=== PATIENT | female | born 1945 | race Caucasian/White ===

== ENCOUNTER 2020-09-19 07:58 | Outpatient (REF) | payer MEDICARE, SELFPAY | END 2020-09-19 07:59 | disposition home or self-care (01) | LOC: HO.MDS 07:58 | PROVIDERS: PCP Internal Medicine; Visit Provider Hospitalist | DX: D80.1 Nonfamilial hypogammaglobulinemia (principal) | CPT/HCPCS: 96372; J1572; J2920; J2930; Q0163 ==

== ENCOUNTER → 2020-09-25 15:18 | Outpatient (BNVA) | payer MEDICARE, SELFPAY | PROVIDERS: Visit Provider Hospitalist | DX: M30.1 Polyarteritis with lung involvement [Churg-Strauss] (principal); D72.18 Eosinophilia in diseases classified elsewhere; D80.1 Nonfamilial hypogammaglobulinemia; R21 Rash and other nonspecific skin eruption; J47.9 Bronchiectasis, uncomplicated; J44.9 Chronic obstructive pulmonary disease, unspecified | CPT/HCPCS: 99205; 99212 ==

== ENCOUNTER → 2020-10-31 10:52 | Outpatient (BNVA) | payer MEDICARE, SELFPAY | PROVIDERS: PCP Internal Medicine; Referring Provider Internal Medicine; Visit Provider Hospitalist | DX: J47.9 Bronchiectasis, uncomplicated (principal); R21 Rash and other nonspecific skin eruption; D80.1 Nonfamilial hypogammaglobulinemia; M30.1 Polyarteritis with lung involvement [Churg-Strauss] | CPT/HCPCS: 99212 ==

== ENCOUNTER → 2020-11-27 10:06 | Outpatient (BNVA) | payer MEDICARE, SELFPAY | PROVIDERS: PCP Internal Medicine; Visit Provider Hospitalist | DX: Z76.89 Persons encountering health services in other specified circumstances (principal) | CPT/HCPCS: Q3014 ==

== ENCOUNTER 2020-11-30 08:49 | Outpatient (REF) | payer MEDICARE, SELFPAY | END 2020-11-30 08:50 | disposition home or self-care (01) | LOC: HO.MDS 08:49 | PROVIDERS: Visit Provider Hospitalist | DX: D80.1 Nonfamilial hypogammaglobulinemia (principal) | CPT/HCPCS: 96365; 96366; 96375; J1569; J2930; Q0163 ==

== ENCOUNTER → 2020-12-19 14:36 | Outpatient (BNVA) | payer MEDICARE, SELFPAY | PROVIDERS: PCP Internal Medicine; Visit Provider Hospitalist | DX: D80.1 Nonfamilial hypogammaglobulinemia (principal); D72.18 Eosinophilia in diseases classified elsewhere; M30.1 Polyarteritis with lung involvement [Churg-Strauss] | CPT/HCPCS: 99212 ==

== ENCOUNTER 2020-12-28 08:46 | Outpatient (REF) | payer MEDICARE, SELFPAY | END 2020-12-28 08:47 | disposition home or self-care (01) | LOC: HO.MDS 08:46 | PROVIDERS: PCP Internal Medicine; Visit Provider Hospitalist | DX: D80.1 Nonfamilial hypogammaglobulinemia (principal) | CPT/HCPCS: 96360; 96365; 96366; 96375; J1569; J2920; Q0163 ==

== ENCOUNTER 2021-01-26 08:53 | Outpatient (REF) | payer MEDICARE, SELFPAY | END 2021-01-26 08:54 | disposition home or self-care (01) | LOC: HO.MDS 08:53 | PROVIDERS: PCP Internal Medicine; Visit Provider Hospitalist | DX: D80.1 Nonfamilial hypogammaglobulinemia (principal) | CPT/HCPCS: 96365; 96366; 96375; 96413; 96415; J1569; J2930; Q0163 ==

== ENCOUNTER 2021-02-01 14:05 | Outpatient (REF) | payer MEDICARE, SELFPAY | END 2021-02-01 14:06 | disposition home or self-care (01) | LOC: HO.LNP 14:05 | PROVIDERS: PCP Internal Medicine; Visit Provider Hospitalist | DX: J44.9 Chronic obstructive pulmonary disease, unspecified (principal); J47.0 Bronchiectasis with acute lower respiratory infection; M30.1 Polyarteritis with lung involvement [Churg-Strauss]; D72.18 Eosinophilia in diseases classified elsewhere; D80.1 Nonfamilial hypogammaglobulinemia; Z79.52 Long term (current) use of systemic steroids | CPT/HCPCS: 87070; 87205; 99212 ==

== ENCOUNTER 2021-02-28 10:19 | Day surgery (SDC) | payer MEDICARE, SELFPAY ==
--- NOTE | 2021-02-27 10:21 | P.CONAN_ITS ---
Documented by User: Melisa Kaylah 02/27/21 10:26 HPI - Anesthesia Eval Consult details Narrative: 75yo F for Bronchoscopy Fiberoptic Prednisone daily PMFSH Active Problems Active Problems: All Active Problems (Updated 02/01/21 @ 22:38 by Marquis Morel MD) COPD (chronic obstructive pulmonary disease) (Acute) Bronchiectasis (Acute) Rash (Acute) Hypogammaglobulinemia (Acute) CSS (Churg-James syndrome) (Acute) Past Medical History Medical History (Updated 02/28/21 @ 12:21 by Julisa Guerra) Bronchiectasis COPD (chronic obstructive pulmonary disease) CSS (Churg-James syndrome) Hypogammaglobulinemia Rash Status post administration of all doses of COVID-19 vaccine series Social History Social History (Updated 09/25/20 @ 15:29 by Samreen Walton MA) Smoking Status: Never smoker Use of substances other than those prescribed or required for medical reasons: No Have you been hit, kicked, punched, or otherwise hurt by someone within the past year? If so, by whom?: No Advance Directives: No Advance Directives Information Provided: Yes Advance Directives Date on File: 09/19/20 Meds Allergies Allergy/AdvReac Type Severity Reaction Status Date / Time Benzodiazepines Allergy Intermediate ANXIETY Verified 02/28/21 10:26 [BENZODIAZEPINES] levofloxacin [From LEVAQUIN] Allergy Intermediate PAIN IN Verified 02/28/21 10: 26 LEGS AND JOINTS clonazepam Allergy Mild Hallucinati Verified 02/28/21 10:26 ons lorazepam Allergy Mild Hallucinati Verified 02/28/21 10:26 ons olanzapine [Zyprexa] Allergy Mild Cough Verified 02/28/21 10:26 Penicillins [PENICILLINS] Allergy Mild Hives Verified 02/28/21 10:26 Sulfa (Sulfonamide Allergy Mild Sensivity Verified 02/28/21 10:26 Antibiotics) [SULFA (SULFONAMIDE ANTIBIOTICS)] MSG Allergy Mild Upset Uncoded 02/28/21 10:26 stomach Home Medications Medication Instructions Recorded Confirmed Last Taken Type albuterol sulfate mg INHALATION Q6H PRN 09/25/20 02/01/21 Unknown History allopurinol 100 mg tablet mg PO 09/25/20 02/01/21 Unknown History amlodipine 5 mg tablet 7.5 mg PO DAILY 09/25/20 02/01/21 Unknown History carvedilol 12.5 mg tablet 6.25 mg PO BID 09/25/20 02/01/21 Unknown History pantoprazole 40 mg tablet,delayed 40 mg PO DAILY 09/25/20 02/01/21 Unknown History release prednisone 5 mg tablet 15 mg PO DAILY 09/25/20 02/01/21 Unknown History nystatin 100,000 unit/mL oral 5 ml PO QID 02/01/21 02/01/21 Unknown History suspension Exam Exam Date and Time: February 27, 2021 1021 Pertinent Lab Results Pertinent Lab Results: Laboratory Tests 06/03/20 06/03/20 16:20 16:20 WBC 7.8 Hgb 9.2 L Hct 28.8 L Plt Count 166 D Sodium 136 Potassium 3.6 D Chloride 104 BUN 28 H Creatinine 1.37 Narrative Narrative: EKG 05/2020 NSR @ 63 Assessment and Plan Assessment Anesthesia Assessment: Chart Reviewed Documented by User: Julisa Guerra 02/28/21 12:22 [facility] Past Medical History Medical History (Updated 02/28/21 @ 12:21 by Julisa Guerra) Bronchiectasis COPD (chronic obstructive pulmonary disease) CSS (Churg-James syndrome) Hypogammaglobulinemia Rash Status post administration of all doses of COVID-19 vaccine series Family History Family history of problems with anesthesia: No Surgical History History of Problems with Anesthesia: No Social History Social History (Updated 09/25/20 @ 15:29 by Samreen Walton MA) Smoking Status: Never smoker Use of substances other than those prescribed or required for medical reasons: No Have you been hit, kicked, punched, or otherwise hurt by someone within the past year? If so, by whom?: No Advance Directives: No Advance Directives Information Provided: Yes Advance Directives Date on File: 09/19/20 Meds Allergies Allergy/AdvReac Type Severity Reaction Status Date / Time Benzodiazepines Allergy Intermediate ANXIETY Verified 02/28/21 10:26 [BENZODIAZEPINES] levofloxacin [From LEVAQUIN] Allergy Intermediate PAIN IN Verified 02/28/21 10:26 LEGS AND JOINTS clonazepam Allergy Mild Hallucinati Verified 02/28/21 10:26 ons lorazepam Allergy Mild Hallucinati Verified 02/28/21 10:26 ons olanzapine [Zyprexa] Allergy Mild Cough Verified 02/28/21 10:26 Penicillins [PENICILLINS] Allergy Mild Hives Verified 02/28/21 10:26 Sulfa (Sulfonamide Allergy Mild Sensivity Verified 02/28/21 10:26 Antibiotics) [SULFA (SULFONAMIDE ANTIBIOTICS)] MSG Allergy Mild Upset Uncoded 02/28/21 10:26 stomach Home Medications Medication Instructions Recorded Confirmed Last Taken Type albuterol sulfate mg INHALATION Q6H PRN 09/25/20 02/01/21 Unknown History allopurinol 100 mg tablet mg PO 09/25/20 02/01/21 Unknown History amlodipine 5 mg tablet 7.5 mg PO DAILY 09/25/20 02/01/21 Unknown History carvedilol 12.5 mg tablet 6.25 mg PO BID 09/25/20 02/01/21 Unknown History pantoprazole 40 mg tablet,delayed 40 mg PO DAILY 09/25/20 02/01/21 Unknown History release prednisone 5 mg tablet 15 mg PO DAILY 09/25/20 02/01/21 Unknown History nystatin 100,000 unit/mL oral 5 ml PO QID 02/01/21 02/01/21 Unknown History suspension Exam Height,Weight and Vital Signs: Vital Signs Temp Pulse Resp BP Pulse Ox 02/28/21 10:59 96.9 F 91 20 136/74 97 Airway Mallampati Class: II TM Dist: >3cm Neck ROM: Full Heart: RRR Lungs: Clear ? diminished left Assessment and Plan Assessment Anesthesia Assessment: Anesthesia Plan Discussed and Chart Reviewed Final Anesthetic Review NPO: Yes ASA Class: III Final Preanesthetic Review: No Changes in Pt Med Stat, Meds/Allgs Chart Reviewed, Consent Obtained/Reviewed and Anes Risks/Benef Reviewed Patient Risk: Intermediate Procedure Risk: Low Assessment/Block/Sedation in SS: Assess/Block/Sedation-SS Anesthetic Plan Anesthetic Plan: GA Disposition: Standard PACU
[2021-02-27 11:55] VITALS: BMI 32.7
[2021-02-28] VITALS (8 sets, daily range): BP systolic 89–136; BP diastolic 41–74; PULSE 69–91; RESP 12–20; TEMP 36.1–36.5; O2SAT 96–100
[2021-02-28] MEDS: Lactated Ringers 1,000 ML 100 ML IVCONT (11:00)
--- NOTE | 2021-02-28 11:46 | MHC.SHP ---
Pre-Procedural Eval Section B Chief Complaint: Bronchiectasis Allergies: Allergies Allergy/AdvReac Type Severity Reaction Status Date / Time Benzodiazepines Allergy Intermediate ANXIETY Verified 02/28/21 10:26 [BENZODIAZEPINES] levofloxacin [From LEVAQUIN] Allergy Intermediate PAIN IN Verified 02/28/21 10:26 LEGS AND JOINTS clonazepam Allergy Mild Hallucinati Verified 02/28/21 10:26 ons lorazepam Allergy Mild Hallucinati Verified 02/28/21 10:26 ons olanzapine [Zyprexa] Allergy Mild Cough Verified 02/28/21 10:26 Penicillins [PENICILLINS] Allergy Mild Hives Verified 02/28/21 10:26 Sulfa (Sulfonamide Allergy Mild Sensivity Verified 02/28/21 10:26 Antibiotics) [SULFA (SULFONAMIDE ANTIBIOTICS)] MSG Allergy Mild Upset Uncoded 02/28/21 10:26 stomach Plan I have reviewed the history and physical and performed a pertinent physical examination on my patient. No changes have occurred unless specified.
--- NOTE | 2021-02-28 12:31 | PM.OP ---
Brief Operative Note Date of Service: 02/28/21 Pre-op diagnosis: bronchiectasis Post-op diagnosis: other (pneumonia, TBM) Procedure: Bronchoscopy with washings and brushings Surgeon: Marquis Morel MD Anesthesia: GLMA Estimated blood loss (mL): 0 Pathology: none sent Condition: stable Disposition: same day
--- NOTE | 2021-03-01 00:05 | OP_ITS ---
SURGEON: Marquis Morel MD PREOPERATIVE DIAGNOSIS: Bronchiectasis. POSTOPERATIVE DIAGNOSIS: PROCEDURE PERFORMED: Bronchoscopy with brushings and washings. ESTIMATED BLOOD LOSS: COMPLICATIONS: ANESTHESIA: The patient had LMA. ASSISTANTS: SPECIMENS: POSTOPERATIVE DIAGNOSES: Right upper lobe pneumonia and severe tracheobronchomalacia bronchiectasis. DESCRIPTION OF PROCEDURE: After the patient was adequately sedated the flexible digital bronchoscope was inserted via the LMA to the level of the vocal cords. The vocal cords did move symmetrically to the midline without any lesions or masses. After instilling additional lidocaine, the bronchoscope was then passed through vocal cords to the level of the trachea. Tracheal mucosa demonstrated some erythema. Also, had moderate amount of purulent secretions and it was also pretty around mid to distal part of the trachea, there was significant that could not be appreciated the first time because she was intubated. After instilling additional lidocaine, the bronchoscope was then navigated to the entire tracheobronchial tree. The patient did not have any endobronchial lesions or masses. She did have friable mucosa and had severe amount of purulent secretions from the right upper lobe and some less amount of purulent secretions throughout the airways. The bronchoscope again navigated to the right upper lobe, where a microscopic brush was introduced for microbiology specimens. Then, using saline, therapeutic suctioning was provided throughout the airways, especially in the right upper lobe. The washings were collected primarily from the right side to sent it to microbiology. There was a successful therapeutic cleaning of airways. No evidence of any bleeding or any aspiration, foreign bodies or endobronchial lesions. The bronchoscope was then removed. The total endoscopic time approximately 10 minutes. The patient tolerated the procedure well. Vital signs were stable throughout the procedure. The patient will go to the PACU to recover. INTERPRETATION: 1. Successful therapeutic cleaning of the airways. 2. Microscopic brush to the right upper lobe. 3. Bronchial washings from the right lung. MD CATHY Mary/DENIS / [id number]
== END 2021-02-28 14:15 | disposition home or self-care (01) ==
PROVIDERS: PCP Internal Medicine; Visit Provider Hospitalist
PROC: 0BJ08ZZ Inspection of Tracheobronchial Tree, Via Natural or Artificial Opening Endoscopic (ICD-10-PCS; CPT 31622; principal; 2021-02-28 12:00)
DX: J47.0 Bronchiectasis with acute lower respiratory infection (principal); M30.1 Polyarteritis with lung involvement [Churg-Strauss]; J41.1 Mucopurulent chronic bronchitis; J45.909 Unspecified asthma, uncomplicated; D72.18 Eosinophilia in diseases classified elsewhere; R21 Rash and other nonspecific skin eruption; Z79.52 Long term (current) use of systemic steroids; Z79.899 Other long term (current) drug therapy; Z88.0 Allergy status to penicillin; Z88.2 Allergy status to sulfonamides; Z88.8 Allergy status to other drugs, medicaments and biological substances; J18.9 Pneumonia, unspecified organism
CPT/HCPCS: 31623; 87071; 87102; 87106; 87116; 87205; J0171; J1100; J2250; J3010

== ENCOUNTER 2021-03-08 08:52 | Outpatient (REF) | payer MEDICARE, SELFPAY | END 2021-03-08 08:53 | disposition home or self-care (01) | LOC: HO.MDS 08:52 | PROVIDERS: PCP Internal Medicine; Visit Provider Hospitalist | DX: D80.1 Nonfamilial hypogammaglobulinemia (principal) | CPT/HCPCS: 96360; 96365; 96366; 96375; J1569; J2930; Q0163 ==

== ENCOUNTER → 2021-03-12 13:05 | Outpatient (BNVA) | payer MEDICARE, SELFPAY | PROVIDERS: PCP Internal Medicine; Visit Provider Hospitalist | DX: J41.1 Mucopurulent chronic bronchitis (principal); J47.0 Bronchiectasis with acute lower respiratory infection; R21 Rash and other nonspecific skin eruption; D80.1 Nonfamilial hypogammaglobulinemia; M30.1 Polyarteritis with lung involvement [Churg-Strauss]; D72.18 Eosinophilia in diseases classified elsewhere; K11.20 Sialoadenitis, unspecified | CPT/HCPCS: 99212 ==

== ENCOUNTER 2021-04-10 08:49 | Outpatient (REF) | payer MEDICARE, SELFPAY | END 2021-04-10 08:50 | disposition home or self-care (01) | LOC: HO.MDS 08:49 | PROVIDERS: PCP Internal Medicine; Visit Provider Hospitalist | DX: D80.1 Nonfamilial hypogammaglobulinemia (principal) | CPT/HCPCS: 96365; 96366; 96375; J1569; J2930; Q0163 ==

== ENCOUNTER → 2021-04-13 13:08 | Outpatient (BNVA) | payer MEDICARE, SELFPAY | PROVIDERS: PCP Internal Medicine; Visit Provider Hospitalist | DX: M30.1 Polyarteritis with lung involvement [Churg-Strauss] (principal); D72.18 Eosinophilia in diseases classified elsewhere; D80.1 Nonfamilial hypogammaglobulinemia; J47.0 Bronchiectasis with acute lower respiratory infection; J41.1 Mucopurulent chronic bronchitis | CPT/HCPCS: 99212 ==

== ENCOUNTER 2021-06-08 08:57 | Outpatient (REF) | payer MEDICARE, SELFPAY | END 2021-06-08 08:58 | disposition home or self-care (01) | LOC: HO.MDS 08:57 | PROVIDERS: PCP Internal Medicine; Visit Provider Hospitalist | DX: D80.1 Nonfamilial hypogammaglobulinemia (principal) | CPT/HCPCS: 96360; 96365; 96366; 96374; 96375; J1569; J2930; Q0163 ==

== ENCOUNTER → 2021-06-15 13:27 | Outpatient (BNVA) | payer MEDICARE, SELFPAY | PROVIDERS: PCP Internal Medicine; Visit Provider Hospitalist | DX: J44.1 Chronic obstructive pulmonary disease with (acute) exacerbation (principal); J47.0 Bronchiectasis with acute lower respiratory infection; R21 Rash and other nonspecific skin eruption; D80.1 Nonfamilial hypogammaglobulinemia; M30.1 Polyarteritis with lung involvement [Churg-Strauss]; D72.18 Eosinophilia in diseases classified elsewhere | CPT/HCPCS: 99212 ==

== ENCOUNTER 2021-07-25 14:22 | Outpatient (REF) | payer MEDICARE, SELFPAY ==
[2021-07-27 14:07] LABS: Immunoglobulin G Subclass 1 365 mg/dL (382-929); Immunoglobulin G Subclass 2 182 mg/dL (241-700); Immunoglobulin G Subclass 3 25 mg/dL (22-178); Immunoglobulin G Subclass 4 9.3 mg/dL (4-86); Immunoglobulin G Total 612 mg/dL (600-1540)
== END 2021-07-25 14:23 | disposition home or self-care (01) ==
LOC: HO.LAB 14:22
PROVIDERS: PCP Internal Medicine; Visit Provider Hospitalist
DX: D80.1 Nonfamilial hypogammaglobulinemia (principal)
CPT/HCPCS: 36415; 82784

== ENCOUNTER → 2021-08-14 15:22 | Outpatient (BNVA) | payer MEDICARE, SELFPAY | PROVIDERS: PCP Internal Medicine; Visit Provider Hospitalist | DX: J41.1 Mucopurulent chronic bronchitis (principal); J47.0 Bronchiectasis with acute lower respiratory infection; D80.1 Nonfamilial hypogammaglobulinemia; D72.18 Eosinophilia in diseases classified elsewhere; M30.1 Polyarteritis with lung involvement [Churg-Strauss] | CPT/HCPCS: 99212 ==

== ENCOUNTER 2021-09-04 08:58 | Outpatient (REF) | payer MEDICARE, SELFPAY | END 2021-09-04 08:59 | disposition home or self-care (01) | LOC: HO.MDS 08:58 | PROVIDERS: PCP Internal Medicine; Visit Provider Hospitalist | DX: D80.1 Nonfamilial hypogammaglobulinemia (principal) | CPT/HCPCS: 96360; 96365; 96366; 96375; J1569; J2930; Q0163 ==

== ENCOUNTER → 2021-09-14 14:09 | Outpatient (BNVA) | payer MEDICARE, SELFPAY | PROVIDERS: PCP Internal Medicine; Visit Provider Hospitalist | DX: J41.1 Mucopurulent chronic bronchitis (principal); J47.0 Bronchiectasis with acute lower respiratory infection; D80.1 Nonfamilial hypogammaglobulinemia; M30.1 Polyarteritis with lung involvement [Churg-Strauss]; D72.18 Eosinophilia in diseases classified elsewhere | CPT/HCPCS: 99202 ==

== ENCOUNTER 2021-10-11 09:09 | Outpatient (REF) | payer MEDICARE, SELFPAY | END 2021-10-11 09:10 | disposition home or self-care (01) | LOC: HO.MDS 09:09 | PROVIDERS: PCP Internal Medicine; Visit Provider Hospitalist | DX: D80.1 Nonfamilial hypogammaglobulinemia (principal) | CPT/HCPCS: 96365; 96366; J1569; Q0163 ==

== ENCOUNTER → 2021-11-09 13:52 | Outpatient (BNVA) | payer MEDICARE, SELFPAY | PROVIDERS: PCP Internal Medicine; Visit Provider Hospitalist | DX: J41.1 Mucopurulent chronic bronchitis (principal); M30.1 Polyarteritis with lung involvement [Churg-Strauss]; J47.0 Bronchiectasis with acute lower respiratory infection; D80.1 Nonfamilial hypogammaglobulinemia; D72.18 Eosinophilia in diseases classified elsewhere | CPT/HCPCS: 99212 ==

== ENCOUNTER 2021-11-16 08:59 | Outpatient (REF) | payer MEDICARE, SELFPAY | END 2021-11-16 09:00 | disposition home or self-care (01) | LOC: HO.MDS 08:59 | PROVIDERS: PCP Internal Medicine; Visit Provider Hospitalist | DX: D80.1 Nonfamilial hypogammaglobulinemia (principal) | CPT/HCPCS: 96360; 96365; 96366; 96375; J1569; J2930; Q0163 ==

== ENCOUNTER 2021-12-19 09:27 | Outpatient (REF) | payer MEDICARE, SELFPAY | END 2021-12-19 09:28 | disposition home or self-care (01) | LOC: HO.MDS 09:27 | PROVIDERS: PCP Internal Medicine; Visit Provider Hospitalist | DX: D80.1 Nonfamilial hypogammaglobulinemia (principal) | CPT/HCPCS: 96365; 96366; J1569; J2930; Q0163 ==

== ENCOUNTER 2022-01-25 08:58 | Outpatient (REF) | payer MEDICARE, SELFPAY | END 2022-01-25 08:59 | disposition home or self-care (01) | LOC: HO.MDS 08:58 | PROVIDERS: PCP Internal Medicine; Visit Provider Hospitalist | DX: D80.1 Nonfamilial hypogammaglobulinemia (principal) | CPT/HCPCS: 96361; 96365; 96366; 96375; J1569; J2930; Q0163 ==

== ENCOUNTER → 2022-02-08 14:21 | Outpatient (BNVA) | payer MEDICARE, SELFPAY | PROVIDERS: PCP Internal Medicine; Visit Provider Hospitalist | DX: J41.1 Mucopurulent chronic bronchitis (principal); J47.0 Bronchiectasis with acute lower respiratory infection; D80.1 Nonfamilial hypogammaglobulinemia; D72.18 Eosinophilia in diseases classified elsewhere; M30.1 Polyarteritis with lung involvement [Churg-Strauss] | CPT/HCPCS: 99212 ==

== ENCOUNTER 2022-02-27 09:00 | Outpatient (REF) | payer MEDICARE, SELFPAY | END 2022-02-27 09:01 | disposition home or self-care (01) | LOC: HO.MDS 09:00 | PROVIDERS: PCP Internal Medicine; Visit Provider Hospitalist | DX: D80.1 Nonfamilial hypogammaglobulinemia (principal) | CPT/HCPCS: 96360; 96365; 96366; 96375; J1569; J2930; Q0163 ==

== ENCOUNTER 2022-03-22 14:18 | Outpatient (REF) | payer MEDICARE, SELFPAY | END 2022-03-22 14:19 | disposition home or self-care (01) | LOC: HO.LNP 14:18 | PROVIDERS: Visit Provider Internal Medicine Pulmonary Disease | DX: J47.0 Bronchiectasis with acute lower respiratory infection (principal) | CPT/HCPCS: 87070; 87205 ==

== ENCOUNTER → 2022-03-28 14:17 | Outpatient (BNVA) | payer MEDICARE, SELFPAY | PROVIDERS: PCP Internal Medicine; Visit Provider Hospitalist | DX: J41.1 Mucopurulent chronic bronchitis (principal); J47.0 Bronchiectasis with acute lower respiratory infection; D80.1 Nonfamilial hypogammaglobulinemia; M30.1 Polyarteritis with lung involvement [Churg-Strauss]; D72.18 Eosinophilia in diseases classified elsewhere | CPT/HCPCS: 99212 ==

== ENCOUNTER 2022-04-03 09:07 | Outpatient (REF) | payer MEDICARE, SELFPAY | END 2022-04-03 09:08 | disposition home or self-care (01) | LOC: HO.MDS 09:07 | PROVIDERS: PCP Internal Medicine; Visit Provider Hospitalist | DX: D80.1 Nonfamilial hypogammaglobulinemia (principal) | CPT/HCPCS: 96360; 96365; 96366; 96375; J1569; J2930; Q0163 ==

== ENCOUNTER 2022-04-10 12:01 | Outpatient (REF) | payer MEDICARE, SELFPAY | END 2022-04-10 12:02 | disposition home or self-care (01) | LOC: HO.LNP 12:01 | PROVIDERS: Visit Provider Hospitalist | DX: J47.0 Bronchiectasis with acute lower respiratory infection (principal) | CPT/HCPCS: 87070; 87205 ==

== ENCOUNTER 2022-04-12 15:14 | Outpatient (REF) | payer MEDICARE, SELFPAY | END 2022-04-12 15:15 | disposition home or self-care (01) | LOC: HO.LNP 15:14 | PROVIDERS: Visit Provider Hospitalist | DX: J41.1 Mucopurulent chronic bronchitis (principal) | CPT/HCPCS: 87070; 87077; 87185; 87205 ==

== ENCOUNTER 2022-05-08 08:59 | Outpatient (REF) | payer MEDICARE, SELFPAY | END 2022-05-08 09:00 | disposition home or self-care (01) | LOC: HO.MDS 08:59 | PROVIDERS: PCP Internal Medicine; Visit Provider Hospitalist | DX: D80.1 Nonfamilial hypogammaglobulinemia (principal) | CPT/HCPCS: 96365; 96366; 96375; J1569; J2930; Q0163 ==

== ENCOUNTER 2022-05-16 15:18 | Outpatient (REF) | payer MEDICARE, SELFPAY ==
[2022-05-18 04:47] LABS: Lyme Abs Screen <0.90 index
[2022-05-19 11:26] LABS: Antibody to SS-A Antigen <1.0 NEG AI (<1.0 NEG); Antibody to SS-B Antigen <1.0 NEG AI (<1.0 NEG)
[2022-05-20 15:06] LABS: Immunoglobulin G Subclass 1 714 mg/dL (382-929); Immunoglobulin G Subclass 2 448 mg/dL (241-700); Immunoglobulin G Subclass 3 52 mg/dL (22-178); Immunoglobulin G Total 1275 mg/dL (600-1540)
== END 2022-05-16 15:19 | disposition home or self-care (01) ==
LOC: HO.LAB 15:18
PROVIDERS: PCP Internal Medicine; Visit Provider Hospitalist
DX: D80.1 Nonfamilial hypogammaglobulinemia (principal); K11.20 Sialoadenitis, unspecified; M30.1 Polyarteritis with lung involvement [Churg-Strauss]; T14.8XXA Other injury of unspecified body region, initial encounter; J82.83 Eosinophilic asthma; J41.1 Mucopurulent chronic bronchitis; J47.0 Bronchiectasis with acute lower respiratory infection; J02.9 Acute pharyngitis, unspecified
CPT/HCPCS: 36415; 82784; 86235; 86617; 86618; 99212

== ENCOUNTER → 2022-06-17 14:53 | Outpatient (BNVA) | payer MEDICARE, SELFPAY | PROVIDERS: PCP Internal Medicine; Visit Provider Hospitalist | DX: J41.1 Mucopurulent chronic bronchitis (principal); J47.0 Bronchiectasis with acute lower respiratory infection; D80.1 Nonfamilial hypogammaglobulinemia; D72.18 Eosinophilia in diseases classified elsewhere; M30.1 Polyarteritis with lung involvement [Churg-Strauss] | CPT/HCPCS: 99212 ==

== ENCOUNTER 2022-07-16 12:42 | Outpatient (REF) | payer MEDICARE, SELFPAY ==
[2022-07-18 14:36] LABS: Immunoglobulin G Subclass 1 324 mg/dL (382-929); Immunoglobulin G Subclass 2 171 mg/dL (241-700); Immunoglobulin G Subclass 3 25 mg/dL (22-178); Immunoglobulin G Subclass 4 7.9 mg/dL (4-86); Immunoglobulin G Total 563 mg/dL (600-1540)
== END 2022-07-16 12:43 | disposition home or self-care (01) ==
LOC: HO.LAB 12:42
PROVIDERS: PCP Internal Medicine; Visit Provider Hospitalist
DX: D80.1 Nonfamilial hypogammaglobulinemia (principal)
CPT/HCPCS: 36415; 82784

== ENCOUNTER 2022-07-24 10:30 | Outpatient (REF) | payer MEDICARE, SELFPAY | END 2022-07-24 10:31 | disposition home or self-care (01) | LOC: HO.MDS 10:30 | PROVIDERS: Visit Provider Hospitalist | DX: D80.1 Nonfamilial hypogammaglobulinemia (principal) | CPT/HCPCS: 96365; 96366; 96375; J1569; J2930; Q0163 ==

== ENCOUNTER → 2022-08-01 10:24 | Outpatient (BNVA) | payer MEDICARE, SELFPAY | PROVIDERS: PCP Internal Medicine; Visit Provider Hospitalist | DX: J47.0 Bronchiectasis with acute lower respiratory infection (principal); D80.1 Nonfamilial hypogammaglobulinemia; M30.1 Polyarteritis with lung involvement [Churg-Strauss]; D72.18 Eosinophilia in diseases classified elsewhere | CPT/HCPCS: 99212 ==

== ENCOUNTER → 2022-08-23 10:55 | Outpatient (BNVA) | payer MEDICARE, SELFPAY | PROVIDERS: PCP Internal Medicine; Visit Provider Hospitalist | DX: J47.0 Bronchiectasis with acute lower respiratory infection (principal); D80.1 Nonfamilial hypogammaglobulinemia; M30.1 Polyarteritis with lung involvement [Churg-Strauss]; D72.18 Eosinophilia in diseases classified elsewhere | CPT/HCPCS: 99212 ==

== ENCOUNTER → 2022-08-26 14:49 | Outpatient (BNVA) | payer MEDICARE, SELFPAY | PROVIDERS: PCP Internal Medicine; Visit Provider Internal Medicine | DX: J32.9 Chronic sinusitis, unspecified (principal); J02.9 Acute pharyngitis, unspecified; J47.0 Bronchiectasis with acute lower respiratory infection; D80.1 Nonfamilial hypogammaglobulinemia; M30.1 Polyarteritis with lung involvement [Churg-Strauss]; D72.18 Eosinophilia in diseases classified elsewhere | CPT/HCPCS: 99202 ==

== ENCOUNTER 2022-09-10 10:23 | Outpatient (REF) | payer MEDICARE, SELFPAY | END 2022-09-10 10:24 | disposition home or self-care (01) | LOC: HO.MDS 10:23 | PROVIDERS: Visit Provider Hospitalist | DX: D80.1 Nonfamilial hypogammaglobulinemia (principal) | CPT/HCPCS: 96365; 96366; 96375; J1569; J2930; Q0163 ==

== ENCOUNTER → 2022-09-12 14:33 | Outpatient (BNVA) | payer MEDICARE, SELFPAY | PROVIDERS: PCP Internal Medicine; Visit Provider Hospitalist | DX: K11.20 Sialoadenitis, unspecified (principal); M30.1 Polyarteritis with lung involvement [Churg-Strauss]; W57.XXXA Bitten or stung by nonvenomous insect and other nonvenomous arthropods, initial encounter; J44.0 Chronic obstructive pulmonary disease with (acute) lower respiratory infection; D80.1 Nonfamilial hypogammaglobulinemia | CPT/HCPCS: 99202; 99212 ==

== ENCOUNTER 2022-10-21 09:54 | Outpatient (REF) | payer MEDICARE, SELFPAY | END 2022-10-21 09:55 | disposition home or self-care (01) | LOC: HO.MDS 09:54 | PROVIDERS: Visit Provider Hospitalist | DX: D80.1 Nonfamilial hypogammaglobulinemia (principal) | CPT/HCPCS: 96365; 96366; 96375; J1569; J2920 ==

== ENCOUNTER → 2022-10-23 10:22 | Outpatient (BNVA) | payer MEDICARE, SELFPAY | PROVIDERS: PCP Internal Medicine; Visit Provider Hospitalist | DX: J44.0 Chronic obstructive pulmonary disease with (acute) lower respiratory infection (principal); J47.0 Bronchiectasis with acute lower respiratory infection; M30.1 Polyarteritis with lung involvement [Churg-Strauss]; D72.18 Eosinophilia in diseases classified elsewhere; D80.1 Nonfamilial hypogammaglobulinemia; Z79.52 Long term (current) use of systemic steroids; Z79.899 Other long term (current) drug therapy | CPT/HCPCS: 99212 ==

== ENCOUNTER 2023-02-07 09:57 | Outpatient (REF) | payer MEDICARE, SELFPAY | END 2023-02-07 09:58 | disposition home or self-care (01) | LOC: HO.MDS 09:57 | PROVIDERS: Visit Provider Hospitalist | DX: D80.1 Nonfamilial hypogammaglobulinemia (principal) | CPT/HCPCS: 96365; 96366; 96375; J1569; J2930 ==

== ENCOUNTER → 2023-02-11 10:39 | Outpatient (BNVA) | payer MEDICARE, SELFPAY | PROVIDERS: PCP Internal Medicine; Visit Provider Hospitalist | DX: J47.0 Bronchiectasis with acute lower respiratory infection (principal); D80.1 Nonfamilial hypogammaglobulinemia; M30.1 Polyarteritis with lung involvement [Churg-Strauss]; D72.18 Eosinophilia in diseases classified elsewhere; J32.9 Chronic sinusitis, unspecified; Z79.52 Long term (current) use of systemic steroids | CPT/HCPCS: 99212 ==

== ENCOUNTER 2023-03-21 10:00 | Outpatient (REF) | payer MEDICARE, SELFPAY | END 2023-03-21 10:01 | disposition home or self-care (01) | LOC: HO.MDS 10:00 | PROVIDERS: Visit Provider Hospitalist | DX: D80.1 Nonfamilial hypogammaglobulinemia (principal) | CPT/HCPCS: 96361; 96365; 96366; 96375; J1569; J2930 ==

== ENCOUNTER 2023-05-02 09:30 | Outpatient (REF) | payer MEDICARE, SELFPAY | END 2023-05-02 09:31 | disposition home or self-care (01) | LOC: HO.MDS 09:30 | PROVIDERS: Visit Provider Hospitalist | DX: D80.1 Nonfamilial hypogammaglobulinemia (principal) | CPT/HCPCS: 96365; 96366; 96375; J1569; J2930 ==

== ENCOUNTER → 2023-05-14 11:09 | Outpatient (BNVA) | payer MEDICARE, SELFPAY | PROVIDERS: PCP Internal Medicine; Visit Provider Hospitalist | DX: J44.0 Chronic obstructive pulmonary disease with (acute) lower respiratory infection (principal); J47.0 Bronchiectasis with acute lower respiratory infection; J32.9 Chronic sinusitis, unspecified; D80.1 Nonfamilial hypogammaglobulinemia; M30.1 Polyarteritis with lung involvement [Churg-Strauss]; D72.18 Eosinophilia in diseases classified elsewhere | CPT/HCPCS: 99212 ==

== ENCOUNTER 2023-06-13 09:27 | Outpatient (REF) | payer MEDICARE, SELFPAY | END 2023-06-13 09:28 | disposition home or self-care (01) | LOC: HO.MDS 09:27 | PROVIDERS: Visit Provider Hospitalist | DX: D80.1 Nonfamilial hypogammaglobulinemia (principal) | CPT/HCPCS: 96365; 96366; 96375; J1569; J2930 ==

== ENCOUNTER 2023-07-04 11:01 | Outpatient (REF) | payer MEDICARE, SELFPAY ==
--- NOTE | ~2023-07-04 | XR_ITS ---
EXAMINATION: XR LUMBOSACRAL SPINE WITH OBLIQUES CLINICAL INFORMATION: Pain COMPARISON: None available. TECHNIQUE: AP, both oblique, and lateral views of the lumbar spine. Lateral view of the lumbosacral junction. FINDINGS: Minor scoliosis convex left. Clips within the upper pelvis noted consistent with previous surgery. Probable tiny stones overlying the left renal silhouette versus vascular calcifications. No spondylolysis or subluxation. Marked narrowing of the disc spaces most notable at L5-S1. Generalized endplate spurring. Atherosclerotic calcifications of the abdominal aorta without focal dilatation. XR/XR lumbar spine 4V min IMPRESSION: No acute findings. Degenerative disc disease most pronounced at L5-S1 as above.
== END 2023-07-04 11:02 | disposition home or self-care (01) ==
LOC: HO.XRAY 11:01
PROVIDERS: PCP Internal Medicine; Visit Provider Nurse Practitioner Family
DX: M47.26 Other spondylosis with radiculopathy, lumbar region (principal); M51.36 Other intervertebral disc degeneration, lumbar region; G62.9 Polyneuropathy, unspecified
CPT/HCPCS: 72110; 99202

== ENCOUNTER 2023-07-04 11:01 | Outpatient (AMB) | payer MEDICARE, SELFPAY ==
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
[2023-07-04 11:10] VITALS: BP 146/75; PULSE 91; O2SAT 95; BMI 32.0
== END 2023-07-04 11:42 | disposition home or self-care (01) ==
PROVIDERS: PCP Internal Medicine; Visit Provider Nurse Practitioner Family
DX: M47.816 Spondylosis without myelopathy or radiculopathy, lumbar region (principal); M54.16 Radiculopathy, lumbar region; M51.36 Other intervertebral disc degeneration, lumbar region
CPT/HCPCS: 99204

== ENCOUNTER 2023-07-23 09:31 | Outpatient (REF) | payer MEDICARE, SELFPAY ==
--- NOTE | ~2023-07-23 | MR_ITS ---
EXAMINATION: MR LUMBAR SPINE WITHOUT CONTRAST CLINICAL INFORMATION: Lumbar radiculopathy. Back pain. COMPARISON: X-ray lumbar spine dated 07/04/2023. TECHNIQUE: Multiplanar, multisequence imaging was obtained. FINDINGS: VERTEBRAL BODIES AND PARASPINAL STRUCTURES: The marrow signal is homogeneous. There is moderate disc space narrowing at the L1-L2 and L5-S1 levels. Significant right lateralized disc space narrowing evident with a mild retrosubluxation at the L3-L4 level. Bulky anterior endplate spurring is visible from the L3 through the L5 levels. There is a leftward curvature of the lumbar spine. No compression fractures are seen. Right-sided renal cysts partially visualized, for which no further imaging followup is indicated. The paraspinal soft tissues are normal. The imaged bony pelvis is unremarkable. CONUS MEDULLARIS AND CAUDA EQUINE: The distal cord, conus tip, and cauda equina nerve roots are normal. SPINAL LEVELS: L1-L2: Moderate loss of disc height with endplate spurring. Mild disc bulge and facet arthropathy without central canal stenosis or foraminal narrowing. L2-L3: Vktw-nl-lnjdtklg hypertrophic facet arthropathy and very mild disc bulge minimally encroaching upon the central canal. No focal disc protrusion or foraminal narrowing. L3-L4: Moderate loss of disc height with a diffuse disc bulge lateralized more so to the right side. Bulky endplate spurring also present, more so on the right side. Moderate hypertrophic facet degeneration. Dorsal epidural fat prominence distorts the posterior aspect of the thecal sac. Findings result in moderate central canal stenosis. Tzrsfykl-el-erhopr right foraminal narrowing due to facet spurring and bulging disc impressing upon the exiting right L3 nerve root. Mild left foraminal narrowing. L4-L5: Diffuse disc bulge and bulky endplate spurring anteriorly with moderate facet arthropathy and thickening of the ligamentum flavum. Ypnd-jw-azuvbfxl central canal stenosis and asymmetric narrowing of the left subarticular zone. Bulging disc and facet spurring result in mild right foraminal encroachment. Upacazlj-zo-tvemwu left foraminal narrowing. L5-S1: Significant loss of disc height lateralized more so to the left side with a broad-based disc bulge and endplate osteophyte formation. Mknvseqb-ip-rcakif facet arthropathy on the left side. No central canal stenosis. Severe left foraminal narrowing and compression of the exiting left L5 nerve root due to osseous spurring and bulging disc. Moderate right foraminal narrowing with bulging disc and endplate spurring contacting the exiting right L5 nerve root. MR/MR lumbar spine wo con IMPRESSION: 1. Leftward degenerative curvature of the lumbar spine with moderate multilevel lumbar spondylosis. Moderate central canal stenosis at the L3-L4 level with fbaduzxa-dy-uttseg right foraminal narrowing. Lateralized bulging disc results in mass effect upon the right L3 nerve root. 2. Wpci-pn-uynfxyyj central canal stenosis at the L4-L5 level with ugvhizii-zn-wpkckm left foraminal narrowing. 3. Severe left foraminal narrowing and compression of the left L5 nerve root due to hypertrophic bony changes and bulging disc at the L5-S1 level. Moderate right foraminal narrowing with bulging disc and endplate spurring contacting the right L5 nerve root.
== END 2023-07-23 09:32 | disposition home or self-care (01) ==
LOC: HO.MRI 09:31
PROVIDERS: PCP Internal Medicine; Visit Provider Nurse Practitioner Family
DX: M47.816 Spondylosis without myelopathy or radiculopathy, lumbar region (principal); M51.36 Other intervertebral disc degeneration, lumbar region; M54.16 Radiculopathy, lumbar region
CPT/HCPCS: 72148

== ENCOUNTER 2023-07-25 08:58 | Outpatient (REF) | payer MEDICARE, SELFPAY | END 2023-07-25 08:59 | disposition home or self-care (01) | LOC: HO.MDS 08:58 | PROVIDERS: Visit Provider Hospitalist | DX: D80.1 Nonfamilial hypogammaglobulinemia (principal) | CPT/HCPCS: 96365; 96366; 96375; J1569; J2930 ==

== ENCOUNTER 2023-08-14 13:19 | Outpatient (AMB) | payer MEDICARE, SELFPAY ==
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
[2023-08-14 13:26] VITALS: BP 141/72; PULSE 94; O2SAT 97; BMI 32.1
== END 2023-08-14 13:56 | disposition home or self-care (01) ==
PROVIDERS: PCP Internal Medicine; Visit Provider Nurse Practitioner Family
DX: M47.816 Spondylosis without myelopathy or radiculopathy, lumbar region (principal); M54.16 Radiculopathy, lumbar region; M51.36 Other intervertebral disc degeneration, lumbar region
CPT/HCPCS: 99214

== ENCOUNTER → 2023-08-14 13:19 | Outpatient (BNVA) | payer MEDICARE, SELFPAY | PROVIDERS: PCP Internal Medicine; Visit Provider Nurse Practitioner Family | DX: M47.26 Other spondylosis with radiculopathy, lumbar region (principal); M51.36 Other intervertebral disc degeneration, lumbar region | CPT/HCPCS: 99212 ==

== ENCOUNTER 2023-09-05 09:39 | Outpatient (REF) | payer MEDICARE, SELFPAY | END 2023-09-05 09:40 | disposition home or self-care (01) | LOC: HO.MDS 09:39 | PROVIDERS: Visit Provider Hospitalist | DX: D80.1 Nonfamilial hypogammaglobulinemia (principal) | CPT/HCPCS: 96365; 96366; 96368; 96375; J1569; J2930 ==

== ENCOUNTER 2023-09-09 11:11 | Outpatient (AMB) | payer MEDICARE, SELFPAY ==
[2023-09-09 11:17] VITALS: PULSE 89; O2SAT 95; BMI 31.6
--- NOTE | 2023-09-09 11:17 | MHC.OFFVIS ---
Intake Vital Signs 09/09/23 11:17 Height 5 ft 2 in Weight 173 lb BMI 31.6 Pulse 89 Pulse Source Pulse Oximeter Pulse Oximetry (%) 95 Oxygen Delivery Method Room Air Intake Visit Reasons: Cough Follow Up Cna Per Diem Required: No Allergies Benzodiazepines [BENZODIAZEPINES] Allergy (Intermediate, Verified 09/09/23 11:18) ANXIETY levofloxacin [From LEVAQUIN] Allergy (Intermediate, Verified 09/09/23 11:18) PAIN IN LEGS AND JOINTS clonazepam Allergy (Mild, Verified 09/09/23 11:18) Hallucinations lorazepam Allergy (Mild, Verified 09/09/23 11:18) Hallucinations olanzapine [Zyprexa] Allergy (Mild, Verified 09/09/23 11:18) Cough Penicillins [PENICILLINS] Allergy (Mild, Verified 09/09/23 11:18) Hives Sulfa (Sulfonamide Antibiotics) [SULFA (SULFONAMIDE ANTIBIOTICS)] Allergy (Mild, Verified 09/09/23 11:18) Sensivity MSG Allergy (Mild, Uncoded 09/09/23 11:18) Upset stomach HPI HPI Comments History of Present Illness Details The patient is a 78-year-old woman with a 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 The patient also has significant asthma with eosinophilia was treated with Nucala. She responded to the therapy for some time with good results but then stop responding. 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 She received 2 doses. The 1st dose she ended up with pneumonia and up in the hospital and then she received a 2nd dose she has not felt well. She complains of worsening shortness of breath and cough with mucus production. She has a hard time expectorating. She has been on prednisone. She had a sputum culture was positive for Pseudomonas. She was placed on a nebulized amikacin but then had a reaction which has a stop it. She was then admitted to the hospital for IV antibiotics. She was discharged from the hospital she still have feels a lot of shortness of breath. Still on a small dose of prednisone. Last night her cough and shortness of breath was significantly worsen and she thought she would have to go back to the hospital. This morning she feels a little better. She still has a hard time expectorating. Sounds like she has a croupy barky cough. Suggesting the possibility of tracheomalacia. The patient does not use CPAP. She does have daytime drowsiness and does have issues with headaches in the morning. She on needs to have a sleep study. As far CPT she uses a flutter valve. She will have a CT scan of the chest that I personally reviewed demonstrating significant bronchiectasis primarily at the bases with mucus plugging. She has failed flutter valve and also has had resistant organisms therefore will try to get her a percussion vest as soon as possible to improve her chest PT. She did have a CT scan of the chest consistent with sinusitis. Her x-ray did demonstrated haziness in the right base suggesting airspace disease. She was given a dose of aztreonam. Infectious Disease was consulted and did not feel strongly about admitting her to the hospital or starting aztreonam. I did call microbiology in order to aztreonam to her Pseudomonas sensitivity panel. Will monitor closely her symptoms. At this point will start her on azithromycin for the bronchiectasis. She was also on Bactrim however she had a bump on her creatinine from 1.5-1.8. Therefore I will hold off on the Bactrim and see how she does in the azithromycin for now. 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 In the meantime her IgG levels were significantly low. She has severe infections in the upper or lower respiratory tract and does require to start IgG therapies as well as possible. The patient is sedimentation rate still elevated at on her recent blood work of 75 she has ongoing symptoms bringing up the question if her vasculitis still active. She is going to be following up with [place] soon regarding additional rituximab or additional therapies for the ongoing vasculitis. The the bronchoscopy demonstrated significant purulent Secretions and significant tracheobronchomalacia. Her Pseudomonas is extremely resistant. She started azithromycin Friday and Friday and she also started her percussion vest for her bronchiectasis with good effect. Overall she is feeling better. She also has immunodeficiency syndrome and will start IgG infusions tomorrow. 03/12/2021 the patient is here for pulmonary follow-up visit. Patient is status post bronchoscopy remove a significant amount of secretions from her lungs. Microbiology was all negative except for Lourdes albicans which is unlikely to be a pathogen. She had been on antibiotics prior to the bronchoscopy and likely it did treat her underlying lower respiratory infection. She has been responding well to the CPT with hypertonic saline along with the flutter valve. She did receive her IVIG recently done developing what appears to be swelling of her salivary glands. The patient has been massaging and they do feel little bit better. Recently she did see her painting manager locally who increased her prednisone to 2.5 mg daily with a very slow taper. Soon she will follow up in [place] for her next rituximab infusion. 08/23/2022 the patient is here for a sick visit. She has not felt good. She is still has had issues with sinus congestion in addition to worsening cough. She did follow-up with ENT and had a repeat culture of the sinuses which were no growth today. This was the final result. Previous to that she did have resistant organisms. I have reassured her that she does need any antibiotics. Addition talking she is scheduled to see back she disease to further assess her ongoing symptoms. She is complaining of worsening cough. She has been using her nebulizer and has been adherent to her therapy. She continues on prednisone 12 mg daily. Prior to that she was on a burst of steroids. Now, will trying to minimize any additional prednisone if possible. Patient may indeed have worsening allergic symptoms. We did talk about increasing her antihistamines. in addition to that the patient has been on Xopenex. But, does not seem to be responding well to that as she did to the DuoNeb. Therefore will switch over to DuoNeb instead as long as the heart rate is under control. I did speak to 1 of her doctors in [place]. The goal is for her to continue her IVIG every 6 weeks and to make sure that she gets vaccinated for COVID-19 now that her B-cell population is coming back very slowly. Depending on how her B-cells continue to populate they will consider providing her with another dose of rituximab. 09/12/2022 the patient is here for pulmonary follow-up visit. From a respiratory status the patient is doing a lot better. She is using her nebulized therapy. Although, she is busy doing all the therapies it appears to be effective in improving her respiratory capacity. Unfortunately there has worsening sinus discomfort. She has a lot of sinus pressure that is moderate to severe. She is not getting relieved. She start using the nasal rinsing with budesonide and also had been taking the additional Zyrtec. Unfortunately she can no longer take more aspirin and she cannot tolerate Sudafed. She did receive her IVIG. Today she has significant will. Secretions both in the posterior pharynx draining from the sinuses in addition to her nasal passages right more than that. he has a lot of antibiotic sensitivities. She does tolerate Augmentin. Explained to the patient that unfortunately the organisms that grew the last positive sinus culture was resistant to penicillin. That she can start with the Augmentin for now but if she is no better she may need to try clindamycin. She did receive her IVIG infusion with the referring with during that time she did receive a premedication with Solu-Medrol. She continues on her baseline prednisone dose as per her specialist in [place]. 10/23/2022 the patient is here for a pulmonary follow-up visit. Since we last spoke she did get her IVIG. The rate was increased and she did start getting symptomatic with some epigastric and chest discomfort. Once the rate was then decrease her symptoms subsided. She denies any further chest pains or shortness of breath. Her cough is significantly better at this time along with wheezing. She was able to cut down the prednisone a little bit and she is following the recommendation from her specialists from [place]. She also was evaluated by ENT in [place] and she did culture positive resistant organisms. She will be started on antibiotics expansion to be use with her Neti bottle. She will start that once available. This is reassuring and I know that she will feel better when she starts this therapy. She also will get her flu shot and also her COVID vaccination. She has yet to start the rituximab. Most likely this is something that be consider for early next year. In the meantime she is doing well from a respiratory status at this time. 05/14/2023 the patient is here for a pulmonary follow-up visit. She is doing well from a respiratory status. No significant chest congestion. She continues on her chest PT using her nebulized therapy hypertonic saline a percussion vest. She is having issues with her sinuses. Having sinus pressure and also some bulging of the eyes. The patient did have an ENT evaluation and did have cultures which were positive. I do not have the results. She was referred back to [facility] in [place] for further care. She may need to go back on topical antibiotics. the patient did have blood work which I reviewed. It appears that her ANCA is negative still which is reassuring. She has not had to receive any additional Rituxan which is also reassuring. She continues on 11 mg of prednisone. The patient continues on the IVIG every 6 weeks. Her IgG levels are low normal so therefore she should continue with the every 6 weeks at this time. She is wondering about using the mask. I did encourage her to continue using the mask due to her immunodeficiency. 09/09/2023 the patient is here for a follow-up visit. Overall the patient continues to have some dyspnea on exertion. [id number] severity. Her sinuses start still an issue. She did go to ENT in [place] recently and she was again prescribed a compound BEULAH/ budesonide suspension that she does use twice a day. She will continue that for another 12 weeks and then they will follow-up with her. The patient has not had to start Rituxan just yet. She is actually weaning down the prednisone some. She is concerned that her kidney function got worse. 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 If her symptoms worsen she can always have more blood work done. I did put the blood work in the system. She continues on the IVIG therapy every 6 weeks which she is tolerating fairly well without any significant adverse effects. She also continues with respiratory therapy. No significant chest congestion at this time. [facility] Medical History Status post administration of all doses of COVID-19 vaccine series COPD (chronic obstructive pulmonary disease) Bronchiectasis Rash Hypogammaglobulinemia CSS (Churg-James syndrome) Surgical History History of appendectomy History of ileostomy History of cholecystectomy History of hysterectomy History of colectomy History of bronchoscopy (~2019) Social History Patient Tobacco Use Status: Never used Tobacco Advance Directives Date on File: 09/19/20 Review of Systems Const Reports fatigue and Denies night sweats Eyes Reports blurry vision, Reports change in vision and Reports irritation ENT Denies change in voice, Reports dry mouth, Denies lip swelling, Denies mouth pain, Reports nasal congestion, Reports nasal discharge, Reports nasal obstruction, Reports post nasal drip, Reports sinus pain, Reports sinus pressure and Denies tongue swelling Card Denies chest pain and Reports dyspnea on exertion Resp Denies chest congestion, Reports cough, Denies hemoptysis, Denies excessive phlegm production, Reports dyspnea on exertion and Denies wheezing GI Denies abdominal pain Musc Denies no additional complaints, Reports deformity (right forearm pain and swelling), Reports arthralgias and Reports limited range of motion Skin/Breast Reports rash Neuro Denies Neuro-related abnormal movements Psych Denies no additional complaints Endo Reports fatigue Paul/Lymph Denies easy bleeding and Denies lymphadenopathy Aller/Immun Denies lip swelling, Denies tongue swelling and Denies wheezing Physical Exam Vital Signs: Last Vital Signs Pulse 89 09/09/23 11:17 Pulse Ox 95 09/09/23 11:17 Oxygen Delivery Method Room Air 09/09/23 11:17 BMI result Body Mass Index 31.6 Const General: comfortable and alert HEENT Throat: Yes postnasal drainage (thick yellow mucus noted) Eyes Conjunctivae: conjunctival abnormal Neck Neck: Yes normal visual inspection, Yes full ROM and Yes no lymphadenopathy Chest Chest palpation & inspection: normal inspection of the chest Resp Auscultation: no rales, no rhonchi, no wheezes and diminished lung sounds Cardio Rate: regular rate Rhythm: regular rhythm Heart sounds: S1 normal heart sound present and S2 normal heart sound present GI Palpation (GI): Soft to palpation and nontender Auscultation: normal bowel sounds Skin General skin exam: rashes and/or lesions noted Extrem General: Yes no clubbing, cyanosis or edema Assessment & Plan Assessment & Plan (1) COPD (chronic obstructive pulmonary disease): Code(s): J44.9 - Chronic obstructive pulmonary disease, unspecified Qualifiers: COPD type: COPD with acute lower respiratory infection Qualified Code(s): J44.0 - Chronic obstructive pulmonary disease with (acute) lower respiratory infection (2) Bronchiectasis: Code(s): J47.9 - Bronchiectasis, uncomplicated Qualifiers: Bronchiectasis type: with acute lower respiratory infection Qualified Code(s): J47.0 - Bronchiectasis with acute lower respiratory infection (3) Hypogammaglobulinemia: Code(s): D80.1 - Nonfamilial hypogammaglobulinemia (4) CSS (Churg-James syndrome): Comment: Failed Nucala. 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 [Churg-James]; D72.18 - Eosinophilia in diseases classified elsewhere (5) Sinusitis: Code(s): J32.9 - Chronic sinusitis, unspecified Qualifiers: Chronicity: chronic Sinusitis location: unspecified location Qualified Code(s): J32.9 - Chronic sinusitis, unspecified Plan continue Prednisone 11 mg with slow taper Continue budesonide benzonate for dry cough Duoneb Azithromycin MWF continue CPT with hypertonic saline 3% and percussion vest continue IVIG infusions [id number] ENT compound Beulah/Budesonide BID x 12 weeks Zyrtec daily Follow-up in 4-6 months Orders: Orders Erythrocyte Sedimentation Rate Today D72.18 - Eosinophilia in diseases classified elsewhere, 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 [Churg-James] Complete Blood Count Auto Diff Today D72.18 - Eosinophilia in diseases classified elsewhere, 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 [Churg-James] Basic Metabolic Panel Today D72.18 - Eosinophilia in diseases classified elsewhere, 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 [Churg-James] Venous Blood Gas Today D72.18 - Eosinophilia in diseases classified elsewhere, 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 [Churg-James] Medications: New sodium chloride 3% 4 mL inhalation BID 30 days 240 mL 11RF Coding Level of Care Code Est Pt Level 4 (63203) Diagnoses Chronic obstructive pulmonary disease with acute lower respiratory infection J44.0 COPD type: COPD with acute lower respiratory infection Bronchiectasis with acute lower respiratory infection J47.0 Bronchiectasis type: with acute lower respiratory infection Hypogammaglobulinemia D80.1 CSS (Churg-James syndrome) M30.1; D72.18 Chronic sinusitis, unspecified location J32.9 Chronicity: chronic Sinusitis location: unspecified location Time Spent (min) 17
== END 2023-09-09 11:39 | disposition home or self-care (01) ==
PROVIDERS: PCP Internal Medicine; Visit Provider Hospitalist
DX: J44.0 Chronic obstructive pulmonary disease with (acute) lower respiratory infection (principal); D80.1 Nonfamilial hypogammaglobulinemia; M30.1 Polyarteritis with lung involvement [Churg-Strauss]; D72.18 Eosinophilia in diseases classified elsewhere; J32.9 Chronic sinusitis, unspecified
CPT/HCPCS: 99214

== ENCOUNTER → 2023-09-09 11:11 | Outpatient (BNVA) | payer MEDICARE, SELFPAY | PROVIDERS: PCP Internal Medicine; Visit Provider Hospitalist | DX: J47.0 Bronchiectasis with acute lower respiratory infection (principal); D80.1 Nonfamilial hypogammaglobulinemia; M30.1 Polyarteritis with lung involvement [Churg-Strauss]; D72.18 Eosinophilia in diseases classified elsewhere; J32.9 Chronic sinusitis, unspecified; Z79.52 Long term (current) use of systemic steroids; Z79.899 Other long term (current) drug therapy | CPT/HCPCS: 99212 ==

== ENCOUNTER 2023-10-07 12:54 | Outpatient (AMB) | payer MEDICARE, SELFPAY ==
--- NOTE | 2023-10-07 13:21 | HO.SPINEOV ---
Intake Intake Visit Reasons: Low back pain Intake Note: Ms. Welsh is here today c/o low back pain. MRI done @ [facility] [place] 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: No Allergies Benzodiazepines [BENZODIAZEPINES] Allergy (Intermediate, Verified 09/09/23 11:18) ANXIETY levofloxacin [From LEVAQUIN] Allergy (Intermediate, Verified 09/09/23 11:18) PAIN IN LEGS AND JOINTS clonazepam Allergy (Mild, Verified 09/09/23 11:18) Hallucinations lorazepam Allergy (Mild, Verified 09/09/23 11:18) Hallucinations olanzapine [Zyprexa] Allergy (Mild, Verified 09/09/23 11:18) Cough Penicillins [PENICILLINS] Allergy (Mild, Verified 09/09/23 11:18) Hives Sulfa (Sulfonamide Antibiotics) [SULFA (SULFONAMIDE ANTIBIOTICS)] Allergy (Mild, Verified 09/09/23 11:18) Sensivity MSG Allergy (Mild, Uncoded 09/09/23 11:18) Upset stomach Assessment & Plan Assessment & Plan (1) Spinal stenosis of lumbar region: Code(s): M48.061 - Spinal stenosis, lumbar region without neurogenic claudication Plan Dear Yahaira, Thank you for referring Mrs Welsh to our office today. She is a 78-year-old female with sure stress syndrome, severe asthma and COPD who presents to the office today for evaluation of tingling in her legs that has been present now for many years. She does not report any specific back pain other than mild discomfort and does not have any radicular pain going down her legs. Her symptoms can be present basically all throughout the day and are not necessarily positional or associated with activity. At nighttime she describes them as a burning pain in her legs, can be on the left side more than the right. Her toes will burn quite a bit. She has been diagnosed with peripheral neuropathy in the past. Her legs can he feel heavy at times as well. She had an MRI showing some degenerative disc disease and foraminal stenosis and was sent today for evaluation. She was being considered for an injection but because of osteoporosis and prednisone use as well as her lungs it was decided that maybe this was not the best course of things. PMH: She has a complicated medical history, she has severe asthma and has been on prednisone for many years, she has osteoporosis, she has Churg-James syndrome and was on chemotherapy for many years to treat that. History of sinusitis, pharyngitis, hypogammaglobulinemia, hypertension, chronic kidney disease, appendectomy, ileostomy, hysterectomy, carpal tunnel Social hx: She does not smoke Medications: Amlodipine, carvedilol, prednisone, azithromycin, budesonide nasal rinse, level be utero all, budesonide nebulizer, vitamin supplements Allergies: Please see the list Physical exam: Awake alert oriented no acute distress, she is comfortable standing out of a chair, motor examination is normal with absent reflexes in bilateral lower extremities, no Rg sign in the upper extremities Imaging review: Lumbar MRI shows some age-appropriate degenerative disc disease with some mild foraminal stenosis on the right at L3, and moderate to severe left foraminal stenosis at L5. There is no significant central canal stenosis. Impression: 78-year-old female history of severe asthma, chronic kidney disease, shook straw syndrome, peripheral neuropathy presents for evaluation of what she describes as tingling in her legs with burning in her toes which is worse at night. She does not report any specific postural back pain or shooting leg pain. I think she is probably dealing with a side effect of the chemotherapy or the Churg James giving her peripheral neuropathy more than this is coming from the foraminal stenosis. Typically foraminal stenosis would give her more classic symptoms like severe shooting pain down the legs. She does not report significant amount of back pain either. I do not know if there is any role for injections given the diagnosis. She it might be better for to follow-up with a neurologist. She was on Lamictal a few years ago. She was taken off that for reasons of not quite clear about. The findings on her MRI are relatively normal for a person of her age. If she began to develop some kind of radiculopathy like she has had in the past which has been treated with injections, I told to come back and we can have a discussion, but that would have to proceed with caution given all for medical issues. Thank you for allowing us to care for your patient. The total time spent with this visit with this patient was 45 minutes reviewing history, physical exam, lumbar imaging review, and implementation of treatment plan or further diagnostic testing Jose Cedeño MD,PhD [facility] Coding Level of Care Code New Pt Level 4 (30049) Diagnoses Spinal stenosis of lumbar region M48.061
== END 2023-10-07 13:48 | disposition home or self-care (01) ==
PROVIDERS: PCP Internal Medicine; Referring Provider Nurse Practitioner Family; Visit Provider Physician Assistant
DX: M48.061 Spinal stenosis, lumbar region without neurogenic claudication (principal)
CPT/HCPCS: 99204

== ENCOUNTER → 2023-10-07 12:54 | Outpatient (BNVA) | payer MEDICARE, SELFPAY | PROVIDERS: PCP Internal Medicine; Referring Provider Nurse Practitioner Family; Visit Provider Physician Assistant | DX: M48.061 Spinal stenosis, lumbar region without neurogenic claudication (principal) | CPT/HCPCS: 99202 ==

== ENCOUNTER 2023-10-17 09:32 | Outpatient (REF) | payer MEDICARE, SELFPAY | END 2023-10-17 09:33 | disposition home or self-care (01) | LOC: HO.MDS 09:32 | PROVIDERS: Visit Provider Hospitalist | DX: D80.1 Nonfamilial hypogammaglobulinemia (principal) | CPT/HCPCS: 96365; 96366; 96375; J1569; J2930 ==

== ENCOUNTER 2023-11-20 08:02 | Outpatient (RCR) | payer MEDICARE, SELFPAY | END 2023-11-20 17:00 | disposition home or self-care (01) | LOC: HO.WCC 08:02 | PROVIDERS: PCP Internal Medicine; Visit Provider Surgery | DX: Z09 Encounter for follow-up examination after completed treatment for conditions other than malignant neoplasm (principal); L98.0 Pyogenic granuloma; I10 Essential (primary) hypertension; I25.2 Old myocardial infarction; E11.40 Type 2 diabetes mellitus with diabetic neuropathy, unspecified; Z87.2 Personal history of diseases of the skin and subcutaneous tissue | CPT/HCPCS: 99213 ==

== ENCOUNTER 2023-11-28 09:35 | Outpatient (REF) | payer MEDICARE, SELFPAY | END 2023-11-28 09:36 | disposition home or self-care (01) | LOC: HO.MDS 09:35 | PROVIDERS: Visit Provider Hospitalist | DX: D80.1 Nonfamilial hypogammaglobulinemia (principal) | CPT/HCPCS: 96365; 96366; 96375; J1569; J2930 ==

== ENCOUNTER 2023-12-17 11:18 | Outpatient (AMB) | payer MEDICARE, SELFPAY ==
[2023-12-17 11:22] VITALS: BP 122/66; PULSE 87; O2SAT 100; BMI 29.6
--- NOTE | 2023-12-17 11:22 | A.OFFVIS_ITS ---
Intake Vital Signs 12/17/23 11:22 Height 5 ft 2 in Weight 162 lb BMI 29.6 BP 122/66 Blood Pressure Location Lt brachial Position Sitting Pulse 87 Pulse Source Pulse Oximeter Pulse Oximetry (%) 100 Oxygen Delivery Method Room Air Intake Visit Reasons: Cough Follow Up Allergies Benzodiazepines [BENZODIAZEPINES] Allergy (Intermediate, Verified 12/17/23 11:25) ANXIETY levofloxacin [From LEVAQUIN] Allergy (Intermediate, Verified 12/17/23 11:25) PAIN IN LEGS AND JOINTS clonazepam Allergy (Mild, Verified 12/17/23 11:25) Hallucinations lorazepam Allergy (Mild, Verified 12/17/23 11:25) Hallucinations olanzapine [Zyprexa] Allergy (Mild, Verified 12/17/23 11:25) Cough Penicillins [PENICILLINS] Allergy (Mild, Verified 12/17/23 11:25) Hives Sulfa (Sulfonamide Antibiotics) [SULFA (SULFONAMIDE ANTIBIOTICS)] Allergy (Mild, Verified 12/17/23 11:25) Sensivity MSG Allergy (Mild, Uncoded 12/17/23 11:25) Upset stomach HPI HPI Comments History of Present Illness Details The patient is a 78-year-old woman with a 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 The patient also has significant asthma with eosinophilia was treated with Nucala. She responded to the therapy for some time with good results but then stop responding. She did follow up in [place] with her interim controller and at that point the decision was to start her on rituximab. She received 2 doses. The 1st dose she ended up with pneumonia and up in the hospital and then she received a 2nd dose she has not felt well. She complains of worsening shortness of breath and cough with mucus production. She has a hard time expectorating. She has been on prednisone. She had a sputum culture was positive for Pseudomonas. She was placed on a nebulized amikacin but then had a reaction which has a stop it. She was then admitted to the hospital for IV antibiotics. She was discharged from the hospital she still have feels a lot of shortness of breath. Still on a small dose of prednisone. Last night her cough and shortness of breath was significantly worsen and she thought she would have to go back to the hospital. This morning she feels a little better. She still has a hard time expectorating. Sounds like she has a croupy barky cough. Suggesting the possibility of tracheomalacia. The patient does not use CPAP. She does have daytime drowsiness and does have issues with headaches in the morning. She on needs to have a sleep study. As far CPT she uses a flutter valve. She will have a CT scan of the chest that I personally reviewed demonstrating significant bronchiectasis primarily at the bases with mucus plugging. She has failed flutter valve and also has had resistant organisms therefore will try to get her a percussion vest as soon as possible to improve her chest PT. She did have a CT scan of the chest consistent with sinusitis. Her x-ray did demonstrated haziness in the right base suggesting airspace disease. She was given a dose of aztreonam. Infectious Disease was consulted and did not feel strongly about admitting her to the hospital or starting aztreonam. I did call microbiology in order to aztreonam to her Pseudomonas sensitivity panel. Will monitor closely her symptoms. At this point will start her on azithromycin for the bronchiectasis. She was also on Bactrim however she had a bump on her creatinine from 1.5-1.8. Therefore I will hold off on the Bactrim and see how she does in the azithromycin for now. She does follow up with her interim controller in [place] and further discuss this. In the meantime her IgG levels were significantly low. She has severe infections in the upper or lower respiratory tract and does require to start IgG therapies as well as possible. The patient is sedimentation rate still elevated at on her recent blood work of 75 she has ongoing symptoms bringing up the question if her vasculitis still active. She is going to be following up with [place] soon regarding additional rituximab or additional therapies for the ongoing vasculitis. The the bronchoscopy demonstrated significant purulent Secretions and significant tracheobronchomalacia. Her Pseudomonas is extremely resistant. She started azithromycin Friday and Friday and she also started her percussion vest for her bronchiectasis with good effect. Overall she is feeling better. She also has immunodeficiency syndrome and will start IgG infusions tomorrow. 03/12/2021 the patient is here for pulmonary follow-up visit. Patient is status post bronchoscopy remove a significant amount of secretions from her lungs. Microbiology was all negative except for Lourdes albicans which is unlikely to be a pathogen. She had been on antibiotics prior to the bronchoscopy and likely it did treat her underlying lower respiratory infection. She has been responding well to the CPT with hypertonic saline along with the flutter valve. She did receive her IVIG recently done developing what appears to be swelling of her salivary glands. The patient has been massaging and they do feel little bit better. Recently she did see her applications intern locally who increased her prednisone to 2.5 mg daily with a very slow taper. Soon she will follow up in [place] for her next rituximab infusion. 08/23/2022 the patient is here for a sick visit. She has not felt good. She is still has had issues with sinus congestion in addition to worsening cough. She did follow-up with ENT and had a repeat culture of the sinuses which were no growth today. This was the final result. Previous to that she did have resistant organisms. I have reassured her that she does need any antibiotics. Addition talking she is scheduled to see back she disease to further assess her ongoing symptoms. She is complaining of worsening cough. She has been using her nebulizer and has been adherent to her therapy. She continues on prednisone 12 mg daily. Prior to that she was on a burst of steroids. Now, will trying to minimize any additional prednisone if possible. Patient may indeed have worsening allergic symptoms. We did talk about increasing her antihistamines. in addition to that the patient has been on Xopenex. But, does not seem to be responding well to that as she did to the DuoNeb. Therefore will switch over to DuoNeb instead as long as the heart rate is under control. I did speak to 1 of her doctors in [place]. The goal is for her to continue her IVIG every 6 weeks and to make sure that she gets vaccinated for COVID-19 now that her B-cell population is coming back very slowly. Depending on how her B-cells continue to populate they will consider providing her with another dose of rituximab. 09/12/2022 the patient is here for pulmonary follow-up visit. From a respiratory status the patient is doing a lot better. She is using her nebulized therapy. Although, she is busy doing all the therapies it appears to be effective in improving her respiratory capacity. Unfortunately there has worsening sinus discomfort. She has a lot of sinus pressure that is moderate to severe. She is not getting relieved. She start using the nasal rinsing with budesonide and also had been taking the additional Zyrtec. Unfortunately she can no longer take more aspirin and she cannot tolerate Sudafed. She did receive her IVIG. Today she has significant will. Secretions both in the posterior pharynx draining from the sinuses in addition to her nasal passages right more than that. he has a lot of antibiotic sensitivities. She does tolerate Augmentin. Explained to the patient that unfortunately the organisms that grew the last positive sinus culture was resistant to penicillin. That she can start with the Augmentin for now but if she is no better she may need to try clindamycin. She did receive her IVIG infusion with the referring with during that time she did receive a premedication with Solu-Medrol. She continues on her baseline prednisone dose as per her specialist in [place]. 10/23/2022 the patient is here for a pulmonary follow-up visit. Since we last spoke she did get her IVIG. The rate was increased and she did start getting symptomatic with some epigastric and chest discomfort. Once the rate was then decrease her symptoms subsided. She denies any further chest pains or shortness of breath. Her cough is significantly better at this time along with wheezing. She was able to cut down the prednisone a little bit and she is following the recommendation from her specialists from [place]. She also was evaluated by ENT in [place] and she did culture positive resistant organisms. She will be started on antibiotics expansion to be use with her Neti bottle. She will start that once available. This is reassuring and I know that she will feel better when she starts this therapy. She also will get her flu shot and also her COVID vaccination. She has yet to start the rituximab. Most likely this is something that be consider for early next year. In the meantime she is doing well from a respiratory status at this time. 05/14/2023 the patient is here for a pulm onary follow-up visit. She is doing well from a respiratory status. No significant chest congestion. She continues on her chest PT using her nebulized therapy hypertonic saline a percussion vest. She is having issues with her sinuses. Having sinus pressure and also some bulging of the eyes. The patient did have an ENT evaluation and did have cultures which were positive. I do not have the results. She was referred back to [facility] in [place] for further care. She may need to go back on topical antibiotics. the patient did have blood work which I reviewed. It appears that her ANCA is negative still which is reassuring. She has not had to receive any additional Rituxan which is also reassuring. She continues on 11 mg of prednisone. The patient continues on the IVIG every 6 weeks. Her IgG levels are low normal so therefore she should continue with the every 6 weeks at this time. She is wondering about using the mask. I did encourage her to continue using the mask due to her immunodeficiency. 09/09/2023 the patient is here for a fol low-up visit. Overall the patient continues to have some dyspnea on exertion. Sedy-my-oummtmsh severity. Her sinuses start still an issue. She did go to ENT in [place] recently and she was again prescribed a compound BEULAH/ budesonide suspension that she does use twice a day. She will continue that for another 12 weeks and then they will follow-up with her. The patient has not had to start Rituxan just yet. She is actually weaning down the prednisone some. She is concerned that her kidney function got worse. She is going to follow up with her interim controller soon. If her symptoms worsen she can always have more blood work done. I did put the blood work in the system. She continues on the IVIG therapy every 6 weeks which she is tolerating fairly well without any significant adverse effects. She also continues with respiratory therapy. No significant chest congestion at this time. 12/17/2023 the patient is here for pulmon digna follow-up visit. From a respiratory status she is actually doing very well. Her congested subsided significantly. She also has improvement of her sinuses after the be BEULAH budesonide suspension. She also was able to stop that. Although she had worsening inflammatory changes and when she went to [place] her prednisone was increased from 11 mg to 15 mg. Subsequently after that during Thanksgiving dinner the patient developed severe hypoglycemia requiring a hospital visit. The patient was placed on medications although she was symptomatic with dizziness and falls and ultimately was taken off 1 medication and then placed on a different medication and had problems again. Therefore she has been off all medications. 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 She is able to decrease prednisone down to 13 mg but she is going to go slowly undergo be monitoring closely in [place]. The patient is continued to get her IVIG infusions as prescribed with good effect. She also continues to use her CPT also with good effect as her congestion is significantly improved. [facility] Medical History (Updated 12/17/23 @ 22:49 by Marquis Morel MD) Diabetes mellitus Status post administration of all doses of COVID-19 vaccine series COPD (chronic obstructive pulmonary disease) Bronchiectasis Rash Hypogammaglobulinemia CSS (Churg-James syndrome) Surgical History History of appendectomy History of ileostomy History of cholecystectomy History of hysterectomy History of colectomy History of bronchoscopy (~2019) Social History Patient Tobacco Use Status: Never used Tobacco Advance Directives Date on File: 09/19/20 Review of Systems Const Reports fatigue, Reports frequent falls and Denies night sweats Eyes Reports change in vision ENT Denies change in voice, Reports dizziness, Reports dry mouth, Denies lip swelling, Denies mouth pain, Reports nasal congestion, Reports nasal discharge, Reports post nasal drip, Denies sinus pain, Denies sinus pressure and Denies tongue swelling Card Denies chest pain and Reports dyspnea on exertion Resp Denies chest congestion, Reports cough, Denies hemoptysis, Denies excessive ph legm production, Reports dyspnea on exertion and Denies wheezing GI Denies abdominal pain Musc Denies no additional complaints, Reports deformity (right forearm pain and swelling), Reports arthralgias and Reports limited range of motion Skin/Breast Reports rash Neuro Denies Neuro-related abnormal movements, Reports dizziness and Reports frequent falls Psych Denies no additional complaints Endo Reports fatigue Paul/Lymph Denies easy bleeding and Denies lymphadenopathy Aller/Immun Denies lip swelling, Denies tongue swelling and Denies wheezing Physical Exam Vital Signs: Last Vital Signs Pulse 87 12/17/23 11:22 BP 122/66 12/17/23 11:22 Pulse Ox 100 12/17/23 11:22 Oxygen Delivery Method Room Air 12/17/23 11:22 BMI result Body Mass Index 29.6 Const General: comfortable and alert HEENT Throat: Yes postnasal drainage (thick yellow mucus noted) Eyes Conjunctivae: conjunctival abnormal Neck Neck: Yes normal visual inspection, Yes full ROM and Yes no lymphadenopathy Chest Chest palpation & inspection: normal inspection of the chest Resp Effort & Inspection: normal respiratory effort Auscultation: no rales, no rhonchi, no wheezes and diminished lung sounds Cardio Rate: regular rate Rhythm: regular rhythm Heart sounds: S1 normal heart sound present and S2 normal heart sound present GI Palpation (GI): Soft to palpation and nontender Auscultation: normal bowel sounds Skin General skin exam: rashes and/or lesions noted Extrem General: Yes no clubbing, cyanosis or edema Assessment & Plan Assessment & Plan (1) COPD (chronic obstructive pulmonary disease): Code(s): J44.9 - Chronic obstructive pulmonary disease, unspecified Qualifiers: COPD type: COPD with acute lower respiratory infection Qualified Code(s): J44.0 - Chronic obstructive pulmonary disease with (acute) lower respiratory infection (2) Bronchiectasis: Code(s): J47.9 - Bronchiectasis, uncomplicated Qualifiers: Bronchiectasis type: with acute lower respiratory infection Qualified Code(s): J47.0 - Bronchiectasis with acute lower respiratory infection (3) Hypogammaglobulinemia: Code(s): D80.1 - Nonfamilial hypogammaglobulinemia (4) CSS (Churg-James syndrome): Comment: Failed Nucala. 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 [Churg-James]; D72.18 - Eosinophilia in diseases classified elsewhere (5) Sinusitis: Code(s): J32.9 - Chronic sinusitis, unspecified Qualifiers: Chronicity: chronic Sinusitis location: unspecified location Qualified Code(s): J32.9 - Chronic sinusitis, unspecified (6) Diabetes mellitus: Code(s): E11.9 - Type 2 diabetes mellitus without complications Qualifiers: Diabetes mellitus type: type 2 Diabetes mellitus continuous churn buttermaker insulin use: without fci use Diabetes mellitus complication status: with hyperglycemia Qualified Code(s): E11.65 - Type 2 diabetes mellitus with hyperglycemia Plan continue Prednisone 13 mg with slow taper, now with DM Dials Supervisor referral Continue budesonide benzonate for dry cough Duoneb Azithromycin MWF continue CPT with hypertonic saline 3% and percussion vest continue IVIG infusions [id number] ENT compound Beulah/Budesonide BID x 12 weeks Zyrtec daily Follow-up in 4 months Orders: Referrals Dials Supervisor Nutrition Referral E11.9 - Type 2 diabetes mellitus without complications Coding Level of Care Code Est Pt Level 4 (90995) Diagnoses Chronic obstructive pulmonary disease with acute lower respiratory infection J44.0 COPD type: COPD with acute lower respiratory infection Bronchiectasis with acute lower respiratory infection J47.0 Bronchiectasis type: with acute lower respiratory infection Hypogammaglobulinemia D80.1 CSS (Churg-James syndrome) M30.1; D72.18 Chronic sinusitis, unspecified location J32.9 Chronicity: chronic Sinusitis location: unspecified location Type 2 diabetes mellitus with hyperglycemia, without long-term current use of insulin E11.65 Diabetes mellitus type: type 2 Diabetes mellitus continuous churn buttermaker insulin use: without fci use Diabetes mellitus complication status: with hyperglycemia Time Spent (min) 18
== END 2023-12-17 11:48 | disposition home or self-care (01) ==
PROVIDERS: PCP Internal Medicine; Visit Provider Hospitalist
DX: J44.0 Chronic obstructive pulmonary disease with (acute) lower respiratory infection (principal); J47.0 Bronchiectasis with acute lower respiratory infection; D80.1 Nonfamilial hypogammaglobulinemia; M30.1 Polyarteritis with lung involvement [Churg-Strauss]; D72.18 Eosinophilia in diseases classified elsewhere; J32.9 Chronic sinusitis, unspecified; E11.65 Type 2 diabetes mellitus with hyperglycemia
CPT/HCPCS: 99214

== ENCOUNTER → 2023-12-17 11:18 | Outpatient (BNVA) | payer MEDICARE, SELFPAY | PROVIDERS: PCP Internal Medicine; Visit Provider Hospitalist | DX: J44.0 Chronic obstructive pulmonary disease with (acute) lower respiratory infection (principal); J47.0 Bronchiectasis with acute lower respiratory infection; M30.1 Polyarteritis with lung involvement [Churg-Strauss]; D72.18 Eosinophilia in diseases classified elsewhere; J32.9 Chronic sinusitis, unspecified; E11.65 Type 2 diabetes mellitus with hyperglycemia; Z79.52 Long term (current) use of systemic steroids | CPT/HCPCS: 99212 ==

== ENCOUNTER 2023-12-22 13:13 | Outpatient (AMB) | payer MEDICARE, SELFPAY ==
--- NOTE | 2023-12-22 13:34 | MHC.AMNUTRGE ---
Intake VS Expanded 12/22/23 13:35 Height 5 ft 2 in Weight 162 lb BMI 29.6 Intake Visit Reasons: T2DM Allergies Benzodiazepines [BENZODIAZEPINES] Allergy (Intermediate, Verified 12/17/23 11:25) ANXIETY levofloxacin [From LEVAQUIN] Allergy (Intermediate, Verified 12/17/23 11:25) PAIN IN LEGS AND JOINTS clonazepam Allergy (Mild, Verified 12/17/23 11:25) Hallucinations lorazepam Allergy (Mild, Verified 12/17/23 11:25) Hallucinations olanzapine [Zyprexa] Allergy (Mild, Verified 12/17/23 11:25) Cough Penicillins [PENICILLINS] Allergy (Mild, Verified 12/17/23 11:25) Hives Sulfa (Sulfonamide Antibiotics) [SULFA (SULFONAMIDE ANTIBIOTICS)] Allergy (Mild, Verified 12/17/23 11:25) Sensivity MSG Allergy (Mild, Uncoded 12/17/23 11:25) Upset stomach HPI Nutrition Presentation Details Pt presents for T2DM, diagnosed in Aug 2023. The Pt was referred by Dr. 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 Schofield Pt reports having 3 meals per day , makes own meals Meals consist of starches/prot/veg, reports making home made soups with non starchy vegetables Most Recent Diabetes Results: No Data to Display [facility] Medical History (Updated 12/17/23 @ 22:49 by Marquis Morel MD) Diabetes mellitus Status post administration of all doses of COVID-19 vaccine series COPD (chronic obstructive pulmonary disease) Bronchiectasis Rash Hypogammaglobulinemia CSS (Churg-James syndrome) Surgical History History of appendectomy History of ileostomy History of cholecystectomy History of hysterectomy History of colectomy History of bronchoscopy (~2019) Social History Patient Tobacco Use Status: Never used Tobacco Advance Directives Date on File: 09/19/20 Assessment & Plan Assessment & Plan (1) Diabetes mellitus: Code(s): E11.9 - Type 2 diabetes mellitus without complications Qualifiers: Diabetes mellitus type: type 2 Diabetes mellitus termite treater helper insulin use: without termite treater helper use Diabetes mellitus complication status: with hyperglycemia Qualified Code(s): E11.65 - Type 2 diabetes mellitus with hyperglycemia Plan: Wt: 74Kg ( 12/22/23 ) Est kcal needs as per 25 kcal/kg bw: 1850 (40% carb, 30% protein/fat) Est fluid needs as per 25 ml/d: 1850 Est prot per day as per 1 g/kg bw: 74 Recommend fiber intake : 8-10 g per day and gradually increase to 25-28 g per day for women and 35-38 g for men or as tolerated Recommend sodium intake per day : less than 2000 mg Educated patient on: ( R = reviewed V = verbalizes understanding N/R = needs review N/A = not applicable Food sources of carbohydrate, adequate serving sizes and its role in various health conditions: R V Differences between complex carbohydrates a simple carbohydrates, role of fiber in diet: R V Lean protein sources of foods: R V Differences between types of fats and role in diet (mono on saturated fat fatty acids, saturated fatty acids, trans fats): N/R Food sources of sodium in salt and healthy modifications for heart health in kidney health: R Vitamins and minerals: R Healthy plate method concept: R V Physical activity: Benefits a precaution: N/R Hypoglycemia protocol (rule of 15): N/R Dietary prevention of Hyperglycemia: R Patient Instructions: Work on following healthy plate method Keep hydrated by having water, soups, low sugar flavored water Reduce on sugars from pastries and similar foods Coding Level of Care Code Nutr Indiv Intake (98649) Diagnoses Type 2 diabetes mellitus with hyperglycemia, without long-term current use of insulin E11.65 Diabetes mellitus type: type 2 Diabetes mellitus termite treater helper insulin use: without termite treater helper use Diabetes mellitus complication status: with hyperglycemia Time Spent (min) 30
[2023-12-22 13:35] VITALS: BMI 29.6
== END 2023-12-22 14:08 | disposition home or self-care (01) ==
PROVIDERS: PCP Internal Medicine; Visit Provider Dietitian, Registered
DX: E11.65 Type 2 diabetes mellitus with hyperglycemia (principal)

== ENCOUNTER → 2023-12-22 13:13 | Outpatient (BNVA) | payer MEDICARE, SELFPAY | PROVIDERS: PCP Internal Medicine; Visit Provider Dietitian, Registered | DX: E11.65 Type 2 diabetes mellitus with hyperglycemia (principal) | CPT/HCPCS: 97802 ==

== ENCOUNTER 2024-01-16 09:07 | Outpatient (REF) | payer MEDICARE, SELFPAY | END 2024-01-16 09:08 | disposition home or self-care (01) | LOC: HO.MDS 09:07 | PROVIDERS: Visit Provider Hospitalist | DX: D80.1 Nonfamilial hypogammaglobulinemia (principal) | CPT/HCPCS: 96365; 96366; 96375; J1569; J2930 ==

== ENCOUNTER 2024-02-03 13:17 | Outpatient (AMB) | payer MEDICARE, SELFPAY ==
[2024-02-03 13:31] VITALS: BMI 27.2
--- NOTE | 2024-02-03 13:31 | A.OFFVIS_ITS ---
Intake VS Expanded 02/03/24 13:31 Height 5 ft 2 in Weight 148 lb 12.992 oz BMI 27.2 Intake Visit Reasons: T2DM/CONFIRMED Allergies Benzodiazepines [BENZODIAZEPINES] Allergy (Intermediate, Verified 12/17/23 11:25) ANXIETY levofloxacin [From LEVAQUIN] Allergy (Intermediate, Verified 12/17/23 11:25) PAIN IN LEGS AND JOINTS clonazepam Allergy (Mild, Verified 12/17/23 11:25) Hallucinations lorazepam Allergy (Mild, Verified 12/17/23 11:25) Hallucinations olanzapine [Zyprexa] Allergy (Mild, Verified 12/17/23 11:25) Cough Penicillins [PENICILLINS] Allergy (Mild, Verified 12/17/23 11:25) Hives Sulfa (Sulfonamide Antibiotics) [SULFA (SULFONAMIDE ANTIBIOTICS)] Allergy (Mild, Verified 12/17/23 11:25) Sensivity MSG Allergy (Mild, Uncoded 12/17/23 11:25) Upset stomach HPI Nutrition Presentation Details Pt presents for MNT f/u for T2DM DM diagnosed in Aug 2023. Pt reports following up with Dr. Schofield, sewage plant attendant at [facility] [place]. 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 Pt reports she was hospitalized in Jan 05-2023 due to GI side effects/dehydration/ckd She reports doing better and gradually regaining lost weight. Pt reports she reached 140 lbs in January. Pt brought bg record typed up in a chart and her fasting blood sugars range from 77-101, pre lunch bg range from 177-250 and 97-104 mg/dl. Pt reports having 3 meals per day , makes own meals for the most part, eats out 3-4 times a week for dinner and reports working on following healthy plate method , pt reports choosing water with meals, seltzer water, may add lemon or tea for additional flavor Pt reports keeping sedentary after her breakfast the majority of the time. , Most Recent Diabetes Results: No Data to Display [facility] Medical History (Updated 12/17/23 @ 22:49 by Marquis Morel MD) Diabetes mellitus Status post administration of all doses of COVID-19 vaccine series COPD (chronic obstructive pulmonary disease) Bronchiectasis Rash Hypogammaglobulinemia CSS (Churg-James syndrome) Surgical History History of appendectomy History of ileostomy History of cholecystectomy History of hysterectomy History of colectomy History of bronchoscopy (~2019) Social History Patient Tobacco Use Status: Never used Tobacco Advance Directives Date on File: 09/19/20 Assessment & Plan Assessment & Plan (1) Diabetes mellitus: Code(s): E11.9 - Type 2 diabetes mellitus without complications Qualifiers: Diabetes mellitus type: type 2 Diabetes mellitus nursing home insulin use: without nursing home use Diabetes mellitus complication status: with hyperglycemia Qualified Code(s): E11.65 - Type 2 diabetes mellitus with hyperglycemia Plan: Wt: 74Kg ( 12/22/23 ), 68 kg (01/2024) 13 lbs weight loss in 5 weeks (combination of recent visit at the hospital per Pt due to GI side effects, dehydration, ckd, changes in prednisone dosages and pt also reducing on sugar intake). MAY RECOMMEND : prescribing nutritional supplement: GLUCERNA Hunger SMART/CARB steady which provides 250 calories, 23 g of protein , 21 g carbs, 7 g fiber) to have once a day in between meal Est kcal needs as per 25 kcal/kg bw: 1850 (40% carb, 30% protein/fat) Est fluid needs as per 25 ml/d: 1850 Est prot per day as per 1 g/kg bw: 74 Recommend fiber intake : 8-10 g per day and gradually increase to 25-28 g per day for women and 35-38 g for men or as tolerated Recommend sodium intake per day : less than 2000 mg Educated patient on: ( R = reviewed V = verbalizes understanding N/R = needs review N/A = not applicable * Food sources of carbohydrate, adequate serving sizes and its role in various health conditions: R V * Differences between complex carbohydrates a simple carbohydrates, role of fiber in diet: R V * Lean protein sources of foods: R V * Differences between types of fats and role in diet (mono on saturated fat fatty acids, saturated fatty acids, trans fats): N/R * Food sources of sodium in salt and healthy modifications for heart health in kidney health: R * Vitamins and minerals: R * Healthy plate method concept: R V * Physical activity: Benefits a precaution: N/R * Hypoglycemia protocol (rule of 15): N/R * Dietary prevention of Hyperglycemia: R Patient Instructions: HAve a variety of foods at breakfast , balancing with protein choose 30-45 g of carbs and about 20-30g of protein example 1/2 Tongan muffin, 1 small fruit, 1 cup of milk and 2 -3 eggs keep physically active as able Contact your sewage plant attendant if blood sugar continue elevated for further assessment Coding Level of Care Code Nutr Indiv Subseq ([id number]) Diagnoses Type 2 diabetes mellitus with hyperglycemia, without long-term current use of insulin E11.65 Diabetes mellitus type: type 2 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
== END 2024-02-03 14:25 | disposition home or self-care (01) ==
PROVIDERS: PCP Internal Medicine; Visit Provider Dietitian, Registered
DX: E11.65 Type 2 diabetes mellitus with hyperglycemia (principal)

== ENCOUNTER → 2024-02-03 13:17 | Outpatient (BNVA) | payer MEDICARE, SELFPAY | PROVIDERS: PCP Internal Medicine; Visit Provider Dietitian, Registered | DX: E11.65 Type 2 diabetes mellitus with hyperglycemia (principal) | CPT/HCPCS: 97803 ==

== ENCOUNTER 2024-02-26 09:30 | Outpatient (REF) | payer MEDICARE, SELFPAY ==
[2024-02-26] VITALS (8 sets, daily range): BP systolic 107–127; BP diastolic 64–68; PULSE 61–76; RESP 18; TEMP 36.5
[2024-02-26] MEDS: diphenhydrAMINE HCL 25 MG CAPSULE PO (09:54)
[2024-02-26] MEDS: Acetaminophen 325 MG TABLET 975 MG PO (09:54)
[2024-02-26] MEDS: methylPREDNISolone Sod Succ 125 MG/2 ML VIAL 60 MG IVPUSH (09:58)
[2024-02-26] MEDS: Immun Glob G(IgG)/Gly/IGA Ov50 200 ML IV ×2 (10:04→12:12)
== END 2024-02-26 09:31 | disposition home or self-care (01) ==
LOC: HO.MDS 09:30
PROVIDERS: Visit Provider Hospitalist
DX: D80.1 Nonfamilial hypogammaglobulinemia (principal)
CPT/HCPCS: 96365; 96366; 96375; J1569; J2920; J2930

== ENCOUNTER 2024-03-24 12:41 | Outpatient (AMB) | payer MEDICARE, SELFPAY ==
--- NOTE | 2024-03-24 13:02 | A.OFFVIS_ITS ---
Intake VS Expanded 03/24/24 13:03 Height 5 ft 2 in Weight 140 lb 3.424 oz BMI 25.6 Intake Visit Reasons: T2DM\CONFIRMED Allergies Benzodiazepines [BENZODIAZEPINES] Allergy (Intermediate, Verified 12/17/23 11:25) ANXIETY levofloxacin [From LEVAQUIN] Allergy (Intermediate, Verified 12/17/23 11:25) PAIN IN LEGS AND JOINTS clonazepam Allergy (Mild, Verified 12/17/23 11:25) Hallucinations lorazepam Allergy (Mild, Verified 12/17/23 11:25) Hallucinations olanzapine [Zyprexa] Allergy (Mild, Verified 12/17/23 11:25) Cough Penicillins [PENICILLINS] Allergy (Mild, Verified 12/17/23 11:25) Hives Sulfa (Sulfonamide Antibiotics) [SULFA (SULFONAMIDE ANTIBIOTICS)] Allergy (Mild, Verified 12/17/23 11:25) Sensivity MSG Allergy (Mild, Uncoded 12/17/23 11:25) Upset stomach HPI Nutrition Presentation Details Pt presents for MNT for T2DM Pt has anemia and CKD, ileostomy for over 50 years Pt reports working closely with corporate events director, Dr. Schofield and started on Humalog , takes 3-4 units before 2 pm meal Per sensor download BG are 60% within target, 38% > 180 mg/dl, 7% very high 14 d bg average at 170 gluc variable at 24.4% Pt reports working on balancing meals with protein and vegetables, however reducing on carbs to 30 g at meals and choosing low fat foods Today will discuss adding mufa /pufa to the meals and increasing carb to 30- 45 g , working on balancing, not restricting . continue following with corporate events director Pt reports having B: 1/2 Lithuanian muffin with cheese or peanut butter 2 oz nuts, 1 egg and 1 fruit , water Lunch: soup with vegetables and chicken and 1 cup of salad with cheese or a fruit (reports not adding starches to soup and omitting starches at lunch and dinner dinner: salad with chicken and fruit Pt reports not drinking milk , does try to include cheese, yogurt did not try nutritional supplements, concerned about sugar substitutes due to allergies from sugar substitutes Most Recent Diabetes Results: No Data to Display [facility] Medical History (Updated 12/17/23 @ 22:49 by Marquis Morel MD) Diabetes mellitus Status post administration of all doses of COVID-19 vaccine series COPD (chronic obstructive pulmonary disease) Bronchiectasis Rash Hypogammaglobulinemia CSS (Churg-James syndrome) Surgical History History of appendectomy History of ileostomy History of cholecystectomy History of hysterectomy History of colectomy History of bronchoscopy (~2019) Social History Patient Tobacco Use Status: Never used Tobacco Advance Directives Date on File: 09/19/20 Assessment & Plan Assessment & Plan (1) Diabetes mellitus: Code(s): E11.9 - Type 2 diabetes mellitus without complications Qualifiers: Diabetes mellitus type: type 2 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: without group home use Diabetes mellitus complication status: with hyperglycemia Qualified Code(s): E11.65 - Type 2 diabetes mellitus with hyperglycemia Plan: Wt: 74Kg ( 12/22/23 ), 68 kg (01/2024) , 64 kg (03/2024) - not on nutritional supplement due to concerns regarding adverse reaction to sugar substitute - other nutritional supplement options discussed such as [email or web address] - add MUFA/PUFA to your meals 1-2 servings/d - Add a serving of carb to at least one of your meals (aim at 45 g of carbs at meal, following healthy plate method) Est kcal needs as per 25 kcal/kg bw: 1850 (40% carb, 30% protein/fat) Est fluid needs as per 25 ml/d: 1850 Est prot per day as per 1 g/kg bw: 74 g/d Recommend fiber intake : 8-10 g per day and gradually increase to 25-28 g per day for women and 35-38 g for men or as tolerated Recommend sodium intake per day : less than 2000 mg Educated patient on: ( R = reviewed V = verbalizes understanding N/R = needs review N/A = not applicable * Food sources of carbohydrate, adequate serving sizes and its role in various health conditions: R V * Differences between complex carbohydrates a simple carbohydrates, role of fiber in diet: R V * Lean protein sources of foods: R V * Differences between types of fats and role in diet (mono on saturated fat fatty acids, saturated fatty acids, trans fats): R * Food sources of sodium in salt and healthy modifications for heart health in kidney health: R * Vitamins and minerals: R * Healthy plate method concept: R V * Physical activity: Benefits a precaution: N/R * Hypoglycemia protocol (rule of 15): N/R * Dietary prevention of Hyperglycemia: R Patient Instructions: Include 1-2 serving of fat in your diet at lunch/dinner ( 1-2 tsp of olive oil, 1-2 tbsp peanut butter, olives) Add 15 g of carb at meal (1/2 Eng muffin, 1/2 cup of pasta/rice/potatoes/cereal / 1/2 c of fruit keep following up with your corporate events director call for questions Coding Level of Care Code Nutr Indiv Subseq ([id number]) Diagnoses Type 2 diabetes mellitus with hyperglycemia, without long-term current use of insulin E11.65 Diabetes mellitus type: type 2 Diabetes mellitus group home insulin use: without roasterman use Diabetes mellitus complication status: with hyperglycemia Time Spent (min) 30
[2024-03-24 13:03] VITALS: BMI 25.6
== END 2024-03-24 13:47 | disposition home or self-care (01) ==
PROVIDERS: PCP Internal Medicine; Visit Provider Dietitian, Registered
DX: E11.65 Type 2 diabetes mellitus with hyperglycemia (principal)

== ENCOUNTER → 2024-03-24 12:41 | Outpatient (BNVA) | payer MEDICARE, SELFPAY | PROVIDERS: PCP Internal Medicine; Visit Provider Dietitian, Registered | DX: E11.65 Type 2 diabetes mellitus with hyperglycemia (principal) | CPT/HCPCS: 97803 ==

== ENCOUNTER 2024-05-12 13:50 | Outpatient (AMB) | payer MEDICARE, SELFPAY ==
[2024-05-12 13:56] VITALS: BMI 25.9
--- NOTE | 2024-05-12 13:56 | A.OFFVIS_ITS ---
VS Expanded 05/12/24 13:56 Height 5 ft 2 in Weight 141 lb 12.116 oz BMI 25.9 Intake Visit Reasons: T2DM Allergies Benzodiazepines [BENZODIAZEPINES] Allergy (Intermediate, Verified 05/13/24 10:48) ANXIETY levofloxacin [From LEVAQUIN] Allergy (Intermediate, Verified 05/13/24 10:48) PAIN IN LEGS AND JOINTS clonazepam Allergy (Mild, Verified 05/13/24 10:48) Hallucinations lorazepam Allergy (Mild, Verified 05/13/24 10:48) Hallucinations olanzapine [Zyprexa] Allergy (Mild, Verified 05/13/24 10:48) Cough Penicillins [PENICILLINS] Allergy (Mild, Verified 05/13/24 10:48) Hives Sulfa (Sulfonamide Antibiotics) [SULFA (SULFONAMIDE ANTIBIOTICS)] Allergy (Mild, Verified 05/13/24 10:48) Sensivity MSG Allergy (Mild, Uncoded 05/13/24 10:48) Upset stomach Nutrition Presentation Details: Pt presents for MNT for T2DM. Pt reports feeling too full and sometimes bloated. Reviewed meal choices, it appears Pt is choosing high fiber foods , selecting low carb/high fiber foods Beeakfst: humalog 5 units with bg less than 200 or 6 units if bg > 200 lunch 7 units humalog if BG less than 200 and 8 if > 200 dinner , 3 units if bg less than 200 and 4 units if >200 Pt c/o bloating , feelig too full and - Pt is choosing high fiber low carbs breads BS Monitoring Most Recent Diabetes Results: No Data to Display [facility] Medical History (Updated 12/17/23 @ 22:49 by Marquis Morel MD) Diabetes mellitus Status post administration of all doses of COVID-19 vaccine series COPD (chronic obstructive pulmonary disease) Bronchiectasis Rash Hypogammaglobulinemia CSS (Churg-James syndrome) Surgical History History of appendectomy History of ileostomy History of cholecystectomy History of hysterectomy History of colectomy History of bronchoscopy (~2019) Social History Patient Tobacco Use Status: Never used Tobacco Advance Directives Date on File: 09/19/20 Assessment & Plan Assessment & Plan (1) Diabetes mellitus: Code(s): E11.9 - Type 2 diabetes mellitus without complications Category: Medical Qualifiers: Diabetes mellitus type: type 2 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: without custodial use Diabetes mellitus complication status: with hyperglycemia Qualified Code(s): E11.65 - Type 2 diabetes mellitus with hyperglycemia Plan: Wt: 74Kg ( 12/22/23 ), 68 kg (01/2024) , 64 kg (03/2024), 64 kg (05/2024) Pt c/o bloating and feeling too full Est kcal needs as per 25 kcal/kg bw: 1850 (40% carb, 30% protein/fat) Est fluid needs as per 25 ml/d: 1850 Est prot per day as per 1 g/kg bw: 74 g/d Recommend fiber intake : 8-10 g per day and gradually increase to 25-28 g per day for women and 35-38 g for men or as tolerated Recommend sodium intake per day : less than 2000 mg Educated patient on: ( R = reviewed V = verbalizes understanding N/R = needs review N/A = not applicable * Food sources of carbohydrate, adequate serving sizes and its role in various health conditions: R V * Differences between complex carbohydrates a simple carbohydrates, role of fiber in diet: R V * Lean protein sources of foods: R V * Differences between types of fats and role in diet (mono on saturated fat fatty acids, saturated fatty acids, trans fats): R * Food sources of sodium in salt and healthy modifications for heart health in kidney health: R * Vitamins and minerals: R * Healthy plate method concept: R V * Physical activity: Benefits a precaution: N/R * Hypoglycemia protocol (rule of 15): N/R * Dietary prevention of Hyperglycemia: R Patient Instructions: Choose lower fiber breads /wraps, ok with 4 g of fiber vs 12 g fiber Coding Level of Care Code Nutr Indiv Subseq ([id number]) Diagnoses Type 2 diabetes mellitus with hyperglycemia, without long-term current use of insulin E11.65 Diabetes mellitus type: type 2 Diabetes mellitus custodial insulin use: without intermodal 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
== END 2024-05-12 14:29 | disposition home or self-care (01) ==
PROVIDERS: PCP Internal Medicine; Visit Provider Dietitian, Registered
DX: E11.65 Type 2 diabetes mellitus with hyperglycemia (principal)

== ENCOUNTER → 2024-05-12 13:50 | Outpatient (BNVA) | payer MEDICARE, SELFPAY | PROVIDERS: PCP Internal Medicine; Visit Provider Dietitian, Registered | DX: E11.65 Type 2 diabetes mellitus with hyperglycemia (principal); R14.0 Abdominal distension (gaseous); Z68.25 Body mass index [BMI] 25.0-25.9, adult; Z79.4 Long term (current) use of insulin; Z71.3 Dietary counseling and surveillance | CPT/HCPCS: 97803 ==

== ENCOUNTER 2024-05-13 10:41 | Outpatient (AMB) | payer MEDICARE, SELFPAY ==
[2024-05-13 10:46] VITALS: PULSE 86; O2SAT 98; BMI 25.6
--- NOTE | 2024-05-13 10:46 | MHC.OFFVIS ---
Vital Signs 05/13/24 10:46 Height 5 ft 2 in Weight 140 lb BMI 25.6 Pulse 86 Pulse Source Pulse Oximeter Pulse Oximetry (%) 98 Oxygen Delivery Method Room Air Intake Visit Reasons: hospital follow up Travel Rn Required: No Allergies Benzodiazepines [BENZODIAZEPINES] Allergy (Intermediate, Verified 05/13/24 10:48) ANXIETY levofloxacin [From LEVAQUIN] Allergy (Intermediate, Verified 05/13/24 10:48) PAIN IN LEGS AND JOINTS clonazepam Allergy (Mild, Verified 05/13/24 10:48) Hallucinations lorazepam Allergy (Mild, Verified 05/13/24 10:48) Hallucinations olanzapine [Zyprexa] Allergy (Mild, Verified 05/13/24 10:48) Cough Penicillins [PENICILLINS] Allergy (Mild, Verified 05/13/24 10:48) Hives Sulfa (Sulfonamide Antibiotics) [SULFA (SULFONAMIDE ANTIBIOTICS)] Allergy (Mild, Verified 05/13/24 10:48) Sensivity MSG Allergy (Mild, Uncoded 05/13/24 10:48) Upset stomach HPI Comments Details: The patient is a 79-year-old woman with a 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 The patient also has significant asthma with eosinophilia was treated with Nucala. She responded to the therapy for some time with good results but then stop responding. She did follow up in [place] with her medical health researcher and at that point the decision was to start her on rituximab. She received 2 doses. The 1st dose she ended up with pneumonia and up in the hospital and then she received a 2nd dose she has not felt well. She complains of worsening shortness of breath and cough with mucus production. She has a hard time expectorating. She has been on prednisone. She had a sputum culture was positive for Pseudomonas. She was placed on a nebulized amikacin but then had a reaction which has a stop it. She was then admitted to the hospital for IV antibiotics. She was discharged from the hospital she still have feels a lot of shortness of breath. Still on a small dose of prednisone. Last night her cough and shortness of breath was significantly worsen and she thought she would have to go back to the hospital. This morning she feels a little better. She still has a hard time expectorating. Sounds like she has a croupy barky cough. Suggesting the possibility of tracheomalacia. The patient does not use CPAP. She does have daytime drowsiness and does have issues with headaches in the morning. She on needs to have a sleep study. As far CPT she uses a flutter valve. She will have a CT scan of the chest that I personally reviewed demonstrating significant bronchiectasis primarily at the bases with mucus plugging. She has failed flutter valve and also has had resistant organisms therefore will try to get her a percussion vest as soon as possible to improve her chest PT. She did have a CT scan of the chest consistent with sinusitis. Her x-ray did demonstrated haziness in the right base suggesting airspace disease. She was given a dose of aztreonam. Infectious Disease was consulted and did not feel strongly about admitting her to the hospital or starting aztreonam. I did call microbiology in order to aztreonam to her Pseudomonas sensitivity panel. Will monitor closely her symptoms. At this point will start her on azithromycin for the bronchiectasis. She was also on Bactrim however she had a bump on her creatinine from 1.5-1.8. Therefore I will hold off on the Bactrim and see how she does in the azithromycin for now. She does follow up with her medical health researcher in [place] and further discuss this. In the meantime her IgG levels were significantly low. She has severe infections in the upper or lower respiratory tract and does require to start IgG therapies as well as possible. The patient is sedimentation rate still elevated at on her recent blood work of 75 she has ongoing symptoms bringing up the question if her vasculitis still active. She is going to be following up with [place] soon regarding additional rituximab or additional therapies for the ongoing vasculitis. The the bronchoscopy demonstrated significant purulent Secretions and significant tracheobronchomalacia. Her Pseudomonas is extremely resistant. She started azithromycin Friday and Friday and she also started her percussion vest for her bronchiectasis with good effect. Overall she is feeling better. She also has immunodeficiency syndrome and will start IgG infusions tomorrow. 05/14/2023 the patient is here for a pulmonary follow-up visit. She is doing well from a respiratory status. No significant chest congestion. She continues on her chest PT using her nebulized therapy hypertonic saline a percussion vest. She is having issues with her sinuses. Having sinus pressure and also some bulging of the eyes. The patient did have an ENT evaluation and did have cultures which were positive. I do not have the results. She was referred back to [facility] in [place] for further care. She may need to go back on topical antibiotics. the patient did have blood work which I reviewed. It appears that her ANCA is negative still which is reassuring. She has not had to receive any additional Rituxan which is also reassuring. She continues on 11 mg of prednisone. The patient continues on the IVIG every 6 weeks. Her IgG levels are low normal so therefore she should continue with the every 6 weeks at this time. She is wondering about using the mask. I did encourage her to continue using the mask due to her immunodeficiency. 09/09/2023 the patient is here for a follow-up visit. Overall the patient continues to have some dyspnea on exertion. [id number] severity. Her sinuses start still an issue. She did go to ENT in [place] recently and she was again prescribed a compound BEULAH/ budesonide suspension that she does use twice a day. She will continue that for another 12 weeks and then they will follow-up with her. The patient has not had to start Rituxan just yet. She is actually weaning down the prednisone some. She is concerned that her kidney function got worse. She is going to follow up with her medical health researcher soon. If her symptoms worsen she can always have more blood work done. I did put the blood work in the system. She continues on the IVIG therapy every 6 weeks which she is tolerating fairly well without any significant adverse effects. She also continues with respiratory therapy. No significant chest congestion at this time. 12/17/2023 the patient is here for pulmonary follow-up visit. From a respiratory status she is actually doing very well. Her congested subsided significantly. She also has improvement of her sinuses after the be BEULAH budesonide suspension. She also was able to stop that. Although she had worsening inflammatory changes and when she went to [place] her prednisone was increased from 11 mg to 15 mg. Subsequently after that during Thanksgiving dinner the patient developed severe hypoglycemia requiring a hospital visit. The patient was placed on medications although she was symptomatic with dizziness and falls and ultimately was taken off 1 medication and then placed on a different medication and had problems again. Therefore she has been off all medications. 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 She is able to decrease prednisone down to 13 mg but she is going to go slowly undergo be monitoring closely in [place]. The patient is continued to get her IVIG infusions as prescribed with good effect. She also continues to use her CPT also with good effect as her congestion is significantly improved. 05/13/2024 the patient is here for a pulmonary follow-up visit. Overall she has doing a little better. She was hospitalized was given high-dose steroids and she had significant hyperglycemia. He has been very difficult to control her sugars. She is on insulin. The patient has been doing well from a respiratory status. She is down to prednisone 13 mg. She is slowly decreasing. I wonder she is going to need a steroid sparing agent to minimize steroid use. May be a good candidate for mycophenolate. In the meantime she is getting her IVIG. Will go and check her trough levels before the next dose. She continues her respiratory therapy. Does not have any significant chest congestion. Will try to wean her off the azithromycin macrolide suppression therapy that she uses for bronchiectasis. Will try to wean her off completely to make sure we can simplify her medication regimen. [facility] Medical History (Updated 12/17/23 @ 22:49 by Marquis Morel MD) Diabetes mellitus Status post administration of all doses of COVID-19 vaccine series COPD (chronic obstructive pulmonary disease) Bronchiectasis Rash Hypogammaglobulinemia CSS (Churg-James syndrome) Surgical History History of appendectomy History of ileostomy History of cholecystectomy History of hysterectomy History of colectomy History of bronchoscopy (~2019) Social History Patient Tobacco Use Status: Never used Tobacco Advance Directives Date on File: 09/19/20 Review of Systems Const Reports fatigue, Reports frequent falls and Denies night sweats Eyes Reports change in vision ENT Reports dizziness, Denies lip swelling, Denies mouth pain, Reports nasal congestion, Reports nasal discharge, Reports post nasal drip, Denies sinus pain, Denies sinus pressure and Denies tongue swelling Card Denies chest pain and Reports dyspnea on exertion Resp Denies chest congestion, Reports cough, Denies hemoptysis, Denies excessive phlegm production, Reports dyspnea on exertion and Denies wheezing GI Denies abdominal pain Musc Denies no additional complaints, Reports deformity (right forearm pain and swelling), Reports arthralgias and Reports limited range of motion Skin/Breast Reports rash Neuro Denies Neuro-related abnormal movements, Reports dizziness and Reports frequent falls Psych Denies no additional complaints Endo Reports fatigue Paul/Lymph Denies easy bleeding and Denies lymphadenopathy Aller/Immun Denies lip swelling, Denies tongue swelling and Denies wheezing Physical Exam Vital Signs: Last Vital Signs Pulse 86 05/13/24 10:46 Pulse Ox 98 05/13/24 10:46 Oxygen Delivery Method Room Air 05/13/24 10:46 BMI result Body Mass Index 25.6 Const General: comfortable and alert HEENT Throat: Yes postnasal drainage (thick yellow mucus noted) Eyes Conjunctivae: conjunctival abnormal Neck Neck: Yes normal visual inspection, Yes full ROM and Yes no lymphadenopathy Chest Chest palpation & inspection: normal inspection of the chest Resp Effort & Inspection: normal respiratory effort Auscultation: no rales, no rhonchi, no wheezes and diminished lung sounds Cardio Rate: regular rate Rhythm: regular rhythm Heart sounds: S1 normal heart sound present and S2 normal heart sound present GI Palpation (GI): Soft to palpation and nontender Auscultation: normal bowel sounds Skin General skin exam: rashes and/or lesions noted Extrem General: Yes no clubbing, cyanosis or edema Assessment & Plan Assessment & Plan (1) COPD (chronic obstructive pulmonary disease): Code(s): J44.9 - Chronic obstructive pulmonary disease, unspecified Category: Medical Qualifiers: COPD type: COPD with acute lower respiratory infection Qualified Code(s): J44.0 - Chronic obstructive pulmonary disease with (acute) lower respiratory infection (2) Bronchiectasis: Code(s): J47.9 - Bronchiectasis, uncomplicated Category: Medical Qualifiers: Bronchiectasis type: with acute lower respiratory infection Qualified Code(s): J47.0 - Bronchiectasis with acute lower respiratory infection (3) Hypogammaglobulinemia: Code(s): D80.1 - Nonfamilial hypogammaglobulinemia Category: Medical (4) CSS (Churg-James syndrome): Comment: Failed Nucala. 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 [Churg-James]; D72.18 - Eosinophilia in diseases classified elsewhere Category: Medical (5) Diabetes mellitus: Code(s): E11.9 - Type 2 diabetes mellitus without complications Category: Medical Qualifiers: Diabetes mellitus complication status: with hyperglycemia Diabetes mellitus truck terminal manager insulin use: without senior living use Diabetes mellitus type: type 2 Qualified Code(s): E11.65 - Type 2 diabetes mellitus with hyperglycemia Plan continue Prednisone 13 mg with slow taper, ?steroid sparing agent ie mycophenalate Continue budesonide benzonate for dry cough Duoneb Azithromycin MWF wean off continue CPT with hypertonic saline 3% and percussion vest continue IVIG infusions h4forsd, check through level Zyrtec daily Follow-up in 4 months Orders: Orders Immunoglobulin G Subclasses Today D72.18 - Eosinophilia in diseases classified elsewhere, D80.1 - Nonfamilial hypogammaglobulinemia, 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 [Churg-James] Complete Blood Count Auto Diff Today D72.18 - Eosinophilia in diseases classified elsewhere, D80.1 - Nonfamilial hypogammaglobulinemia, 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 [Churg-James] Basic Metabolic Panel Today D72.18 - Eosinophilia in diseases classified elsewhere, D80.1 - Nonfamilial hypogammaglobulinemia, 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 [Churg-James] Immunoglobulins,IgG IgA IgM Today D72.18 - Eosinophilia in diseases classified elsewhere, D80.1 - Nonfamilial hypogammaglobulinemia, 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 [Churg-James] Coding Level of Care Code Est Pt Level 4 (89038) Diagnoses Chronic obstructive pulmonary disease with acute lower respiratory infection J44.0 COPD type: COPD with acute lower respiratory infection Bronchiectasis with acute lower respiratory infection J47.0 Bronchiectasis type: with acute lower respiratory infection Hypogammaglobulinemia D80.1 CSS (Churg-James syndrome) M30.1; D72.18 Type 2 diabetes mellitus with hyperglycemia, without long-term current use of insulin E11.65 Diabetes mellitus complication status: with hyperglycemia Diabetes mellitus truck terminal manager insulin use: without truck terminal manager use Diabetes mellitus type: type 2 Time Spent (min) 17
== END 2024-05-13 11:20 | disposition home or self-care (01) ==
PROVIDERS: PCP Internal Medicine; Visit Provider Hospitalist
DX: J44.0 Chronic obstructive pulmonary disease with (acute) lower respiratory infection (principal); J47.0 Bronchiectasis with acute lower respiratory infection; D80.1 Nonfamilial hypogammaglobulinemia; M30.1 Polyarteritis with lung involvement [Churg-Strauss]; D72.18 Eosinophilia in diseases classified elsewhere; E11.65 Type 2 diabetes mellitus with hyperglycemia
CPT/HCPCS: 99214

== ENCOUNTER → 2024-05-13 10:41 | Outpatient (BNVA) | payer MEDICARE, SELFPAY | PROVIDERS: PCP Internal Medicine; Visit Provider Hospitalist | DX: J44.0 Chronic obstructive pulmonary disease with (acute) lower respiratory infection (principal); J47.0 Bronchiectasis with acute lower respiratory infection; D80.1 Nonfamilial hypogammaglobulinemia; M31.0 Hypersensitivity angiitis; M30.1 Polyarteritis with lung involvement [Churg-Strauss]; E11.65 Type 2 diabetes mellitus with hyperglycemia | CPT/HCPCS: 99212 ==

== ENCOUNTER 2024-08-11 12:54 | Outpatient (AMB) | payer MEDICARE, SELFPAY ==
--- NOTE | 2024-08-11 12:58 | A.OFFVIS_ITS ---
VS Expanded 08/11/24 12:59 Height 5 ft 2 in Weight 147 lb 14.883 oz BMI 27.1 Intake Visit Reasons: T2DM/LVM Allergies Benzodiazepines [BENZODIAZEPINES] Allergy (Intermediate, Verified 05/13/24 10:48) ANXIETY levofloxacin [From LEVAQUIN] Allergy (Intermediate, Verified 05/13/24 10:48) PAIN IN LEGS AND JOINTS clonazepam Allergy (Mild, Verified 05/13/24 10:48) Hallucinations lorazepam Allergy (Mild, Verified 05/13/24 10:48) Hallucinations olanzapine [Zyprexa] Allergy (Mild, Verified 05/13/24 10:48) Cough Penicillins [PENICILLINS] Allergy (Mild, Verified 05/13/24 10:48) Hives Sulfa (Sulfonamide Antibiotics) [SULFA (SULFONAMIDE ANTIBIOTICS)] Allergy (Mild, Verified 05/13/24 10:48) Sensivity MSG Allergy (Mild, Uncoded 05/13/24 10:48) Upset stomach Nutrition Presentation Details: Pt presents for MNt f/u for T2DM Pt reports understanding relationship of bg to foods, reports working on reducing portions sizes as she was feeling too full. She reports feeling more comfortable in terms of diet modifications with T2DM. Pt is managing insulin therapy with hand spring repairer. Reports blood sugar are better control with less hypoglycemia , having 0-1 hypoglycemic episode per week Treats hypoglycemia with juice, always carries glucose tablets Pt has glucose sensor and for the past week 83 % with bg level within target, 14 % above 180 and 3 % above 250. pt has no low blood glucose in the past week. BS Monitoring Most Recent Diabetes Results: Creatinine 1.67 mg/dL (0.5-1.4) H 05/20/24 Blood Urea Nitrogen 62 mg/dL (9-16) H 05/20/24 Sodium 140 mmol/L (135-145) 05/20/24 Potassium 3.7 mmol/L (3.3-5.1) 05/20/24 Chloride 109 mmol/L (96-108) H 05/20/24 Carbon Dioxide 21 mmol/L (22-29) L 05/20/24 Calcium 9.1 mg/dL (8.4-10.2) 05/20/24 [facility] Medical History (Updated 12/17/23 @ 22:49 by Marquis Morel MD) Diabetes mellitus Status post administration of all doses of COVID-19 vaccine series COPD (chronic obstructive pulmonary disease) Bronchiectasis Rash Hypogammaglobulinemia CSS (Churg-James syndrome) Surgical History History of appendectomy History of ileostomy History of cholecystectomy History of hysterectomy History of colectomy History of bronchoscopy (~2019) Social History Patient Tobacco Use Status: Never used Tobacco Advance Directives Date on File: 09/19/20 Assessment & Plan Assessment & Plan (1) Diabetes mellitus: Code(s): E11.9 - Type 2 diabetes mellitus without complications Category: Medical Qualifiers: Diabetes mellitus complication status: with hyperglycemia Diabetes mellitus terminal make up operator insulin use: without correction use Diabetes mellitus type: type 2 Qualified Code(s): E11.65 - Type 2 diabetes mellitus with hyperglycemia Plan: Wt: 74Kg ( 12/22/23 ), 68 kg (01/2024) , 64 kg (03/2024), 64 kg (05/2024), 66kg (08/24) Pt today reports feeling better, more comfortable with managing diet for gluc c ontrol by reducing fiber and portion of total carbs Est kcal needs as per 25 kcal/kg bw: 1850 (40% carb, 30% protein/fat) Est fluid needs as per 25 ml/d: 1700 Est prot per day as per 1 g/kg bw: 66 g/d Recommend fiber intake : 8-10 g per day and gradually increase to 25-28 g per day for women and 35-38 g for men or as tolerated Recommend sodium intake per day : less than 2000 mg Educated patient on: ( R = reviewed V = verbalizes understanding N/R = needs review N/A = not applicable * Food sources of carbohydrate, adequate serving sizes and its role in various health conditions: R V * Differences between complex carbohydrates a simple carbohydrates, role of fiber in diet: R V * Lean protein sources of foods: R V * Differences between types of fats and role in diet (mono on saturated fat f atty acids, saturated fatty acids, trans fats): R, V * Food sources of sodium in salt and healthy modifications for heart health in kidney health: R , V * Vitamins and minerals: R , V * Healthy plate method concept: R V * Physical activity: Benefits a precaution: R * Hypoglycemia protocol (rule of 15): R, V * Dietary prevention of Hyperglycemia: R , V Patient Instructions: Continue as established working on having 30-45 g of carb per meal, choosing foods with its natural fiber vs foods with additional fiber in them Keep hydrated by having water with meals and choosing a variety of foods. Coding Level of Care Code Nutr Indiv Subseq (12276) Diagnoses Type 2 diabetes mellitus with hyperglycemia, without long-term current use of insulin E11.65 Diabetes mellitus complication status: with hyperglycemia Diabetes mellitus terminal make up operator insulin use: without correction use Diabetes mellitus type: type 2 Time Spent (min) 30
[2024-08-11 12:59] VITALS: BMI 27.1
== END 2024-08-11 13:27 | disposition home or self-care (01) ==
PROVIDERS: PCP Internal Medicine; Visit Provider Dietitian, Registered
DX: E11.65 Type 2 diabetes mellitus with hyperglycemia (principal)

== ENCOUNTER → 2024-08-11 12:54 | Outpatient (BNVA) | payer MEDICARE, SELFPAY | PROVIDERS: PCP Internal Medicine; Visit Provider Dietitian, Registered | DX: E11.65 Type 2 diabetes mellitus with hyperglycemia (principal) | CPT/HCPCS: 97803 ==

== ENCOUNTER 2024-08-27 13:56 | Outpatient (AMB) | payer MEDICARE, SELFPAY ==
[2024-08-27 14:00] VITALS: BP 122/70; PULSE 82; O2SAT 98; BMI 25.6
--- NOTE | 2024-08-27 14:00 | MHC.OFFVIS ---
Vital Signs 08/27/24 14:00 Height 5 ft 2 in Weight 139 lb 15.896 oz BMI 25.6 BP 122/70 Blood Pressure Location Lt brachial Position Sitting Pulse 82 Pulse Source Pulse Oximeter Pulse Oximetry (%) 98 Oxygen Delivery Method Room Air Intake Visit Reasons: Bronchiectasis Senior Nuclear Medicine Technologist Required: No Allergies Benzodiazepines [BENZODIAZEPINES] Allergy (Intermediate, Verified 08/27/24 14:03) ANXIETY levofloxacin [From LEVAQUIN] Allergy (Intermediate, Verified 08/27/24 14:03) PAIN IN LEGS AND JOINTS clonazepam Allergy (Mild, Verified 08/27/24 14:03) Hallucinations lorazepam Allergy (Mild, Verified 08/27/24 14:03) Hallucinations olanzapine [Zyprexa] Allergy (Mild, Verified 08/27/24 14:03) Cough Penicillins [PENICILLINS] Allergy (Mild, Verified 08/27/24 14:03) Hives Sulfa (Sulfonamide Antibiotics) [SULFA (SULFONAMIDE ANTIBIOTICS)] Allergy (Mild, Verified 08/27/24 14:03) Sensivity MSG Allergy (Mild, Uncoded 08/27/24 14:03) Upset stomach HPI Comments Details: The patient is a 79-year-old woman with a 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 The patient also has significant asthma with eosinophilia was treated with Nucala. She responded to the therapy for some time with good results but then stop responding. She did follow up in [place] with her registered nurse supervisor and at that point the decision was to start her on rituximab. She received 2 doses. The 1st dose she ended up with pneumonia and up in the hospital and then she received a 2nd dose she has not felt well. She complains of worsening shortness of breath and cough with mucus production. She has a hard time expectorating. She has been on prednisone. She had a sputum culture was positive for Pseudomonas. She was placed on a nebulized amikacin but then had a reaction which has a stop it. She was then admitted to the hospital for IV antibiotics. She was discharged from the hospital she still have feels a lot of shortness of breath. Still on a small dose of prednisone. Last night her cough and shortness of breath was significantly worsen and she thought she would have to go back to the hospital. This morning she feels a little better. She still has a hard time expectorating. Sounds like she has a croupy barky cough. Suggesting the possibility of tracheomalacia. The patient does not use CPAP. She does have daytime drowsiness and does have issues with headaches in the morning. She on needs to have a sleep study. As far CPT she uses a flutter valve. She will have a CT scan of the chest that I personally reviewed demonstrating significant bronchiectasis primarily at the bases with mucus plugging. She has failed flutter valve and also has had resistant organisms therefore will try to get her a percussion vest as soon as possible to improve her chest PT. She did have a CT scan of the chest consistent with sinusitis. Her x-ray did demonstrated haziness in the right base suggesting airspace disease. She was given a dose of aztreonam. Infectious Disease was consulted and did not feel strongly about admitting her to the hospital or starting aztreonam. I did call microbiology in order to aztreonam to her Pseudomonas sensitivity panel. Will monitor closely her symptoms. At this point will start her on azithromycin for the bronchiectasis. She was also on Bactrim however she had a bump on her creatinine from 1.5-1.8. Therefore I will hold off on the Bactrim and see how she does in the azithromycin for now. She does follow up with her registered nurse supervisor in [place] and further discuss this. In the meantime her IgG levels were significantly low. She has severe infections in the upper or lower respiratory tract and does require to start IgG therapies as well as possible. The patient is sedimentation rate still elevated at on her recent blood work of 75 she has ongoing symptoms bringing up the question if her vasculitis still active. She is going to be following up with [place] soon regarding additional rituximab or additional therapies for the ongoing vasculitis. The the bronchoscopy demonstrated significant purulent Secretions and significant tracheobronchomalacia. Her Pseudomonas is extremely resistant. She started azithromycin Friday and Friday and she also started her percussion vest for her bronchiectasis with good effect. Overall she is feeling better. She also has immunodeficiency syndrome and will start IgG infusions tomorrow. 05/14/2023 the patient is here for a pulmonary follow-up visit. She is doing well from a respiratory status. No significant chest congestion. She continues on her chest PT using her nebulized therapy hypertonic saline a percussion vest. She is having issues with her sinuses. Having sinus pressure and also some bulging of the eyes. The patient did have an ENT evaluation and did have cultures which were positive. I do not have the results. She was referred back to [facility] in [place] for further care. She may need to go back on topical antibiotics. the patient did have blood work which I reviewed. It appears that her ANCA is negative still which is reassuring. She has not had to receive any additional Rituxan which is also reassuring. She continues on 11 mg of prednisone. The patient continues on the IVIG every 6 weeks. Her IgG levels are low normal so therefore she should continue with the every 6 weeks at this time. She is wondering about using the mask. I did encourage her to continue using the mask due to her immunodeficiency. 09/09/2023 the patient is here for a follow-up visit. Overall the patient continues to have some dyspnea on exertion. [id number] severity. Her sinuses start still an issue. She did go to ENT in [place] recently and she was again prescribed a compound BEULAH/ budesonide suspension that she does use twice a day. She will continue that for another 12 weeks and then they will follow-up with her. The patient has not had to start Rituxan just yet. She is actually weaning down the prednisone some. She is concerned that her kidney function got worse. She is going to follow up with her registered nurse supervisor soon. If her symptoms worsen she can always have more blood work done. I did put the blood work in the system. She continues on the IVIG therapy every 6 weeks which she is tolerating fairly well without any significant adverse effects. She also continues with respiratory therapy. No significant chest congestion at this time. 12/17/2023 the patient is here for pulmonary follow-up visit. From a respiratory status she is actually doing very well. Her congested subsided significantly. She also has improvement of her sinuses after the be BEULAH budesonide suspension. She also was able to stop that. Although she had worsening inflammatory changes and when she went to [place] her prednisone was increased from 11 mg to 15 mg. Subsequently after that during Thanksgiving dinner the patient developed severe hypoglycemia requiring a hospital visit. The patient was placed on medications although she was symptomatic with dizziness and falls and ultimately was taken off 1 medication and then placed on a different medication and had problems again. Therefore she has been off all medications. 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 She is able to decrease prednisone down to 13 mg but she is going to go slowly undergo be monitoring closely in [place]. The patient is continued to get her IVIG infusions as prescribed with good effect. She also continues to use her CPT also with good effect as her congestion is significantly improved. 05/13/2024 the patient is here for a pulmonary follow-up visit. Overall she has doing a little better. She was hospitalized was given high-dose steroids and she had significant hyperglycemia. He has been very difficult to control her sugars. She is on insulin. The patient has been doing well from a respiratory status. She is down to prednisone 13 mg. She is slowly decreasing. I wonder she is going to need a steroid sparing agent to minimize steroid use. May be a good candidate for mycophenolate. In the meantime she is getting her IVIG. Will go and check her trough levels before the next dose. She continues her respiratory therapy. Does not have any significant chest congestion. Will try to wean her off the azithromycin macrolide suppression therapy that she uses for bronchiectasis. Will try to wean her off completely to make sure we can simplify her medication regimen. 08/27/2024 the patient is here for a pulmonary follow-up visit. She has had worsening cough chest congestion and wheezing. Moderate severity. Is going to going on for the last 3-5 days. She continues on 13 mg of prednisone. She has not been able to cut down further. She is having moderate degree of chest congestion. We tried . Sputum sample in the office but we were not able to do so. Therefore will go ahead and start her on Augmentin since this is 1 of the antibiotics she can not tolerate. And will also try to get a sputum culture whenever possible. We can also consider additional imaging studies and also consider bronchoscopy if the patient is not able to clear this. She is also having significant wheezing on examination. Although does have issues with hyperglycemia and diabetes so therefore hold off on increasing the prednisone at this time. She continues to receive her IVIG. She also has been taking the azithromycin 3 times a week. She did try to cut down but she could not do so because of her worsening congestion. [facility] Medical History (Updated 12/17/23 @ 22:49 by Marquis Morel MD) Diabetes mellitus Status post administration of all doses of COVID-19 vaccine series COPD (chronic obstructive pulmonary disease) Bronchiectasis Rash Hypogammaglobulinemia CSS (Churg-James syndrome) Surgical History History of appendectomy History of ileostomy History of cholecystectomy History of hysterectomy History of colectomy History of bronchoscopy (~2019) Social History Patient Tobacco Use Status: Never used Tobacco Advance Directives Date on File: 09/19/20 Review of Systems Const Reports fatigue, Reports frequent falls and Denies night sweats Eyes Reports change in vision ENT Reports dizziness, Denies lip swelling, Denies mouth pain, Reports nasal congestion, Reports nasal discharge, Reports post nasal drip, Denies sinus pain, Denies sinus pressure and Denies tongue swelling Card Denies chest pain and Reports dyspnea on exertion Resp Reports change in phlegm color, Reports chest congestion, Reports cough, Denies hemoptysis, Denies excessive phlegm production, Reports dyspnea on exertion and Reports wheezing GI Denies abdominal pain Musc Denies no additional complaints, Reports deformity (right forearm pain and swelling), Reports arthralgias and Reports limited range of motion Skin/Breast Reports rash Neuro Denies Neuro-related abnormal movements, Reports dizziness and Reports frequent falls Psych Denies no additional complaints Endo Reports fatigue Paul/Lymph Denies easy bleeding and Denies lymphadenopathy Aller/Immun Denies lip swelling, Denies tongue swelling and Reports wheezing Physical Exam Vital Signs: Last Vital Signs Pulse 82 08/27/24 14:00 BP 122/70 08/27/24 14:00 Pulse Ox 98 08/27/24 14:00 Oxygen Delivery Method Room Air 08/27/24 14:00 BMI result Body Mass Index 25.6 Const General: comfortable and alert HEENT Throat: Yes postnasal drainage (thick yellow mucus noted) Eyes Conjunctivae: conjunctival abnormal Neck Neck: Yes normal visual inspection, Yes full ROM and Yes no lymphadenopathy Chest Chest palpation & inspection: normal inspection of the chest Resp Effort & Inspection: normal respiratory effort and prolonged expiratory phase Auscultation: no rales, rhonchi, wheezes and diminished lung sounds Cardio Rate: regular rate Rhythm: regular rhythm Heart sounds: S1 normal heart sound present and S2 normal heart sound present GI Palpation (GI): Soft to palpation and nontender Auscultation: normal bowel sounds Skin General skin exam: rashes and/or lesions noted Extrem General: Yes no clubbing, cyanosis or edema Assessment & Plan Assessment & Plan (1) COPD (chronic obstructive pulmonary disease): Code(s): J44.9 - Chronic obstructive pulmonary disease, unspecified Category: Medical Qualifiers: COPD type: COPD with acute lower respiratory infection Qualified Code(s): J44.0 - Chronic obstructive pulmonary disease with (acute) lower respiratory infection (2) Bronchiectasis: Code(s): J47.9 - Bronchiectasis, uncomplicated Category: Medical Qualifiers: Bronchiectasis type: with acute lower respiratory infection Qualified Code(s): J47.0 - Bronchiectasis with acute lower respiratory infection (3) Hypogammaglobulinemia: Code(s): D80.1 - Nonfamilial hypogammaglobulinemia Category: Medical (4) CSS (Churg-James syndrome): Comment: Failed Nucala. 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 [Churg-James]; D72.18 - Eosinophilia in diseases classified elsewhere Category: Medical (5) Diabetes mellitus: Code(s): E11.9 - Type 2 diabetes mellitus without complications Category: Medical Qualifiers: Diabetes mellitus complication status: with hyperglycemia Diabetes mellitus penitentiary insulin use: without termite exterminator helper use Diabetes mellitus type: type 2 Qualified Code(s): E11.65 - Type 2 diabetes mellitus with hyperglycemia Plan start Augmentin sputum cx continue Prednisone 13 mg with slow taper, may need a higher dose Continue budesonide benzonate for dry cough Duoneb hold Azithromycin MWF continue CPT with hypertonic saline 3% and percussion vest continue IVIG infusions [id number], check through level Zyrtec daily Follow-up in 2-3 months Orders: Orders Sputum Cult + Gram stain 08/27/24 J47.0 - Bronchiectasis with acute lower respiratory infection Medications: New amoxicillin-pot clavulanate 500-125 mg (Augmentin) 1 tab PO Q12H 28 tabs 0RF 14 days Coding Level of Care Code Est Pt Level 4 (71542) Complex EM visit Add On G2211 Diagnoses Chronic obstructive pulmonary disease with acute lower respiratory infection J44.0 COPD type: COPD with acute lower respiratory infection Bronchiectasis with acute lower respiratory infection J47.0 Bronchiectasis type: with acute lower respiratory infection Hypogammaglobulinemia D80.1 CSS (Churg-James syndrome) M30.1; D72.18 Type 2 diabetes mellitus with hyperglycemia, without long-term current use of insulin E11.65 Diabetes mellitus complication status: with hyperglycemia Diabetes mellitus penitentiary insulin use: without penitentiary use Diabetes mellitus type: type 2 Time Spent (min) 20
== END 2024-08-27 14:23 | disposition home or self-care (01) ==
PROVIDERS: PCP Internal Medicine; Visit Provider Hospitalist
DX: J44.0 Chronic obstructive pulmonary disease with (acute) lower respiratory infection (principal); D80.1 Nonfamilial hypogammaglobulinemia; M30.1 Polyarteritis with lung involvement [Churg-Strauss]; E11.65 Type 2 diabetes mellitus with hyperglycemia
CPT/HCPCS: 99214; G2211

== ENCOUNTER → 2024-08-27 13:56 | Outpatient (BNVA) | payer MEDICARE, SELFPAY | PROVIDERS: PCP Internal Medicine; Visit Provider Hospitalist | DX: J44.0 Chronic obstructive pulmonary disease with (acute) lower respiratory infection (principal); J47.0 Bronchiectasis with acute lower respiratory infection; E11.65 Type 2 diabetes mellitus with hyperglycemia; M30.1 Polyarteritis with lung involvement [Churg-Strauss]; D72.18 Eosinophilia in diseases classified elsewhere; D80.1 Nonfamilial hypogammaglobulinemia | CPT/HCPCS: 99212 ==

== ENCOUNTER 2024-09-10 12:00 | Outpatient (REF) | payer MEDICARE, SELFPAY ==
--- NOTE | ~2024-09-10 | XR_ITS ---
EXAMINATION: XR CHEST 2 VIEWS CLINICAL INFORMATION: J47.0 - Bronchiectasis with acute lower respiratory infection COMPARISON: Prior study 2019 TECHNIQUE: XR CHEST 2 VIEWS, 2 Views Lungs and Archana: Hyperinflated lung sacculation of the hemidiaphragms suggesting air trapping disease. Redemonstration of a faint density projecting over the right upper lobe superimposed on the right posterior fifth rib concerning for possible lung nodule versus bony. Pleura: Normal. Costophrenic angles are sharp. No pneumothorax. Heart: The heart is normal in size. Mediastinum: The mediastinum is within normal limits.. Bones: Skeletal structures included are normal for patient's age. XR/XR chest 2V IMPRESSION: * Redemonstration of a faint density projecting over the right upper lobe concerning for possible lung nodule versus bony. This is a high-risk patient with recommend correlation with follow-up chest CT, if not performed follow-up chest x-ray with deep inspiration expiration and both shallow obliques are recommended. * Hyperinflated lungs suggesting air trapping disease. * No radiographic evidence of acute infiltrates or failure. Electronically signed by: Jesus Rivera MD 09/10/2024 04:26 PM EDT
== END 2024-09-10 12:01 | disposition home or self-care (01) ==
LOC: HO.XRAY 12:00
PROVIDERS: PCP Internal Medicine; Visit Provider Hospitalist
DX: J47.0 Bronchiectasis with acute lower respiratory infection (principal)
CPT/HCPCS: 71046

== ENCOUNTER 2025-04-07 15:14 | Outpatient (AMB) | payer MEDICARE, SELFPAY ==
[2025-04-07 15:22] VITALS: BP 146/76; PULSE 100; O2SAT 96
--- NOTE | 2025-04-07 15:22 | A.OFFVIS_ITS ---
Vital Signs 04/07/25 15:22 Height 5 ft 2 in BMI Reason not done Patient refused/unable BP 146/76 H Blood Pressure Location Lt brachial Position Sitting Pulse 100 Pulse Source Pulse Oximeter Pulse Oximetry (%) 96 Oxygen Delivery Method Room Air Intake Visit Reasons: COPD,IVIG Allergies Benzodiazepines [BENZODIAZEPINES] Allergy (Intermediate, Verified 04/07/25 15:25) ANXIETY levofloxacin [From LEVAQUIN] Allergy (Intermediate, Verified 04/07/25 15:25) PAIN IN LEGS AND JOINTS clonazepam Allergy (Mild, Verified 04/07/25 15:25) Hallucinations lorazepam Allergy (Mild, Verified 04/07/25 15:25) Hallucinations olanzapine [Zyprexa] Allergy (Mild, Verified 04/07/25 15:25) Cough Penicillins [PENICILLINS] Allergy (Mild, Verified 04/07/25 15:25) Hives Sulfa (Sulfonamide Antibiotics) [SULFA (SULFONAMIDE ANTIBIOTICS)] Allergy (Mild, Verified 04/07/25 15:25) Sensivity MSG Allergy (Mild, Uncoded 08/27/24 14:03) Upset stomach HPI Comments Details: The patient is a 79-year-old woman with a 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 The patient also has significant asthma with eosinophilia was treated with Nucala. She responded to the therapy for some time with good results but then stop responding. She did follow up in [place] with her aeronautical engineering technologist and at that point the decision was to start her on rituximab. She received 2 doses. The 1st dose she ended up with pneumonia and up in the hospital and then she received a 2nd dose she has not felt well. She complains of worsening shortness of breath and cough with mucus production. She has a hard time expectorating. She has been on prednisone. She had a sputum culture was positive for Pseudomonas. She was placed on a nebulized amikacin but then had a reaction which has a stop it. She was then admitted to the hospital for IV antibiotics. She was discharged from the hospital she still have feels a lot of shortness of breath. Still on a small dose of prednisone. Last night her cough and shortness of breath was significantly worsen and she thought she would have to go back to the hospital. This morning she feels a little better. She still has a hard time expectorating. Sounds like she has a croupy barky cough. Suggesting the possibility of tracheomalacia. The patient does not use CPAP. She does have daytime drowsiness and does have issues with headaches in the morning. She on needs to have a sleep study. As far CPT she uses a flutter valve. She will have a CT scan of the chest that I personally reviewed demonstrating significant bronchiectasis primarily at the bases with mucus plugging. She has failed flutter valve and also has had resistant organisms therefore will try to get her a percussion vest as soon as possible to improve her chest PT. She did have a CT scan of the chest consistent with sinusitis. Her x-ray did demonstrated haziness in the right base suggesting airspace disease. She was given a dose of aztreonam. Infectious Disease was consulted and did not feel strongly about admitting her to the hospital or starting aztreonam. I did call microbiology in order to aztreonam to her Pseudomonas sensitivity panel. Will monitor closely her symptoms. At this point will start her on azithromycin for the bronchiectasis. She was also on Bactrim however she had a bump on her creatinine from 1.5-1.8. Therefore I will hold off on the Bactrim and see how she does in the azithromycin for now. She does follow up with her aeronautical engineering technologist in [place] and further discuss this. In the meantime her IgG levels were significantly low. She has severe infections in the upper or lower respiratory tract and does require to start IgG therapies as well as possible. The patient is sedimentation rate still elevated at on her recent blood work of 75 she has ongoing symptoms bringing up the question if her vasculitis still active. She is going to be following up with [place] soon regarding additional rituximab or additional therapies for the ongoing vasculitis. The the bronchoscopy demonstrated significant purulent Secretions and significant tracheobronchomalacia. Her Pseudomonas is extremely resistant. She started azithromycin Friday and Friday and she also started her percussion vest for her bronchiectasis with good effect. Overall she is feeling better. She also has immunodeficiency syndrome and will start IgG infusions tomorrow. 05/14/2023 the patient is here for a pulmonary follow-up visit. She is doing well from a respiratory status. No significant chest congestion. She continues on her chest PT using her nebulized therapy hypertonic saline a percussion vest. She is having issues with her sinuses. Having sinus pressure and also some bulging of the eyes. The patient did have an ENT evaluation and did have cultures which were positive. I do not have the results. She was referred back to [facility] in [place] for further care. She may need to go back on topical antibiotics. the patient did have blood work which I reviewed. It appears that her ANCA is negative still which is reassuring. She has not had to receive any additional Rituxan which is also reassuring. She continues on 11 mg of prednisone. The patient continues on the IVIG every 6 weeks. Her IgG levels are low normal so therefore she should continue with the every 6 weeks at this time. She is wondering about using the mask. I did encourage her to continue using the mask due to her immunodeficiency. 09/09/2023 the patient is here for a follow-up visit. Overall the patient continues to have some dyspnea on exertion. [id number] severity. Her sinuses start still an issue. She did go to ENT in [place] recently and she was again prescribed a compound BEULAH/ budesonide suspension that she does use twice a day. She will continue that for another 12 weeks and then they will follow-up with her. The patient has not had to start Rituxan just yet. She is actually weaning down the prednisone some. She is concerned that her kidney function got worse. She is going to follow up with her aeronautical engineering technologist soon. If her symptoms worsen she can always have more blood work done. I did put the blood work in the system. She continues on the IVIG therapy every 6 weeks which she is tolerating fairly well without any significant adverse effects. She also continues with respiratory therapy. No significant chest congestion at this time. 12/17/2023 the patient is here for pulmonary follow-up visit. From a respiratory status she is actually doing very well. Her congested subsided significantly. She also has improvement of her sinuses after the be BEULAH budesonide suspension. She also was able to stop that. Although she had worsening inflammatory changes and when she went to [place] her prednisone was increased from 11 mg to 15 mg. Subsequently after that during Thanksgiving dinner the patient developed severe hypoglycemia requiring a hospital visit. The patient was placed on medications although she was symptomatic with dizziness and falls and ultimately was taken off 1 medication and then placed on a different medication and had problems again. Therefore she has been off all medications. 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 She is able to decrease prednisone down to 13 mg but she is going to go slowly undergo be monitoring closely in [place]. The patient is continued to get her IVIG infusions as prescribed with good effect. She also continues to use her CPT also with good effect as her congestion is significantly improved. 05/13/2024 the patient is here for a pulmonary follow-up visit. Overall she has doing a little better. She was hospitalized was given high-dose steroids and she had significant hyperglycemia. He has been very difficult to control her sugars. She is on insulin. The patient has been doing well from a respiratory status. She is down to prednisone 13 mg. She is slowly decreasing. I wonder she is going to need a steroid sparing agent to minimize steroid use. May be a good candidate for mycophenolate. In the meantime she is getting her IVIG. Will go and check her trough levels before the next dose. She continues her respiratory therapy. Does not have any significant chest congestion. Will try to wean her off the azithromycin macrolide suppression therapy that she uses for bronchiectasis. Will try to wean her off completely to make sure we can simplify her medication regimen. 08/27/2024 the patient is here for a pulmonary follow-up visit. She has had worsening cough chest congestion and wheezing. Moderate severity. Is going to going on for the last 3-5 days. She continues on 13 mg of prednisone. She has not been able to cut down further. She is having moderate degree of chest congestion. We tried . Sputum sample in the office but we were not able to do so. Therefore will go ahead and start her on Augmentin since this is 1 of the antibiotics she can not tolerate. And will also try to get a sputum culture whenever possible. We can also consider additional imaging studies and also c onsider bronchoscopy if the patient is not able to clear this. She is also having significant wheezing on examination. Although does have issues with hyperglycemia and diabetes so therefore hold off on increasing the prednisone at this time. She continues to receive her IVIG. She also has been taking the azithromycin 3 times a week. She did try to cut down but she could not do so because of her worsening congestion. 04/07/2025 the patient is here for pulmonary follow-up visit. The patient has been very sick now for many months. The chronic prednisone has affected her significantly. He has had severe back pain due to significant disease that is consider nonoperable causing to have chronic pain issues. She was placed on strong opiates to try to control the pain. Unfortunately to the prednisone has caused her to have elevated blood sugars and now dealing with diabetes. In addition to that her underlying respiratory disease and vasculitis. She has not been able to get down on to lower than 20 mg of prednisone. She did follow-up in [place] all this very difficult for her to travel to [place] now because of her chronic pain issues very debilitating. Therefore, will go ahead and start a small dose of mycophenolate and start decreasing her prednisone down by 1 mg every 2 weeks and will follow-up in 6 weeks to see if we can get at least get her down to 17 mg. And at that point will go ahead and request additional blood work. The patient had been on IVIG therapy for her immunodeficiency. But because she has been so chronically ill and going from the hospital to the rehab she has missed several dosages. Therefore will go ahead and request additional blood work to see where her IgG levels are and then restart her on IVIG therapy. Her respiratory exam is reassuring. Will have her undergo blood work today and hopefully start IVIG soon. [facility] Medical History (Updated 04/07/25 @ 23:24 by Marquis Morel MD) Diabetes mellitus Status post administration of all doses of COVID-19 vaccine series COPD (chronic obstructive pulmonary disease) Bronchiectasis Rash Hypogammaglobulinemia CSS (Churg-James syndrome) Surgical History History of appendectomy History of ileostomy History of cholecystectomy History of hysterectomy History of colectomy History of bronchoscopy (~2019) Social History Patient Tobacco Use Status: Never used Tobacco Advance Directives Date on File: 09/19/20 Review of Systems Const Reports body aches, Denies chills, Reports difficulty sleeping, Reports fatigue and Denies fever(s) Eyes Reports change in vision ENT Reports dizziness, Denies lip swelling, Reports neck pain and Denies tongue swelling Card Denies chest pain, Denies leg edema, Denies lightheadedness, Denies palpitati ons, Denies dyspnea on exertion, Denies orthopnea and Denies other Resp Reports cough, Denies dyspnea on exertion and Denies wheezing GI Denies hematochezia and Denies change in stool character Musc Reports abnormal gait, Reports back pain, Reports arthralgias, Reports muscle weakness, Reports neck pain, Denies numbness, Reports radiating pain into limb and Reports tingling Skin/Breast Reports rash Neuro Reports abnormal gait, Reports dizziness, Denies numbness and Reports tingling Psych Denies no additional complaints Endo Reports fatigue and Denies palpitations Paul/Lymph Denies easy bleeding and Denies lymphadenopathy Aller/Immun Denies lip swelling, Denies tongue swelling and Denies wheezing Physical Exam Vital Signs: Last Vital Signs Pulse 100 04/07/25 15:22 BP 146/76 H 04/07/25 15:22 Pulse Ox 96 04/07/25 15:22 Oxygen Delivery Method Room Air 04/07/25 15:22 Const General: comfortable and alert HEENT Throat: Yes postnasal drainage (thick yellow mucus noted) Eyes Conjunctivae: conjunctival abnormal Neck Neck: Yes normal visual inspection, Yes full ROM and Yes no lymphadenopathy Chest Chest palpation & inspection: normal inspection of the chest Resp Effort & Inspection: normal respiratory effort Auscultation: no rales, no rhonchi, no wheezes and diminished lung sounds Cardio Rate: regular rate Rhythm: regular rhythm Heart sounds: S1 normal heart sound present and S2 normal heart sound present GI Palpation (GI): Soft to palpation and nontender Auscultation: normal bowel sounds Skin General skin exam: rashes and/or lesions noted Extrem General: Yes no clubbing, cyanosis or edema Results Reviewed Results Reviewed: personally reviewed CXT 03/2025 from [facility] with atelectasis Assessment & Plan Assessment & Plan (1) Bronchiectasis: Code(s): J47.9 - Bronchiectasis, uncomplicated Category: Medical Qualifiers: Bronchiectasis type: with acute lower respiratory infection Qualified Code(s): J47.0 - Bronchiectasis with acute lower respiratory infection (2) COPD (chronic obstructive pulmonary disease): Code(s): J44.9 - Chronic obstructive pulmonary disease, unspecified Category: Medical Qualifiers: COPD type: COPD with acute lower respiratory infection Qualified Code(s): J44.0 - Chronic obstructive pulmonary disease with (acute) lower respiratory infection (3) Hypogammaglobulinemia: Code(s): D80.1 - Nonfamilial hypogammaglobulinemia Category: Medical (4) CSS (Churg-James syndrome): Comment: Failed Nucala. 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 [Churg-James]; D72.18 - Eosinophilia in diseases classified elsewhere Category: Medical (5) Diabetes mellitus: Code(s): E11.9 - Type 2 diabetes mellitus without complications Category: Medical Qualifiers: Diabetes mellitus type: type 2 Diabetes mellitus fountain vending mechanic insulin use: without custodial use Diabetes mellitus complication status: with hyperglycemia Qualified Code(s): E11.65 - Type 2 diabetes mellitus with hyperglycemia (6) Spinal stenosis of lumbar region: Code(s): M48.061 - Spinal stenosis, lumbar region without neurogenic claudication Category: Medical Qualifiers: Neurogenic claudication status: unspecified Qualified Code(s): M48.061 - Spinal stenosis, lumbar region without neurogenic claudication (7) Low back pain: Code(s): M54.50 - Low back pain, unspecified Category: Medical Qualifiers: Chronicity: chronic Back pain laterality: unspecified Sciatica presence: with sciatica Plan Decrease Prednisone 20mg->19mg then decrease by 1mg every 2 weeks, till 17mg daily start steoid sparring agent Continue budesonide benzonate for dry cough Duoneb continue CPT with hypertonic saline 3% and percussion vest continue IVIG infusions [id number], check through level Zyrtec daily bloodwork will trial tincture CBD w/o THC pain management, unfurtunately Follow-up in 2-3 months Orders: Orders Complete Blood Count Auto Diff Today J47.0 - Bronchiectasis with acute lower respiratory infection Immunoglobulin E Today J47.0 - Bronchiectasis with acute lower respiratory infection Immunoglobulins,IgG IgA IgM Today J47.0 - Bronchiectasis with acute lower respiratory infection Basic Metabolic Panel Today J47.0 - Bronchiectasis with acute lower respiratory infection Liver Panel Today J47.0 - Bronchiectasis with acute lower respiratory infection Venous Blood Gas Today J47.0 - Bronchiectasis with acute lower respiratory infection Medications: New mycophenolate mofetil 500 mg PO BID 60 tabs 5RF 30 days prednisone 4 mg (4 x 1 mg) PO DAILY 120 tabs 3RF 30 days prednisone 15 mg (3 x 5 mg) PO DAILY 90 tabs 3RF 30 days Coding Level of Care Code Est Pt Level 5 (02150) Complex EM visit Add On G2211 Diagnoses Bronchiectasis with acute lower respiratory infection J47.0 Bronchiectasis type: with acute lower respiratory infection Chronic obstructive pulmonary disease with acute lower respiratory infection J44.0 COPD type: COPD with acute lower respiratory infection Hypogammaglobulinemia D80.1 CSS (Churg-James syndrome) M30.1; D72.18 Type 2 diabetes mellitus with hyperglycemia, without long-term current use of insulin E11.65 Diabetes mellitus type: type 2 Diabetes mellitus custodial insulin use: without fountain vending mechanic use Diabetes mellitus complication status: with hyperglycemia Spinal stenosis of lumbar region, unspecified whether neurogenic claudication present M48.061 Neurogenic claudication status: unspecified Low back pain M54.50 Chronicity: chronic Back pain laterality: unspecified Sciatica presence: with sciatica Time Spent (min) 60
--- OUTSIDE RECORDS SUMMARY | 2025-04-07 15:45 | XMS_ITS | Encounter Summary ---
Author Organization [facility] Address [address] [place] [address] Phone Care Team Providers Care Photographic Aide Name Role Phone Eduardo Albert MD Primary Care Provider [phone] Marquis Morel MD Unavailable Kilo Diaz MD Primary Care Provider + Kilo Diaz MD Unavailable [phone] Eduardo Albert MD Primary Care Provider [phone] Encounter Details Date Type Department Care Team (Late st Contact Info) Description 03/10/2018 Procedure [facility] - CT, Main [address] [address] Social History Tobacco Use Types Packs/Day Years Used Date Smoking Tobacco: Former Smokeless Tobacco: Never Sex and Gender Information Value Date Recorded Sex Assigned at Not on file Gender Identity Not on file Sexual Orientation Not on file documented as of this encounter Plan of Treatment Upcoming Encounters Date Type Department Care Team (Latest Contact Info) Description 07/18/2025 9:00 AM EDT Telemedicine - audio only [facility] [address] [place] [id number] Jone Nobles MD [address] [place] [phone] 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 10/08/2022 10/15/2023 1:21 AM EST documented as of this encounter Care Teams Photographic Aide Relationship Specialty Start Date End Date Eduardo Albert MD [address] [address] PCP - General Internal Medicine 01/03/17 01/22/23 Kilo Diaz MD [address] [place] [id number] PCP - General Nephrology 01/23/23 04/16/23 Eduardo Albert MD [address] [address] PCP - General Internal Medicine 04/17/23 Marquis Morel MD [address] [place] [id number] Young Adult Librarian Pulmonary Disease 08/16/21 Kilo Diaz MD [address] [place] [id number] Nephrology 01/23/23 documented as of this encounter Additional Source Comments The information contained in this document represents components of the legal health record. It is not the complete legal health record.[facility]
--- OUTSIDE RECORDS SUMMARY | 2025-04-07 15:45 | XMS_ITS | Patient Health Record ---
Author Organization [facility] Address [address] [place] [address] Care Team Providers Care Tier Over Name Role Phone Eduardo Albert MD Primary Care Provider Unavailscott e Ronnie, Sherry Unavailable [phone] Allergies Allergen (clinical drug ingredient) Drug/Non Drug Allergy documented on EMR Reaction Allergy Type Onset Date Status ibuprofen Advil Unknown Drug Allergy Active aspirin Aspirin Unknown Drug Allergy Active sulfamethoxazole / trimethoprim Bactrim sick stomach Drug Allergy Active ciprofloxacin Cipro sick stomach Drug Allergy Active Keflex sick stomach Drug Allergy Acti ve Penicillin rash Drug Allergy Active Results Component Value Reference Range Notes HEMOGLOBIN A1C (GLYCOHEMOGLO BIN) Reviewed date:05/25/2024 02:39:51 PM Interpretation: Performing Lab: Notes/Report: HEMOGLOBIN A1C (HH) 6.5 Reason For Referral No Information Medications Medication SIG (Take, Route, Fr equency, Duration) Notes Start Date End Date Status Budesonide Active Sodium Chloride Acti ve Carvedilol 6.25 MG 1 tablet with food O rally Twice a day Active amLODIPine Besylate Active Allopurinol 200 MG 1 tablet Orally Once a day Active Prednisone Active HumaLOG KwikPen Acti ve Probiotic Active Azithromycin Active Jardiance Not-Taking Magnesium Active Vitamin B12 Active Levalbuterol HCl Act doc Immunizations Vaccine Route Administration Date Status Comme nts Influenza Unknown 09/11/2023 Administered Social History Tobacco Use: Social History Observation Description Date Details (start date - stop date) Former Smoker NA - NA Tobacco Use/Smoking Question Answer Notes Are you a: former smoker Additional Findings: Tobacco Non-User Current no n-smoker Alcohol Screen Question Answer Notes Did you have a drink containing alcohol in the p ast year? No Points 0 Interpretation Negative Tobacco use other than smoking: Question Answer Notes Are you an other tobacco user? No Problems Problem Type SNOMED Code ICD Code Onset Dates Problem Status W/U Status Risk Notes Problem Type 2 diabetes mellitus with diabetic polyneuropathy (E11.42) Active confirmed Problem 692878584 Hammer toe of right foot (M20.41) Active confirmed Problem 414248928 Hammer toe of left foot (M20.42) Active confirmed Problem Neuropathy (328576750) Neuropathy (G62.9) Active confirmed Problem Ulcer of toe of right foot (disorder) (231496971216 ) Skin ulcer of toe of right foot, limited to breakdown of skin (L97.511) Active confirmed Problem Ulcer of toe of left foot (disorder) (073149926169 ) Skin ulcer of toe of left foot, limited to breakdown of skin (L97.521) Active confirmed Response to treatment - Improvement Vital Signs Height 5 ft 2 in in 08/31/2024 Weight 140 lbs 08/31/2024 BMI 25.6 kg/m2 08/31/2024 Procedures Procedure Date Ordered Date Performed Result Body Sit e 18442-VVIWZSC NAIL, 6 OR MORE 05/25/2024 N/A 42517-Wtydlabj Plate 05/25/2024 N/A 74171-UCLZ SKIN LESIONS, 2 TO 4 05/25/2024 N/A 75389- Debride <25 sq cm 06/15/2024 N/A 21792-XVCE SKIN LESIONS, 2 TO 4 08/31/2024 N/A 21860-CKFUYPA NAIL, 6 OR MORE 08/31/2024 N/A Encounters Encounter Location Date Provider Diagnosis [address] [address] 05/25/2024 Sherry Black Type 2 diabetes mellitus with diabetic polyneuropathy E11.42 ; Neuritis M79.2 ; Tinea unguium B35.1 ; Neuropathy G62.9 ; Left foot pain M79.672 and Ingrown nail L60.[address] [address] 06/15/2024 Sherry Black Skin ulcer of toe of left foot, limited to breakdown of skin L97.521 [facility] [address] 08/31/2024 Sherry Trujillo Type 2 diabetes mellitus with diabetic polyneuropathy E11.42 and Tinea unguium B35.1 [facility] [address] [place] [address] 12/02/2024 Sherry Trujillo [address] [address] 01/18/2025 [facility] [address] 03/23/2025 Sherry Trujillo Assessments Encounter Date Diagnosis (ICD Code) Assessment Notes Treatment Notes Treatment Clinical Notes Section Notes 05/25/2024 Type 2 diabetes mellitus with diabetic polyneuropathy (ICD-10 - E11.42) 05/25/2024 Neuritis (ICD-10 - M79.2) 06/15/2024 Skin ulcer of toe of left foot, limited to breakdown of skin (ICD-10 - L97.521) Response to treatment - Improvement Patient Educated with: WOUND CARE INSTRUCTIONS. pdf (WOUND CARE INSTRUCTIONS. pdf) 08/31/2024 Type 2 diabetes mellitus with diabetic polyneuropathy (ICD-10 - E11.42) 05/25/2024 Tinea unguium (ICD-10 - B35.1) 08/31/2024 Tinea unguium (ICD-10 - B35.1) 05/25/2024 Neuropathy (ICD-10 - G62.9) 05/25/2024 Left foot pain (ICD-10 - M79.672) 05/25/2024 Ingrown nail (ICD-10 - L60.0) 06/15/2024 Other Plan Of Treatment Pending Test Test Name Order Date 05716-LJCXBQP NAIL, 6 OR MORE 02/13/2024 24047-QFBDHXH NAIL, 6 OR MORE 05/25/2024 39634-DNKOAIL NAIL, 6 OR MORE 08/31/2024 43277-Cizwwhet Plate 05/25/2024 53678- Debride <25 sq cm 06/15/2024 68384-WUXR SKIN LESIONS, 2 TO 4 08/31/20 24 90966-SBTR SKIN LESIONS, 2 TO 4 05/25/20 82549-FOTC SKIN LESIONS, 2 TO 4 02/13/20 L3512-OVXLUBJV DYSTROPHIC NAILS ANY # Insurance Providers Payer Name Payer Address Payer Phone Subscriber Number Group Number Insured Name Patient Relationship to Insured Coverage Start Date Coverage End Date Medicare National [employer] S[employer] [address] [place] [address] [id number] Griselda Daniels i Self - patient is the insured [employer] [address] [place] [address] [id number] Griselda Daniels i Self - patient is the insured Medical (General) History Medical History History ICD Code Anemia asthma Back,Hip,and Knee pain Diabetic High blood pressure Kidney disease Lung disease Numbness Osteoporosis Reflux ( GERD) sinusitis Warts Measles Mumps Chicken pox Transfusions Surgical History Surgery Date(Month/Year) ileostomy 1971 Gall bladder removal 1967 carpal tunnel surgery hysterectomy 1988 sinus surgery 2012 Hospitalization History Reason Date(Month/Year) Wing observation potassium 05/2024 Wing- dehydration 01/2024
--- OUTSIDE RECORDS SUMMARY | 2025-04-07 15:45 | XMS_ITS | Encounter Summary ---
Author Organization [employer] [facility] Address [address] [place] [address] Care Team Providers Care Position Classification Specialist Name Role Phone Daisy Lee MD Primary Care Provider Encounter Details Date Type Department Care Team (Late st Contact Info) Description 11/26/2024 Lab Requisition [facility] Main Lab [address] [facility] [place] [address] Daisy Lee MD [address] [place] [address] Encounter for other general examination Social History Tobacco Use Types Packs/Day Years Used Date Smoking Tobacco: Never Assessed Comments Unknown Sex and Gender Information Value Date Recorded Sex Assigned at Not on file Legal Sex Female 5:12 AM EST Gender Identity Not on file Sexual Orientation Not on file documented as of this encounter Plan of Treatment Not on file documented as of this encounter Procedures Procedure Name Priority Date/Time Associated Diagnosis Comments MANUAL DIFFERENTIAL - SYSMEX WAM Routine 11/26/2024 7:25 AM EST Encounter for other general examination CBC WITH AUTO DIFFERENTIAL Routine 11/26/2024 7:25 AM EST Encounter for other general examination CBC AND DIFFERENTIAL Routine 11/26/2024 7:25 AM EST Encounter for other general examination MAGNESIUM Routine 11/26/2024 7:25 AM EST Encounter for other general examination COMPREHENSIVE METABOLIC PANEL Routine 11/26/2024 7:25 AM EST Encounter for other general examination documented in this encounter Results * (ABNORMAL) Manual differential (11/26/2024 7:25 AM EST) Neutrophils % 77.0 % LAB HEMETOLOGY METHOD 11/26/2024 10:52 AM [facility] Bands % 1.0 % LAB HEMETOLOGY METHOD 11/26/2024 10:52 AM [facility] Lymphocytes % 12.0 % LAB HEMETOLOGY METHOD 11/26/2024 10:52 AM [facility] Monocytes % 5.0 % LAB HEMETOLOGY METHOD 11/26/2024 10:52 AM [facility] Eosinophils % 1.0 % LAB HEMETOLOGY METHOD 11/26/2024 10:52 AM [facility] Basophils % 0.0 % LAB HEMETOLOGY METHOD 11/26/2024 10:52 AM [facility] Metamyelocytes % 1.0(H) % LAB HEMETOLOGY METHOD 11/26/2024 10:52 AM [facility] Myelocytes % 3.0(H) % LAB HEMETOLOGY METHOD 11/26/2024 10:52 AM [facility] Neutrophils Absolute Manual 6.39 1.50 - 7.00 K/mcL LAB HEMETOLOGY METHOD 11/26/2024 10:52 AM [facility] Bands Absolute Manual 0.08(H) 0.00 - 0.00 K/mcL LAB HEMETOLOGY METHOD 11/26/2024 10:52 AM [facility] Lymphocytes Absolute 1.00 1.00 - 5.00 K/mcL LAB HEMETOLOGY METHOD 11/26/2024 10:52 AM [facility] Monocytes Absolute Manual 0.42 0.20 - 1.00 K/mcL LAB HEMETOLOGY METHOD 11/26/2024 10:52 AM [facility] Eosinophils Absolute Manual 0.08 0.00 - 0.50 K/mcL LAB HEMETOLOGY METHOD 11/26/2024 10:52 AM EST [facility] Basophils Absolute Manual 0.00 0.00 - 0.20 K/[facility] LAB HEMETOLOGY METHOD 11/26/2024 10:52 AM EST [facility] Metamyelocytes Absolute Manual 0.08(H) 0.00 - 0.00 K/mcL LAB HEMETOLOGY METHOD 11/26/2024 10:52 AM EST [facility] Myelocytes Absolute Manual 0.25(H) 0.00 - 0.00 K/[facility] LAB HEMETOLOGY METHOD 11/26/2024 10:52 AM [facility] Rbc Morphology Present( A) Consistent with indices, Normal for [place] LAB HEMETOLOGY METHOD 11/26/2024 10:52 AM [facility] Comment:RBC: Morphology agre es with CBC Platelet Morphology - WAM See Note(A) Normal LAB HEMETOLOGY METHOD 11/26/2024 10:52 AM [facility] Comment:PLT: Normal Tear Drop Cells Present 5 - 10%(A) (none) LAB HEMETOLOGY METHOD 11/26/2024 10:52 AM [facility] Blood Venous blood specimen / Unknown Venipuncture / Unknown 11/26/2024 7:25 AM EST 11/26/2024 9:22 AM EST us Daisy Lee MD LAB BLOOD ORDERABLES Final Resu lt [facility] [address] [place] [address], * (ABNORMAL) CBC auto differential (11/26/2024 7:25 AM EST) WBC 8.3 4.8 - 10.8 K/mcL LAB HEMETOLOGY METHOD 11/26/2024 10:52 AM [facility] RBC 3.40(L) 3.80 - 4.80 M/mcL LAB HEMETOLOGY METHOD 11/26/2024 10:52 AM [facility] Hemoglobin 9.6(L) 11.5 - 16.0 g/dL LAB HEMETOLOGY METHOD 11/26/2024 10:52 AM [facility] Hematocrit 30.3(L) 35.0 - 47.0 % LAB HEMETOLOGY METHOD 11/26/2024 10:52 AM [facility] MCV 89.1 79.0 - 98.0 FL LAB HEMETOLOGY METHOD 11/26/2024 10:52 AM [facility] MCH 28.2 27.0 - 32.0 pcg LAB HEMETOLOGY METHOD 11/26/2024 10:52 AM [facility] MCHC 31.7(L) 32.0 - 37.0 g/dL LAB HEMETOLOGY METHOD 11/26/2024 10:52 AM [facility] RDW 16.3(H) 11.0 - 15.0 % LAB HEMETOLOGY METHOD 11/26/2024 10:52 AM [facility] Platelets 184 130 - 400 K/mcL LAB HEMETOLOGY METHOD 11/26/2024 10:52 AM [facility] MPV 10.5 7.0 - 11.0 FL LAB HEMETOLOGY METHOD 11/26/2024 10:52 AM [facility] NRBC 0.0 <1.0 % LAB HEMETOLOGY METHOD 11/26/2024 10:52 AM [facility] NRBC Absolute 0.00 <0.10 K/mcL LAB HEMETOLOGY METHOD 11/26/2024 10:52 AM [facility] Blood Venous blood specimen / Unknown Venipuncture / Unknown 11/26/2024 7:25 AM EST 11/26/2024 9:22 AM EST us Daisy Lee MD LAB BLOOD ORDERABLES Final Resu lt Performing Organization Address [facility]/ZIP Co de Phone Number [facility] [address] [place] [address], * Magnesium (11/26/2024 7:25 AM EST) Magnesium 2.0 1.9 - 2.6 mg/dL LAB CHEMISTRY METHOD 11/26/2024 10:24 AM EST [facility] Blood Venous blood specimen / Unknown Venipuncture / Unknown 11/26/2024 7:25 AM EST 11/26/2024 9:22 AM EST Daisy Lee MD LAB BLOOD ORDERABLES Final Resu lt Performing Organization Address [facility]/ZIP Co de Phone Number [facility] [address] [place] [address], * (ABNORMAL) Comprehensive metabolic panel (11/26/2024 7:25 AM EST) Pathologist [facility] Sodium 136 133 - 145 mmol/L LAB CHEMISTRY METHOD 11/26/2024 10:34 AM [facility] Potassium 4.1 3.5 - 5.5 mmol/L LAB CHEMISTRY METHOD 11/26/2024 10:34 AM [facility] Chloride 108 96 - 110 mmol/L LAB CHEMISTRY METHOD 11/26/2024 10:34 AM [facility] CO2 16(L) 21 - 32 mmol/L LAB CHEMISTRY METHOD 11/26/2024 10:34 AM [facility] Anion Gap 12(H) 3 - 11 LAB CHEMISTRY METHOD 11/26/2024 10:34 AM [facility] Glucose 113(H) 70 - 100 mg/dL LAB CHEMISTRY METHOD 11/26/2024 10:34 AM [facility] BUN 63(H) 5 - 25 mg/dL LAB CHEMISTRY METHOD 11/26/2024 10:34 AM [facility] Creatinine 1.75(H) 0.50 - 1.10 mg/dL LAB CHEMISTRY METHOD 11/26/2024 10:34 AM [facility] eGFR 30(L) >=60 mL/min/1. 73m2 LAB CHEMISTRY METHOD 11/26/2024 10:34 AM [facility] Comment:Calculation based on the??Chronic Kidney Disease Epidemiology Collaboration (CKD-EPI) equation refit??without adjustment for race. BUN/Creatinine Ratio 36.0 LAB CHEMISTRY METHOD 11/26/2024 10:34 AM [facility] Calcium 9.1 8.5 - 10.5 mg/dL LAB CHEMISTRY METHOD 11/26/2024 10:34 AM [facility] AST (SGOT) 27 10 - 42 unit/L LAB CHEMISTRY METHOD 11/26/2024 10:34 AM [facility] ALT (SGPT) 47 10 - 60 unit/L LAB CHEMISTRY METHOD 11/26/2024 10:34 AM [facility] Alkaline Phosphatase 127(H) 42 - 121 unit/L LAB CHEMISTRY METHOD 11/26/2024 10:34 AM [facility] Total Protein 6.1 6.0 - 8.0 g/dL LAB CHEMISTRY METHOD 11/26/2024 10:34 AM [facility] Albumin 3.1(L) 3.2 - 5.0 g/dL LAB CHEMISTRY METHOD 11/26/2024 10:34 AM [facility] Total Bilirubin 0.4 0.0 - 1.4 mg/dL LAB CHEMISTRY METHOD 11/26/2024 10:34 AM [facility] Blood Venous blood specimen / Unknown Venipuncture / Unknown 11/26/2024 7:25 AM EST 11/26/2024 9:22 AM EST us Daisy Lee MD LAB BLOOD ORDERABLES Final Resu lt [facility] [address] [place] [address], documented in this encounter Visit Diagnoses Diagnosis Encounter for other general examination documented in this encounter Care Teams Position Classification Specialist Relationship Specialty Start Date End Date Daisy Lee MD [address] [place] [address] PCP - General Hospitalist Medicine 03/18/25 documented as of this encounter
--- OUTSIDE RECORDS SUMMARY | 2025-04-07 15:45 | XMS_ITS ---
Author Organization [facility] Address [address] [place] [address] Care Team Providers Care Applications Chemist Name Role Phone Eduardo Albert MD Primary Care Provider Sherry Kelly [phone] Encounters Encounter Location Date Provider Diagnosis [address] [address] 01/19/2025 Sherry Trujillo Plan Of Treatment No Information Progress Notes * Griselda CARRASCO WDOB:[birth year] (79 yo F)Acc No.[id number]:01/19/2025 Progress Note Patient:?Griselda CARRASCO Provider:?Sherry Trujillo DPM :1945???Age:79 Y???Sex:Female D ate:01/19/2025 Address:[address] [place], [place] [id number] Pcp:Eduardo Albert MD Subjective: * Chief Complaints: * ??? * Medical History:? Objective: * Vitals:? Assessment: Plan: * Treatment: * Images: * The named appointment provid er may or may not be the originator of this progress note, and it is not deemed complete until electronically signed by the appointment provider. Sign off status: Pending * Provider:?Sherry Trujillo DPM Date:?2024 Generated for Reina borrero/Paul/eTransmitting on:?04/07/2025 03:45 PM EDT
--- OUTSIDE RECORDS SUMMARY | 2025-04-07 15:45 | XMS_ITS ---
Author Organization [facility] Address [address] [place] [address] Care Team Providers Care Patient Appointment Coordinator Name Role Phone Eduardo Albert MD Primary Care Provider Sherry Kelly [phone] Encounters Encounter Location Date Provider Diagnosis [address] [address] 04/06/2025 Sherry Trujillo Plan Of Treatment No Information Progress Notes * Griselda CARRASCO WDOB:[birth year] (79 yo F)Acc No.[id number]:04/06/2025 Progress Note Patient:?Griselda CARRASCO Provider:?Sherry Trujillo DPM :1945???Age:79 Y???Sex:Female D ate:04/06/2025 Address:[address] [place], [place] [address] Pcp:Eduardo Albert MD Subjective: * Chief Complaints: [...]
--- OUTSIDE RECORDS SUMMARY | 2025-04-07 15:45 | XMS_ITS ---
Author Organization [facility] Address [address] [place] [address] Care Team Providers Care Head Loader Name Role Phone Eduardo Albert MD Primary Care Provider Unavailscott e Black, Sherry Unavailable [phone] REASON FOR VISIT CX 04/06/25 Encounters Encounter Location Date Provider Diagnosis [address] [address] 03/23/2025 Sherrydixon Trujillo Plan Of Treatment No Information Progress Notes * Griselda WELSH WDOB:[birth year] (79 yo F)Acc No.[id number]:03/23/2025 Patient:?Griselda WELSH :1945???Age:79 Y???Sex:Female Address:[address] [place] [address] * true * Date:? Generated for Printi ng/Fapacog/eTransmitting on:?04/07/2025 03:44 PM EDT
--- OUTSIDE RECORDS SUMMARY | 2025-04-07 15:45 | XMS_ITS | Continuity of Care Document ---
Author Organization [facility] [address] [place] [address] Phone [phone] Care Team Providers Care Winder Tender Name Role Phone Eduardo Albert M.D. Care Team Information Wind Energy Engineer [phone] Problems Active Problems Provider Date Vitamin B12 deficiency (non anaemic) DONELL Lainez Onset: 11/14/2023 Asthma DONELL Smith Onset: 2022 Gastroesophageal reflux disease DONELL Smith Onset: 11/14/2023 Gout DONELL Smith Onset: 2022 Essential hypertension DONELL Smith Onset: 11/14/2023 Major depressive disorder DONELL Smith Ons et: 11/14/2023 Eosinophilic granulomatosis with polyangiitis Galilea Montiel M.D. Onset: 11/10/2024 Chronic kidney disease stage 3B Galilea Brown M.D. 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 Onset: 11/10/2024 Ulcerative colitis Galilea Montiel M.D. Onset: 11/10/2024 Social History Type Date Description Comments Sex Unknown Lives With Spouse Work Status Retired ETOH Use Never used alcohol Tobacco Use Start: Unknown End: Unknown Patient is a former smoker as teenager for only 6 months Allergies and adverse reactions Active Allergies Criticality Reaction Severity Comments Date Bactrim Unable to assess criticality 11/14/2023 Cipro Unable to assess criticality 11/14/2023 Doxycycline Unable to assess criticality 11/14/2023 Levaquin Unable to assess criticality 11/14/2023 Medications Active Medications SIG Qnty Indications Ordering Provider Date Novolog Egqssvl371Kahs/ML Solution Pen-Inject inject 2 to 6 units three times daily pre meals 45ml E10.9 Galilea Montiel M.D. 01/06/2025 Z79.4 Freestyle Pollo 3 Plus/Sesor/Glucose Monitoring SystemMisc one sensor to skin every 14 days dx: e11.9 9units Galilea Montiel M.D. 08/26/2024 Freestyle Pollo 3/Sensor/Glucose Monitoring Xixzra8Hwdqxd Misc One To Skin Every Fourteen Days DX:E10.65 6units E10.Schuyler Montiel M.D. 03/26/2024 Freestyle Pollo 3/[place]/Glucose Monitoring Trighn2Snifge Device use with sensors to check blood sugar dx:e10.65 1units Galilea Montiel M.D. 03/26/2024 BD Pen Needle/Deanne 2ND Gen/32G X 4mm32G X 4 mm Misc 1 pen needle to insulin pen 3 times a day dx:e11.9 300units E11Poonam Montiel M.D. 02/18/2024 Calcium 500/Vitamin D500-3.125mg-mcg Tablets 1 by mouth twice a day Unknown Vitamin Y789yrn (1000 Ut) Capsules 1 by mouth every day Unknown Vitamin N103225htb Tablets ER 1 by mouth every day Unknown Magnesium Hnsib007kc Tablets take 1 tablets by mouth 2 times a day Unknown Mnqmpkmmci80fk Tablets 2 tabs qd Unknown Amlodipine Phkbjedt36th Tablets 1 by mouth every day Unknown Accu-Chek Softclix LancetsMisc Please Check Your Blood Sugar 3 Times Daily Unknown Sodium Chloride3% Nebulizer Inhale 4 ML Inhaled 2 Times A Day For 30 Days Marquis Morel Jbuwexeekuv999be Tablets Take 1 Tablet By Mouth Twice A Day Jimi Elaine, Qokbgrhfbc90.5mg Tablets Take 1/2 Tablet By Mouth Twice A Day With Meals Unknown Budesonide0.5mg/2ML Suspension 0.5 MG (2 ML) Inhaled 2 Times A Day Marquis Morel Accu-Chek GuideStrips Use To Check Sugars 1-2 Times Per Day DX:E11.9 Daniel Dodge NP Accu-Chek Guide MeW/Device Kit Use To Check Blood Sugars 1-2 Times A Day DX: E11.9 Daniel Dodge NP Albuterol Sulfate QKE404(90Base) mcg/Act Aerosol Inhale 2 Puffs Every 6 Hours as Needed For Shortness Or Breath Or Wheezing For 3 Marquis Morel Pantoprazole Dycawz39je Tablets DR Take 1 Tablet By Mouth Twice A Day Unknown Aazirxoplnlz999ck Tablets Take 1 Tablet (250 MG) By Mouth 3 Times A Week Marquis Morel Potassium Citrate GM60Dvf (1080 mg) Tablets ER Take 1 Tablet (10 Meq Total) By Mouth Daily With Breakfast. Unknown Vital Signs Date Vital Result Comment 07/28/2024 2:22pm BP Systolic 120 mmHg BP Diastolic 72 mmHg Heart Rate 94 /min Height 140 inches 11'8 Weight 145.38 lb BMI (Body Mass Index) 5.2 kg/m2 Results Test Acquired Date Facility Test Result H/L Range N ote Glucose Fingerstick 07/28/2024 Inhouse Glucose Fingerstick 120 Hemoglobin A1c 07/28/2024 Inhouse Hemoglobin A1c 6.7% Glucose Fingerstick 05/06/2024 Inhouse Glucose Fingerstick 158 Glucose Fingerstick 03/31/2024 Inhouse Glucose Fingerstick 175 Hemoglobin A1c 03/31/2024 Inhouse Hemoglobin A1c 7.2% Glucose Fingerstick 02/18/2024 Inhouse Glucose Fingerstick 195 Glucose Fingerstick 01/20/2024 Inhouse Glucose Fingerstick 197 Glucose 12/18/2023 [facility] Glucose 120 mg/dL High (70-99) Glucose 12/18/2023 [facility] Glucose 116 mg/dL High (70-99) Glucose 12/18/2023 [facility] Glucose 102 mg/dL High (70-99) Glucose Fingerstick 12/15/2023 Inhouse Glucose Fingerstick 135 Glucose Fingerstick 11/14/2023 Inhouse Glucose Fingerstick 146 Procedures Date Code Description Status 07/28/2024 42184 Glucose Monitoring Interpeta tion And Report Completed 05/06/2024 26894 Glucose Monitoring Interpeta tion And Report Completed 03/31/2024 64555 Glucose Monitoring Interpeta tion And Report Completed 02/18/2024 49995 Glucose Monitoring Interpeta tion And Report Completed 02/11/2024 54437 Glucose Monitori ng From Interstital Tissue Fluid Minimum 72 Hours Completed 11/14/2023 02387 Glucose Monitori ng From Interstital Tissue Fluid Minimum 72 Hours Completed Medical Devices Description No Information Available Encounters Type Date Location Provider Dx Diagnosis Office Visit 11/10/2024 1:15p Main Office Galilea Montiel M.D. 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 11/10/2024 Z79.4 exterminator (current) use of i nsulin Galilea Montiel M.D. 11/10/2024 Z79.52 exterminator (curre nt) use of systemic steroids Galilea Montiel M.D. 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 11/10/2024 N18.32 Chronic kidney disease, stag e 3b Galilea Montiel M.D. 11/10/2024 M80.08xS Age-related oste oporosis with current pathological fracture, vertebra(e), sequela Galilea Montiel M.D. Plan of Treatment No Information Available Functional Status Description No Information Available Mental Status Description No Information Available Referrals Description No Information Available
--- OUTSIDE RECORDS SUMMARY | 2025-04-07 15:45 | XMS_ITS | Clinical Summary ---
Author Organization [address] [facility] Address [address] [place] [address] Phone Care Team Providers Care Route Service Representative Name Role Phone Daisy Lee MD Primary Care Provider [phone] Encounters Date Type Department Care Team Description 03/22/2025 Lab Requisition [facility] Lab [address] [place] [address] Daisy Lee MD Encounter for other general examination 03/18/2025 Lab Requisition [facility] Lab [address] [place] [address] Daisy Lee MD Encounter for other general examination from Last 3 Months Social History Tobacco Use Types Packs/Day Years Used Date Smoking Tobacco: Never Assessed Comments Unknown Sex and Gender Information Value Date Recorded Sex Assigned at Not on file Legal Sex Female 5:12 AM EST Gender Identity Not on file Sexual Orientation Not on file Plan of Treatment Health Maintenance Due Date Last Done Comments COVID-19 Vaccine (#1) 1952 DTaP,Tdap,and Td Vaccines (1 - Tdap) 1966 Pneumococcal Vaccine: 50+ Years (1 of 2 - PCV) 1966 Zoster Vaccines (1 of 2) 1997 RSV Immunization Adult Patients (1 - 1-dose 75+ series) 2022 Depression Screening 11/27/2024 Falls Risk Assessment 11/27/2024 Hepatitis C Screening 11/27/2024 Medicare Annual Wellness Visit 11/27/2024 Osteoporosis Screening (Bone Density Screening) 11/27/2024 Social Influencers of Health Screening 11/27/2024 Influenza Vaccine (Season Ended) 2025 09/03/2017, 10/10/2015 Hypertension/CHF/CAD Annual BMP Blood Test 03/22/2026 03/22/2025, 03/18/2025, 12/06/2024, Additional history exists Cholesterol Screening (Lipid Panel) 04/17/2028 04/17/2023 HIB Vaccines Aged Out No longer eligi ble based on patient's age to complete this topic HPV Vaccines Aged Out No longer eligi ble based on patient's age to complete this topic Hepatitis A Vaccines Aged Out No long er eligible based on patient's age to complete this topic Hepatitis B Vaccines Aged Out No long er eligible based on patient's age to complete this topic IPV Vaccines Aged Out No longer eligi ble based on patient's age to complete this topic MMR Vaccines Aged Out No longer eligi ble based on patient's age to complete this topic Meningococcal ACWY Vaccine Aged Out N o longer eligible based on patient's age to complete this topic Meningococcal B Vaccine Aged Out No l onger eligible based on patient's age to complete this topic RSV Immunization Patients Under 20 months Aged Out No longer eligible based on patient's age to complete this topic Varicella Vaccines Aged Out No longer eligible based on patient's age to complete this topic Procedures Procedure Name Priority Date/Time Associated Diagnosis Comments MANUAL DIFFERENTIAL - SYSMEX WAM Routine 03/22/2025 5:49 AM EDT Encounter for other general examination CBC WITH AUTO DIFFERENTIAL Routine 03/22/2025 5:49 AM EDT Encounter for other general examination MAGNESIUM Routine 03/22/2025 5:49 AM EDT Encounter for other general examination CBC AND DIFFERENTIAL Routine 03/22/2025 5:49 AM EDT Encounter for other general examination COMPREHENSIVE METABOLIC PANEL Routine 03/22/2025 5:49 AM EDT Encounter for other general examination MANUAL DIFFERENTIAL - SYSMEX WAM Routine 03/18/2025 5:19 AM EDT Encounter for other general examination CBC WITH AUTO DIFFERENTIAL Routine 03/18/2025 5:19 AM EDT Encounter for other general examination MAGNESIUM Routine 03/18/2025 5:19 AM EDT Encounter for other general examination CBC AND DIFFERENTIAL Routine 03/18/2025 5:19 AM EDT Encounter for other general examination COMPREHENSIVE METABOLIC PANEL Routine 03/18/2025 5:19 AM EDT Encounter for other general examination from Last 3 Months Results * (ABNORMAL) Manual differential (03/22/2025 5:49 AM EDT) Only the most recent of2 resultswithin the time period is included. Neutrophils % 79.0 % LAB HEMETOLOGY METHOD 03/22/2025 11:19 AM [facility] Lymphocytes % 7.0 % LAB HEMETOLOGY METHOD 03/22/2025 11:19 AM [facility] Monocytes % 10.0 % LAB HEMETOLOGY METHOD 03/22/2025 11:19 AM [facility] Eosinophils % 0.0 % LAB HEMETOLOGY METHOD 03/22/2025 11:19 AM [facility] Basophils % 1.0 % LAB HEMETOLOGY METHOD 03/22/2025 11:19 AM [facility] Metamyelocytes % 1.0(H) % LAB HEMETOLOGY METHOD 03/22/2025 11:19 AM [facility] Myelocytes % 3.0(H) % LAB HEMETOLOGY METHOD 03/22/2025 11:19 AM [facility] Neutrophils Absolute Manual 6.08 1.50 - 7.00 K/mcL LAB HEMETOLOGY METHOD 03/22/2025 11:19 AM [facility] Lymphocytes Absolute 0.54(L) 1.00 - 5.00 K/mcL LAB HEMETOLOGY METHOD 03/22/2025 11:19 AM [facility] Monocytes Absolute Manual 0.77 0.20 - 1.00 K/mcL LAB HEMETOLOGY METHOD 03/22/2025 11:19 AM EDT [facility] Eosinophils Absolute Manual 0.00 0.00 - 0.50 K/mcL LAB HEMETOLOGY METHOD 03/22/2025 11:19 AM EDT [facility] Basophils Absolute Manual 0.08 0.00 - 0.20 K/mcL LAB HEMETOLOGY METHOD 03/22/2025 11:19 AM EDT [facility] Metamyelocytes Absolute Manual 0.08(H) 0.00 - 0.00 K/[facility] LAB HEMETOLOGY METHOD 03/22/2025 11:19 AM EDT [facility] Myelocytes Absolute Manual 0.23(H) 0.00 - 0.00 K/[facility] LAB HEMETOLOGY METHOD 03/22/2025 11:19 AM EDT [facility] Rbc Morphology Present( A) Consistent with indices, Normal for [facility] LAB HEMETOLOGY METHOD 03/22/2025 11:19 AM EDT [facility] Platelet Morphology - WAM See Note(A) Normal LAB HEMETOLOGY METHOD 03/22/2025 11:19 AM EDT [facility] Comment:PLT: Normal Tear Drop Cells Present 5 - 10%(A) (none) LAB HEMETOLOGY METHOD 03/22/2025 11:19 AM EDT [facility] Blood Venous blood specimen / Unknown Venipuncture / Unknown 03/22/2025 5:49 AM EDT 03/22/2025 9:35 AM EDT us Daisy Lee MD LAB BLOOD ORDERABLES Final Resu lt [facility]) [facility] [address] [place] [address], * (ABNORMAL) CBC auto differential (03/22/2025 5:49 AM EDT) Only the most recent of2 resultswithin the time period is included. [facility] WBC 7.7 4.8 - 10.8 K/mcL LAB HEMETOLOGY METHOD 03/22/2025 11:19 AM [facility] RBC 3.30(L) 3.80 - 4.80 M/mcL LAB HEMETOLOGY METHOD 03/22/2025 11:19 AM [facility] Hemoglobin 10.0(L) 11.5 - 16.0 g/dL LAB HEMETOLOGY METHOD 03/22/2025 11:19 AM [facility] Hematocrit 30.6(L) 35.0 - 47.0 % LAB HEMETOLOGY METHOD 03/22/2025 11:19 AM [facility] MCV 93.3 79.0 - 98.0 FL LAB HEMETOLOGY METHOD 03/22/2025 11:19 AM [facility] MCH 30.5 27.0 - 32.0 pcg LAB HEMETOLOGY METHOD 03/22/2025 11:19 AM [facility] MCHC 32.7 32.0 - 37.0 g/dL LAB HEMETOLOGY METHOD 03/22/2025 11:19 AM [facility] RDW 14.7 11.0 - 15.0 % LAB HEMETOLOGY METHOD 03/22/2025 11:19 AM [facility] Platelets 191 130 - 400 K/mcL LAB HEMETOLOGY METHOD 03/22/2025 11:19 AM [facility] MPV 10.9 7.0 - 11.0 FL LAB HEMETOLOGY METHOD 03/22/2025 11:19 AM [facility] NRBC 0.0 <1.0 % LAB HEMETOLOGY METHOD 03/22/2025 11:19 AM [facility] NRBC Absolute 0.00 <0.10 K/mcL LAB HEMETOLOGY METHOD 03/22/2025 11:19 AM EDT [facility] Blood Venous blood specimen / Unknown Venipuncture / Unknown 03/22/2025 5:49 AM EDT 03/22/2025 9:35 AM EDT us Daisy Lee MD LAB BLOOD ORDERABLES Final Resu lt Performing Organization Address City/[facility]/ZIP Co de Phone Number [facility] [address] [place] [address], [place] [phone] * Magnesium (03/22/2025 5:49 AM EDT) Only the most recent of2 resultswithin the time period is included. Magnesium 1.9 1.9 - 2.6 mg/dL LAB CHEMISTRY METHOD 03/22/2025 11:26 AM EDT [facility] Blood Venous blood specimen / Unknown Venipuncture / Unknown 03/22/2025 5:49 AM EDT 03/22/2025 9:35 AM EDT us Daisy Lee MD LAB BLOOD ORDERABLES Final Resu lt Performing Organization Address [facility] de Phone Number [facility] [address] [place] [address], [place] [phone] * (ABNORMAL) Comprehensive metabolic panel (03/22/2025 5:49 AM EDT) Only the most recent of2 resultswithin the time period is included. Sodium 136 133 - 145 mmol/L LAB CHEMISTRY METHOD 03/22/2025 11:26 AM EDT [facility] Potassium 3.4(L) 3.5 - 5.5 mmol/L LAB CHEMISTRY METHOD 03/22/2025 11:26 AM EDT [facility] Chloride 103 96 - 110 mmol/L LAB CHEMISTRY METHOD 03/22/2025 11:26 AM EDT [facility] CO2 21 21 - 32 mmol/L LAB CHEMISTRY METHOD 03/22/2025 11:26 AM [facility] Anion Gap 12(H) 3 - 11 LAB CHEMISTRY METHOD 03/22/2025 11:26 AM [facility] Glucose 176(H) 70 - 100 mg/dL LAB CHEMISTRY METHOD 03/22/2025 11:26 AM [facility] BUN 48(H) 5 - 25 mg/dL LAB CHEMISTRY METHOD 03/22/2025 11:26 AM [facility] Creatinine 1.58(H) 0.50 - 1.10 mg/dL LAB CHEMISTRY METHOD 03/22/2025 11:26 AM [facility] eGFR 34(L) >=60 mL/min/1. 73m2 LAB CHEMISTRY METHOD 03/22/2025 11:26 AM [facility] Comment:Calculation based on the??Chronic Kidney Disease Epidemiology Collaboration (CKD-EPI) equation refit??without adjustment for race. BUN/Creatinine Ratio 30.4 LAB CHEMISTRY METHOD 03/22/2025 11:26 AM [facility] Calcium 9.1 8.5 - 10.5 mg/dL LAB CHEMISTRY METHOD 03/22/2025 11:26 AM [facility] AST (SGOT) 12 10 - 42 unit/L LAB CHEMISTRY METHOD 03/22/2025 11:26 AM [facility] ALT (SGPT) 29 10 - 60 unit/L LAB CHEMISTRY METHOD 03/22/2025 11:26 AM [facility] Alkaline Phosphatase 121 42 - 121 unit/L LAB CHEMISTRY METHOD 03/22/2025 11:26 AM [facility] Total Protein 6.0 6.0 - 8.0 g/dL LAB CHEMISTRY METHOD 03/22/2025 11:26 AM [facility] Albumin 3.2 3.2 - 5.0 g/dL LAB CHEMISTRY METHOD 03/22/2025 11:26 AM EDT [facility] Total Bilirubin 0.3 0.0 - 1.4 mg/dL LAB CHEMISTRY METHOD 03/22/2025 11:26 AM EDT [facility] Blood Venous blood specimen / Unknown Venipuncture / Unknown 03/22/2025 5:49 AM EDT 03/22/2025 9:35 AM EDT Daisy Lee MD LAB BLOOD ORDERABLES Final Resu lt [facility] ([facility]) [facility] [address] [place] [address], from Last 3 Months Insurance MEDICARE Care Teams Route Service Representative Relationship Specialty Start Date End Date Daisy Lee MD [address] [place] [id number] PCP - General Hospitalist Medicine 03/18/25
--- OUTSIDE RECORDS SUMMARY | 2025-04-07 15:45 | XMS_ITS | Encounter Summary ---
Author Organization [facility] Address [address] [place] [address] Care Team Providers Care Admissions Gate Attendant Name Role Phone Daisy Lee MD Primary Care Provider Encounter Details Date Type Department Care Team (Late st Contact Info) Description 11/27/2024 Lab Requisition [facility] [address] [place] [address] Daisy Lee MD [address] [place] [phone] Encounter for other general examination Social History [...] Procedure Name Priority Date/Time Associated Diagnosis Comments COMPREHENSIVE METABOLIC PANEL Routine 11/27/2024 7:52 AM EST Encounter for other general examination documented in this encounter Results * (ABNORMAL) Comprehensive metabolic panel (11/27/2024 7:52 AM EST) Sodium 134 133 - 145 mmol/L LAB CHEMISTRY METHOD 11/27/2024 11:21 AM EST [facility] Potassium 4.2 3.5 - 5.5 mmol/L LAB CHEMISTRY METHOD 11/27/2024 11:21 AM EST [facility] Comment:Hemolysis present Chloride 108 96 - 110 mmol/L LAB CHEMISTRY METHOD 11/27/2024 11:21 AM EST [facility] CO2 17(L) 21 - 32 mmol/L LAB CHEMISTRY METHOD 11/27/2024 11:21 AM [facility] Anion Gap 9 3 - 11 LAB CHEMISTRY METHOD 11/27/2024 11:21 AM [facility] Glucose 128(H) 70 - 100 mg/dL LAB CHEMISTRY METHOD 11/27/2024 11:21 AM [facility] BUN 62(H) 5 - 25 mg/dL LAB CHEMISTRY METHOD 11/27/2024 11:21 AM [facility] Creatinine 1.73(H) 0.50 - 1.10 mg/dL LAB CHEMISTRY METHOD 11/27/2024 11:21 AM [facility] eGFR 30(L) >=60 mL/min/1. 73m2 LAB CHEMISTRY METHOD 11/27/2024 11:21 AM [facility] Comment:Calculation based on the??Chronic Kidney Disease Epidemiology Collaboration (CKD-EPI) equation refit??without adjustment for race. BUN/Creatinine Ratio 35.8 LAB CHEMISTRY METHOD 11/27/2024 11:21 AM [facility] Calcium 9.5 8.5 - 10.5 mg/dL LAB CHEMISTRY METHOD 11/27/2024 11:21 AM [facility] AST (SGOT) 27 10 - 42 unit/L LAB CHEMISTRY METHOD 11/27/2024 11:21 AM [facility] Comment:Hemolysis present ALT (SGPT) 46 10 - 60 unit/L LAB CHEMISTRY METHOD 11/27/2024 11:21 AM [facility] Alkaline Phosphatase 143(H) 42 - 121 unit/L LAB CHEMISTRY METHOD 11/27/2024 11:21 AM [facility] Total Protein 6.5 6.0 - 8.0 g/dL LAB CHEMISTRY METHOD 11/27/2024 11:21 AM [facility] Albumin 3.3 3.2 - 5.0 g/dL LAB CHEMISTRY METHOD 11/27/2024 11:21 AM [facility] Total Bilirubin 0.3 0.0 - 1.4 mg/dL LAB CHEMISTRY METHOD 11/27/2024 11:21 AM EST [facility] Blood Venous blood specimen / Unknown Venipuncture / Unknown 11/27/2024 7:52 AM EST 11/27/2024 9:36 AM EST us Daisy Lee MD LAB BLOOD ORDERABLES Final Resu lt [facility] [address] [place] [address], documented in this encounter Visit Diagnoses Diagnosis Encounter for other general examination documented in this encounter Care Teams Admissions Gate Attendant Relationship Specialty Start Date End Date Daisy Lee MD [address] [place] [phone] PCP - General Hospitalist Medicine 03/18/25 documented as of this encounter
--- OUTSIDE RECORDS SUMMARY | 2025-04-07 15:45 | XMS_ITS | Encounter Summary ---
Author Organization [facility] Address [address] [place] [address] Phone Care Team Providers Care Car Attendant Name Role Phone Marquis Morel MD Unavailable Kilo Diaz MD Unavailable [phone] Eduardo Albert MD Primary Care Provider [phone] Reason for Referral * Consultation (Routine) - Closed Specialty Diagnoses / Procedures Referred By Jyoti bynum Referred To Contact Allergy and Immunology Earnest Anand MD, MS [address] [place] [address] Email: [email or web address] [place] [address] Referral ID Status Reason Start Date Expiration Date Visits Re quested Visits Authorized [id number] Closed 09/11/2023 09/11/2024 1 1 Encounter Details Date Type Department Care Team ([facility] st Contact Info) Description 09/11/[address] [facility] Referral Management [address] [place], [place] [id number] Sonido Parra MD [address] [place] [address] [email or web address] Social History Tobacco Use Types Packs/Day Years [...] with a working camera? Not on file Sex and Gender Information Value Date Recorded Sex Assigned at Not on file Gender Identity Not on file Sexual Orientation Not on file documented as of this encounter Plan of Treatment Upcoming Encounters Date Type Department Care Team (Latest Contact Info) Description 07/18/2025 9:00 AM EDT Telemedicine - audio only [facility] [address] [place] [id number] Jone Nobles MD [address] [place] [phone] [email or web address] 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 10/08/2022 10/15/2023 1:21 AM EST documented as of this encounter Care Teams Car Attendant Relationship Specialty Start Date End Date Eduardo Albert MD [address] [place] [phone] PCP - General Internal Medicine 04/17/23 Marquis Morel MD [address] [place] [phone] Animal Services Officer Pulmonary Disease 08/16/21 Kilo Diaz MD [address] [place] [address] [email or web address] Nephrology 01/23/23 documented as of this encounter Additional Source Comments The information contained in this document represents components of the legal health record. It is not the complete legal health record.[facility]
--- OUTSIDE RECORDS SUMMARY | 2025-04-07 15:46 | XMS_ITS | Encounter Summary ---
Author Organization [facility], Address [address] [place] [address] Phone Care Team Providers Care Refuse Collector Name Role Phone Eduardo Albert MD Primary Care Provider [phone] Encounter Details Date Type Department Care Team (Late st Contact Info) Description 02/10/2024 Documentation Only [facility], [address] [place] [phone] [place], [place] [address] [place] [address] Social History Tobacco Use Types Packs/Day Years Used Date Smoking Tobacco: Former Alcohol Use Standard Drinks/Week Comments No 0 (1 standard drink = 0.6 oz pur e alcohol) Comments Unknown Sex and Gender Information Value Date Recorded Sex Assigned at Not on file Legal Sex Female 4:32 PM EST Gender Identity Not on file Sexual Orientation Not on file documented as of this encounter Plan of Treatment Not on file documented as of this encounter Visit Diagnoses Not on filedocumented in this encounter Care Teams Refuse Collector Relationship Specialty Start Date End Date Eduardo Albert MD [facility] [address] [place] [address] [address] [place] [address] PCP - General 10/05/19 documented as of this encounter
--- OUTSIDE RECORDS SUMMARY | 2025-04-07 15:46 | XMS_ITS | Encounter Summary ---
Author Organization [facility] Address [address] [place] [address] Care Team Providers Care Continuous Improvement Coach Name Role Phone Daisy Lee MD Primary Care Provider Encounter Details Date Type Department Care Team (Late st Contact Info) Description 12/06/2024 Lab Requisition [facility] - Main Lab [address] [facility] [place] [address] Daisy Lee MD [address] [place] [phone] Encounter for other general examination Social History [...] Comments MANUAL DIFFERENTIAL - SYSMEX WAM Routine 12/06/2024 5:34 AM EST Encounter for other general examination CBC WITH AUTO DIFFERENTIAL Routine 12/06/2024 5:34 AM EST Encounter for other general examination CBC AND DIFFERENTIAL Routine 12/06/2024 5:34 AM EST Encounter for other general examination MAGNESIUM Routine 12/06/2024 5:34 AM EST Encounter for other general examination HEMOGLOBIN A1C Routine 12/06/2024 5:34 AM EST Encounter for other general examination COMPREHENSIVE METABOLIC PANEL Routine 12/06/2024 5:34 AM EST Encounter for other general examination documented in this encounter Results * (ABNORMAL) Manual differential (12/06/2024 5:34 AM EST) Neutrophils % 82.0 % LAB HEMETOLOGY METHOD 12/06/2024 2:24 PM [facility] Bands % 2.0 % LAB HEMETOLOGY METHOD 12/06/2024 2:24 PM [facility] Lymphocytes % 8.0 % LAB HEMETOLOGY METHOD 12/06/2024 2:24 PM [facility] Monocytes % 4.0 % LAB HEMETOLOGY METHOD 12/06/2024 2:24 PM [facility] Eosinophils % 4.0 % LAB HEMETOLOGY METHOD 12/06/2024 2:24 PM [facility] Basophils % 0.0 % LAB HEMETOLOGY METHOD 12/06/2024 2:24 PM [facility] Myelocytes % 1.0(H) % LAB HEMETOLOGY METHOD 12/06/2024 2:24 PM [facility] Neutrophils Absolute Manual 6.72 1.50 - 7.00 K/mcL LAB HEMETOLOGY METHOD 12/06/2024 2:24 PM [facility] Bands Absolute Manual 0.16(H) 0.00 - 0.00 K/mcL LAB HEMETOLOGY METHOD 12/06/2024 2:24 PM [facility] Lymphocytes Absolute 0.66(L) 1.00 - 5.00 K/mcL LAB HEMETOLOGY METHOD 12/06/2024 2:24 PM [facility] Monocytes Absolute Manual 0.33 0.20 - 1.00 K/mcL LAB HEMETOLOGY METHOD 12/06/2024 2:24 PM [facility] Eosinophils Absolute Manual 0.33 0.00 - 0.50 K/mcL LAB HEMETOLOGY METHOD 12/06/2024 2:24 PM [facility] Basophils Absolute Manual 0.00 0.00 - 0.20 K/mcL LAB HEMETOLOGY METHOD 12/06/2024 2:24 PM EST [facility] Myelocytes Absolute Manual 0.08(H) 0.00 - 0.00 K/mcL LAB HEMETOLOGY METHOD 12/06/2024 2:24 PM EST [facility] Rbc Morphology Present( A) Consistent with indices, Normal for [place] LAB HEMETOLOGY METHOD 12/06/2024 2:24 PM EST [facility] Platelet Morphology - WAM See Note(A) Normal LAB HEMETOLOGY METHOD 12/06/2024 2:24 PM EST [facility] Comment:PLT: Normal Tear Drop Cells Present 11 - 15%(A) (none) LAB HEMETOLOGY METHOD 12/06/2024 2:24 PM [facility] Blood Venous blood specimen / Unknown Venipuncture / Unknown 12/06/2024 5:34 AM EST 12/06/2024 12:02 PM EST us Daisy Lee MD LAB BLOOD ORDERABLES Final Resu lt [facility] [address] [place] [address], * (ABNORMAL) CBC auto differential (12/06/2024 5:34 AM EST) WBC 8.2 4.8 - 10.8 K/mcL LAB HEMETOLOGY METHOD 12/06/2024 2:24 PM [facility] RBC 3.30(L) 3.80 - 4.80 M/mcL LAB HEMETOLOGY METHOD 12/06/2024 2:24 PM [facility] Hemoglobin 9.4(L) 11.5 - 16.0 g/dL LAB HEMETOLOGY METHOD 12/06/2024 2:24 PM [facility] Hematocrit 30.0(L) 35.0 - 47.0 % LAB HEMETOLOGY METHOD 12/06/2024 2:24 PM EST [facility] MCV 92.0 79.0 - 98.0 FL LAB HEMETOLOGY METHOD 12/06/2024 2:24 PM [facility] MCH 28.8 27.0 - 32.0 pcg LAB HEMETOLOGY METHOD 12/06/2024 2:24 PM [facility] MCHC 31.3(L) 32.0 - 37.0 g/dL LAB HEMETOLOGY METHOD 12/06/2024 2:24 PM [facility] RDW 16.8(H) 11.0 - 15.0 % LAB HEMETOLOGY METHOD 12/06/2024 2:24 PM [facility] Platelets 169 130 - 400 K/mcL LAB HEMETOLOGY METHOD 12/06/2024 2:24 PM EST [facility] MPV 10.4 7.0 - 11.0 FL LAB HEMETOLOGY METHOD 12/06/2024 2:24 PM EST [facility] NRBC 0.0 <1.0 % LAB HEMETOLOGY METHOD 12/06/2024 2:24 PM [facility] NRBC Absolute 0.00 <0.10 K/mcL LAB HEMETOLOGY METHOD 12/06/2024 2:24 PM [facility] Blood Venous blood specimen / Unknown Venipuncture / Unknown 12/06/2024 5:34 AM EST 12/06/2024 12:02 PM EST us Daisy Lee MD LAB BLOOD ORDERABLES Final Resu lt [facility] [address] [place] [address], * Magnesium (12/06/2024 5:34 AM EST) Magnesium 2.0 1.9 - 2.6 mg/dL LAB CHEMISTRY METHOD 12/06/2024 1:23 PM EST [facility] Blood Venous blood specimen / Unknown Venipuncture / Unknown 12/06/2024 5:34 AM EST 12/06/2024 12:02 PM EST us Daisy Lee MD LAB BLOOD ORDERABLES Final Resu lt Performing Organization Address [facility]/ZIP Co de Phone Number [facility] [address] [place] [address], [place] [phone] * (ABNORMAL) Hemoglobin A1c (12/06/2024 5:34 AM EST) [facility] Hemoglobin A1C 6.6(H) <6.5 % LAB CHEMISTRY METHOD 12/06/2024 8:50 PM EST [facility] Mean Bld Glu Estim. 143 mg/dL LAB CHEMISTRY METHOD 12/06/2024 8:50 PM EST [facility] Blood Venous blood specimen / Unknown Venipuncture / Unknown 12/06/2024 5:34 AM EST 12/06/2024 12:02 PM EST us Daisy Lee MD LAB BLOOD ORDERABLES Final Resu lt Performing Organization Address [facility]/ZIP Co de Phone Number [facility] [address] [place] [address], [place] [phone] * (ABNORMAL) Comprehensive metabolic panel (12/06/2024 5:34 AM EST) Pathologist [facility] Sodium 130(L) 133 - 145 mmol/L LAB CHEMISTRY METHOD 12/06/2024 1:24 PM EST [facility] Potassium 3.9 3.5 - 5.5 mmol/L LAB CHEMISTRY METHOD 12/06/2024 1:24 PM EST [facility] Chloride 106 96 - 110 mmol/L LAB CHEMISTRY METHOD 12/06/2024 1:24 PM [facility] CO2 18(L) 21 - 32 mmol/L LAB CHEMISTRY METHOD 12/06/2024 1:24 PM [facility] Anion Gap 6 3 - 11 LAB CHEMISTRY METHOD 12/06/2024 1:24 PM [facility] Glucose 149(H) 70 - 100 mg/dL LAB CHEMISTRY METHOD 12/06/2024 1:24 PM [facility] BUN 56(H) 5 - 25 mg/dL LAB CHEMISTRY METHOD 12/06/2024 1:24 PM [facility] Creatinine 1.58(H) 0.50 - 1.10 mg/dL LAB CHEMISTRY METHOD 12/06/2024 1:24 PM [facility] eGFR 34(L) >=60 mL/min/1. 73m2 LAB CHEMISTRY METHOD 12/06/2024 1:24 PM [facility] Comment:Calculation based on the??Chronic Kidney Disease Epidemiology Collaboration (CKD-EPI) equation refit??without adjustment for race. BUN/Creatinine Ratio 35.4 LAB CHEMISTRY METHOD 12/06/2024 1:24 PM [facility] Calcium 8.8 8.5 - 10.5 mg/dL LAB CHEMISTRY METHOD 12/06/2024 1:24 PM [facility] AST (SGOT) 23 10 - 42 unit/L LAB CHEMISTRY METHOD 12/06/2024 1:24 PM [facility] ALT (SGPT) 43 10 - 60 unit/L LAB CHEMISTRY METHOD 12/06/2024 1:24 PM [facility] Alkaline Phosphatase 129(H) 42 - 121 unit/L LAB CHEMISTRY METHOD 12/06/2024 1:24 PM [facility] Total Protein 5.9(L) 6.0 - 8.0 g/dL LAB CHEMISTRY METHOD 12/06/2024 1:24 PM [facility] Albumin 3.2 3.2 - 5.0 g/dL LAB CHEMISTRY METHOD 12/06/2024 1:24 PM EST [facility] Total Bilirubin 0.3 0.0 - 1.4 mg/dL LAB CHEMISTRY METHOD 12/06/2024 1:24 PM EST [facility] Blood Venous blood specimen / Unknown Venipuncture / Unknown 12/06/2024 5:34 AM EST 12/06/2024 12:02 PM EST us Daisy Lee MD LAB BLOOD ORDERABLES Final Resu lt [facility] [address] [place] [address], documented in this encounter Visit Diagnoses Diagnosis Encounter for other general examination documented in this encounter Care Teams Continuous Improvement Coach Relationship Specialty Start Date End Date Daisy Lee MD [address] [place] [address] PCP - General Hospitalist Medicine 03/18/25 documented as of this encounter
--- OUTSIDE RECORDS SUMMARY | 2025-04-07 15:46 | XMS_ITS | Clinical Summary ---
Author Organization [facility], Address [address] [place] [address] [place] [address] Phone Care Team Providers Care Interior Block Wirer Name Role Phone Eduardo Albert MD Primary Care Provider [phone] Allergies Active Allergy Reactions Criticality Noted Date Comments Azithromycin Other (see comments) 12/29/2019 Ciprofloxacin Other (see comments) 12/29/2019 Clonazepam Anxiety,Other (see comments) Low 01/08/2017 Doxycycline Other (see comments) 12/29/2019 Levofloxacin Other (see comments) 12/29/2019 Lorazepam Anxiety,Other (see comments) Low 01/08/2017 Olanzapine Other (see comments) 12/29/2019 Penicillins 01/08/2017 Not amoxacillin Prednisone Other (see comments) 01/08/2017 diabetes Sulfa Antibiotics 06/09/2018 Medications allopurinol (ZYLOPRIM) 100 MG tablet Take 200 mg by mouth 1 (one) time each day Active magnesium oxide 400 (240 Mg) MG tablet Take 400 mg by mouth daily Active albuterol HFA (PROVENTIL HFA;VENTOLIN HFA) 108 (90 Base) MCG/ACT inhaler Inhale 1 puff every 4 (four) hours if needed for wheezing Active Probiotic Product (PROBIOMAX DAILY DF PO) Take by mouth Act doc acetaminophen (TYLENOL) 325 MG tablet Take by mouth every 6 (six) hours if needed for mild pain Active cyanocobalamin (VITAMIN B-12) 1000 MCG tablet Take 1,000 mcg by mouth 1 (one) time each day Active cetirizine (ZyrTEC) 10 MG tablet Take 10 mg by mouth 1 (one) time each day Active budesonide (PULMICORT) 0.5 MG/2ML nebulizer solution INHALE 1 VIAL BY NEBULIZER TWICE A DAY J45.41 0 Active carvedilol (COREG) 12.5 MG tablet Take 6.25 mg by mouth 2 (two) times a day 0 Active amLODIPine (NORVASC) 5 MG tablet Take 1.5 tablets (7.5 mg total) by mouth daily 45 tablet 11 1 Active sodium chloride 0.9 % nebulizer solution 1 Active nystatin (MYCOSTATIN) 753823 UNIT/ML suspension 1 Active neomycin-polymy paco-dexamethame thasone (POLYDEX) 3.5-94580-8.1 ointment 1 Active levalbuterol (XOPENEX) 1.25 MG/3ML nebulizer solution 1 Active clotrimazole (MYCELEX) 10 MG juan 1 Active azithromycin (ZITHROMAX) 250 MG tablet 1 Active nitrofurantoin, macrocrystal-mo nohydrate, (MACROBID) 100 MG capsule 2 Active sulfamethoxazol e-trimethoprim 800-160 MG per tablet 2 Active terconazole (TERAZOL 3) 0.8 % vaginal cream 2 Active amoxicillin-cla vulanate (AUGMENTIN) 500-125 MG per tablet Take 1 tablet by mouth 2 Active Yuvafem 10 MCG tablet INSERT 1 TABLET VAGINALLY TWICE WEEKLY 2 Active hydrOXYzine (VISTARIL) 25 MG capsule TAKE 1 CAPSULE BY MOUTH TWICE A DAY NEEDED FOR ANXIETY 2 Active ketoconazole (NIZORAL) 2 % cream APPLY TO RASH IN SKIN FOLDS TWICE DAILY X 2 WEEKS, REPEAT NEEDED 2 Active Lidocaine HCl (Lidocaine Viscous HCl) 2 % solution 2 Active nystatin (MYCOSTATIN) powder 2 Active predniSONE (DELTASONE) 1 MG tablet Take 3 mg by mouth 1 (one) time each day 2 Active doxycycline (VIBRA-TABS) 100 MG tablet Take 100 mg by mouth 2 Active chlorhexidine (PERIDEX) 0.12 % solution USE 15 ML TO AFFECTED MUCOSAL AREA 2 TIMES A DAY FOR 30 DAYS. 2 Active glipiZIDE (GLUCOTROL XL) 5 MG 24 hr tablet TAKE 1 TABLET BY MOUTH 1 TIME EACH DAY DO NOT CRUSH, CHEW, OR SPLIT. 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 Encounters Date Type Department Care Team Description 01/17/2025 9:00 AM EST Office Visit [facility] [address] [place] [address] Kilo Diaz MD Eosinophilic granulomatosis with polyangiitis (EGPA) ([facility]) (Primary Dx); Stage 3b chronic kidney disease (HCC); Anemia in chronic kidney disease; Hypertensive disorder; Hypogammaglobulinemia (HCC) from Last 3 Months Immunizations Immunization Administration Dates Next Due Influenza Split High Dose Preservative Free IM 1 ,10/10/2015 Social History Tobacco Use Types Packs/Day Years Used Date Smoking Tobacco: Former Tobacco Cessation:Counseling Given: Not Answered Alcohol Use Standard Drinks/Week Comments No 0 (1 standard drink = 0.6 oz pur e alcohol) Comments Unknown Sex and Gender Information Value Date Recorded Sex Assigned at Not on file Legal Sex Female 4:32 PM EST Gender Identity Not on file Sexual Orientation Not on file Last Filed Vital Signs Vital Sign Reading Time Taken Comments Blood Pressure 130/68 10/06/2024 4:02 PM EST Pulse 94 04/07/2024 2:48 PM EDT Temperature - - Respiratory Rate - - Oxygen Saturation - - Inhaled Oxygen Concentration - - Weight 78.7 kg (173 lb 9.6 oz) 08/25/2020 12:00 PM EDT Height 162.6 cm (5' 4 ) 09/20/2019 12:00 PM EDT Body Mass Index 29.8 09/20/2019 12:00 PM EDT Plan of Treatment Health Maintenance Due Date Last Done Comments Pneumococcal Vaccine: 50+ Years (1 of 2 - PCV) 1964 Diabetes: Pedal Pulse Checked 12/03/2023 Diabetes: Sensory Foot Exam 12/03/2023 Diabetes: Visual Foot Exam 12/03/2023 Diabetes: Hemoglobin A1C 03/06/2025 025, 10/03/2024 Influenza Vaccine (Season Ended) 2025 09/03/2017, 10/10/2015 Diabetes: Ophthalmology Exam 08/16/2025 08/16/2024 Hepatitis B Vaccine Aged Out No longe r eligible based on patient's age to complete this topic Procedures Procedure Name Priority Date/Time Associated Diagnosis Comments VITAMIN D 25 HYDROXY Routine 02/08/2025 3:30 PM EDT Eosinophilic granulomatosis with polyangiitis (EGPA) (HCC) Stage 3b chronic kidney disease (HCC) Anemia in chronic kidney disease Hypertensive disorder Hypogammaglobulinemia (HCC) PTH, INTACT Routine 02/08/2025 3:30 PM EDT Eosinophilic granulomatosis with polyangiitis (EGPA) (HCC) Stage 3b chronic kidney disease (HCC) Anemia in chronic kidney disease Hypertensive disorder Hypogammaglobulinemia (HCC) IRON PANEL (FE, TIBC, TSAT) Routine 02/08/2025 3:30 PM EDT Eosinophilic granulomatosis with polyangiitis (EGPA) (HCC) Stage 3b chronic kidney disease (HCC) Anemia in chronic kidney disease Hypertensive disorder Hypogammaglobulinemia (HCC) FERRITIN Routine 02/08/2025 3:30 PM EDT Eosinophilic granulomatosis with polyangiitis (EGPA) (HCC) Stage 3b chronic kidney disease (HCC) Anemia in chronic kidney disease Hypertensive disorder Hypogammaglobulinemia (HCC) CBC Routine 02/08/2025 3:30 PM EDT Eosinophilic granulomatosis with polyangiitis (EGPA) (HCC) Stage 3b chronic kidney disease (HCC) Anemia in chronic kidney disease Hypertensive disorder Hypogammaglobulinemia (HCC) RENAL FUNCTION PANEL Routine 02/08/2025 3:30 PM EDT Eosinophilic granulomatosis with polyangiitis (EGPA) (HCC) Stage 3b chronic kidney disease (HCC) Anemia in chronic kidney disease Hypertensive disorder Hypogammaglobulinemia (HCC) from Last 3 Months Results * (ABNORMAL) Iron Panel (Fe, TIBC, TSAT) (02/08/2025 3:30 PM EDT) Iron 51 27 - 139 ug/dL [facility] TIBC 458(H) 250 - 450 ug/dL [facility] UIBC 407(H) 118 - 369 ug/dL [facility] Iron Saturation (TSat) 11(L) 15 - 55 % [facility] Blood (Blood, Venous) 02/08/2025 3:30 PM EDT 02/08/2025 us Kilo Diaz MD LAB BLOOD ORDERABLES Final Result [facility] [address] [place] [address] * (ABNORMAL) Vitamin D 25 hydroxy (02/08/2025 3:30 PM EDT) Vitamin D, 25-OH, Total 19.4(L) 30.0 - 100.0 ng/mL [facility] Comment: Vitamin D deficiency has been defined by the Nixon of Medicine and an Endocrine Society practice guideline as a level of serum 25-OH vitamin D less than 20 ng/mL (1,2). The Endocrine Society went on to further define vitamin D insufficiency as a level between 21 and 29 ng/mL (2). 1. IOM ([place]ixon of Medicine). 2010. Dietary reference ?? intakes for calcium and D. [place]: The ?? National AcademBinary Thumb Press. 2. Fahad MF, Javad GIORDANO, [place] VIRAMONTES, et al. ?? Evaluation, treatment, and prevention of vitamin D ?? deficiency: an Endocrine Society clinical practice ?? guideline. JCEM. 2010; 96(7):1911-30. Blood (Blood, Venous) 02/08/2025 3:30 PM EDT 02/08/2025 Kilo Diaz MD LAB BLOOD ORDERABLES Final Result [facility] [address] [place] [address] * (ABNORMAL) CBC (02/08/2025 3:30 PM EDT) WBC 8.9 3.4 - 10.8 x10E3/uL [facility] RBC 3.48(L) 3.77 - 5.28 x10E6/uL [facility] Hemoglobin 10.7(L) 11.1 - 15.9 g/dL [facility] Hematocrit 32.5(L) 34.0 - 46.6 % [facility] MCV 93 79 - 97 fL [facility] MCH 30.7 26.6 - 33.0 pg [facility] MCHC 32.9 31.5 - 35.7 g/dL [facility] RDW 16.2(H) 11.7 - 15.4 % [facility] Platelets 212 150 - 450 x10E3/uL [facility] Blood (Blood, Venous) 02/08/2025 3:30 PM EDT 02/08/2025 Kilo Diaz MD LAB BLOOD ORDERABLES Final Result Performing Organization Address City/[facility]/ZIP Co de Phone Number [facility] [address] [place] [address] * PTH, intact (02/08/2025 3:30 PM EDT) PTH 32 15 - 65 pg/mL [facility] Blood (Blood, Venous) 02/08/2025 3:30 PM EDT 02/08/2025 Kilo Diaz MD LAB BLOOD ORDERABLES Final Result Performing Organization Address [facility] de Phone Number [facility] [address] [place] [address] * Ferritin (02/08/2025 3:30 PM EDT) Ferritin 70 15 - 150 ng/mL [facility] Blood (Blood, Venous) 02/08/2025 3:30 PM EDT 02/08/2025 Kilo Diaz MD LAB BLOOD ORDERABLES Final Result Performing Organization Address City/[facility] de Phone Number [facility] [address] [place] [address] * (ABNORMAL) Renal function panel (02/08/2025 3:30 PM EDT) Glucose 224(H) 70 - 99 mg/dL [facility] BUN 46(H) 8 - 27 mg/dL [facility] Creatinine 1.29(H) 0.57 - 1.00 mg/dL [facility] eGFR CKD-EPI CR 2020 43(L) >59 mL/min/1.7 3 [facility] BUN/Creatinine Ratio 36(H) 12 - 28 [facility] Sodium 140 134 - 144 mmol/L [facility] Potassium 4.6 3.5 - 5.2 mmol/L [facility] Chloride 101 96 - 106 mmol/L [facility] Bicarbonate (CO2) 16(L) 20 - 29 mmol/L [facility] Calcium 10.2 8.7 - 10.3 mg/dL [facility] Albumin 4.3 3.8 - 4.8 g/dL [facility] Phosphorus 2.9(L) 3.0 - 4.3 mg/dL [facility] Blood (Blood, Venous) 02/08/2025 3:30 PM EDT 02/08/2025 Narrative [facility] - 02/09/2025 3:05 PM EDT Specimen Comment: A courtesy copy of this report has been sent to [phone], [phone] Specimen Comment: [id number] us Kilo Diaz MD LAB BLOOD ORDERABLES Final Result [facility] [address] [place] [address] from Last 3 Months Insurance Medicare [facility] Care Teams Interior Block Wirer Relationship Specialty Start Date End Date Eduardo Albert MD [address] [place] [address] PCP - General 10/05/19
--- OUTSIDE RECORDS SUMMARY | 2025-04-07 15:46 | XMS_ITS | Encounter Summary ---
Author Organization [facility] [place], Address [address] [address] Phone Care Team Providers Care Speed Belt Sander Tender Name Role Phone Eduardo Albert MD Primary Care Provider [phone] Encounter Details Date Type Department Care Team (Late st Contact Info) Description 01/23/2023 Documentation Only [facility] [place] [facility], [address] [place] [phone] Kilo Diaz MD [address] [place] [address] Social History Tobacco Use Types Packs/Day Years [...] on filedocumented in this encounter Care Teams Speed Belt Sander Tender Relationship Specialty Start Date End Date Eduardo Albert MD [facility] [address] [place] [address] [address] [place] [address] PCP - General 10/05/19 documented as of this encounter
--- OUTSIDE RECORDS SUMMARY | 2025-04-07 15:46 | XMS_ITS | Encounter Summary ---
Author Organization [facility] Address [address] [place] [address] Phone Care Team Providers Care Medical Transcription Name Role Phone Eduardo Albert MD Primary Care Provider [phone] Marquis Morel MD Unavailable Kilo Diaz MD Primary Care Provider + Kilo Diaz MD Unavailable [phone] Eduardo Albert MD Primary Care Provider [phone] Encounter Details Date Type Department Care Team (Late st Contact Info) Description 02/12/2018 Procedure Pass Located Within [facility] [address] [place] [address] Social History Tobacco Use Types Packs/Day Years Used Date Smoking Tobacco: Former Sex and Gender Information Value Date Recorded Sex Assigned at Not on file Gender Identity Not on file Sexual Orientation Not on file documented as of this encounter Plan of Treatment Upcoming Encounters Date Type Department Care Team (Latest Contact Info) Description 07/18/2025 9:00 AM EDT Telemedicine - audio only [facility] [address] [place] [phone] Jone Nobles MD [address] [place] [phone] 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 10/08/2022 10/15/2023 1:21 AM EST documented as of this encounter Care Teams Medical Transcription Relationship Specialty Start Date End Date Eduardo Albert MD [address] [address] PCP - General Internal Medicine 01/03/17 01/22/23 Kilo Diaz MD [address] [place] [address] PCP - General Nephrology 01/23/23 04/16/23 Eduardo Albert MD [address] [address] PCP - General Internal Medicine 04/17/23 Marquis Morel MD [address] [place] [address] Recreational Director Pulmonary Disease 08/16/21 Kilo Diaz MD [address] [place] [address] Nephrology 01/23/23 documented as of this encounter Additional Source Comments The information contained in this document represents components of the legal health record. It is not the complete legal health record.[facility]
--- OUTSIDE RECORDS SUMMARY | 2025-04-07 15:46 | XMS_ITS | Clinical Summary ---
Author Organization [facility] Address [address] [place] [address] Phone Care Team Providers Care Congregational Care Pastor Name Role Phone Marquis Morel MD Unavailable Kilo Diaz MD Unavailable [phone] Eduardo Albert MD Primary Care Provider [phone] Allergies Active Allergy Reactions Criticality Noted Date Comments Clonazepam Anxiety Low 01/08/2017 Lorazepam Anxiety Low 01/08/2017 Penicillins 01/08/2017 Not amoxacillin Pollen Extracts 05/23/2023 Prednisone 01/08/2017 diabetes Sulfa (Sulfonamide Antibiotics) 05/31 Medications Medication Sig Dispensed Refills Start Date End Date Status predniSONE (DELTASONE) 20 MG tabletIndications:v asculitis Take 11 mg by mouth daily. 40 alternating with 30 Indications: inflammation of the blood vessels Active amLODIPine (NORVASC) 2.5 MG tablet Take 2.5 mg by mouth daily. Active budesonide-formoter ol (SYMBICORT) 80-4.5 mcg/actuation inhaler Inhale 2 puffs into the lungs 2 (two) times a day. Active folic acid (FOLVITE) 1 MG tabletIndications:f olate deficiency Take 1 mg by mouth daily. Indications: Folate Deficiency Active raNITIdine (ZANTAC) 150 MG tablet Take 150 mg by mouth 2 (two) times a day. 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 400 tablet 3 11/04/2017 Active Additional Information Patient not taking.Reported on 01/20/2019 fluocinonide (VANOS) 0.1 % Crea Apply topically 2 (two) times a day. 120 g 1 01/13/2018 Active Additional Information Patient not taking.Reported on 10/01/2019 ipratropium-albuter ol (DUONEB) 0.5-2.5 mg/3 mL nebulizer solution as needed. 04/16/2013 Active MEPOLIZUMAB (NUCALA SUBQ) Inject under the skin. Active cetirizine HCl (ZYRTEC ORAL) Take by mouth. Active varicella-zoster gE-AS01B, PF, (SHINGRIX) 50 mcg/0.5 mL IM injectionIndication s:Immunosuppression Inject 0.5 mL into the muscle Every 2 Months, Every 8 Weeks, Every 60 Days. 0.5 mL 1 07/02/2018 Active Additional Information Patient not taking.Reported on 10/01/2019 albuterol (ACCUNEB) 0.63 mg/3 mL nebulizer solution Take 1 ampule by nebulization every 6 (six) hours as needed for wheezing. Active cholecalciferol, vitamin D3, (VITAMIN D3 ORAL) Take by mouth. Act doc cyanocobalamin, vitamin B-12, (VITAMIN B12 ORAL) Take by mouth. Ac tive MAGNESIUM ORAL Take by mouth. Active Lactobacillus acidophilus (PROBIOTIC ORAL) Take by mouth. Acti ve allopurinol (ZYLOPRIM) 100 MG tabletIndications:A cute gout due to renal impairment involving right foot Alternate 50mg with 100mg each day. 90 tablet 3 07/06/2019 Active cyclophosphamide (CYTOXAN) 25 mg Cap Take 2 capsules (50 mg total) by mouth daily. 60 capsule 03/20/2020 Active sodium chloride (PF) Soln 2 mL with amikacin 500 mg/2 mL Soln 500 mgIndications:Bronc hiectasis with acute lower respiratory infection Take 500 mg by nebulization 2 (two) times a day. 20 vial 03/27/2020 Active syringe with needle, safety 3 mL 23 gauge x 1 Syrg 1 each by Miscellaneous route 2 (two) times a day. 20 Syringe 03/27/2020 Active sodium chloride 0.9 % nebulizer solution Take 3 mL by nebulization 2 (two) times a day. Please dispence 30 of the 3 ml vials for nebulizer 90 mL 1 03/27/2020 Active acetylcysteine (MUCOMYST) 200 mg/mL (20 %) nebulizer solutionIndications :Churg-James syndrome with lung involvement,Bronchi ectasis with acute lower respiratory infection,Acute bronchitis due to other specified organisms,Mucopurul ent chronic bronchitis Take 4 mL (800 mg total) by nebulization 3 (three) times a day. 180 mL 3 05/18/2020 Active sulfamethoxazole-tr imethoprim (BACTRIM,SEPTRA) 400-80 mg per tablet Take 1 tablet (80 mg of trimethoprim total) by mouth daily. 90 tablet 3 08/13/2021 Active levoFLOXacin 100 mg compounded for sinus rinse incorporation capsule Add 1 capsule (100 mg total) to 240 mL Neilmed sinus rinse and use nasally 2 (two) times a day as directed for 8 weeks 120 capsule 10/17/2022 Active cefTAZidime-budeson sylvie (600 mg-0.6 mg) compounded for sinus rinse incorporation capsule Add 1 capsule (600 mg -0.6 mg) to 240 mL Neilmed sinus rinse and use nasally 2 (two) times a day as directed. 112 capsule 11/04/2022 Active Medication-Free Text Ceftazidime 125mg capsule for compounded topical nasal rinse. Please add 1 capsule to 8 ounces of nasal sinus rinse and use nasally twice a day for 8 weeks 120 capsule 12/13/2022 Active sodium bicarbonate 650 mg tablet Take 1 tablet (650 mg total) by mouth 4 (four) times a day. 120 tablet 3 07/12/2023 Active azithromycin (ZITHROMAX) 250 MG tablet TAKE 1 TABLET (250 MG) BY MOUTH 3 TIMES A WEEK 07/31/2023 Active levalbuterol (XOPENEX) 1.25 mg/3 mL nebulizer solution 1.25 MG (3 ML) INHALED 3 TIMES A DAY 07/22/2023 Active YUVAFEM [address] 1 tablet vaginally 2 (two) times a week. 07/21/2023 Active nystatin (NYSTOP) powder Apply topically 2 (two) times a day. APPLY TO AFFECTED AREA 06/17/2023 Active loratadine (CLARITIN) 10 mg tablet Take 10 mg by mouth daily. Active Medication-Free Text Topical Tobramycin irrigation capsules 20 mg Add one capsule to 8 ounces neilmed sinuse rinse and use nasally twice a day 60 capsule 2 08/12/2023 Active pantoprazole (PROTONIX) 40 MG tabletIndications:H eartburn Take 1 tablet (40 mg total) by mouth 2 (two) times a day. 56 tablet 1 09/11/2023 Active potassium citrate (UROCIT-K) 10 mEq SR tablet Take 1 tablet (10 mEq total) by mouth daily with breakfast. 60 tablet 2 11/10/2023 Active budesonide 0.6 mg compounded for sinus rinse incorporation capsule Add 1 capsule (0.6 mg total) to 240 mL Neilmed sinus rinse and use nasally twice a day as directed. 180 capsule 2 01/02/2024 Active carvedilol (COREG) 12.5 MG tablet TAKE 1/2 TABLET BY MOUTH TWICE A DAY WITH MEALS 90 tablet 3 05/12/2024 Active MIEBO 100 % Drop INSTILL 1 DROP INTO BOTH EYES 4 TIMES A DAY DIRECTED 07/21/2024 Active ZERVIATE 0.24 % Dpet USE 1 DROP INTO BOTH EYES TWICE A DAY 07/23/2024 Active azelastine (ASTELIN) 137 mcg (0.1 %) nasal spray 2 sprays by Nasal route 2 (two) times a day. 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 S/P colectomy 03/04/2013 Overview (01/21/2015): S/P Colectomy Ulcerative colitis 03/04/2013 Overview (01/21/2015): Ulcerative colitis Uncoded S/P Total abdominal hysterectomy with bilateral salpingo-oophorectomy 03/04/2013 Overview (01/21/2015): S/P Total abdominal hysterectomy with bilateral salpingo-oophorectomy Congestion of nasal sinus 03/04/2013 Overview (01/21/2015): Sinus congestion S/P cholecystectomy 03/04/2013 Overview (01/21/2015): S/P Cholecystectomy Depressive disorder 03/04/2013 Overview (01/21/2015): Depressive disorder Nasal polyp 03/04/2013 Overview (01/21/2015): Nasal polyp Encounters Date Type Department Care Team Description 03/08/2025 11:00 AM EDT Telemedicine - audio only [facility] [address] [address] Jone Nobles MD ANCA-associated vasculitis (Primary Dx); 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 Telephone [facility] [address] [place] [address] Diane Lunsford, ANA 03/01/2025 Telephone [facility] Main [place] [address] [facility] [address], [place] [address] Diane Lunsford, ANA from Last 3 Months Immunizations Name Administration Dates Next Due Influenza High-Dose Trivalent Preservative Free IM 09/03/2017 Family History Medical History Relation Comments Sinusitis Daughter Relation Status Comments Daughter Alive Social History Tobacco Use Types Packs/Day Years Used Date Smoking Tobacco: Former Smokeless Tobacco: Never Tobacco Cessation:Counseling Given: Not Answered Alcohol Use Standard Drinks/Week Comments Not Currently [...] Sign Reading Time Taken Comments Blood Pressure 138/76 04/01/2024 11:00 AM EDT Pulse 80 04/01/2024 11:00 AM EDT Temperature 36.4 ??C (97.6 ??F) 04/01/2024 11:00 AM E DT Respiratory Rate 18 01/12/2020 11:53 AM EST Oxygen Saturation 98% 04/01/2024 11:00 AM EDT Inhaled Oxygen Concentration - - Weight 65.1 kg (143 lb 9.6 oz) 04/01/2024 11:00 AM EDT Height 158.8 cm (5' 2.5 ) 04/01/2024 11:00 AM ED T Body Mass Index 25.85 04/01/2024 11:00 AM EDT Plan of Treatment Upcoming Encounters Date Type Department Care Team (Latest Contact Info) Description 07/18/2025 9:00 AM EDT Telemedicine - audio only [facility] [address] [place] [address] Jone Nobles MD [address] [place] [phone] [email or web address] Health Maintenance Due Date Last Done Comments Adult Td,Tdap Booster 1945 DEPRESSION SCREENING 1959 SMOKING Hx and SMOKELESS TOBACCO SCREENING 1960 PNEUMOCOCCAL VACCINES (50+ years) (1 of 2 - PCV) 1966 COLOGUARD 1992 COLONOSCOPY 1992 COLORECTAL CANCER SCREENING 1992 FIT TEST 1992 FOBT 1992 SIGMOIDOSCOPY 1992 VIRTUAL COLONOSCOPY 1992 OSTEOPOROSIS SCREENING INITIAL (ONE-TIME) 2012 COVID-19 VACCINE ( season) 2024 12/26/2023, 12/04/2022, 10/28/2022, Additional history exists CREATININE LEVEL 04/01/2025 04/01/2024, 10/2023, 07/07/2023, Additional history exists LIPID PANEL 04/17/2028 04/17/2023, 08/01, 03/20/2021, Additional history exists HEPATITIS C SCREENING Completed 01/08/2017, 017 ZOSTER VACCINES Completed 10/25/2018, 07/12/2018 RSV VACCINE Completed 11/12/2023 HEPATITIS A VACCINES Aged Out No long er eligible based on patient's age to complete this topic HIB VACCINES Aged Out No longer eligi ble based on patient's age to complete this topic MENINGOCOCCAL VACCINES (ACWY) Aged Out No longer eligible based on patient's age to complete this topic Medical Devices Not on file Procedures Procedure Name Priority Date/Time Associated Diagnosis Comments COMPREHENSIVE METABOLIC PANEL Routine 04/01/2024 11:57 AM EDT Churg-James syndrome ANCA-associated vasculitis Metabolic acidosis Stage 3b chronic kidney disease LIPID PANEL Routine 04/17/2023 1:20 PM EDT ANCA-associated vasculitis HEPATITIS C ANTIBODY, QUALITATIVE Routine 01/08/2017 3:35 PM EST Churg-James syndrome from Last 3 Months or Most Recently Relevant to Health Maintenance Results * (ABNORMAL) Comprehensive metabolic panel (04/01/2024 11:57 AM EDT) SODIUM 131(L) 135 - 145 mmol/L [facility] POTASSIUM 4.0 3.4 - 5.0 mmol/L [facility] CHLORIDE 100 98 - 108 mmol/L [facility] CO2 14(L) 23 - 32 mmol/L [facility] BUN 66(H) 8 - 25 mg/dL [facility] CREATININE 1.87(H) 0.60 - 1.50 mg/dL [facility] GLUCOSE 209(H) 70 - 110 mg/dL [facility] ALBUMIN 3.9 3.3 - 5.0 g/dL [facility] TOTAL PROTEIN 6.4 6.0 - 8.3 g/dL [facility] CALCIUM 9.4 8.5 - 10.5 mg/dL [facility] ALKALINE PHOSPHATASE 129(H) 30 - 100 U/L [facility] TOTAL BILIRUBIN 0.3 0.0 - 1.0 mg/dL [facility] AST 37(H) 9 - 32 U/L [facility] ALT 48(H) 7 - 33 U/L [facility] GLOBULIN 2.5 1.9 - 4.1 g/dL [facility] EGFR 28(L) >59 mL/min/1. 73m2 [facility] Comment:Estimated glomerular filtration rate calculated using the CKD-EPI refit equation. ANION GAP 17 3 - 17 mmol/L [facility] 04/01/2024 11:5 7 AM EDT 04/01/2024 4:30 PM EDT Jone Nobles MD LAB BLOOD ORDERABLE S Performing Organization Address City/[facility]/ZIP Co de Phone Number [address] [address] * (ABNORMAL) Lipid panel (04/17/2023 1:20 PM EDT) HDL 46 35 - 100 mg/dL [facility] CHOLESTEROL 203(H) <200 mg/dL [facility] TRIGLYCERIDES 499(H) 40 - 150 mg/dL [facility] LDL -- 50 - 129 mg/dL [facility] Comment: Calculated LDL is inaccurate when triglycerides exceed 400 mg/dl. CARDIAC RISK RATIO 4.4 0.0 - 5.0 [facility] NON-HDL CHOLESTEROL 157 mg/dL [facility] Comment:NCEP ATP III guideli david suggest a non-HDL cholesterol goal 30 mg/dl higher than the patient-specific LDL goal. Blood 04/17/2023 1:20 PM EDT 04/17/2023 4:33 PM EDT Soham Light MD LAB BLOOD ORDERABLES [address] [address] * (ABNORMAL) Hepatitis C antibody, qualitative (01/08/2017 3:35 PM EST) HCV ANTIBODY Credit(A) Negative [facility] Comment:SPECIMEN RELOGGED Blood 01/08/2017 3:35 PM EST 01/08/2017 6:16 PM EST Sonido Parra MD LAB BLOOD ORDERABLES [facility] [address] [place] [address] from Last 3 Months or Most Recently Relevant to Health Maintenance Griselda Welsh Personal/Famil y Self 1945 [address] [facility] [place] [place] Griselda Welsh Personal/Famil y Self 1945 [address] [place] [place] Griselda Welsh Personal/Famil y Self 1945 [address] [facility] [facility] Griselda Welsh Personal/Famil y Self 1945 [address] [place] Griselda Welsh Personal/Famil y Self 1945 [address] [facility] [place] Griselda Welsh Personal/Famil y Self 1945 [address] [place] [address] Griselda Welsh Personal/Famil y Self 1945 [address] [place] [address] Griselda Welsh Personal/Famil y Self 1945 [address] [place] [address] Care Teams Congregational Care Pastor Relationship Specialty Start Date End Date Eduardo Albert MD [address] [place] [phone] PCP - General Internal Medicine 04/17/23 Marquis Morel MD [address] [place] [address] [place] [address] Systems Development Manager Pulmonary Disease 08/16/21 Kilo Diaz MD [address] [place] [address] [place] [address] [email or web address] Nephrology 01/23/23 Additional Source Comments The information contained in this document represents components of the legal health record. It is not the complete legal health record.[facility]
--- OUTSIDE RECORDS SUMMARY | 2025-04-07 15:46 | XMS_ITS | Encounter Summary ---
Author Organization [facility] Address [address] [place] [address] Phone Care Team Providers Care Hcc Coders Name Role Phone Eduardo Albert MD Primary Care Provider [phone] Marquis Morel MD Unavailable Encounter Details Date Type Department Care Team (Late st Contact Info) Description 08/28/2022 Hospital Encounter [facility] [address] [place] [address] Earnest Anand MD, MS [address] [place] [address] [email or web address] Social History Tobacco Use Types Packs/Day Years [...] - audio only [facility] [address] [place] [address] Jone Nobles MD [address] [place] [phone] [email or web address] [facility] documented as of this encounter Procedures Procedure Name Priority Date/Time Associated Diagnosis Comments CT FACE OUTSIDE (NO INTERPRETATION) Routine 08/28/2022 12:00 AM EDT documented in this encounter Results * CT Face Outside (No Interpretation) (08/28/2022 12:00 AM EDT) Narrative [facility] INTERFACES - 10/08/2022 5:18 PM EST This study is for PACS storage only and not for interpretation. 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 It is not the complete legal health record.[facility]
--- OUTSIDE RECORDS SUMMARY | 2025-04-07 15:46 | XMS_ITS | Encounter Summary ---
Author Organization [facility] Address [address] [place] [address] Care Team Providers Care Retail Wireless Sales Consultant Name Role Phone Daisy Lee MD Primary Care Provider Encounter Details Date Type Department Care Team (Late st Contact Info) Description 10/03/2024 Lab Requisition [facility] - Main Lab [address] [place] [address] Jonathon Antunez MD [address] [place] [address] Low back pain, unspecified Social History Tobacco Use Types Packs/Day Years [...] Procedure Name Priority Date/Time Associated Diagnosis Comments TRAVEL PHLEBOTOMY FEE Routine 10/03/2024 5:51 AM EST Low back pain, unspecified HEMOGLOBIN A1C Routine 10/03/2024 5:51 AM EST Low back pain, unspecified documented in this encounter Results * Travel phlebotomy fee (10/03/2024 5:51 AM EST) [facility] TRAVEL PHLEBOTOMY FEE Completed 10/03/2024 8:01 AM EST [facility] Blood Venous blood specimen / Unknown 10/03/2024 5:51 AM EST 10/03/2024 7:56 AM EST us Jonathon Antunez MD LAB BLOOD ORDERABLES Final Res ult Performing Organization Address [facility] Co de Phone Number [facility] [address] [place] [address], [place] [phone] * (ABNORMAL) Hemoglobin A1c (10/03/2024 5:51 AM EST) Hemoglobin A1C 6.8(H) <6.5 % LAB CHEMISTRY METHOD 10/03/2024 2:20 PM EST [facility] Mean Bld Glu Estim. 148 mg/dL LAB CHEMISTRY METHOD 10/03/2024 2:20 PM EST [facility] Blood Venous blood specimen / Unknown 10/03/2024 5:51 AM EST 10/03/2024 7:56 AM EST Jonathon Antunez MD LAB BLOOD ORDERABLES Final Res ult Performing Organization Address [facility] Co de Phone Number [facility] [address] [place] [address], [place] [phone] documented in this encounter Visit Diagnoses Diagnosis Low back pain, unspecified documented in this encounter Care Teams Retail Wireless Sales Consultant Relationship Specialty Start Date End Date Daisy Lee MD [address] [place] [address] PCP - General Hospitalist Medicine 03/18/25 documented as of this encounter
--- OUTSIDE RECORDS SUMMARY | 2025-04-07 15:46 | XMS_ITS | Encounter Summary ---
Author Organization [facility] Address [address] [place] [address] Care Team Providers Care Information Technology Assistant Name Role Phone Daisy Lee MD Primary Care Provider [phone] Encounter Details Date Type Department Care Team (Late st Contact Info) Description 11/30/2024 Lab Requisition [facility] - Main Lab [address] [place] [address] Daisy Lee MD [address] [place] [address] Encounter for other general examination Social History [...] Procedure Name Priority Date/Time Associated Diagnosis Comments COMPLETE BLOOD COUNT Routine 11/30/2024 5:06 AM EST Encounter for other general examination BASIC METABOLIC PANEL Routine 11/30/2024 5:06 AM EST Encounter for other general examination documented in this encounter Results * (ABNORMAL) Complete blood count (11/30/2024 5:06 AM EST) WBC 7.7 4.8 - 10.8 [facility] LAB HEMETOLOGY METHOD 11/30/2024 10:31 AM EST [facility] RBC 3.30(L) 3.80 - 4.80 M/[facility] LAB HEMETOLOGY METHOD 11/30/2024 10:31 AM EST [facility] Hemoglobin 9.5(L) 11.5 - 16.0 g/dL LAB HEMETOLOGY METHOD 11/30/2024 10:31 AM [facility] Hematocrit 29.6(L) 35.0 - 47.0 % LAB HEMETOLOGY METHOD 11/30/2024 10:31 AM [facility] MCV 88.6 79.0 - 98.0 FL LAB HEMETOLOGY METHOD 11/30/2024 10:31 AM [facility] MCH 28.4 27.0 - 32.0 pcg LAB HEMETOLOGY METHOD 11/30/2024 10:31 AM [facility] MCHC 32.1 32.0 - 37.0 g/dL LAB HEMETOLOGY METHOD 11/30/2024 10:31 AM [facility] RDW 16.3(H) 11.0 - 15.0 % LAB HEMETOLOGY METHOD 11/30/2024 10:31 AM [facility] Platelets 181 130 - 400 K/mcL LAB HEMETOLOGY METHOD 11/30/2024 10:31 AM [facility] MPV 10.3 7.0 - 11.0 FL LAB HEMETOLOGY METHOD 11/30/2024 10:31 AM [facility] NRBC 0.0 <1.0 % LAB HEMETOLOGY METHOD 11/30/2024 10:31 AM [facility] NRBC Absolute 0.00 <0.10 K/mcL LAB HEMETOLOGY METHOD 11/30/2024 10:31 AM [facility] Blood Venous blood specimen / Unknown Venipuncture / Unknown 11/30/2024 5:06 AM EST 11/30/2024 9:41 AM EST us Daisy Lee MD LAB BLOOD ORDERABLES Final Resu lt [facility] [address] [place] [address], [place] [phone] * (ABNORMAL) Basic metabolic panel (11/30/2024 5:06 AM EST) Sodium 134 133 - 145 mmol/L LAB CHEMISTRY METHOD 11/30/2024 10:54 AM [facility] Potassium 4.0 3.5 - 5.5 mmol/L LAB CHEMISTRY METHOD 11/30/2024 10:54 AM [facility] Chloride 106 96 - 110 mmol/L LAB CHEMISTRY METHOD 11/30/2024 10:54 AM [facility] CO2 19(L) 21 - 32 mmol/L LAB CHEMISTRY METHOD 11/30/2024 10:54 AM [facility] Anion Gap 9 3 - 11 LAB CHEMISTRY METHOD 11/30/2024 10:54 AM [facility] Glucose 133(H) 70 - 100 mg/dL LAB CHEMISTRY METHOD 11/30/2024 10:54 AM [facility] BUN 55(H) 5 - 25 mg/dL LAB CHEMISTRY METHOD 11/30/2024 10:54 AM [facility] Creatinine 1.48(H) 0.50 - 1.10 mg/dL LAB CHEMISTRY METHOD 11/30/2024 10:54 AM [facility] eGFR 36(L) >=60 mL/min/1. 73m2 LAB CHEMISTRY METHOD 11/30/2024 10:54 AM [facility] Comment:Calculation based on the??Chronic Kidney Disease Epidemiology Collaboration (CKD-EPI) equation refit??without adjustment for race. BUN/Creatinine Ratio 37.2 LAB CHEMISTRY METHOD 11/30/2024 10:54 AM [facility] Calcium 8.9 8.5 - 10.5 mg/dL LAB CHEMISTRY METHOD 11/30/2024 10:54 AM [facility] Blood Venous blood specimen / Unknown Venipuncture / Unknown 11/30/2024 5:06 AM EST 11/30/2024 9:41 AM EST us Daisy Lee MD LAB BLOOD ORDERABLES Final [facility]u lt [facility] ([facility] [address] [place] [address], documented in this encounter Visit Diagnoses Diagnosis Encounter for other general examination documented in this encounter Care Teams Information Technology Assistant Relationship Specialty Start Date End Date Daisy Lee MD [address] [place] [phone] PCP - General Hospitalist Medicine 03/18/25 documented as of this encounter
--- OUTSIDE RECORDS SUMMARY | 2025-04-07 15:46 | XMS_ITS | Encounter Summary ---
Author Organization [employer] Address [address] [place] [address] Care Team Providers Care Bung Dropper Name Role Phone Daisy Lee MD Primary Care Provider Encounter Details Date Type Department Care Team (Late st Contact Info) Description 03/18/2025 Lab Requisition [facility] - Main Lab [address] [facility] [place] [address] Daisy Lee MD [address] [place] [address] Encounter for other general examination Social History [...] Comments MANUAL DIFFERENTIAL - SYSMEX WAM Routine 03/18/2025 [...] AM EDT Encounter for other general examination documented in this encounter Results * (ABNORMAL) Manual differential (03/18/2025 5:19 AM EDT) Neutrophils % 81.0 % LAB HEMETOLOGY METHOD 03/18/2025 12:[address] [facility] Lymphocytes % 11.0 % LAB HEMETOLOGY METHOD 03/18/2025 12:[address] [facility] Monocytes % 4.0 % LAB HEMETOLOGY METHOD 03/18/2025 12:[address] [facility] Eosinophils % 1.0 % LAB HEMETOLOGY METHOD 03/18/2025 12:[address] [facility] Basophils % 2.0 % LAB HEMETOLOGY METHOD 03/18/2025 12:[address] [facility] Metamyelocytes % 2.0(H) % LAB HEMETOLOGY METHOD 03/18/2025 12:[address] [facility] Myelocytes % 1.0(H) % LAB HEMETOLOGY METHOD 03/18/2025 12:[address] [facility] Neutrophils Absolute Manual 5.91 1.50 - 7.00 K/mcL LAB HEMETOLOGY METHOD 03/18/2025 12:[address] [facility] Lymphocytes Absolute 0.80(L) 1.00 - 5.00 K/mcL LAB HEMETOLOGY METHOD 03/18/2025 12:[address] [facility] Monocytes Absolute Manual 0.29 0.20 - 1.00 K/mcL LAB HEMETOLOGY METHOD 03/18/2025 12:[address] [facility] Eosinophils Absolute Manual 0.07 0.00 - 0.50 K/mcL LAB HEMETOLOGY METHOD 03/18/2025 12:[address] [facility] Basophils Absolute Manual 0.15 0.00 - 0.20 K/mcL LAB HEMETOLOGY METHOD 03/18/2025 12:[address] [facility] Metamyelocytes Absolute Manual 0.15(H) 0.00 - 0.00 K/mcL LAB HEMETOLOGY METHOD 03/18/2025 12:00 PM EDT [facility] Myelocytes Absolute Manual 0.07(H) 0.00 - 0.00 K/mcL LAB HEMETOLOGY METHOD 03/18/2025 12:00 PM EDT [facility] Rbc Morphology Present( A) Consistent with indices, Normal for LAB HEMETOLOGY METHOD 03/18/2025 12:00 PM EDT [facility] Platelet Morphology - WAM See Note(A) Normal LAB HEMETOLOGY METHOD 03/18/2025 12:00 PM EDT [facility] Comment:PLT: Normal Ovalocytes Present 5 - 10%(A) (none) LAB HEMETOLOGY METHOD 03/18/2025 12:00 PM EDT [facility] Tear Drop Cells Present 5 - 10%(A) (none) LAB HEMETOLOGY METHOD 03/18/2025 12:00 PM EDT [facility] Blood Venous blood specimen / Unknown Venipuncture / Unknown 03/18/2025 5:19 AM EDT 03/18/2025 10:54 AM EDT us Daisy Lee MD LAB BLOOD ORDERABLES Final Resu lt [facility] [address] [place] [address], * (ABNORMAL) CBC auto differential (03/18/2025 5:19 AM EDT) WBC 7.3 4.8 - 10.8 K/mcL LAB HEMETOLOGY METHOD 03/18/2025 12:00 PM EDT [facility] RBC 3.10(L) 3.80 - 4.80 M/mcL LAB HEMETOLOGY METHOD 03/18/2025 12:00 PM EDT [facility] Hemoglobin 9.3(L) 11.5 - 16.0 g/dL LAB HEMETOLOGY METHOD 03/18/2025 12:[address] [facility] Hematocrit 29.0(L) 35.0 - 47.0 % LAB HEMETOLOGY METHOD 03/18/2025 12:[address] [facility] MCV 94.5 79.0 - 98.0 FL LAB HEMETOLOGY METHOD 03/18/2025 12:[address] [facility] MCH 30.3 27.0 - 32.0 pcg LAB HEMETOLOGY METHOD 03/18/2025 12:[address] [facility] MCHC 32.1 32.0 - 37.0 g/dL LAB HEMETOLOGY METHOD 03/18/2025 12:[address] [facility] RDW 14.7 11.0 - 15.0 % LAB HEMETOLOGY METHOD 03/18/2025 12:[address] [facility] Platelets 162 130 - 400 K/mcL LAB HEMETOLOGY METHOD 03/18/2025 12:[address] [facility] MPV 11.3(H) 7.0 - 11.0 FL LAB HEMETOLOGY METHOD 03/18/2025 12:[address] [facility] NRBC 0.3 <1.0 % LAB HEMETOLOGY METHOD 03/18/2025 12:[address] [facility] NRBC Absolute 0.02 <0.10 K/mcL LAB HEMETOLOGY METHOD 03/18/2025 12:[address] [facility] Blood Venous blood specimen / Unknown Venipuncture / Unknown 03/18/2025 5:19 AM EDT 03/18/2025 10:54 AM EDT us Daisy Lee MD LAB BLOOD ORDERABLES Final Resu lt [facility] [address] [place] [address], [place] [phone] * (ABNORMAL) Magnesium (03/18/2025 5:19 AM EDT) Pathologist [facility] Magnesium 1.7(L) 1.9 - 2.6 mg/dL LAB CHEMISTRY METHOD 03/18/2025 1:06 PM EDT [facility] Blood Venous blood specimen / Unknown Venipuncture / Unknown 03/18/2025 5:19 AM EDT 03/18/2025 10:54 AM EDT Daisy Lee MD LAB BLOOD ORDERABLES Final Resu lt Performing Organization Address [facility]/ZIP Co de Phone Number [facility] [address] [place] [address], * (ABNORMAL) Comprehensive metabolic panel (03/18/2025 5:19 AM EDT) [facility] Sodium 137 133 - 145 mmol/L LAB CHEMISTRY METHOD 03/18/2025 1:09 PM T [facility] Potassium 3.7 3.5 - 5.5 mmol/L LAB CHEMISTRY METHOD 03/18/2025 1:[address] [facility] Chloride 104 96 - 110 mmol/L LAB CHEMISTRY METHOD 03/18/2025 1:[address] [facility] CO2 22 21 - 32 mmol/L LAB CHEMISTRY METHOD 03/18/2025 1:[address] [facility] Anion Gap 11 3 - 11 LAB CHEMISTRY METHOD 03/18/2025 1:[address] [facility] Glucose 108(H) 70 - 100 mg/dL LAB CHEMISTRY METHOD 03/18/2025 1:[address] [facility] BUN 36(H) 5 - 25 mg/dL LAB CHEMISTRY METHOD 03/18/2025 1:[address] [facility] Creatinine 1.52(H) 0.50 - 1.10 mg/dL LAB CHEMISTRY METHOD 03/18/2025 1:[address] [facility] eGFR 35(L) >=60 mL/min/1. 73m2 LAB CHEMISTRY METHOD 03/18/2025 1:[address] [facility] Comment:Calculation based on the??Chronic Kidney Disease Epidemiology Collaboration (CKD-EPI) equation refit??without adjustment for race. BUN/Creatinine Ratio 23.7 LAB CHEMISTRY METHOD 03/18/2025 1:[address] [facility] Calcium 8.9 8.5 - 10.5 mg/dL LAB CHEMISTRY METHOD 03/18/2025 1:[address] [facility] AST (SGOT) 13 10 - 42 unit/L LAB CHEMISTRY METHOD 03/18/2025 1:[address] [facility] ALT (SGPT) 29 10 - 60 unit/L LAB CHEMISTRY METHOD 03/18/2025 1:[address] [facility] Alkaline Phosphatase 93 42 - 121 unit/L LAB CHEMISTRY METHOD 03/18/2025 1:[address] [facility] Total Protein 5.4(L) 6.0 - 8.0 g/dL LAB CHEMISTRY METHOD 03/18/2025 1:[address] [facility] Albumin 2.9(L) 3.2 - 5.0 g/dL LAB CHEMISTRY METHOD 03/18/2025 1:[address] [facility] Total Bilirubin 0.4 0.0 - 1.4 mg/dL LAB CHEMISTRY METHOD 03/18/2025 1:[address] [facility] Blood Venous blood specimen / Unknown Venipuncture / Unknown 03/18/2025 5:19 AM EDT 03/18/2025 10:54 AM EDT us Daisy Lee MD LAB BLOOD ORDERABLES Final Resu lt [facility] [address] [place] [address], documented in this encounter Visit Diagnoses Diagnosis Encounter for other general examination documented in this encounter Care Teams Bung Dropper Relationship Specialty Start Date End Date Daisy Lee MD [address] [place] [phone] PCP - General Hospitalist Medicine 03/18/25 documented as of this encounter
--- OUTSIDE RECORDS SUMMARY | 2025-04-07 15:46 | XMS_ITS | Encounter Summary ---
Author Organization [employer] Address [address] [place] [address] Care Team Providers Care Hand Woodworking Sander Name Role Phone Daisy Lee MD Primary Care Provider Encounter Details Date Type Department Care Team (Late st Contact Info) Description 03/22/2025 Lab Requisition [facility] - Main Lab [address] [facility] [place] [address] Daisy Lee MD [address] [place] [address] Encounter for other general examination Social History [...] this encounter Results * (ABNORMAL) Manual differential (03/22/2025 5:49 AM EDT) Neutrophils % 79.0 % LAB HEMETOLOGY METHOD 03/22/2025 11:19 AM [facility] Lymphocytes % 7.0 % LAB HEMETOLOGY METHOD 03/22/2025 11:19 AM [facility] Monocytes % 10.0 % LAB HEMETOLOGY METHOD 03/22/2025 11:19 AM [facility] Eosinophils % 0.0 % LAB HEMETOLOGY METHOD 03/22/2025 11:19 AM [facility] Basophils % 1.0 % LAB HEMETOLOGY METHOD 03/22/2025 11:19 AM [facility] Metamyelocytes % 1.0(H) % LAB HEMETOLOGY METHOD 03/22/2025 11:19 AM [facility] Myelocytes % 3.0(H) % LAB HEMETOLOGY METHOD 03/22/2025 11:19 AM [facility] Neutrophils Absolute Manual 6.08 1.50 - 7.00 K/mcL LAB HEMETOLOGY METHOD 03/22/2025 11:19 AM [facility] Lymphocytes Absolute 0.54(L) 1.00 - 5.00 K/mcL LAB HEMETOLOGY METHOD 03/22/2025 11:19 AM [facility] Monocytes Absolute Manual 0.77 0.20 - 1.00 K/mcL LAB HEMETOLOGY METHOD 03/22/2025 11:19 AM [facility] Eosinophils Absolute Manual 0.00 0.00 - 0.50 K/mcL LAB HEMETOLOGY METHOD 03/22/2025 11:19 AM [facility] Basophils Absolute Manual 0.08 0.00 - 0.20 K/mcL LAB HEMETOLOGY METHOD 03/22/2025 11:19 AM [facility] Metamyelocytes Absolute Manual 0.08(H) 0.00 - 0.00 K/mcL LAB HEMETOLOGY METHOD 03/22/2025 11:19 AM EDT [facility] Myelocytes Absolute Manual 0.23(H) 0.00 - 0.00 K/mcL LAB HEMETOLOGY METHOD 03/22/2025 11:19 AM EDT [facility] Rbc Morphology Present( A) Consistent with indices, Normal for LAB HEMETOLOGY METHOD 03/22/2025 11:19 AM EDT [facility] Platelet Morphology - WAM See Note(A) Normal [facility] 03/22/2025 11:19 AM EDT [facility] Comment:PLT: Normal Tear Drop Cells Present 5 - 10%(A) (none) LAB HEMETOLOGY METHOD 03/22/2025 11:19 AM EDT [facility] Blood Venous blood specimen / Unknown Venipuncture / Unknown 03/22/2025 5:49 AM EDT 03/22/2025 9:35 AM EDT us Daisy Lee MD LAB BLOOD ORDERABLES Final Resu lt [facility] [address] [place] [address], * (ABNORMAL) CBC auto differential (03/22/2025 5:49 AM EDT) WBC 7.7 4.8 - 10.8 K/mcL LAB HEMETOLOGY METHOD 03/22/2025 11:19 AM EDT [facility] RBC 3.30(L) 3.80 - 4.80 M/mcL LAB HEMETOLOGY METHOD 03/22/2025 11:19 AM EDT [facility] Hemoglobin 10.0(L) 11.5 - 16.0 g/dL LAB HEMETOLOGY METHOD 03/22/2025 11:[facility] Hematocrit 30.6(L) 35.0 - 47.0 % LAB HEMETOLOGY METHOD 03/22/2025 11:19 AM [facility] MCV 93.3 79.0 - 98.0 FL LAB HEMETOLOGY METHOD 03/22/2025 11:19 AM [facility] MCH 30.5 27.0 - 32.0 pcg LAB HEMETOLOGY METHOD 03/22/2025 11:19 AM [facility] MCHC 32.7 32.0 - 37.0 g/dL LAB HEMETOLOGY METHOD 03/22/2025 11:19 AM [facility] RDW 14.7 11.0 - 15.0 % LAB HEMETOLOGY METHOD 03/22/2025 11:19 AM [facility] Platelets 191 130 - 400 K/mcL LAB HEMETOLOGY METHOD 03/22/2025 11:19 AM [facility] MPV 10.9 7.0 - 11.0 FL LAB HEMETOLOGY METHOD 03/22/2025 11:19 AM [facility] NRBC 0.0 <1.0 % LAB HEMETOLOGY METHOD 03/22/2025 11:19 AM [facility] NRBC Absolute 0.00 <0.10 K/mcL LAB HEMETOLOGY METHOD 03/22/2025 11:19 AM [facility] Blood Venous blood specimen / Unknown Venipuncture / Unknown 03/22/2025 5:49 AM EDT 03/22/2025 9:35 AM EDT us Daisy Lee MD LAB BLOOD ORDERABLES Final Resu lt [facility] [address] [place] [address], * Magnesium (03/22/2025 5:49 AM EDT) Pathologist [facility] Magnesium 1.9 1.9 - 2.6 mg/dL LAB CHEMISTRY METHOD 03/22/2025 11:26 AM [facility] Blood Venous blood specimen / Unknown Venipuncture / Unknown 03/22/2025 5:49 AM EDT 03/22/2025 9:35 AM EDT Daisy Lee MD LAB BLOOD ORDERABLES Final Resu lt [facility] [address] [place] [address], * (ABNORMAL) Comprehensive metabolic panel (03/22/2025 5:49 AM EDT) [facility] Sodium 136 133 - 145 mmol/L LAB CHEMISTRY METHOD 03/22/2025 11:26 AM [facility] Potassium 3.4(L) 3.5 - 5.5 mmol/L LAB CHEMISTRY METHOD 03/22/2025 11:26 AM [facility] Chloride 103 96 - 110 mmol/L LAB CHEMISTRY METHOD 03/22/2025 11:26 AM [facility] CO2 21 21 - 32 mmol/L LAB CHEMISTRY METHOD 03/22/2025 11:26 AM [facility] Anion Gap 12(H) 3 - 11 LAB CHEMISTRY METHOD 03/22/2025 11:26 AM [facility] Glucose 176(H) 70 - 100 mg/dL LAB CHEMISTRY METHOD 03/22/2025 11:26 AM [facility] BUN 48(H) 5 - 25 mg/dL LAB CHEMISTRY METHOD 03/22/2025 11:26 AM [facility] Creatinine 1.58(H) 0.50 - 1.10 mg/dL LAB CHEMISTRY METHOD 03/22/2025 11:26 AM [facility] eGFR 34(L) >=60 mL/min/1. 73m2 LAB CHEMISTRY METHOD 03/22/2025 11:26 AM [facility] Comment:Calculation based on the??Chronic Kidney Disease Epidemiology Collaboration (CKD-EPI) equation refit??without adjustment for race. BUN/Creatinine Ratio 30.4 LAB CHEMISTRY METHOD 03/22/2025 11:26 AM [facility] Calcium 9.1 8.5 - 10.5 mg/dL LAB CHEMISTRY METHOD 03/22/2025 11:26 AM [facility] AST (SGOT) 12 10 - 42 unit/L LAB CHEMISTRY METHOD 03/22/2025 11:26 AM [facility] ALT (SGPT) 29 10 - 60 unit/L LAB CHEMISTRY METHOD 03/22/2025 11:26 AM [facility] Alkaline Phosphatase 121 42 - 121 unit/L LAB CHEMISTRY METHOD 03/22/2025 11:26 AM [facility] Total Protein 6.0 6.0 - 8.0 g/dL LAB CHEMISTRY METHOD 03/22/2025 11:26 AM [facility] Albumin 3.2 3.2 - 5.0 g/dL LAB CHEMISTRY METHOD 03/22/2025 11:26 AM [facility] Total Bilirubin 0.3 0.0 - 1.4 mg/dL LAB CHEMISTRY METHOD 03/22/2025 11:26 AM [facility] Blood Venous blood specimen / Unknown Venipuncture / Unknown 03/22/2025 5:49 AM EDT 03/22/2025 9:35 AM EDT us Daisy Lee MD LAB BLOOD ORDERABLES Final Resu lt [facility] [address] [place] [address], [place] [phone] documented in this encounter Visit Diagnoses Diagnosis Encounter for other general examination documented in this encounter Care Teams Hand Woodworking Sander Relationship Specialty Start Date End Date Daisy Lee MD [address] [place] [phone] PCP - General Hospitalist Medicine 03/18/25 documented as of this encounter
--- OUTSIDE RECORDS SUMMARY | 2025-04-07 15:46 | XMS_ITS | Encounter Summary ---
Author Organization [facility], Address [address] [place] [address] Phone Care Team Providers Care Submarine Diver Name Role Phone Eduardo Albert MD Primary Care Provider [phone] Encounter Details Date Type Department Care Team (Late st Contact Info) Description 02/23/2024 Documentation Only [facility], [address] [place] [phone] Guillermo [place], [place] [address] [place] [address] Social History Tobacco Use Types [...] on filedocumented in this encounter Care Teams Submarine Diver Relationship Specialty Start Date End Date Eduardo Albert MD [facility] [address] [place] [address] [place] [address] PCP - General 10/05/19 documented as of this encounter
--- OUTSIDE RECORDS SUMMARY | 2025-04-07 15:46 | XMS_ITS | Encounter Summary ---
Author Organization [facility], Address [address] [place] [address] Phone Care Team Providers Care Barrel Cutter Name Role Phone Eduardo Albert MD Primary Care Provider [phone] Encounter Details Date Type Department Care Team (Late st Contact Info) Description 08/09/2024 Documentation Only [facility], [address] [place] [phone] Guillermo [place]reg[place], [place] [address] [place] [address] Social History Tobacco Use Types [...] on filedocumented in this encounter Care Teams Barrel Cutter Relationship Specialty Start Date End Date Eduardo Albert MD [facility] [address] [place] [address] [address] [place] [address] PCP - General 10/05/19 documented as of this encounter
--- OUTSIDE RECORDS SUMMARY | 2025-04-07 15:46 | XMS_ITS | Encounter Summary ---
Author Organization [employer] Address [address] [place] [address] Care Team Providers Care Lawn Mower Sharpener Name Role Phone Daisy eLe MD Primary Care Provider Encounter Details Date Type Department Care Team (Late st Contact Info) Description 10/05/2024 Lab Requisition [facility] - Main Lab [address] [place] [address] Jonathon Antunez MD [address] [place] [phone] Low back pain, unspecified; Weakness Social History Tobacco Use Types Packs/Day Years [...] Associated Diagnosis Comments COMPLETE BLOOD COUNT Routine 10/05/2024 5:42 AM EST Low back pain, unspecified Weakness MAGNESIUM Routine 10/05/2024 5:42 AM EST Low back pain, unspecified Weakness COMPREHENSIVE METABOLIC PANEL Routine 10/05/2024 5:42 AM EST Low back pain, unspecified Weakness documented in this encounter Results * Magnesium (10/05/2024 5:42 AM EST) Magnesium 2.1 1.9 - 2.6 mg/dL LAB CHEMISTRY METHOD 10/05/2024 2:[address] [facility] Blood Venous blood specimen / Unknown Venipuncture / Unknown 10/05/2024 5:42 AM EST 10/05/2024 11:00 AM EST us Jonathon Antunez MD LAB BLOOD ORDERABLES Final Res ult [facility] [address] [place] [address], [place] [phone] * (ABNORMAL) Complete blood count (10/05/2024 5:42 AM EST) Pathologist [facility] WBC 8.0 4.8 - 10.8 K/mcL LAB HEMETOLOGY METHOD 10/05/2024 12:58 PM [facility] RBC 3.30(L) 3.80 - 4.80 M/mcL LAB HEMETOLOGY METHOD 10/05/2024 12:58 PM [facility] Hemoglobin 9.5(L) 11.5 - 16.0 g/dL LAB HEMETOLOGY METHOD 10/05/2024 12:58 PM [facility] Hematocrit 30.0(L) 35.0 - 47.0 % LAB HEMETOLOGY METHOD 10/05/2024 12:58 PM [facility] MCV 89.8 79.0 - 98.0 FL LAB HEMETOLOGY METHOD 10/05/2024 12:58 PM [facility] MCH 28.4 27.0 - 32.0 pcg LAB HEMETOLOGY METHOD 10/05/2024 12:58 PM [facility] MCHC 31.7(L) 32.0 - 37.0 g/dL LAB HEMETOLOGY METHOD 10/05/2024 12:58 PM [facility] RDW 14.9 11.0 - 15.0 % LAB HEMETOLOGY METHOD 10/05/2024 12:58 PM [facility] Platelets 203 130 - 400 K/mcL LAB HEMETOLOGY METHOD 10/05/2024 12:58 PM EST [facility] MPV 10.7 7.0 - 11.0 FL LAB HEMETOLOGY METHOD 10/05/2024 12:58 PM EST [facility] NRBC 0.0 <1.0 % LAB HEMETOLOGY METHOD 10/05/2024 12:58 PM [facility] NRBC Absolute 0.00 <0.10 K/mcL LAB HEMETOLOGY METHOD 10/05/2024 12:58 PM [facility] Blood Venous blood specimen / Unknown Venipuncture / Unknown 10/05/2024 5:42 AM EST 10/05/2024 11:00 AM EST Jonathon Antunez MD LAB BLOOD ORDERABLES Final Res ult [facility] [address] [place] [address], * (ABNORMAL) Comprehensive metabolic panel (10/05/2024 5:42 AM EST) Sodium 137 133 - 145 mmol/L LAB CHEMISTRY METHOD 10/05/2024 2:46 PM [facility] Potassium 3.8 3.5 - 5.5 mmol/L LAB CHEMISTRY METHOD 10/05/2024 2:46 PM [facility] Chloride 104 96 - 110 mmol/L LAB CHEMISTRY METHOD 10/05/2024 2:46 PM [facility] CO2 21 21 - 32 mmol/L LAB CHEMISTRY METHOD 10/05/2024 2:46 PM [facility] Anion Gap 12(H) 3 - 11 LAB CHEMISTRY METHOD 10/05/2024 2:46 PM [facility] Glucose 171(H) 70 - 100 mg/dL LAB CHEMISTRY METHOD 10/05/2024 2:46 PM [facility] BUN 58(H) 5 - 25 mg/dL LAB CHEMISTRY METHOD 10/05/2024 2:46 PM [facility] Creatinine 1.63(H) 0.50 - 1.10 mg/dL LAB CHEMISTRY METHOD 10/05/2024 2:46 PM [facility] eGFR 32(L) >=60 mL/min/1. 73m2 LAB CHEMISTRY METHOD 10/05/2024 2:46 PM [facility] Comment:Calculation based on the??Chronic Kidney Disease Epidemiology Collaboration (CKD-EPI) equation refit??without adjustment for race. BUN/Creatinine Ratio 35.6 LAB CHEMISTRY METHOD 10/05/2024 2:46 PM [facility] Calcium 9.0 8.5 - 10.5 mg/dL LAB CHEMISTRY METHOD 10/05/2024 2:46 PM [facility] AST (SGOT) 26 10 - 42 unit/L LAB CHEMISTRY METHOD 10/05/2024 2:46 PM [facility] ALT (SGPT) 38 10 - 60 unit/L LAB CHEMISTRY METHOD 10/05/2024 2:46 PM [facility] Alkaline Phosphatase 182(H) 42 - 121 unit/L LAB CHEMISTRY METHOD 10/05/2024 2:46 PM [facility] Total Protein 5.6(L) 6.0 - 8.0 g/dL LAB CHEMISTRY METHOD 10/05/2024 2:46 PM [facility] Albumin 2.9(L) 3.2 - 5.0 g/dL LAB CHEMISTRY METHOD 10/05/2024 2:46 PM [facility] Total Bilirubin 0.2 0.0 - 1.4 mg/dL LAB CHEMISTRY METHOD 10/05/2024 2:46 PM [facility] Blood Venous blood specimen / Unknown Venipuncture / Unknown 10/05/2024 5:42 AM EST 10/05/2024 11:00 AM EST Jonathon Antunez MD LAB BLOOD ORDERABLES Final Res ult [facility] [address] [place] [address], documented in this encounter Visit Diagnoses Diagnosis Low back pain, unspecified Weakness Other malaise and fatigue documented in this encounter Care Teams Lawn Mower Sharpener Relationship Specialty Start Date End Date Daisy Lee MD [address] [place] [phone] PCP - General Hospitalist Medicine 03/18/25 documented as of this encounter
== END 2025-04-07 16:05 | disposition home or self-care (01) ==
PROVIDERS: PCP Internal Medicine; Visit Provider Hospitalist
DX: J44.0 Chronic obstructive pulmonary disease with (acute) lower respiratory infection (principal); J47.0 Bronchiectasis with acute lower respiratory infection; D80.1 Nonfamilial hypogammaglobulinemia; M30.1 Polyarteritis with lung involvement [Churg-Strauss]; D72.18 Eosinophilia in diseases classified elsewhere; E11.65 Type 2 diabetes mellitus with hyperglycemia; M48.061 Spinal stenosis, lumbar region without neurogenic claudication; M54.50 Low back pain, unspecified
CPT/HCPCS: 99215; G2211

== ENCOUNTER 2025-04-07 15:14 | Outpatient (REF) | payer MEDICARE, SELFPAY ==
--- OUTSIDE RECORDS SUMMARY | 2025-04-07 16:17 | XMS_ITS | Clinical Summary ---
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 Health Maintenance Due Date Last Done Comments [...] EDT) SODIUM 131(L) 135 - 145 mmol/L [facility] POTASSIUM 4.0 3.4 - 5.0 mmol/L [facility] CHLORIDE 100 98 - 108 mmol/L [facility] CO2 14(L) 23 - 32 mmol/L [facility] BUN 66(H) 8 - 25 mg/dL [facility] CREATININE 1.87(H) 0.60 - 1.50 mg/dL [facility] GLUCOSE 209(H) 70 - 110 mg/dL [facility] ALBUMIN 3.9 3.3 - 5.0 g/dL [facility] TOTAL PROTEIN 6.4 6.0 - 8.3 g/dL [facility] CALCIUM 9.4 8.5 - 10.5 mg/dL [facility] ALKALINE PHOSPHATASE 129(H) 30 - 100 U/L [facility] TOTAL BILIRUBIN 0.3 0.0 - 1.0 mg/dL [facility] AST 37(H) 9 - 32 U/L [facility] ALT 48(H) 7 - 33 U/L [facility] GLOBULIN 2.5 1.9 - 4.1 g/dL [facility] EGFR 28(L) >59 mL/min/1. 73m2 [facility] Comment:Estimated glomerular filtration rate calculated using the CKD-EPI refit equation. ANION GAP 17 3 - 17 mmol/L [facility] 04/01/2024 11:5 7 AM EDT 04/01/2024 4:30 PM EDT Jone Nobles MD LAB BLOOD ORDERABLE S Performing Organization Address City/[facility]/ZIP Co de Phone Number [address] [address] * (ABNORMAL) Lipid panel (04/17/2023 1:20 PM EDT) HDL 46 35 - 100 mg/dL [facility] CHOLESTEROL 203(H) <200 mg/dL [facility] TRIGLYCERIDES 499(H) 40 - 150 mg/dL [facility] LDL -- 50 - 129 mg/dL [facility] Comment: Calculated LDL is inaccurate when triglycerides exceed 400 mg/dl. CARDIAC RISK RATIO 4.4 0.0 - 5.0 [facility] NON-HDL CHOLESTEROL 157 mg/dL [facility] Comment:NCEP ATP III guideli david suggest a non-HDL cholesterol goal 30 mg/dl higher than the patient-specific LDL goal. Blood 04/17/2023 1:20 PM EDT 04/17/2023 4:33 PM EDT Soham Light MD LAB BLOOD ORDERABLES [address] [address] * (ABNORMAL) Hepatitis C antibody, qualitative (01/08/2017 3:35 PM EST) HCV ANTIBODY Credit(A) Negative [facility] Comment:SPECIMEN RELOGGED Blood 01/08/2017 3:35 PM EST 01/08/2017 6:16 PM EST Sonido Parra MD LAB BLOOD ORDERABLES [facility] [address] [place] [address] from Last 3 Months or Most Recently Relevant to Health Maintenance Griselda Welsh Personal/Famil y Self 1945 [address] [facility] [place] Griselda Welsh Personal/Famil y Self 1945 [address] [place] [place] Griselda Welsh Personal/Famil y Self 1945 [address] [place] [place] [facility] [place] Griselda Welsh Personal/Famil y Self 1945 [address] [place] Griselda Welsh Personal/Famil y Self 1945 [address] [facility] [place] Griselda Welsh Personal/Famil y Self 1945 [address] [place] [address] Griselda Welsh Personal/Famil y Self 1945 [address] [place] [address] Griselda Welsh Personal/Famil y Self 1945 [address] [place] [address] Care Teams Plaster Foreman Relationship Specialty Start Date End Date Eduardo Albert MD [address] [place] [address] PCP - General Internal Medicine 04/17/23 Marquis Morel MD [address] [place] [address] [place] [address] Automatic Grinding Machine Operator Pulmonary Disease 08/16/21 Kilo Diaz MD [address] [place] [address] [place] [address] [email or web address] Nephrology 01/23/23 Additional Source Comments The information contained in this document represents components of the legal health record. It is not the complete legal health record.[facility]
--- OUTSIDE RECORDS SUMMARY | 2025-04-07 16:17 | XMS_ITS | Encounter Summary ---
Author Organization [facility], Address [address] [place] [address] Phone Care Team Providers Care Director Of Corporate Sales Name Role Phone Eduardo Albert MD Primary Care Provider [phone] Encounter Details Date Type Department Care Team (Late st Contact Info) Description 02/23/2024 Documentation Only [facility], [address] [place] [phone] Guill[place], [place] [address] [place] [address] Social History Tobacco Use Types [...] on filedocumented in this encounter Care Teams Director Of Corporate Sales Relationship Specialty Start Date End Date Eduardo Albert MD [facility]USHaoxiang[facility] [employer] [address] [place] [address] [address] [place] [address] PCP - General 10/05/19 documented as of this encounter
--- OUTSIDE RECORDS SUMMARY | 2025-04-07 16:17 | XMS_ITS | Clinical Summary ---
Author Organization [address] [facility] Address [address] [place] [address] Phone Care Team Providers Care Clothing Manager Name Role Phone Daisy Lee MD Primary Care Provider [phone] Encounters Date Type Department Care Team Description 03/22/2025 Lab Requisition [facility] Lab [address] [place] [address] Daisy Lee MD Encounter for other general examination 03/18/2025 Lab Requisition [facility] Lab [address] [place] [address] Daisy Lee MD Encounter for [...] % LAB HEMETOLOGY METHOD 03/22/2025 11:19 AM [facility] Lymphocytes % 7.0 % LAB HEMETOLOGY METHOD 03/22/2025 11:19 AM [facility] Monocytes % 10.0 % LAB HEMETOLOGY METHOD 03/22/2025 11:19 AM [facility] Eosinophils % 0.0 % LAB HEMETOLOGY METHOD 03/22/2025 11:19 AM [facility] Basophils % 1.0 % LAB HEMETOLOGY METHOD 03/22/2025 11:19 AM [facility] Metamyelocytes % 1.0(H) % LAB HEMETOLOGY METHOD 03/22/2025 11:19 AM [facility] Myelocytes % 3.0(H) % LAB HEMETOLOGY METHOD 03/22/2025 11:19 AM [facility] Neutrophils Absolute Manual 6.08 1.50 - 7.00 K/mcL LAB HEMETOLOGY METHOD 03/22/2025 11:19 AM [facility] Lymphocytes Absolute 0.54(L) 1.00 - 5.00 K/mcL LAB HEMETOLOGY METHOD 03/22/2025 11:19 AM [facility] Monocytes Absolute Manual 0.77 0.20 - 1.00 K/mcL LAB HEMETOLOGY METHOD 03/22/2025 11:19 AM EDT [facility] Eosinophils Absolute Manual 0.00 0.00 - 0.50 K/mcL LAB HEMETOLOGY METHOD 03/22/2025 11:19 AM EDT [facility] Basophils Absolute Manual 0.08 0.00 - 0.20 K/mcL LAB HEMETOLOGY METHOD 03/22/2025 11:19 AM EDT [facility] Metamyelocytes Absolute Manual 0.08(H) 0.00 - 0.00 K/[facility] LAB HEMETOLOGY METHOD 03/22/2025 11:19 AM EDT [facility] Myelocytes Absolute Manual 0.23(H) 0.00 - 0.00 K/[facility] LAB HEMETOLOGY METHOD 03/22/2025 11:19 AM EDT [facility] Rbc Morphology Present( A) Consistent with indices, Normal for [place] LAB HEMETOLOGY METHOD 03/22/2025 11:19 AM EDT [facility] Platelet Morphology - WAM See Note(A) Normal LAB HEMETOLOGY METHOD 03/22/2025 11:19 AM EDT [facility] Comment:PLT: Normal Tear Drop Cells Present 5 - 10%(A) (none) LAB HEMETOLOGY METHOD 03/22/2025 11:19 AM EDT [facility] Blood Venous blood specimen / Unknown Venipuncture / Unknown 03/22/2025 5:49 AM EDT 03/22/2025 9:35 AM EDT us Daisy Lee MD LAB BLOOD ORDERABLES Final Resu lt [facility]) [facility] [address] [place] [address], * (ABNORMAL) CBC auto differential (03/22/2025 5:49 AM EDT) Only the most recent of2 resultswithin the time period is included. [facility] WBC 7.7 4.8 - 10.8 K/mcL LAB HEMETOLOGY METHOD 03/22/2025 11:19 AM [facility] RBC 3.30(L) 3.80 - 4.80 M/mcL LAB HEMETOLOGY METHOD 03/22/2025 11:19 AM [facility] Hemoglobin 10.0(L) 11.5 - 16.0 g/dL LAB HEMETOLOGY METHOD 03/22/2025 11:19 AM [facility] Hematocrit 30.6(L) 35.0 - 47.0 % LAB HEMETOLOGY METHOD 03/22/2025 11:19 AM [facility] MCV 93.3 79.0 - 98.0 FL LAB HEMETOLOGY METHOD 03/22/2025 11:19 AM [facility] MCH 30.5 27.0 - 32.0 pcg LAB HEMETOLOGY METHOD 03/22/2025 11:19 AM [facility] MCHC 32.7 32.0 - 37.0 g/dL LAB HEMETOLOGY METHOD 03/22/2025 11:19 AM [facility] RDW 14.7 11.0 - 15.0 % LAB HEMETOLOGY METHOD 03/22/2025 11:19 AM [facility] Platelets 191 130 - 400 K/mcL LAB HEMETOLOGY METHOD 03/22/2025 11:19 AM [facility] MPV 10.9 7.0 - 11.0 FL LAB HEMETOLOGY METHOD 03/22/2025 11:19 AM [facility] NRBC 0.0 <1.0 % LAB HEMETOLOGY METHOD 03/22/2025 11:19 AM [facility] NRBC Absolute 0.00 <0.10 K/mcL LAB HEMETOLOGY METHOD 03/22/2025 11:19 AM EDT [facility] Blood Venous blood specimen / Unknown Venipuncture / Unknown 03/22/2025 5:49 AM EDT 03/22/2025 9:35 AM EDT us aDisy Lee MD LAB BLOOD ORDERABLES Final Resu lt Performing Organization Address City/[facility]/ZIP Co de Phone Number [facility] [address] [place] [address], [place] [phone] * Magnesium (03/22/2025 5:49 AM EDT) Only the most recent of2 resultswithin the time period is included. Magnesium 1.9 1.9 - 2.6 mg/dL LAB CHEMISTRY METHOD 03/22/2025 11:26 AM EDT [facility] Blood Venous blood specimen / Unknown Venipuncture / Unknown 03/22/2025 5:49 AM EDT 03/22/2025 9:35 AM EDT us Daisy Lee MD LAB BLOOD ORDERABLES Final Resu lt Performing Organization Address [facility] de Phone Number [facility] [address] [place] [address], [place] [phone] * (ABNORMAL) Comprehensive metabolic panel (03/22/2025 5:49 AM EDT) Only the most recent of2 resultswithin the time period is included. Sodium 136 133 - 145 mmol/L LAB CHEMISTRY METHOD 03/22/2025 11:26 AM EDT [facility] Potassium 3.4(L) 3.5 - 5.5 mmol/L LAB CHEMISTRY METHOD 03/22/2025 11:26 AM EDT [facility] Chloride 103 96 - 110 mmol/L LAB CHEMISTRY METHOD 03/22/2025 11:26 AM EDT [facility] CO2 21 21 - 32 mmol/L LAB CHEMISTRY METHOD 03/22/2025 11:26 AM [facility] Anion Gap 12(H) 3 - 11 LAB CHEMISTRY METHOD 03/22/2025 11:26 AM [facility] Glucose 176(H) 70 - 100 mg/dL LAB CHEMISTRY METHOD 03/22/2025 11:26 AM [facility] BUN 48(H) 5 - 25 mg/dL LAB CHEMISTRY METHOD 03/22/2025 11:26 AM [facility] Creatinine 1.58(H) 0.50 - 1.10 mg/dL LAB CHEMISTRY METHOD 03/22/2025 11:26 AM [facility] eGFR 34(L) >=60 mL/min/1. 73m2 LAB CHEMISTRY METHOD 03/22/2025 11:26 AM [facility] Comment:Calculation based on the??Chronic Kidney Disease Epidemiology Collaboration (CKD-EPI) equation refit??without adjustment for race. BUN/Creatinine Ratio 30.4 LAB CHEMISTRY METHOD 03/22/2025 11:26 AM [facility] Calcium 9.1 8.5 - 10.5 mg/dL LAB CHEMISTRY METHOD 03/22/2025 11:26 AM [facility] AST (SGOT) 12 10 - 42 unit/L LAB CHEMISTRY METHOD 03/22/2025 11:26 AM [facility] ALT (SGPT) 29 10 - 60 unit/L LAB CHEMISTRY METHOD 03/22/2025 11:26 AM [facility] Alkaline Phosphatase 121 42 - 121 unit/L LAB CHEMISTRY METHOD 03/22/2025 11:26 AM [facility] Total Protein 6.0 6.0 - 8.0 g/dL LAB CHEMISTRY METHOD 03/22/2025 11:26 AM [facility] Albumin 3.2 3.2 - 5.0 g/dL LAB CHEMISTRY METHOD 03/22/2025 11:26 AM EDT [facility] Total Bilirubin 0.3 0.0 - 1.4 mg/dL LAB CHEMISTRY METHOD 03/22/2025 11:26 AM EDT [facility] Blood Venous blood specimen / Unknown Venipuncture / Unknown 03/22/2025 5:49 AM EDT 03/22/2025 9:35 AM EDT Daisy Lee MD LAB BLOOD ORDERABLES Final Resu lt [facility] ([facility]) [facility] [address] [place] [address], from Last 3 Months Insurance MEDICARE Care Teams Clothing Manager Relationship Specialty Start Date End Date Daisy Lee MD [address] [place] [phone] PCP - General Hospitalist Medicine 03/18/25
--- OUTSIDE RECORDS SUMMARY | 2025-04-07 16:17 | XMS_ITS | Encounter Summary ---
Author Organization [facility] Address [address] [place] [address] Care Team Providers Care Pluck Separator Name Role Phone Daisy Lee MD Primary Care Provider Encounter Details Date Type Department Care Team (Late st Contact Info) Description 10/05/2024 Lab Requisition [facility] Main Lab [address] [place] [address] Jonathon Antunez MD [address] [place] [address] Low back pain, unspecified; Weakness Social History [...] LAB CHEMISTRY METHOD 10/05/2024 2:44 PM EST [facility] Blood Venous blood specimen / Unknown Venipuncture / Unknown 10/05/2024 5:42 AM EST 10/05/2024 11:00 AM EST us Jonathon Antunez MD LAB BLOOD ORDERABLES Final Res ult [facility] [address] [place] [address], [place] [phone] * (ABNORMAL) Complete blood count (10/05/2024 5:42 AM EST) Pathologist [facility] WBC 8.0 4.8 - 10.8 K/mcL LAB HEMETOLOGY METHOD 10/05/2024 12:58 PM [facility] RBC 3.30(L) 3.80 - 4.80 M/mcL LAB HEMETOLOGY METHOD 10/05/2024 12:58 PM [facility] Hemoglobin 9.5(L) 11.5 - 16.0 g/dL LAB HEMETOLOGY METHOD 10/05/2024 12:58 PM [facility] Hematocrit 30.0(L) 35.0 - 47.0 % LAB HEMETOLOGY METHOD 10/05/2024 12:58 PM [facility] MCV 89.8 79.0 - 98.0 FL LAB HEMETOLOGY METHOD 10/05/2024 12:58 PM [facility] MCH 28.4 27.0 - 32.0 pcg LAB HEMETOLOGY METHOD 10/05/2024 12:58 PM [facility] MCHC 31.7(L) 32.0 - 37.0 g/dL LAB HEMETOLOGY METHOD 10/05/2024 12:58 PM [facility] RDW 14.9 11.0 - 15.0 % LAB HEMETOLOGY METHOD 10/05/2024 12:58 PM [facility] Platelets 203 130 - 400 K/mcL LAB HEMETOLOGY METHOD 10/05/2024 12:58 PM EST [facility] MPV 10.7 7.0 - 11.0 FL LAB HEMETOLOGY METHOD 10/05/2024 12:58 PM EST [facility] NRBC 0.0 <1.0 % LAB HEMETOLOGY METHOD 10/05/2024 12:58 PM [facility] NRBC Absolute 0.00 <0.10 K/mcL LAB HEMETOLOGY METHOD 10/05/2024 12:58 PM [facility] Blood Venous blood specimen / Unknown Venipuncture / Unknown 10/05/2024 5:42 AM EST 10/05/2024 11:00 AM EST Jonathon Antunez MD LAB BLOOD ORDERABLES Final Res ult [facility] [address] [place] [address], * (ABNORMAL) Comprehensive metabolic panel (10/05/2024 5:42 AM EST) Sodium 137 133 - 145 mmol/L LAB CHEMISTRY METHOD 10/05/2024 2:46 PM [facility] Potassium 3.8 3.5 - 5.5 mmol/L LAB CHEMISTRY METHOD 10/05/2024 2:46 PM [facility] Chloride 104 96 - 110 mmol/L LAB CHEMISTRY METHOD 10/05/2024 2:46 PM [facility] CO2 21 21 - 32 mmol/L LAB CHEMISTRY METHOD 10/05/2024 2:46 PM [facility] Anion Gap 12(H) 3 - 11 LAB CHEMISTRY METHOD 10/05/2024 2:46 PM [facility] Glucose 171(H) 70 - 100 mg/dL LAB CHEMISTRY METHOD 10/05/2024 2:46 PM [facility] BUN 58(H) 5 - 25 mg/dL LAB CHEMISTRY METHOD 10/05/2024 2:46 PM [facility] Creatinine 1.63(H) 0.50 - 1.10 mg/dL LAB CHEMISTRY METHOD 10/05/2024 2:46 PM [facility] eGFR 32(L) >=60 mL/min/1. 73m2 LAB CHEMISTRY METHOD 10/05/2024 2:46 PM [facility] Comment:Calculation based on the??Chronic Kidney Disease Epidemiology Collaboration (CKD-EPI) equation refit??without adjustment for race. BUN/Creatinine Ratio 35.6 LAB CHEMISTRY METHOD 10/05/2024 2:46 PM [facility] Calcium 9.0 8.5 - 10.5 mg/dL LAB CHEMISTRY METHOD 10/05/2024 2:46 PM [facility] AST (SGOT) 26 10 - 42 unit/L LAB CHEMISTRY METHOD 10/05/2024 2:46 PM [facility] ALT (SGPT) 38 10 - 60 unit/L LAB CHEMISTRY METHOD 10/05/2024 2:46 PM [facility] Alkaline Phosphatase 182(H) 42 - 121 unit/L LAB CHEMISTRY METHOD 10/05/2024 2:46 PM [facility] Total Protein 5.6(L) 6.0 - 8.0 g/dL LAB CHEMISTRY METHOD 10/05/2024 2:46 PM [facility] Albumin 2.9(L) 3.2 - 5.0 g/dL LAB CHEMISTRY METHOD 10/05/2024 2:46 PM [facility] Total Bilirubin 0.2 0.0 - 1.4 mg/dL LAB CHEMISTRY METHOD 10/05/2024 2:46 PM [facility] Blood Venous blood specimen / Unknown Venipuncture / Unknown 10/05/2024 5:42 AM EST 10/05/2024 11:00 AM EST Jonathon Antunez MD LAB BLOOD ORDERABLES Final Res ult [facility] [address] [place] [address], documented in this encounter Visit Diagnoses Diagnosis Low back pain, unspecified Weakness Other malaise and fatigue documented in this encounter Care Teams Pluck Separator Relationship Specialty Start Date End Date Daisy Lee MD [address] [place] [address] PCP - General Hospitalist Medicine 03/18/25 documented as of this encounter
--- OUTSIDE RECORDS SUMMARY | 2025-04-07 16:17 | XMS_ITS | Encounter Summary ---
Author Organization [facility] Address [address] [place] [phone] Phone Care Team Providers Care In Classroom Tutor Name Role Phone Eduardo Albert MD Primary Care Provider [phone] Marquis Morel MD Unavailable Kilo Diaz MD Primary Care Provider + Kilo Diaz MD Unavailable [phone] Eduardo Albert MD Primary Care Provider [phone] Encounter Details Date Type Department Care Team (Late st Contact Info) Description 03/10/2018 Procedure Pass [facility] - CT, Main [address] [address] Social History Tobacco Use Types Packs/Day Years [...] - audio only [facility] [address] [place] [address] Jone Nobles MD [address] [place] [phone] 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 10/08/2022 10/15/2023 1:21 AM EST documented as of this encounter Care Teams In Classroom Tutor Relationship Specialty Start Date End Date Eduardo Albert MD [address] [address] PCP - General Internal Medicine 01/03/17 01/22/23 Kilo Diaz MD [address] [place] [address] PCP - General Nephrology 01/23/23 04/16/23 Eduardo Albert MD [address] [address] PCP - General Internal Medicine 04/17/23 Marquis Morel MD [address] [place] [address] Computer System Validation Specialist Pulmonary Disease 08/16/21 Kilo Diaz MD [address] [place] [address] Nephrology 01/23/23 documented as of this encounter Additional Source Comments The information contained in this document represents components of the legal health record. It is not the complete legal health record.[facility]
--- OUTSIDE RECORDS SUMMARY | 2025-04-07 16:17 | XMS_ITS | Continuity of Care Document ---
Author Organization [facility] [address] [facility] [address] [place] [address] Phone [phone] Care Team Providers Care Production Control Coordinating Clerk Name Role Phone Eduardo Albert M.D. Care Team Information Senior Engineering Manager [phone] Problems Active Problems Provider Date Vitamin B12 [...] SIG Qnty Indications Ordering Provider Date Novolog Oafgruh597Swde/ML Solution Pen-Inject inject 2 to 6 units three times daily pre meals 45ml E10.9 Galilea Montiel M.D. 01/06/2025 Z79.4 Freestyle Pollo 3 Plus/Sesor/Glucose Monitoring SystemMisc one sensor to skin every 14 days dx: e11.9 9units Galilea Montiel M.D. 08/26/2024 Freestyle Pollo 3/Sensor/Glucose Monitoring Honbgf7Zhadpb Misc One To Skin Every Fourteen Days DX:E10.65 6units E10.Schuyler Montiel M.D. 03/26/2024 Freestyle Pollo 3/[place]/Glucose Monitoring Uhdbjh5Golvyo Device use with sensors to check blood sugar dx:e10.65 1units Galilea Montiel M.D. 03/26/2024 BD Pen Needle/Deanne 2ND Gen/32G X 4mm32G X 4 mm Misc 1 pen needle to insulin pen 3 times a day dx:e11.9 300units E11Poonam Montiel M.D. 02/18/2024 Calcium 500/Vitamin D500-3.125mg-mcg Tablets 1 by mouth twice a day Unknown Vitamin Z036nde (1000 Ut) Capsules 1 by mouth every day Unknown Vitamin V120711qsz Tablets ER 1 by mouth every day Unknown Magnesium Hywhj647ks Tablets take 1 tablets by mouth 2 times a day Unknown Gprczbugma21az Tablets 2 tabs qd Unknown Amlodipine Ttccmjtj31wn Tablets 1 by mouth every day Unknown Accu-Chek Softclix LancetsMisc Please Check Your Blood Sugar 3 Times Daily Unknown Sodium Chloride3% Nebulizer Inhale 4 ML Inhaled 2 Times A Day For 30 Days Marquis Morel Bwhttiwycdv038dk Tablets Take 1 Tablet By Mouth Twice A Day Jimi lEaine, Ennibiqhec18.5mg Tablets Take 1/2 Tablet By Mouth Twice A Day With Meals Unknown Budesonide0.5mg/2ML Suspension 0.5 MG (2 ML) Inhaled 2 Times A Day Marquis Morel Accu-Chek GuideStrips Use To Check Sugars 1-2 Times Per Day DX:E11.9 Daniel Dodge NP Accu-Chek Guide MeW/Device Kit Use To Check Blood Sugars 1-2 Times A Day DX: E11.9 Daniel Dodge NP Albuterol Sulfate YOR620(90Base) mcg/Act Aerosol Inhale 2 Puffs Every 6 Hours as Needed For Shortness Or Breath Or Wheezing For 3 Marquis Morel Pantoprazole Bxhocy31cx Tablets DR Take 1 Tablet By Mouth Twice A Day Unknown Qkjuxtiohuwf902xy Tablets Take 1 Tablet (250 MG) By Mouth 3 Times A Week Marquis Morel Potassium Citrate MS27Rui (1080 mg) Tablets ER Take 1 Tablet [...] 01/20/2024 Inhouse Glucose Fingerstick 197 Glucose 12/18/2023 [facility] Glucose 120 mg/dL High (70-99) Glucose 12/18/2023 [facility] Glucose 116 mg/dL High (70-99) Glucose 12/18/2023 [facility] Glucose 102 mg/dL High (70-99) Glucose Fingerstick 12/15/2023 Inhouse Glucose Fingerstick 135 Glucose Fingerstick 11/14/2023 Inhouse Glucose Fingerstick 146 Procedures Date Code Description Status 07/28/2024 38797 Glucose Monitoring Interpeta tion And Report Completed 05/06/2024 00845 Glucose Monitoring Interpeta tion And Report Completed 03/31/2024 08756 Glucose Monitoring Interpeta tion And Report Completed 02/18/2024 63635 Glucose Monitoring Interpeta tion And Report Completed 02/11/2024 51340 Glucose Monitori ng From Interstital Tissue Fluid Minimum 72 Hours Completed 11/14/2023 64230 Glucose Monitori ng From Interstital Tissue Fluid Minimum 72 Hours Completed Medical Devices Description No Information Available Encounters Type Date Location Provider Dx Diagnosis Office Visit 11/10/2024 1:15p Main Office Galilea Montiel M.D. 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 11/10/2024 Z79.4 exterminator termite (current) use of i nsulin Galilea Montiel M.D. 11/10/2024 Z79.52 exterminator termite (curre nt) use of systemic steroids Galilea [...]
--- OUTSIDE RECORDS SUMMARY | 2025-04-07 16:17 | XMS_ITS | Encounter Summary ---
Author Organization [facility] Address [address] [place] [address] Phone Care Team Providers Care Layout Technician Name Role Phone Marquis Morel MD Unavailable [phone] Kilo Diaz MD Unavailable [phone] Eduardo Albert MD Primary Care Provider [phone] Reason for Referral * Consultation (Routine) - Closed Specialty Diagnoses / Procedures Referred By Jyoti bynum Referred To Contact Allergy and Immunology Earnest Anand MD, MS [address] [place] [address] Email: [email or web address] [address] [place] [address] Referral ID Status Reason Start Date Expiration Date Visits Re quested Visits Authorized [id number] Closed 09/11/2023 09/11/2024 1 1 Encounter Details Date Type Department Care Team ([facility] st Contact Info) Description 09/11/2023 Transcribe Orders [facility] Referral Management [address] [place], [place] [id number] Sonido Parra MD [address] [place] [address] [email or web address] Social History Tobacco Use Types Packs/Day [...] - audio only [facility] [address] [place] [address] Jone Nobles MD [address] [place] [phone] [email or web address] [facility] Scheduled Referrals Name Type Priority Associated Diagnoses Order Schedule Ambulatory referral [place] [facility] [place]ergy Outpatient Referral Routine Ordered: 09/11/2023 documented as of this encounter Visit Diagnoses Not on filedocumented in this encounter Additional Health Concerns Infection Onset Date Last Indicated Resolved Time 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 10/08/2022 10/15/2023 1:21 AM EST documented as of this encounter Care Teams Layout Technician Relationship Specialty Start Date End Date Eduardo Albert MD [address] [place] [address] PCP - General Internal Medicine 04/17/23 Marquis Morel MD [address] [place] [phone] Promotional Marketing Agent Pulmonary Disease 08/16/21 Kilo Diaz MD [address] [place] [address] [email or web address] Nephrology 01/23/23 documented as of this encounter Additional Source Comments The information contained in this document represents components of the legal health record. It is not the complete legal health record.[facility]
--- OUTSIDE RECORDS SUMMARY | 2025-04-07 16:17 | XMS_ITS | Encounter Summary ---
Author Organization [facility] Address [address] [place] [address] Phone Care Team Providers Care Director Of Real Estate Name Role Phone Eduardo Albert MD Primary Care Provider [phone] Marquis Morel MD Unavailable Kilo Diaz MD Primary Care Provider + Kilo Diaz MD Unavailable [phone] Eduardo Albert MD Primary Care Provider [phone] Encounter Details Date Type Department Care Team (Late st Contact Info) Description 02/12/2018 Procedure Pass [facility] [address] [place] [address] Social History Tobacco Use Types Packs/Day Years [...] - audio only [facility] [address] [place] [address] Jone Nobles MD [address] [place] [phone] [email or web address] documented as of this encounter Visit Diagnoses Not on filedocumented in this encounter Additional Health Concerns Infection Onset Date Last Indicated Resolved Time 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 10/08/2022 10/15/2023 1:21 AM EST documented as of this encounter Care Teams Director Of Real Estate Relationship Specialty Start Date End Date Eduardo Albert MD [address] [address] PCP - General Internal Medicine 01/03/17 01/22/23 Kilo Diaz MD [address] [place] [address] PCP - General Nephrology 01/23/23 04/16/23 Eduardo Albert MD [address] [address] PCP - General Internal Medicine 04/17/23 Marquis Morel MD [address] [place] [address] Neighborhood Aide Pulmonary Disease 08/16/21 Kilo Diaz MD [address] [place] [address] Nephrology 01/23/23 documented as of this encounter Additional Source Comments The information contained in this document represents components of the legal health record. It is not the complete legal health record.[facility]
--- OUTSIDE RECORDS SUMMARY | 2025-04-07 16:17 | XMS_ITS | Encounter Summary ---
Author Organization [facility], Address [address] [place] [address] Phone Care Team Providers Care Site Acquisition Manager Name Role Phone Eduardo Albert MD Primary Care Provider [phone] Encounter Details Date Type Department Care Team (Late st Contact Info) Description 02/10/2024 Documentation Only [facility], [address] [place] [phone] Guillermo FregosoPort [place], [place] [address] [place] [address] Social History Tobacco Use Types [...] on filedocumented in this encounter Care Teams Site Acquisition Manager Relationship Specialty Start Date End Date Eduardo Albert MD [facility] [address] [place] [address] [place] [address] PCP - General 10/05/19 documented as of this encounter
--- OUTSIDE RECORDS SUMMARY | 2025-04-07 16:17 | XMS_ITS | Encounter Summary ---
Author Organization [facility], Address [address] [address] Phone Care Team Providers Care Screw Supervisor Name Role Phone Eduardo Albert MD Primary Care Provider [phone] Encounter Details Date Type Department Care Team (Late st Contact Info) Description 01/23/2023 Documentation Only [facility], [address] [place] [phone] Kilo Diaz MD [address] [facility] [address] [place] [address] Social History Tobacco Use Types [...] on filedocumented in this encounter Care Teams Screw Supervisor Relationship Specialty Start Date End Date Eduardo Albert MD [facility] [address] [place] [address] [address] [place] [address] PCP - General 10/05/19 documented as of this encounter
--- OUTSIDE RECORDS SUMMARY | 2025-04-07 16:17 | XMS_ITS | Encounter Summary ---
Author Organization [employer] Address [address] [place] [address] Care Team Providers Care Pharmacy Benefit Manager Name Role Phone Daisy Lee MD Primary Care Provider [phone] Encounter Details Date Type Department Care Team (Late st Contact Info) Description 12/06/2024 Lab Requisition [facility] - Main Lab [address] [facility] [place] [address] Daisy Lee MD [address] [place] [address] Encounter for other general examination Social History [...] % LAB HEMETOLOGY METHOD 12/06/2024 2:24 PM [facility] Bands % 2.0 % LAB HEMETOLOGY METHOD 12/06/2024 2:24 PM [facility] Lymphocytes % 8.0 % LAB HEMETOLOGY METHOD 12/06/2024 2:24 PM [facility] Monocytes % 4.0 % LAB HEMETOLOGY METHOD 12/06/2024 2:24 PM [facility] Eosinophils % 4.0 % LAB HEMETOLOGY METHOD 12/06/2024 2:24 PM [facility] Basophils % 0.0 % LAB HEMETOLOGY METHOD 12/06/2024 2:24 PM [facility] Myelocytes % 1.0(H) % LAB HEMETOLOGY METHOD 12/06/2024 2:24 PM [facility] Neutrophils Absolute Manual 6.72 1.50 - 7.00 K/mcL LAB HEMETOLOGY METHOD 12/06/2024 2:24 PM [facility] Bands Absolute Manual 0.16(H) 0.00 - 0.00 K/mcL LAB HEMETOLOGY METHOD 12/06/2024 2:24 PM [facility] Lymphocytes Absolute 0.66(L) 1.00 - 5.00 K/mcL LAB HEMETOLOGY METHOD 12/06/2024 2:24 PM [facility] Monocytes Absolute Manual 0.33 0.20 - 1.00 K/mcL LAB HEMETOLOGY METHOD 12/06/2024 2:24 PM [facility] Eosinophils Absolute Manual 0.33 0.00 - 0.50 K/mcL LAB HEMETOLOGY METHOD 12/06/2024 2:24 PM [facility] Basophils Absolute Manual 0.00 0.00 - 0.20 K/mcL LAB HEMETOLOGY METHOD 12/06/2024 2:24 PM EST [facility] Myelocytes Absolute Manual 0.08(H) 0.00 - 0.00 K/mcL LAB HEMETOLOGY METHOD 12/06/2024 2:24 PM EST [facility] Rbc Morphology Present( A) Consistent with indices, Normal for [place] LAB HEMETOLOGY METHOD 12/06/2024 2:24 PM EST [facility] Platelet Morphology - WAM See Note(A) Normal LAB HEMETOLOGY METHOD 12/06/2024 2:24 PM EST [facility] Comment:PLT: Normal Tear Drop Cells Present 11 - 15%(A) (none) LAB HEMETOLOGY METHOD 12/06/2024 2:24 PM [facility] Blood Venous blood specimen / Unknown Venipuncture / Unknown 12/06/2024 5:34 AM EST 12/06/2024 12:02 PM EST us Daisy Lee MD LAB BLOOD ORDERABLES Final Resu lt [facility] [address] [place] [address], * (ABNORMAL) CBC auto differential (12/06/2024 5:34 AM EST) WBC 8.2 4.8 - 10.8 K/mcL LAB HEMETOLOGY METHOD 12/06/2024 2:24 PM [facility] RBC 3.30(L) 3.80 - 4.80 M/mcL LAB HEMETOLOGY METHOD 12/06/2024 2:24 PM [facility] Hemoglobin 9.4(L) 11.5 - 16.0 g/dL LAB HEMETOLOGY METHOD 12/06/2024 2:24 PM [facility] Hematocrit 30.0(L) 35.0 - 47.0 % LAB HEMETOLOGY METHOD 12/06/2024 2:24 PM EST [facility] MCV 92.0 79.0 - 98.0 FL LAB HEMETOLOGY METHOD 12/06/2024 2:24 PM [facility] MCH 28.8 27.0 - 32.0 pcg LAB HEMETOLOGY METHOD 12/06/2024 2:24 PM [facility] MCHC 31.3(L) 32.0 - 37.0 g/dL LAB HEMETOLOGY METHOD 12/06/2024 2:24 PM [facility] RDW 16.8(H) 11.0 - 15.0 % LAB HEMETOLOGY METHOD 12/06/2024 2:24 PM [facility] Platelets 169 130 - 400 K/mcL LAB HEMETOLOGY METHOD 12/06/2024 2:24 PM EST [facility] MPV 10.4 7.0 - 11.0 FL LAB HEMETOLOGY METHOD 12/06/2024 2:24 PM EST [facility] NRBC 0.0 <1.0 % LAB HEMETOLOGY METHOD 12/06/2024 2:24 PM [facility] NRBC Absolute 0.00 <0.10 K/mcL LAB HEMETOLOGY METHOD 12/06/2024 2:24 PM [facility] Blood Venous blood specimen / Unknown Venipuncture / Unknown 12/06/2024 5:34 AM EST 12/06/2024 12:02 PM EST us Daisy Lee MD LAB BLOOD ORDERABLES Final Resu lt [facility] [address] [place] [address], * Magnesium (12/06/2024 5:34 AM EST) Magnesium 2.0 1.9 - 2.6 mg/dL LAB CHEMISTRY METHOD 12/06/2024 1:23 PM EST [facility] Blood Venous blood specimen / Unknown Venipuncture / Unknown 12/06/2024 5:34 AM EST 12/06/2024 12:02 PM EST us Daisy Lee MD LAB BLOOD ORDERABLES Final Resu lt Performing Organization Address [facility]/ZIP Co de Phone Number [facility] [address] [place] [address], [place] [phone] * (ABNORMAL) Hemoglobin A1c (12/06/2024 5:34 AM EST) [facility] Hemoglobin A1C 6.6(H) <6.5 % LAB CHEMISTRY METHOD 12/06/2024 8:50 PM EST [facility] Mean Bld Glu Estim. 143 mg/dL LAB CHEMISTRY METHOD 12/06/2024 8:50 PM EST [facility] Blood Venous blood specimen / Unknown Venipuncture / Unknown 12/06/2024 5:34 AM EST 12/06/2024 12:02 PM EST us Daisy Lee MD LAB BLOOD ORDERABLES Final Resu lt Performing Organization Address [facility]/ZIP Co de Phone Number [facility] [address] [place] [address], [place] [phone] * (ABNORMAL) Comprehensive metabolic panel (12/06/2024 5:34 AM EST) Pathologist [facility] Sodium 130(L) 133 - 145 mmol/L LAB CHEMISTRY METHOD 12/06/2024 1:24 PM EST [facility] Potassium 3.9 3.5 - 5.5 mmol/L LAB CHEMISTRY METHOD 12/06/2024 1:24 PM EST [facility] Chloride 106 96 - 110 mmol/L LAB CHEMISTRY METHOD 12/06/2024 1:24 PM [facility] CO2 18(L) 21 - 32 mmol/L LAB CHEMISTRY METHOD 12/06/2024 1:24 PM [facility] Anion Gap 6 3 - 11 LAB CHEMISTRY METHOD 12/06/2024 1:24 PM [facility] Glucose 149(H) 70 - 100 mg/dL LAB CHEMISTRY METHOD 12/06/2024 1:24 PM [facility] BUN 56(H) 5 - 25 mg/dL LAB CHEMISTRY METHOD 12/06/2024 1:24 PM [facility] Creatinine 1.58(H) 0.50 - 1.10 mg/dL LAB CHEMISTRY METHOD 12/06/2024 1:24 PM [facility] eGFR 34(L) >=60 mL/min/1. 73m2 LAB CHEMISTRY METHOD 12/06/2024 1:24 PM [facility] Comment:Calculation based on the??Chronic Kidney Disease Epidemiology Collaboration (CKD-EPI) equation refit??without adjustment for race. BUN/Creatinine Ratio 35.4 LAB CHEMISTRY METHOD 12/06/2024 1:24 PM [facility] Calcium 8.8 8.5 - 10.5 mg/dL LAB CHEMISTRY METHOD 12/06/2024 1:24 PM [facility] AST (SGOT) 23 10 - 42 unit/L LAB CHEMISTRY METHOD 12/06/2024 1:24 PM [facility] ALT (SGPT) 43 10 - 60 unit/L LAB CHEMISTRY METHOD 12/06/2024 1:24 PM [facility] Alkaline Phosphatase 129(H) 42 - 121 unit/L LAB CHEMISTRY METHOD 12/06/2024 1:24 PM [facility] Total Protein 5.9(L) 6.0 - 8.0 g/dL LAB CHEMISTRY METHOD 12/06/2024 1:24 PM [facility] Albumin 3.2 3.2 - 5.0 g/dL LAB CHEMISTRY METHOD 12/06/2024 1:24 PM EST [facility] Total Bilirubin 0.3 0.0 - 1.4 mg/dL LAB CHEMISTRY METHOD 12/06/2024 1:24 PM EST [facility] Blood Venous blood specimen / Unknown Venipuncture / Unknown 12/06/2024 5:34 AM EST 12/06/2024 12:02 PM EST us Daisy Lee MD LAB BLOOD ORDERABLES Final Resu lt [facility] [address] [place] [address], documented in this encounter Visit Diagnoses Diagnosis Encounter for other general examination documented in this encounter Care Teams Pharmacy Benefit Manager Relationship Specialty Start Date End Date Daisy Lee MD [address] [place] [address] PCP - General Hospitalist Medicine 03/18/25 documented as of this encounter
--- OUTSIDE RECORDS SUMMARY | 2025-04-07 16:17 | XMS_ITS | Encounter Summary ---
Author Organization [facility], Address [address] [place] [address] Phone Care Team Providers Care Pure Pak Machine Operator Name Role Phone Eduardo Albert MD Primary Care Provider [phone] Encounter Details Date Type Department Care Team (Late st Contact Info) Description 08/09/2024 Documentation Only [facility], [address] [place] [phone] Guill[place], [place] [address] [place] [address] Social History Tobacco Use Types [...] on filedocumented in this encounter Care Teams Pure Pak Machine Operator Relationship Specialty Start Date End Date Eduardo Albert MD [facility] [address] [place] [address] [address] [place] [address] PCP - General 10/05/19 documented as of this encounter
--- OUTSIDE RECORDS SUMMARY | 2025-04-07 16:17 | XMS_ITS | Clinical Summary ---
Author Organization [facility], Address [address] [place] [address] [place] [address] Phone Care Team Providers Care Forestry Technician Name Role Phone Eduardo Albert MD Primary Care Provider [phone] Allergies Active Allergy Reactions Criticality Noted Date [...] % nebulizer solution 1 Active nystatin (MYCOSTATIN) 291678 UNIT/ML suspension 1 Active neomycin-polymy paco-dexamethame thasone (POLYDEX) 3.5-96567-8.1 ointment 1 Active levalbuterol (XOPENEX) 1.25 MG/3ML [...] Visit [facility] [address] [place] [address] Kilo Diaz MD 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); Stage 3b chronic kidney disease [...] Iron 51 27 - 139 ug/dL [facility] TIBC 458(H) 250 - 450 ug/dL [facility] UIBC 407(H) 118 - 369 ug/dL [facility] Iron Saturation (TSat) 11(L) 15 - 55 % [facility] Blood (Blood, Venous) 02/08/2025 3:30 PM EDT 02/08/2025 us Kilo Diaz MD LAB BLOOD ORDERABLES Final Result [facility] [address] [place] [address] * (ABNORMAL) Vitamin D 25 hydroxy (02/08/2025 3:30 PM EDT) Vitamin D, 25-OH, Total 19.4(L) 30.0 - 100.0 ng/mL [facility] Comment: Vitamin D deficiency has been defined by the [employer] of Medicine and an Endocrine Society practice guideline as a level of serum 25-OH vitamin D less than 20 ng/mL (1,2). The Endocrine Society went on to further define vitamin D insufficiency as a level between 21 and 29 ng/mL (2). 1. IOM ([employer] of Medicine). 2010. Dietary reference ?? intakes for calcium and D. [place]: The ?? National AcademCore[employer] Press. 2. Fahad MF, Javad GIORDANO, [place] VIRAMONTES, et al. ?? Evaluation, treatment, and prevention of vitamin D ?? deficiency: an Endocrine Society clinical practice ?? guideline. JCEM. 2010; 96(7):1911-30. Blood (Blood, Venous) 02/08/2025 3:30 PM EDT 02/08/2025 Kilo Diaz MD LAB BLOOD ORDERABLES Final Result [facility] [address] [place] [address] * (ABNORMAL) CBC (02/08/2025 3:30 PM EDT) WBC 8.9 3.4 - 10.8 x10E3/uL [facility] RBC 3.48(L) 3.77 - 5.28 x10E6/uL [facility] Hemoglobin 10.7(L) 11.1 - 15.9 g/dL [facility] Hematocrit 32.5(L) 34.0 - 46.6 % [facility] MCV 93 79 - 97 fL [facility] MCH 30.7 26.6 - 33.0 pg [facility] MCHC 32.9 31.5 - 35.7 g/dL [facility] RDW 16.2(H) 11.7 - 15.4 % [facility] Platelets 212 150 - 450 x10E3/uL [facility] Blood (Blood, Venous) 02/08/2025 3:30 PM EDT 02/08/2025 Kilo Diaz MD LAB BLOOD ORDERABLES Final Result Performing Organization Address City/[facility]/ZIP Co de Phone Number [facility] [address] [place] [address] * PTH, intact (02/08/2025 3:30 PM EDT) PTH 32 15 - 65 pg/mL [facility] Blood (Blood, Venous) 02/08/2025 3:30 PM EDT 02/08/2025 Kilo Diaz MD LAB BLOOD ORDERABLES Final Result Performing Organization Address [facility] de Phone Number [facility] [address] [place] [address] * Ferritin (02/08/2025 3:30 PM EDT) Ferritin 70 15 - 150 ng/mL [facility] Blood (Blood, Venous) 02/08/2025 3:30 PM EDT 02/08/2025 Kilo Diaz MD LAB BLOOD ORDERABLES Final Result Performing Organization Address City/[facility] de Phone Number [facility] [address] [place] [address] * (ABNORMAL) Renal function panel (02/08/2025 3:30 PM EDT) Glucose 224(H) 70 - 99 mg/dL [facility] BUN 46(H) 8 - 27 mg/dL [facility] Creatinine 1.29(H) 0.57 - 1.00 mg/dL [facility] eGFR CKD-EPI CR 2020 43(L) >59 mL/min/1.7 3 [facility] BUN/Creatinine Ratio 36(H) 12 - 28 [facility] Sodium 140 134 - 144 mmol/L [facility] Potassium 4.6 3.5 - 5.2 mmol/L [facility] Chloride 101 96 - 106 mmol/L [facility] Bicarbonate (CO2) 16(L) 20 - 29 mmol/L [facility] Calcium 10.2 8.7 - 10.3 mg/dL [facility] Albumin 4.3 3.8 - 4.8 g/dL [facility] Phosphorus 2.9(L) 3.0 - 4.3 mg/dL [facility] Blood (Blood, Venous) 02/08/2025 3:30 PM EDT 02/08/2025 Narrative [facility] - 02/09/2025 3:05 PM EDT Specimen Comment: A courtesy copy of this report has been sent to [phone], [phone]- Specimen Comment: [phone] us Kilo Diaz MD LAB BLOOD ORDERABLES Final Result [facility] [address] [place] [address] from Last 3 Months Insurance Medicare [facility] Care Teams Forestry Technician Relationship Specialty Start Date End Date Eduardo Albert MD [address] [place] [address] PCP - General 10/05/19
--- OUTSIDE RECORDS SUMMARY | 2025-04-07 16:17 | XMS_ITS | Encounter Summary ---
Author Organization [facility] Address [address] [place] [phone] Phone Care Team Providers Care Sling Operator Name Role Phone Eduardo Albert MD Primary Care Provider [phone] Marquis Morel MD Unavailable Encounter Details Date Type Department Care Team (Late st Contact Info) Description 08/28/2022 Hospital Encounter [facility] [address] [place] [address] Earnest Anand MD, MS [address] [place] [address] [email or web address] Social History Tobacco Use Types Packs/Day Years [...] - audio only [facility] [address] [place] [id number] Jone Nobles MD [address] [place] [phone] [email or web address] [facility] documented as of this encounter Procedures Procedure Name Priority Date/Time Associated Diagnosis Comments CT FACE OUTSIDE (NO INTERPRETATION) Routine 08/28/2022 12:00 AM EDT documented in this encounter Results * CT Face Outside (No Interpretation) (08/28/2022 12:00 AM EDT) Narrative [facility] - 10/08/2022 5:18 PM EST This study is for PACS storage only and not for interpretation. 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 It is not the complete legal health record.[facility]
--- OUTSIDE RECORDS SUMMARY | 2025-04-07 16:17 | XMS_ITS | Data Portability ---
Author Organization [place] - [facility], Allergy Address [address] [place] [id number] Assessment No assessment recorded. Plan of Treatment Reminders Order Date Submit Date Provider Last Modified By Organization Details Last Modified Time Details Appointments None record ed. Lab None record ed. Referral None record ed. Procedures None record ed. Surgeries None record ed. Imaging None record ed. Medication Orders None record ed. Patient TargetsNo targets recorded. Patient InstructionsNo instructions recorded. Reason for Referral None Reported. Results Created Date Observation Date Name Description Value Unit Range Abnormal Flag Note LastModifiedBy Organization Detail LastModifiedTime 06/02/20 24 07/02/2024 FUNGU S (MYCO LOGY) CULTU RE fungus (mycology) culture Final report Not Available [facility] ([facility]) [address] [facility], [place], [address], 07/03/2024 07:42:57 06/02/20 24 07/02/2024 FUNGU S (MYCO LOGY) CULTU RE result 1 COMMEN T No yeast or mold isola champ after 4 weeks . Not Available [facility] ([facility]) [address] [facility], [place], [address], 07/03/2024 07:42:57 06/02/20 24 06/05/2024 GENIT AL CULTU RE, ROUTI NE genital culture, routine Final report Speci men stabi lity note: A swab trans port (ie., ESwab , Amies agar gel) recei kris by the lab more than 24 hours after colle ction may resul t in reduc ed recov hussein of Neiss eria gonor rhoea e (GC). (This is infor matio nal only and may not apply to this speci men.) Not Available [facility] ([facility]) [address] [facility], [place], [address], 07/03/2024 07:42:58 06/02/20 24 06/05/2024 GENIT AL CULTU RE, ROUTI NE result 1 COMMEN T Routi ne respi rator y gayatri Not Available [facility] ([facility]) [address] [facility], [place], [address], 07/03/2024 07:42:58 07/21/20 24 01/04/2021 imagi ng/di agnos tic resul t No observ ation record ed. [email or web address] Not Available 00:06:51 07/21/20 24 03/13/2022 imagi ng/di agnos tic resul t No observ ation record ed. [email or web address] Not Available 00:07:12 07/21/20 24 04/18/2021 imagi ng/di agnos tic resul t No observ ation record ed. [email or web address] Not Available 00:07:23 07/21/20 24 08/28/2022 imagi ng/di agnos tic resul t No observ ation record ed. [email or web address] Not Available 00:08:44 07/21/20 24 11/06/2019 imagi ng/di agnos tic resul t No observ ation record ed. [email or web address] Not Available 00:09:03 07/21/20 24 12/03/2019 audio gram No observ ation record ed. [email or web address] Not Available 00:09:15 07/21/20 24 12/26/2022 audio gram No observ ation record ed. [email or web address] Not Available 00:09:31 07/21/20 24 12/29/2020 audio gram No observ ation record ed. [email or web address] Not Available 00:09:39 07/21/20 24 01/04/2021 audio gram No observ ation record ed. [email or web address] Not Available 00:09:53 07/21/20 24 01/26/2019 audio gram No observ ation record ed. [email or web address] Not Available 00:10:15 07/21/20 24 03/02/2021 audio gram No observ ation record ed. [email or web address] Not Available 00:10:54 07/21/20 24 04/18/2021 audio gram No observ ation record ed. [email or web address] Not Available 00:11:15 Result Notes None recorded. 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 Other condition s related to polyarter itis nodosa; Note: Date Diagnosed : 01/09/2023 11:36 AM (M30.8) Not Available [facility] 4 02:48:25 Posterior rhinorrhe a 59097111 Active 2017 Postnasal drip; Note: Date Diagnosed : 01/09/2018 1:12 PM (R09.82) Not Available [facility] 4 02:48:24 Cough 75111374 Active 2015 Cough, unspecifi ed; Note: Changed from R05 to R05.9 (10/22/20 22 2:30 PM) , Date Diagnosed : 06/12/2016 11:33 AM (R05) Not Available [facility] 4 02:48:25 Chronic ethmoidal sinusitis 62701768 Active 2015 Chronic ethmoidal sinusitis ; Note: Date Diagnosed : 07/29/2016 11:26 AM (J32.2) Not Available [facility] 4 02:48:20 Recurrent acute sinusitis 330434574 Active 2018 Other acute recurrent sinusitis ; Note: Date Diagnosed : 07/27/2019 1:37 PM (J01.81) Not Available [facility] 4 02:48:25 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]; Note: Date Diagnosed : 12/16/2016 1:37 PM (M30.1) Not Available [facility] 4 02:48:21 Dysphonia 00488117 Active 2016 Hoarsenes s; Note: Date Diagnosed : 07/24/2017 11:20 AM (R49.0) Not Available [facility] 4 02:48:22 Sensorine ural hearing loss of bilateral ears 869645168 Active 2019 Sensorine ural hearing loss, bilateral ; Note: Date Diagnosed : 12/03/2019 3:08 PM (H90.3) Sensori neural hearing loss, bilateral ; Note: Date Diagnosed : 7 1:52 PM (H90.3) ; Start Date : 7 Not Available [facility] 4 02:48:17 Chronic sinusitis 42411656 Active 2022 Chronic pansinusi tis; Note: Date Diagnosed : 4 10:08 AM (473.8) ; Start Date : 4 Other chronic sinusitis ; Note: Date Diagnosed : 04/23/2023 2:59 PM (J32.8) Other chronic sinusitis ; Note: Date Diagnosed : 09/02/2017 9:41 AM (J32.8) ; Start Date : 7 Not Available [facility] 4 02:48:20 Allergic rhinitis 14181889 Active 2018 Allergic Rhinitis; CMS Risk: low risk CMS Treatment : establish ed problem (to examiner) : unstable or worsening Note: Date Diagnosed : 4 11:49 AM (477.9) ; Start Date : 4 Other allergic rhinitis; Note: Date Diagnosed : 07/27/2019 1:29 PM (J30.89) Allergi c rhinitis, unspecifi ed; Note: Date Diagnosed : 07/10/2016 11:57 AM (J30.9) ; Start Date : 6 Not Available [facility] 4 02:48:21 Dizziness and giddiness 401539604 Active 2016 Dizziness and giddiness ; Note: Date Diagnosed : 03/10/2017 4:48 PM (R42) Not Available [facility] 4 02:48:18 Headache 54666749 Active 2016 Headache, unspecifi ed; Location: right Not e: Changed from R51 to R51.9 (09/24/20 22 2:18 PM) , Date Diagnosed : 08/26/2017 1:22 PM (R51) Not Available [facility] 4 02:48:17 Acute sialoaden itis 372676321 Active 2020 Acute sialoaden itis; Note: Date Diagnosed : 12/04/2020 4:35 PM (K11.21) Not Available [facility] 4 02:48:21 Chronic maxillary sinusitis 94493776 Active 2013 Chronic maxillary sinusitis ; Location: bilateral CMS Risk: low risk CMS Treatment : establish ed problem (to examiner) : unstable or worsening Note: Date Diagnosed : 4 11:49 AM (473.0) Not Available [facility] 4 02:48:23 Disorder of right Eustachia n tube 94266408388 27057 Active 2016 Other specified disorders of Eustachia n tube, right ear; Note: Date Diagnosed : 05/15/2017 12:11 PM (H69.81) Not Available [facility] 4 02:48:23 Chronic pansinusi tis 39784664 Active 2023 ANTONELLA HAGAN MD [address] [place], [place] [address] [address], [place], [address] , [place] - [facility] 16:54:47 Problem Notes None recorded. Procedures Surgical History Date Name Laterality Status Provider Name and Address Organization Details Recorded Time 08/24/2024 NasalEndos copy_DP completed ANTONELLA HAGAN MD [address] [facility],[place] [address], [place], [address], [place] - [facility] 08/24/2024 10:33:16 06/02/2024 NasalEndos copy_DP completed ANTONELLA HAGAN MD [address] [facility],[place] [address], [place], [address], [place] - [facility] 06/03/2024 07:31:42 Imaging Results Imaging Date Name Status LastModified by Organiz ation Details LastModified Time 01/04/2021 imaging/diagno stic result completed Information not available 07/21/2024 00:06:51 03/13/2022 imaging/diagno stic result completed Information not available 07/21/2024 00:07:12 04/18/2021 imaging/diagno stic result completed Information not available 07/21/2024 00:07:23 08/28/2022 imaging/diagno stic result completed Information not available 07/21/2024 00:08:44 11/06/2019 imaging/diagno stic result completed Information not available 07/21/2024 00:09:03 12/03/2019 audiogram completed Information not available 07/21/2024 00:09:15 12/26/2022 audiogram completed Information not available 07/21/2024 00:09:31 12/29/2020 audiogram completed Information not available 07/21/2024 00:09:39 01/04/2021 audiogram completed Information not available 07/21/2024 00:09:53 01/26/2019 audiogram completed Information not available 07/21/2024 00:10:15 03/02/2021 audiogram completed Information not available 07/21/2024 00:10:54 04/18/2021 audiogram completed Information not available 07/21/2024 00:11:15 Procedure Notes None recorded. Medical Equipment None Reported. Allergies Allergen ID Allergen Name Allergen Category Reaction Reaction Severity Criticality Documentation Date Start Date Code Code System Note Provider Name and Address Organization Details Recorded Time [id number] amoxicill in / clavulana te medicatio n other Not available Not available 04/13/2024 63156 RxNorm React ion: unkno wn, unspe cifie d;; Not Available [facility] 4 01:13:12 128232 prednison e medicatio n other Not available Not available 04/13/2024 8640 RxNorm React ion: unkno wn, unspe cifie d;; Not Available [facility] 4 01:13:13 412264 Substance with sulfonami de structure and antibacte rial mechanism of action (substanc e) medicatio n other Not available Not available 04/13/2024 09124 8003 SNOMED React ion: unkno wn, unspe cifie d;; Not Available [facility] 4 01:13:14 Medications Name Sig Start Date Stop Date Status Note LastModified by Organization Details LastModified Time Singulair 10 mg tablet 1 tablet 05/27 completed Medicati on ID: [id number] Pr escribed By Name: PK Kennedy nd Name: Kraig jiménez Send Method: E-Prescr ibed Sub s Allowed: subs OK Speci al Instruct ion: Take 1 tablet by mouth every day in the evening Medicati onGeneri cName: Kraig jiménez Not Available Not Available Not Available amoxicill in 500 mg capsule TAKE 1 CAPSULE (500 MG) BY MOUTH EVERY 8 HOURS FOR 5 DAYS active Not Available Not Available No t Available budesonid e 32 mcg/actua tion nasal spray Inhale 2 spray into both nostrils once a day 05/09 completed Medicati on ID: [id number] D uration Value: 30 Prescri bed By Name: DAVID Hogue nd Name: michael vaca Send Method: E-Prescr ibed Sub s Allowed: subs OK Medic ationGen ericName : budesoni de Not Available Not Available Not Available clotrimaz ole 10 mg juan 01/16 completed Medicati on ID: [id number] B rand Name: clotrima zole Sen d Method: E-Prescr ibed Sub s Allowed: subs OK Medic ationGen ericName : clotrima zole Not Available Not Available Not Available Augmentin 875 mg-125 mg tablet 09/16 completed Medicati on ID: [id number] D uration Value: 10 Prescri bed By Name: Antonella powell MD Brand Name: Augmenti n Send Method: E-Prescr ibed Sub s Allowed: subs OK Speci al Instruct ion: 1 po bid for 10 days Med icationG enericNa me: Augmenti n Not Available Not Available Not Available BD Alcohol Swabs 01/16 completed Medicati on ID: [id number] B rand Name: BD Alcohol Swabs Se nd Method: E-Prescr ibed Sub s Allowed: subs OK Medic ationGen ericName : BD Alcohol Swabs Not Available Not Available Not Available nystatin 100,000 unit/mL oral suspensio n TAKE 5 ML BY MOUTH 4 TIMES A DAY FOR 10 DAYS active Not Available Not Available No t Available prednison e 10 mg tablet TAKE 1 TABLET (10 MG) BY MOUTH DAILY active Not Available Not Available No t Available doxycycli ne hyclate 100 mg capsule by mouth 04/23 completed Medicati on ID: [id number] P rescribe d By Name: Antonella pwoell MD Brand Name: doxycycl ine hyclate Send Method: E-Prescr ibed Sub s Allowed: subs OK Speci al Instruct ion: Take 1 PO bid X 2 weeks Me dication GenericN caridad: doxycycl ine hyclate Not Available Not Available Not Available carvedilo l 12.5 mg tablet TAKE 1/2 TABLET BY MOUTH TWICE A DAY WITH MEALS active Not Available Not Available No t Available albuterol sulfate 2.5 mg/3 mL (0.083 %) solution for nebulizat ion 04/23 completed Medicati on ID: [id number] B rand Name: albutero l sulfate Send Method: E-Prescr ibed Sub s Allowed: subs OK Speci al Instruct ion: USE ONE VIAL VIA NEBULIZE R EVERY 6 HOURS NEEDED Tita Nayakmahad Name: albutero l sulfate Not Available Not Available Not Available azithromy beatrice 250 mg tablet TAKE 1 TABLET ORALLY 3 TIMES A WEEK active Not Available Not Available No t Available fluconazo le 150 mg tablet 01/16 completed Medicati on ID: [id number] B rand Name: fluconaz ole Send Method: E-Prescr ibed Sub s Allowed: subs OK Medic ationGen ericName : fluconaz ole Not Available Not Available Not Available sulfameth oxazole 400 mg-trimet hoprim 80 mg tablet 01/16 completed Medicati on ID: [id number] B rand Name: sulfamet hoxazole -trimeth oprim Se nd Method: E-Prescr ibed Sub s Allowed: subs OK Medic ationGen ericName : sulfamet hoxazole -trimeth oprim Not Available Not Available Not Available sodium chloride 3 % for nebulizat ion INHALE 4 ML INHALED 2 TIMES A DAY FOR 30 DAYS active Not Available Not Available No t Available sucralfat e 1 gram tablet 04/23 completed Medicati on ID: [id number] B rand Name: sucralfa te Send Method: E-Prescr ibed Sub s Allowed: subs OK Medic ationGen ericName : sucralfa te Not Available Not Available Not Available prednison e 5 mg tablet 01/16 completed Medicati on ID: [id number] B rand Name: predniso ne Send Method: E-Prescr ibed Sub s Allowed: subs OK Medic ationGen ericName : predniso ne Not Available Not Available Not Available glipizide ER 5 mg tablet, extended release 24 hr TAKE 1 TABLET BY MOUTH 1 TIME EACH DAY DO NOT CRUSH, CHEW, OR SPLIT. active Not Available Not Available No t Available Accu-Chek Softclix Lancets PLEASE CHECK YOUR BLOOD SUGAR 3 TIMES DAILY active Not Available Not Available No t Available amlodipin e 2.5 mg tablet 05/15 completed Medicati on ID: [id number] D uration Value: 90 Reason: () Brand Name: amlodipi ne Send Method: E-Prescr ibed Sub s Allowed: subs OK Medic ationGen ericName : amlodipi ne Not Available Not Available Not Available amlodipin e 5 mg tablet TAKE 1 AND 1/2 TABLET BY MOUTH ONCE DAILY active Not Available Not Available No t Available allopurin ol 100 mg tablet TAKE 1 TABLET BY MOUTH TWICE DAILY active Not Available Not Available No t Available aspirin 81 mg tablet,de layed release 05/15 completed Medicati on ID: [id number] Stefanie son: () Brand Name: aspirin Send Method: E-Prescr ibed Sub s Allowed: subs OK Medic ationGen ericName : aspirin Not Available Not Available Not Available triamcino lone acetonide 0.1 % topical cream 04/23 completed Medicati on ID: [id number] B rand Name: triamcin olone acetonid e Send Method: E-Prescr ibed Sub s Allowed: subs OK Medic ationGen ericName : triamcin olone acetonid e Not Available Not Available Not Available amoxicill in 500 mg tablet 12/20 completed Medicati on ID: [id number] D uration Value: 21 Brand Name: amoxicil chidi Send Method: E-Prescr ibed Sub s Allowed: subs OK Medic ationGen ericName : amoxicil chidi Not Available Not Available Not Available potassium chloride 20 mEq/15 mL oral liquid PLEASE SEE ATTACHED FOR DETAILED DIRECTIO NS active Not Available Not Available No t Available amoxicill in 875 mg tablet 1 tablet by mouth 2016 active Medicati on ID: [id number] D uration Value: 10 Prescri bed By Name: Antonella powell MD Brand Name: amoxicil chidi Send Method: E-Prescr ibed Sub s Allowed: subs OK Medic ationGen ericName : amoxicil chidi Not Available Not Available Not Available prednison e 1 mg tablet TAKE 3 TABLETS BY MOUTH EVERY DAY active Not Available Not Available No t Available Keflex 250 mg capsule 1 capsule by mouth 2018 active Medicati on ID: [id number] D uration Value: 7 Prescri bed By Name: Antonella powell MD Brand Name: Keflex S end Method: E-Prescr ibed Sub s Allowed: subs OK Medic ationGen ericName : Keflex Not Available Not Available Not Available potassium citrate ER 10 mEq (1,080 mg) tablet,ex tended release TAKE 1 TABLET (10 MEQ TOTAL) BY MOUTH DAILY WITH BREAKFAS T. active Not Available Not Available No t Available Lamictal 25 mg tablet 12/20 completed Medicati on ID: [id number] D uration Value: 21 Brand Name: Lamictal Send Method: E-Prescr ibed Sub s Allowed: No subs Med icationG enericNa me: Lamictal Not Available Not Available Not Available cephalexi n 500 mg capsule 01/16 completed Medicati on ID: [id number] B rand Name: cephalex in Send Method: E-Prescr ibed Sub s Allowed: subs OK Medic ationGen ericName : cephalex in Not Available Not Available Not Available pantopraz ole 40 mg tablet,de layed release TAKE 1 TABLET BY MOUTH TWICE A DAY active Not Available Not Available No t Available Lamictal 100 mg tablet 12/20 completed Medicati on ID: [id number] Dur ation Value: 90 Brand Name: Lamictal Send Method: E-Prescr ibed Sub s Allowed: No subs Med icationG enericNa me: Lamictal Not Available Not Available Not Available mometason e 50 mcg/actua tion nasal spray 12/20 completed Medicati on ID: [id number] D uration Value: 90 Brand Name: mometaso ne Send Method: E-Prescr ibed Sub s Allowed: subs OK Medic ationGen ericName : mometaso ne Not Available Not Available Not Available budesonid e 0.5 mg/2 mL suspensio n for nebulizat ion ADD VIAL TO SALINE RINSE DAILY active Not Available Not Available No t Available lotepredn ol etabonate 0.5 % eye drops,josh pension INSTILL 1 DROP INTO BOTH EYES THREE TIMES A DAY active Not Available Not Available No t Available nystatin 100,000 unit/gram topical powder APPLY TO AFFECTED AREA TWICE A DAY active Not Available Not Available No t Available levalbute rol 1.25 mg/3 mL solution for nebulizat ion INHALE THE CONTENTS OF 1 VIAL VIA NEBULIZE R 3 TIMES A DAY (DX 44.9) active Not Available Not Available No t Available azelastin e 137 mcg (0.1 %) nasal spray 2 spray into both nostrils active Not Available Not Available No t Available estradiol 0.01% (0.1 mg/gram) vaginal cream APPLY DIME SIZED AMOUNT 2-3X/WEE KLY TO VAGINAL TISSUE active Not Available Not Available No t Available albuterol sulfate HFA 90 mcg/actua tion aerosol inhaler INHALE 2 PUFFS EVERY 6 HOURS NEEDED FOR SHORTNES S OR BREATH OR WHEEZING FOR 30 DAYS active Not Available Not Available No t Available colchicin e 0.6 mg tablet 12/20 completed Medicati on ID: [id number] D uration Value: 90 Brand Name: colchici ne Send Method: E-Prescr ibed Sub s Allowed: subs OK Speci al Instruct ion: TAKE 1 TABLET (0.6 MG TOTAL) BY MOUTH EVERY OTHER DAY. Med icationG enericNa me: colchici ne Not Available Not Available Not Available ketoconaz ole 2 % topical cream 04/23 completed Medicati on ID: [id number] B rand Name: ketocona zole Sen d Method: E-Prescr ibed Sub s Allowed: subs OK Medic ationGen ericName : ketocona zole Not Available Not Available Not Available hydroxyzi ne HCl 10 mg tablet TAKE 1 TABLET BY MOUTH EVERY DAY IN THE EVENING NEEDED FOR 7 DAYS active Not Available Not Available No t Available sodium chloride 0.9 % for nebulizat ion INHALED 2.5 ML BY MOUTH EVERY 12 HOURS active Not Available Not Available No t Available doxycycli ne hyclate 100 mg tablet Take 1 tablet by mouth twice a day 2021 active Medicati on ID: [id number] D uration Value: 10 Brand Name: doxycycl ine hyclate Send Method: E-Prescr ibed Sub s Allowed: subs OK Medic ationGen ericName : doxycycl ine hyclate Not Available Not Available Not Available Augmentin 500 mg-125 mg tablet 1 tablet by mouth 2021 active Medicati on ID: [id number] D uration Value: 10 Brand Name: Augmenti n Send Method: E-Prescr ibed Sub s Allowed: subs OK Medic ationGen ericName : Augmenti n Not Available Not Available Not Available ipratropi um bromide 0.02 % solution for inhalatio n 04/23 completed Medicati on ID: [id number] B rand Name: ipratrop ium bromide Send Method: E-Prescr ibed Sub s Allowed: subs OK Speci al Instruct ion: USE 1.25 ML VIA INHALATI ON 4 TIMES A DAY (J45.51) Medicat ionGener icName: ipratrop ium bromide Not Available Not Available Not Available tobramyci n 0.3 %-dexamet hasone 0.1 % eye drops,josh pension 12/20 completed Medicati on ID: [id number] D uration Value: 10 Brand Name: tobramyc in-dexam ethasone Send Method: E-Prescr ibed Sub s Allowed: subs OK Speci al Instruct ion: PLACE ONE DROP INTO BOTH EYES 4 TIMES A DAY FOR 7-10 DAYS Med icationG enericNa me: tobramyc in-dexam ethasone Not Available Not Available Not Available hydroxyzi ne pamoate 25 mg capsule 12/20 completed Medicati on ID: [id number] D uration Value: 30 Brand Name: hydroxyz ine pamoate Send Method: E-Prescr ibed Sub s Allowed: subs OK Speci al Instruct ion: TAKE ONE CAPSULE BY MOUTH 3 TIMES A DAY NEEDED FOR ANXIETY Medicati onGeneri cName: hydroxyz ine pamoate Not Available Not Available Not Available neomycin 3.5 mg/g-poly myxin B 10,000 unit/g-de xameth 0.1 % eye oint 12/20 completed Medicati on ID: [id number] D uration Value: 20 Brand Name: neomycin -polymyx in B-dexame th Send Method: E-Prescr ibed Sub s Allowed: subs OK Speci al Instruct ion: APPLY TO RIGHT EYE TWICE A DAY X7-10 DAYS Med icationG enericNa me: neomycin -polymyx in B-dexame th Not Available Not Available Not Available Sharps Container 01/16 completed Medicati on ID: [id number] B rand Name: Sharps Containe r Send Method: E-Prescr ibed Sub s Allowed: subs OK Speci al Instruct ion: USE DIRECTED E Medica tionGene ricName: Sharps Containe r Not Available Not Available Not Available nitrofura ntoin monohydra te/macroc rystals 100 mg capsule TAKE 1 CAPSULE BY MOUTH EVERY 12 HOURS WITH FOOD FOR 10 DAYS active Not Available Not Available No t Available fluocinon sylvie 0.1 % topical cream 12/20 completed Medicati on ID: [id number] D uration Value: 30 Brand Name: fluocinvineet owen Sen d Method: E-Prescr ibed Sub s Allowed: subs OK Medic ationGen ericName : fluocino nide Not Available Not Available Not Available methotrex ate 05/15 completed Medicati on ID: [id number] R micheline: () Brand Name: methotre xate Sen d Method: E-Prescr ibed Sub s Allowed: subs OK Medic ationGen ericName : methotre xate Not Available Not Available Not Available Nasonex Inhale 2 spray into both nostrils once a day as directed 12/20 completed Medicati on ID: [id number] D uration Value: 30 Brand Name: nasonex Send Method: E-Prescr ibed Sub s Allowed: subs OK Medic ationGen ericName : nasonex Not Available Not Available Not Available Symbicort 160 mcg-4.5 mcg/actua tion HFA aerosol inhaler 12/20 completed Medicati on ID: [id number] D uration Value: 90 Brand Name: Symbicor t Send Method: E-Prescr ibed Sub s Allowed: subs OK Medic ationGen ericName : Symbicor t Not Available Not Available Not Available Humalog KwikPen (U-100) Insulin 100 unit/mL subcutane ous INJECT 2-4 UNITS BEFORE LUNCH DX:E10.6 5 active Not Available Not Available No t Available Wendy Bach [facility] spacer 12/20 completed Medicati on ID: [id number] D uration Value: 1 Brand Name: Donald Bach [facility] Send Method: E-Prescr ibed Sub s Allowed: subs OK Speci al Instruct ion: USE DIRECTED WITH INHALER Medicati onGeneri cName: Donald Bach [facility] Not Available Not Available Not Available EpiPen 2-Leon 0.3 mg/0.3 mL injection , auto-inje ctor 12/20 completed Medicati on ID: [id number] D uration Value: 2 Brand Name: EpiPen 2-Leon Se nd Method: E-Prescr ibed Sub s Allowed: subs OK Speci al Instruct ion: USE DIRECTED FOR ANAPHYLA XIS AND CALL 911 Medi cationGe nericNam e: EpiPen 2-Leon Not Available Not Available Not Available Jardiance 10 mg tablet TAKE 1 TABLET BY MOUTH EVERY MORNING active Not Available Not Available No t Available Yuvafem 10 mcg vaginal tablet active Medicati on ID: [id number] B rand Name: Yuvafem Send Method: E-Prescr ibed Sub s Allowed: subs OK Medic ationGen ericName : Yuvafem Not Available Not Available Not Available Accu-Chek Guide test strips USE TO CHECK SUGARS 1-2 TIMES PER DAY DX:E11.9 active Not Available Not Available No t Available Accu-Chek Guide Me Glucose Meter USE TO CHECK BLOOD SUGARS 1-2 TIMES A DAY DX: E11.9 active Not Available Not Available No t Available BD Deanne 2nd Gen Pen Needle 32 gauge x 5/32 USE 3 TIMES A DAY active Not Available Not Available No t Available Zerviate 0.24 % eye drops in a dropperet te USE 1 DROP INTO BOTH EYES TWICE A DAY active Not Available Not Available No t Available FreeStyle Pollo 2 Sensor kit 1 SENSOR EVERY 14 DAYS (DX: E10.65) active Not Available Not Available No t Available FreeStyle Pollo 2 [place] USE DIRECTED WITH SENSORS (DX: E10.65) active Not Available Not Available No t Available FreeStyle Pollo 3 Sensor device ONE TO SKIN EVERY FOURTEEN DAYS DX:E10.6 5 active Not Available Not Available No t Available Miebo (PF) 100 % eye drops INSTILL 1 DROP INTO BOTH EYES 4 TIMES A DAY DIRECTED active Not Available Not Available No t Available FreeStyle Pollo 3 [place] USE WITH SENSORS TO CHECK BLOOD SUGAR DX:E10.6 5 active Not Available Not Available No t Available Vitals Date Recorded Body height Body mass index (BMI) Body weight Provider Name and Address Organization Details Last Updated DateTime 06/02/2024 160.02 cm 24.8 kg/m2 99812.93 g John Novak [place] [facility] 06/02/2024 15:50:53 Date Recorded Body height Body mass index (BMI) Body weight Provider Name and Address Organization Details Last Updated DateTime 08/24/2024 160.02 cm 24.8 kg/m2 43695.93 g John Novak [place] [facility] 08/24/2024 10:06:40 Social History None recorded. Functional Status None recorded. Mental Status None recorded. Family History Nothing Reported. Medical History No medical history recorded. Gynecological HistoryNo gynecological history recorded. Obstetrics History GPAL:G 0 P 0 0 0 0 Past Encounters Encounter ID Performer Location Encounter Start Date Encounter Closed Date Diagnosis/Indication Diagnosis SNOMED-CT Code Diagnosis ICD10 Code Diagnosis Note [id number] ANTONELLA HAGAN MD [facility] [id number] [place] [address] 06/02/2024 15:22:21 06/02/2024 16:20:46 Chronic pansinusitis 43051560 J32.4 She may have mild sinusitis based on purulent mucus. Culture performed. Will want input from Dr. Anand on resuming tobramycin rinses vs. oral antiobitcs . Will follow up culture. Eosinophil ic granulomatosis with polyangiitis 87357298 M30.1 Defer to her specialist . [id number] ANTONELLA HAGAN MD [facility] [address] [place] [address] 08/24/2024 09:46:57 08/24/2024 10:32:43 Chronic pansinusitis 23307721 J32.4 No purulence on endoscopy today. Prior two cultures without pathogens. Agree with azelastine and oral antihistam ine on alternatin g days as well as saline rinses. F/u [address] Anand and her hospital cleaning specialist s notes as well as well as outside culture results. Eosinophil ic granulomatosis with polyangiitis 16372937 M30.1 Defer to her specialist . Health Concerns Section Related Observation LastModified by Organization Detai ls LastModified Time None Recorded Concern Status LastModified by Organization Details LastModified Time None Recorded Advance Directives Directive None Recorded Payers Insurance Date Sequence Insurance Name Policy Number Policy Connor Covered Member ID Connor Member ID Guarantor Name 08/24/2024 1 [place] [employer] Griselda Welsh [id number] Griselda Ferguson Anitha 08/24/[address] [facility] [place] [id number] Griselda Blankenshipdeidra [id number] Griselda W Anitha Notes Date Note Type Note Provider Name and Address Organization Details Recorded Time 06/02/2024 text/html visit for chroni c [id number] d female presents for reevaluation of sinusitis. 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 She sees Dr. Parra in [place]. She is followed by Dr. Anand and since the last visit stopped tobramycin/budesoni de. Over the past few weeks she has developed right sided facial pain. She presents for endoscopy and culture. ANTONELLA HAGAN MD [address] [place] [address],[address], [address], [place] - [facility] 06/03/2024 07:33:31 08/24/2024 text/html visit for chroni c -dqzs-ri d female presents for reevaluation of sinusitis. 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 She sees Dr. Parra in [place]. She is followed by Dr. Anand who she saw last month. He did a culture which showed coag negative kristina. Dr. Taveras called her yesterday and saline rinses and anthistamines as well as azelastine was recommended rather than another course of tobramycin/budesoni de rinses. She is on chronic prednisone. Hx of retuximab and nucala use but not currently. Still receiving IVIG. ANTONELLA HAGAN MD [address] [place] [address],[address], [address], [place] - [facility] 08/24/2024 10:34:04 OBGyn Episode No OBEpisode recorded.
--- OUTSIDE RECORDS SUMMARY | 2025-04-07 16:17 | XMS_ITS | Encounter Summary ---
Author Organization [facility] Address [address] [place] [address] Care Team Providers Care University President Name Role Phone Daisy Lee MD Primary Care Provider Encounter Details Date Type Department Care Team (Late st Contact Info) Description 11/26/[address] [facility] - Main Lab [address] [facility] [place] [address] Daisy Lee MD [address] [place] [phone] Encounter for other general examination Social History [...] % LAB HEMETOLOGY METHOD 11/26/2024 10:52 AM [facility] Bands % 1.0 % LAB HEMETOLOGY METHOD 11/26/2024 10:52 AM [facility] Lymphocytes % 12.0 % LAB HEMETOLOGY METHOD 11/26/2024 10:52 AM [facility] Monocytes % 5.0 % LAB HEMETOLOGY METHOD 11/26/2024 10:52 AM [facility] Eosinophils % 1.0 % LAB HEMETOLOGY METHOD 11/26/2024 10:52 AM [facility] Basophils % 0.0 % LAB HEMETOLOGY METHOD 11/26/2024 10:52 AM [facility] Metamyelocytes % 1.0(H) % LAB HEMETOLOGY METHOD 11/26/2024 10:52 AM [facility] Myelocytes % 3.0(H) % LAB HEMETOLOGY METHOD 11/26/2024 10:52 AM [facility] Neutrophils Absolute Manual 6.39 1.50 - 7.00 K/mcL LAB HEMETOLOGY METHOD 11/26/2024 10:52 AM [facility] Bands Absolute Manual 0.08(H) 0.00 - 0.00 K/mcL LAB HEMETOLOGY METHOD 11/26/2024 10:52 AM [facility] Lymphocytes Absolute 1.00 1.00 - 5.00 K/mcL LAB HEMETOLOGY METHOD 11/26/2024 10:52 AM [facility] Monocytes Absolute Manual 0.42 0.20 - 1.00 K/mcL LAB HEMETOLOGY METHOD 11/26/2024 10:52 AM [facility] Eosinophils Absolute Manual 0.08 0.00 - 0.50 K/mcL LAB HEMETOLOGY METHOD 11/26/2024 10:52 AM EST [facility] Basophils Absolute Manual 0.00 0.00 - 0.20 K/[facility] LAB HEMETOLOGY METHOD 11/26/2024 10:52 AM EST [facility] Metamyelocytes Absolute Manual 0.08(H) 0.00 - 0.00 K/mcL LAB HEMETOLOGY METHOD 11/26/2024 10:52 AM EST [facility] Myelocytes Absolute Manual 0.25(H) 0.00 - 0.00 K/[facility] LAB HEMETOLOGY METHOD 11/26/2024 10:52 AM [facility] Rbc Morphology Present( A) Consistent with indices, Normal for [place] LAB HEMETOLOGY METHOD 11/26/2024 10:52 AM [facility] Comment:RBC: Morphology agre es with CBC Platelet Morphology - WAM See Note(A) Normal LAB HEMETOLOGY METHOD 11/26/2024 10:52 AM [facility] Comment:PLT: Normal Tear Drop Cells Present 5 - 10%(A) (none) LAB HEMETOLOGY METHOD 11/26/2024 10:52 AM [facility] Blood Venous blood specimen / Unknown Venipuncture / Unknown 11/26/2024 7:25 AM EST 11/26/2024 9:22 AM EST us Daisy Lee MD LAB BLOOD ORDERABLES Final Resu lt [facility] [address] [place] [address], * (ABNORMAL) CBC auto differential (11/26/2024 7:25 AM EST) WBC 8.3 4.8 - 10.8 K/mcL LAB HEMETOLOGY METHOD 11/26/2024 10:52 AM [facility] RBC 3.40(L) 3.80 - 4.80 M/mcL LAB HEMETOLOGY METHOD 11/26/2024 10:52 AM [facility] Hemoglobin 9.6(L) 11.5 - 16.0 g/dL LAB HEMETOLOGY METHOD 11/26/2024 10:52 AM [facility] Hematocrit 30.3(L) 35.0 - 47.0 % LAB HEMETOLOGY METHOD 11/26/2024 10:52 AM [facility] MCV 89.1 79.0 - 98.0 FL LAB HEMETOLOGY METHOD 11/26/2024 10:52 AM [facility] MCH 28.2 27.0 - 32.0 pcg LAB HEMETOLOGY METHOD 11/26/2024 10:52 AM [facility] MCHC 31.7(L) 32.0 - 37.0 g/dL LAB HEMETOLOGY METHOD 11/26/2024 10:52 AM [facility] RDW 16.3(H) 11.0 - 15.0 % LAB HEMETOLOGY METHOD 11/26/2024 10:52 AM [facility] Platelets 184 130 - 400 K/mcL LAB HEMETOLOGY METHOD 11/26/2024 10:52 AM [facility] MPV 10.5 7.0 - 11.0 FL LAB HEMETOLOGY METHOD 11/26/2024 10:52 AM [facility] NRBC 0.0 <1.0 % LAB HEMETOLOGY METHOD 11/26/2024 10:52 AM [facility] NRBC Absolute 0.00 <0.10 K/mcL LAB HEMETOLOGY METHOD 11/26/2024 10:52 AM [facility] Blood Venous blood specimen / Unknown Venipuncture / Unknown 11/26/2024 7:25 AM EST 11/26/2024 9:22 AM EST us Daisy Lee MD LAB BLOOD ORDERABLES Final Resu lt Performing Organization Address [facility]/ZIP Co de Phone Number [facility] [address] [place] [address], * Magnesium (11/26/2024 7:25 AM EST) Magnesium 2.0 1.9 - 2.6 mg/dL LAB CHEMISTRY METHOD 11/26/2024 10:24 AM EST [facility] Blood Venous blood specimen / Unknown Venipuncture / Unknown 11/26/2024 7:25 AM EST 11/26/2024 9:22 AM EST Daisy Lee MD LAB BLOOD ORDERABLES Final Resu lt Performing Organization Address [facility]/ZIP Co de Phone Number [facility] [address] [place] [address], * (ABNORMAL) Comprehensive metabolic panel (11/26/2024 7:25 AM EST) Pathologist [facility] Sodium 136 133 - 145 mmol/L LAB CHEMISTRY METHOD 11/26/2024 10:34 AM [facility] Potassium 4.1 3.5 - 5.5 mmol/L LAB CHEMISTRY METHOD 11/26/2024 10:34 AM [facility] Chloride 108 96 - 110 mmol/L LAB CHEMISTRY METHOD 11/26/2024 10:34 AM [facility] CO2 16(L) 21 - 32 mmol/L LAB CHEMISTRY METHOD 11/26/2024 10:34 AM [facility] Anion Gap 12(H) 3 - 11 LAB CHEMISTRY METHOD 11/26/2024 10:34 AM [facility] Glucose 113(H) 70 - 100 mg/dL LAB CHEMISTRY METHOD 11/26/2024 10:34 AM [facility] BUN 63(H) 5 - 25 mg/dL LAB CHEMISTRY METHOD 11/26/2024 10:34 AM [facility] Creatinine 1.75(H) 0.50 - 1.10 mg/dL LAB CHEMISTRY METHOD 11/26/2024 10:34 AM [facility] eGFR 30(L) >=60 mL/min/1. 73m2 LAB CHEMISTRY METHOD 11/26/2024 10:34 AM [facility] Comment:Calculation based on the??Chronic Kidney Disease Epidemiology Collaboration (CKD-EPI) equation refit??without adjustment for race. BUN/Creatinine Ratio 36.0 LAB CHEMISTRY METHOD 11/26/2024 10:34 AM [facility] Calcium 9.1 8.5 - 10.5 mg/dL LAB CHEMISTRY METHOD 11/26/2024 10:34 AM [facility] AST (SGOT) 27 10 - 42 unit/L LAB CHEMISTRY METHOD 11/26/2024 10:34 AM [facility] ALT (SGPT) 47 10 - 60 unit/L LAB CHEMISTRY METHOD 11/26/2024 10:34 AM [facility] Alkaline Phosphatase 127(H) 42 - 121 unit/L LAB CHEMISTRY METHOD 11/26/2024 10:34 AM [facility] Total Protein 6.1 6.0 - 8.0 g/dL LAB CHEMISTRY METHOD 11/26/2024 10:34 AM [facility] Albumin 3.1(L) 3.2 - 5.0 g/dL LAB CHEMISTRY METHOD 11/26/2024 10:34 AM [facility] Total Bilirubin 0.4 0.0 - 1.4 mg/dL LAB CHEMISTRY METHOD 11/26/2024 10:34 AM [facility] Blood Venous blood specimen / Unknown Venipuncture / Unknown 11/26/2024 7:25 AM EST 11/26/2024 9:22 AM EST us Daisy Lee MD LAB BLOOD ORDERABLES Final [facility]u lt [facility] [address] [place] [address], documented in this encounter Visit Diagnoses Diagnosis Encounter for other general examination documented in this encounter Care Teams University President Relationship Specialty Start Date End Date Daisy Lee MD [address] [place] [phone] PCP - General Hospitalist Medicine 03/18/25 documented as of this encounter
--- OUTSIDE RECORDS SUMMARY | 2025-04-07 16:17 | XMS_ITS | Encounter Summary ---
Author Organization [facility] Address [address] [place] [address] Care Team Providers Care Parts Person Name Role Phone Daisy Lee MD Primary Care Provider Encounter Details Date Type Department Care Team (Late st Contact Info) Description 11/27/2024 Lab Requisition [facility] - Main Lab [address] [place] [address] Daisy Lee MD [address] [place] [phone] Encounter for other general examination Social History [...] LAB CHEMISTRY METHOD 11/27/2024 11:21 AM EST [facility] Potassium 4.2 3.5 - 5.5 mmol/L LAB CHEMISTRY METHOD 11/27/2024 11:21 AM EST [facility] Comment:Hemolysis present Chloride 108 96 - 110 mmol/L LAB CHEMISTRY METHOD 11/27/2024 11:21 AM EST [facility] CO2 17(L) 21 - 32 mmol/L LAB CHEMISTRY METHOD 11/27/2024 11:21 AM [facility] Anion Gap 9 3 - 11 LAB CHEMISTRY METHOD 11/27/2024 11:21 AM [facility] Glucose 128(H) 70 - 100 mg/dL LAB CHEMISTRY METHOD 11/27/2024 11:21 AM [facility] BUN 62(H) 5 - 25 mg/dL LAB CHEMISTRY METHOD 11/27/2024 11:21 AM [facility] Creatinine 1.73(H) 0.50 - 1.10 mg/dL LAB CHEMISTRY METHOD 11/27/2024 11:21 AM [facility] eGFR 30(L) >=60 mL/min/1. 73m2 LAB CHEMISTRY METHOD 11/27/2024 11:21 AM [facility] Comment:Calculation based on the??Chronic Kidney Disease Epidemiology Collaboration (CKD-EPI) equation refit??without adjustment for race. BUN/Creatinine Ratio 35.8 LAB CHEMISTRY METHOD 11/27/2024 11:21 AM [facility] Calcium 9.5 8.5 - 10.5 mg/dL LAB CHEMISTRY METHOD 11/27/2024 11:21 AM [facility] AST (SGOT) 27 10 - 42 unit/L LAB CHEMISTRY METHOD 11/27/2024 11:21 AM [facility] Comment:Hemolysis present ALT (SGPT) 46 10 - 60 unit/L LAB CHEMISTRY METHOD 11/27/2024 11:21 AM [facility] Alkaline Phosphatase 143(H) 42 - 121 unit/L LAB CHEMISTRY METHOD 11/27/2024 11:21 AM [facility] Total Protein 6.5 6.0 - 8.0 g/dL LAB CHEMISTRY METHOD 11/27/2024 11:21 AM [facility] Albumin 3.3 3.2 - 5.0 g/dL LAB CHEMISTRY METHOD 11/27/2024 11:21 AM [facility] Total Bilirubin 0.3 0.0 - 1.4 mg/dL LAB CHEMISTRY METHOD 11/27/2024 11:21 AM EST [facility] Blood Venous blood specimen / Unknown Venipuncture / Unknown 11/27/2024 7:52 AM EST 11/27/2024 9:36 AM EST us Daisy Lee MD LAB BLOOD ORDERABLES Final Resu lt [facility] [address] [place] [address], documented in this encounter Visit Diagnoses Diagnosis Encounter for other general examination documented in this encounter Care Teams Parts Person Relationship Specialty Start Date End Date Daisy Lee MD [address] [place] [phone] PCP - General Hospitalist Medicine 03/18/25 documented as of this encounter
--- OUTSIDE RECORDS SUMMARY | 2025-04-07 16:17 | XMS_ITS | Encounter Summary ---
Author Organization [employer] Address [address] [place] [address] Care Team Providers Care Commercial Stripper Name Role Phone Daisy Lee MD Primary Care Provider Encounter Details Date Type Department Care Team (Late st Contact Info) Description 10/03/2024 Lab Requisition [facility] - Main Lab [address] [place] [address] Jonathon Antunez MD [address] [place] [phone] Low back pain, unspecified Social History Tobacco [...] Travel phlebotomy fee (10/03/2024 5:51 AM EST) [facility] TRAVEL PHLEBOTOMY FEE Completed 10/03/2024 8:01 AM EST [facility] Blood Venous blood specimen / Unknown 10/03/2024 5:51 AM EST 10/03/2024 7:56 AM EST us Jonathon Antunez MD LAB BLOOD ORDERABLES Final Res ult Performing Organization Address [facility] Co de Phone Number [facility] [address] [place] [address], [place] [phone] * (ABNORMAL) Hemoglobin A1c (10/03/2024 5:51 AM EST) Hemoglobin A1C 6.8(H) <6.5 % LAB CHEMISTRY METHOD 10/03/2024 2:20 PM EST [facility] Mean Bld Glu Estim. 148 mg/dL LAB CHEMISTRY METHOD 10/03/2024 2:20 PM EST [facility] Blood Venous blood specimen / Unknown 10/03/2024 5:51 AM EST 10/03/2024 7:56 AM EST Jonathon Antunez MD LAB BLOOD ORDERABLES Final Res ult Performing Organization Address [facility] Co de Phone Number [facility] [address] [place] [address], [place] [phone] documented in this encounter Visit Diagnoses Diagnosis Low back pain, unspecified documented in this encounter Care Teams Commercial Stripper Relationship Specialty Start Date End Date Daisy Lee MD [address] [place] [phone] PCP - General Hospitalist Medicine 03/18/25 documented as of this encounter
--- OUTSIDE RECORDS SUMMARY | 2025-04-07 16:18 | XMS_ITS | Encounter Summary ---
Author Organization [employer]. Address [address] [place] [address] Care Team Providers Care Landscape Specialist Name Role Phone Daisy Lee MD Primary Care Provider Encounter Details Date Type Department Care Team (Late st Contact Info) Description 03/18/2025 Lab Requisition [facility] - Main Lab [address] [facility] [place] [address] Daisy Lee MD [address] [place] [id number] Encounter for other general examination Social History [...] % LAB HEMETOLOGY METHOD 03/18/2025 12:00 PM [facility] Lymphocytes % 11.0 % LAB HEMETOLOGY METHOD 03/18/2025 12:00 PM [facility] Monocytes % 4.0 % LAB HEMETOLOGY METHOD 03/18/2025 12:00 PM [facility] Eosinophils % 1.0 % LAB HEMETOLOGY METHOD 03/18/2025 12:00 PM [facility] Basophils % 2.0 % LAB HEMETOLOGY METHOD 03/18/2025 12:00 PM [facility] Metamyelocytes % 2.0(H) % LAB HEMETOLOGY METHOD 03/18/2025 12:00 PM [facility] Myelocytes % 1.0(H) % LAB HEMETOLOGY METHOD 03/18/2025 12:00 PM [facility] Neutrophils Absolute Manual 5.91 1.50 - 7.00 K/mcL LAB HEMETOLOGY METHOD 03/18/2025 12:00 PM [facility] Lymphocytes Absolute 0.80(L) 1.00 - 5.00 K/mcL LAB HEMETOLOGY METHOD 03/18/2025 12:00 PM [facility] Monocytes Absolute Manual 0.29 0.20 - 1.00 K/mcL LAB HEMETOLOGY METHOD 03/18/2025 12:00 PM [facility] Eosinophils Absolute Manual 0.07 0.00 - 0.50 K/mcL LAB HEMETOLOGY METHOD 03/18/2025 12:00 PM [facility] Basophils Absolute Manual 0.15 0.00 - 0.20 K/mcL LAB HEMETOLOGY METHOD 03/18/2025 12:00 PM [facility] Metamyelocytes Absolute Manual 0.15(H) 0.00 - 0.00 K/mcL LAB HEMETOLOGY METHOD 03/18/2025 12:00 PM EDT [facility] Myelocytes Absolute Manual 0.07(H) 0.00 - 0.00 K/mcL LAB HEMETOLOGY METHOD 03/18/2025 12:00 PM EDT [facility] Rbc Morphology Present( A) Consistent with indices, Normal for LAB HEMETOLOGY METHOD 03/18/2025 12:00 PM EDT [facility] Platelet Morphology - WAM See Note(A) Normal LAB HEMETOLOGY METHOD 03/18/2025 12:00 PM EDT [facility] Comment:PLT: Normal Ovalocytes Present 5 - 10%(A) (none) LAB HEMETOLOGY METHOD 03/18/2025 12:00 PM EDT [facility] Tear Drop Cells Present 5 - 10%(A) (none) LAB HEMETOLOGY METHOD 03/18/2025 12:00 PM EDT [facility] Blood Venous blood specimen / Unknown Venipuncture / Unknown 03/18/2025 5:19 AM EDT 03/18/2025 10:54 AM EDT us Daisy Lee MD LAB BLOOD ORDERABLES Final Resu lt [facility] [address] [place] [address], * (ABNORMAL) CBC auto differential (03/18/2025 5:19 AM EDT) WBC 7.3 4.8 - 10.8 K/mcL LAB HEMETOLOGY METHOD 03/18/2025 12:00 PM EDT [facility] RBC 3.10(L) 3.80 - 4.80 M/mcL LAB HEMETOLOGY METHOD 03/18/2025 12:00 PM EDT [facility] Hemoglobin 9.3(L) 11.5 - 16.0 g/dL LAB HEMETOLOGY METHOD 03/18/2025 12:00 PM [facility] Hematocrit 29.0(L) 35.0 - 47.0 % LAB HEMETOLOGY METHOD 03/18/2025 12:00 PM [facility] MCV 94.5 79.0 - 98.0 FL LAB HEMETOLOGY METHOD 03/18/2025 12:00 PM [facility] MCH 30.3 27.0 - 32.0 pcg LAB HEMETOLOGY METHOD 03/18/2025 12:00 PM [facility] MCHC 32.1 32.0 - 37.0 g/dL LAB HEMETOLOGY METHOD 03/18/2025 12:00 PM [facility] RDW 14.7 11.0 - 15.0 % LAB HEMETOLOGY METHOD 03/18/2025 12:00 PM [facility] Platelets 162 130 - 400 K/mcL LAB HEMETOLOGY METHOD 03/18/2025 12:00 PM [facility] MPV 11.3(H) 7.0 - 11.0 FL LAB HEMETOLOGY METHOD 03/18/2025 12:00 PM [facility] NRBC 0.3 <1.0 % LAB HEMETOLOGY METHOD 03/18/2025 12:00 PM [facility] NRBC Absolute 0.02 <0.10 K/mcL LAB HEMETOLOGY METHOD 03/18/2025 12:00 PM [facility] Blood Venous blood specimen / Unknown Venipuncture / Unknown 03/18/2025 5:19 AM EDT 03/18/2025 10:54 AM EDT us Daisy Lee MD LAB BLOOD ORDERABLES Final Resu lt [facility] [address] [place] [address], [place] [phone] * (ABNORMAL) Magnesium (03/18/2025 5:19 AM EDT) Pathologist [facility] Magnesium 1.7(L) 1.9 - 2.6 mg/dL LAB CHEMISTRY METHOD 03/18/2025 1:06 PM EDT [facility] Blood Venous blood specimen / Unknown Venipuncture / Unknown 03/18/2025 5:19 AM EDT 03/18/2025 10:54 AM EDT Daisy Lee MD LAB BLOOD ORDERABLES Final Resu lt Performing Organization Address [facility]/ZIP Co de Phone Number [facility] [address] [place] [address], * (ABNORMAL) Comprehensive metabolic panel (03/18/2025 5:19 AM EDT) [facility] Sodium 137 133 - 145 mmol/L LAB CHEMISTRY METHOD 03/18/2025 1:09 PM T [facility] Potassium 3.7 3.5 - 5.5 mmol/L LAB CHEMISTRY METHOD 03/18/2025 1:09 PM [facility] Chloride 104 96 - 110 mmol/L LAB CHEMISTRY METHOD 03/18/2025 1:09 PM [facility] CO2 22 21 - 32 mmol/L LAB CHEMISTRY METHOD 03/18/2025 1:09 PM [facility] Anion Gap 11 3 - 11 LAB CHEMISTRY METHOD 03/18/2025 1:09 PM [facility] Glucose 108(H) 70 - 100 mg/dL LAB CHEMISTRY METHOD 03/18/2025 1:09 PM [facility] BUN 36(H) 5 - 25 mg/dL LAB CHEMISTRY METHOD 03/18/2025 1:09 PM [facility] Creatinine 1.52(H) 0.50 - 1.10 mg/dL LAB CHEMISTRY METHOD 03/18/2025 1:09 PM [facility] eGFR 35(L) >=60 mL/min/1. 73m2 LAB CHEMISTRY METHOD 03/18/2025 1:09 PM [facility] Comment:Calculation based on the??Chronic Kidney Disease Epidemiology Collaboration (CKD-EPI) equation refit??without adjustment for race. BUN/Creatinine Ratio 23.7 LAB CHEMISTRY METHOD 03/18/2025 1:09 PM [facility] Calcium 8.9 8.5 - 10.5 mg/dL LAB CHEMISTRY METHOD 03/18/2025 1:09 PM [facility] AST (SGOT) 13 10 - 42 unit/L LAB CHEMISTRY METHOD 03/18/2025 1:09 PM [facility] ALT (SGPT) 29 10 - 60 unit/L LAB CHEMISTRY METHOD 03/18/2025 1:09 PM [facility] Alkaline Phosphatase 93 42 - 121 unit/L LAB CHEMISTRY METHOD 03/18/2025 1:09 PM [facility] Total Protein 5.4(L) 6.0 - 8.0 g/dL LAB CHEMISTRY METHOD 03/18/2025 1:09 PM [facility] Albumin 2.9(L) 3.2 - 5.0 g/dL LAB CHEMISTRY METHOD 03/18/2025 1:09 PM [facility] Total Bilirubin 0.4 0.0 - 1.4 mg/dL LAB CHEMISTRY METHOD 03/18/2025 1:09 PM [facility] Blood Venous blood specimen / Unknown Venipuncture / Unknown 03/18/2025 5:19 AM EDT 03/18/2025 10:54 AM EDT us Daisy Lee MD LAB BLOOD ORDERABLES Final Resu lt [facility] [address] [place] [address], documented in this encounter Visit Diagnoses Diagnosis Encounter for other general examination documented in this encounter Care Teams Landscape Specialist Relationship Specialty Start Date End Date Daisy Lee MD [address] [place] [phone] PCP - General Hospitalist Medicine 03/18/25 documented as of this encounter
--- OUTSIDE RECORDS SUMMARY | 2025-04-07 16:18 | XMS_ITS | Encounter Summary ---
Author Organization [facility] Address [address] [place] [address] Care Team Providers Care Line Assembler Aircraft Name Role Phone Daisy Lee MD Primary Care Provider [phone] Encounter Details Date Type Department Care Team (Late st Contact Info) Description 11/30/2024 Lab Requisition [facility] - Main Lab [address] [place] [address] Daisy Lee MD [address] [place] [id number] Encounter for other general examination Social History [...] AM EST) WBC 7.7 4.8 - 10.8 K/[facility] LAB HEMETOLOGY METHOD 11/30/2024 10:31 AM EST [facility] RBC 3.30(L) 3.80 - 4.80 M/[facility] LAB HEMETOLOGY METHOD 11/30/2024 10:31 AM EST [facility] Hemoglobin 9.5(L) 11.5 - 16.0 g/dL LAB HEMETOLOGY METHOD 11/30/2024 10:31 AM [facility] Hematocrit 29.6(L) 35.0 - 47.0 % LAB HEMETOLOGY METHOD 11/30/2024 10:31 AM [facility] MCV 88.6 79.0 - 98.0 FL LAB HEMETOLOGY METHOD 11/30/2024 10:31 AM [facility] MCH 28.4 27.0 - 32.0 pcg LAB HEMETOLOGY METHOD 11/30/2024 10:31 AM [facility] MCHC 32.1 32.0 - 37.0 g/dL LAB HEMETOLOGY METHOD 11/30/2024 10:31 AM [facility] RDW 16.3(H) 11.0 - 15.0 % LAB HEMETOLOGY METHOD 11/30/2024 10:31 AM [facility] Platelets 181 130 - 400 K/mcL LAB HEMETOLOGY METHOD 11/30/2024 10:31 AM [facility] MPV 10.3 7.0 - 11.0 FL LAB HEMETOLOGY METHOD 11/30/2024 10:31 AM [facility] NRBC 0.0 <1.0 % LAB HEMETOLOGY METHOD 11/30/2024 10:31 AM [facility] NRBC Absolute 0.00 <0.10 K/mcL LAB HEMETOLOGY METHOD 11/30/2024 10:31 AM [facility] Blood Venous blood specimen / Unknown Venipuncture / Unknown 11/30/2024 5:06 AM EST 11/30/2024 9:41 AM EST us Daisy Lee MD LAB BLOOD ORDERABLES Final Resu lt [facility] [address] [place] [address], [place] [phone] * (ABNORMAL) Basic metabolic panel (11/30/2024 5:06 AM EST) Sodium 134 133 - 145 mmol/L LAB CHEMISTRY METHOD 11/30/2024 10:54 AM [facility] Potassium 4.0 3.5 - 5.5 mmol/L LAB CHEMISTRY METHOD 11/30/2024 10:54 AM [facility] Chloride 106 96 - 110 mmol/L LAB CHEMISTRY METHOD 11/30/2024 10:54 AM [facility] CO2 19(L) 21 - 32 mmol/L LAB CHEMISTRY METHOD 11/30/2024 10:54 AM [facility] Anion Gap 9 3 - 11 LAB CHEMISTRY METHOD 11/30/2024 10:54 AM [facility] Glucose 133(H) 70 - 100 mg/dL LAB CHEMISTRY METHOD 11/30/2024 10:54 AM [facility] BUN 55(H) 5 - 25 mg/dL LAB CHEMISTRY METHOD 11/30/2024 10:54 AM [facility] Creatinine 1.48(H) 0.50 - 1.10 mg/dL LAB CHEMISTRY METHOD 11/30/2024 10:54 AM [facility] eGFR 36(L) >=60 mL/min/1. 73m2 LAB CHEMISTRY METHOD 11/30/2024 10:54 AM [facility] Comment:Calculation based on the??Chronic Kidney Disease Epidemiology Collaboration (CKD-EPI) equation refit??without adjustment for race. BUN/Creatinine Ratio 37.2 LAB CHEMISTRY METHOD 11/30/2024 10:54 AM [facility] Calcium 8.9 8.5 - 10.5 mg/dL LAB CHEMISTRY METHOD 11/30/2024 10:54 AM [facility] Blood Venous blood specimen / Unknown Venipuncture / Unknown 11/30/2024 5:06 AM EST 11/30/2024 9:41 AM EST us Daisy Lee MD LAB BLOOD ORDERABLES [facility] [address] [place] [address], documented in this encounter Visit Diagnoses Diagnosis Encounter for other general examination documented in this encounter Care Teams Line Assembler Aircraft Relationship Specialty Start Date End Date Daisy Lee MD [address] [place] [id number] PCP - General Hospitalist Medicine 03/18/25 documented as of this encounter
--- OUTSIDE RECORDS SUMMARY | 2025-04-07 16:18 | XMS_ITS | Encounter Summary ---
Author Organization [employer] Address [address] [place] [address] Care Team Providers Care Crop Grain Or Livestock Farmer Name Role Phone Daisy Lee MD Primary Care Provider Encounter Details Date Type Department Care Team (Late st Contact Info) Description 03/22/2025 Lab Requisition [facility] - Main Lab [address] [facility] [place] [address] Daisy Lee MD [address] [place] [phone] Encounter for other general examination Social History [...] % LAB HEMETOLOGY METHOD 03/22/2025 11:19 AM [facility] Lymphocytes % 7.0 % LAB HEMETOLOGY METHOD 03/22/2025 11:19 AM [facility] Monocytes % 10.0 % LAB HEMETOLOGY METHOD 03/22/2025 11:19 AM [facility] Eosinophils % 0.0 % LAB HEMETOLOGY METHOD 03/22/2025 11:19 AM [facility] Basophils % 1.0 % LAB HEMETOLOGY METHOD 03/22/2025 11:19 AM [facility] Metamyelocytes % 1.0(H) % LAB HEMETOLOGY METHOD 03/22/2025 11:19 AM [facility] Myelocytes % 3.0(H) % LAB HEMETOLOGY METHOD 03/22/2025 11:19 AM [facility] Neutrophils Absolute Manual 6.08 1.50 - 7.00 K/mcL LAB HEMETOLOGY METHOD 03/22/2025 11:19 AM [facility] Lymphocytes Absolute 0.54(L) 1.00 - 5.00 K/mcL LAB HEMETOLOGY METHOD 03/22/2025 11:19 AM [facility] Monocytes Absolute Manual 0.77 0.20 - 1.00 K/mcL LAB HEMETOLOGY METHOD 03/22/2025 11:19 AM [facility] Eosinophils Absolute Manual 0.00 0.00 - 0.50 K/mcL LAB HEMETOLOGY METHOD 03/22/2025 11:19 AM [facility] Basophils Absolute Manual 0.08 0.00 - 0.20 K/mcL LAB HEMETOLOGY METHOD 03/22/2025 11:19 AM [facility] Metamyelocytes Absolute Manual 0.08(H) 0.00 [...] Morphology - WAM See Note(A) Normal [facility] 03/22/2025 11:19 AM EDT [facility] Comment:PLT: Normal Tear Drop Cells Present 5 - 10%(A) (none) LAB HEMETOLOGY METHOD 03/22/2025 11:19 AM EDT [facility] Blood Venous blood specimen / Unknown Venipuncture / Unknown 03/22/2025 5:49 AM EDT 03/22/2025 9:35 AM EDT us Daisy Lee MD LAB BLOOD ORDERABLES Final Resu lt [facility] [address] [place] [address], * (ABNORMAL) CBC auto differential (03/22/2025 5:49 AM EDT) WBC 7.7 4.8 - 10.8 K/mcL LAB HEMETOLOGY METHOD 03/22/2025 11:19 AM EDT [facility] RBC 3.30(L) 3.80 - 4.80 M/mcL LAB HEMETOLOGY METHOD 03/22/2025 11:19 AM EDT [facility] Hemoglobin 10.0(L) 11.5 - 16.0 g/dL LAB HEMETOLOGY METHOD [facility]25 [facility] Hematocrit 30.6(L) 35.0 - 47.0 % LAB HEMETOLOGY METHOD 03/22/2025 11:19 AM [facility] MCV 93.3 79.0 - 98.0 FL LAB HEMETOLOGY METHOD 03/22/2025 11:19 AM [facility] MCH 30.5 27.0 - 32.0 pcg LAB HEMETOLOGY METHOD 03/22/2025 11:19 AM [facility] MCHC 32.7 32.0 - 37.0 g/dL LAB HEMETOLOGY METHOD 03/22/2025 11:19 AM [facility] RDW 14.7 11.0 - 15.0 % LAB HEMETOLOGY METHOD 03/22/2025 11:19 AM [facility] Platelets 191 130 - 400 K/mcL LAB HEMETOLOGY METHOD 03/22/2025 11:19 AM [facility] MPV 10.9 7.0 - 11.0 FL LAB HEMETOLOGY METHOD 03/22/2025 11:19 AM [facility] NRBC 0.0 <1.0 % LAB HEMETOLOGY METHOD 03/22/2025 11:19 AM [facility] NRBC Absolute 0.00 <0.10 K/mcL LAB HEMETOLOGY METHOD 03/22/2025 11:19 AM [facility] Blood Venous blood specimen / Unknown Venipuncture / Unknown 03/22/2025 5:49 AM EDT 03/22/2025 9:35 AM EDT us Daisy Lee MD LAB BLOOD ORDERABLES Final Resu lt [facility] [address] [place] [address], * Magnesium (03/22/2025 5:49 AM EDT) Pathologist [facility] Magnesium 1.9 1.9 - 2.6 mg/dL LAB CHEMISTRY METHOD 03/22/2025 11:26 AM [facility] Blood Venous blood specimen / Unknown Venipuncture / Unknown 03/22/2025 5:49 AM EDT 03/22/2025 9:35 AM EDT Daisy Lee MD LAB BLOOD ORDERABLES Final Resu lt [facility] [address] [place] [address], * (ABNORMAL) Comprehensive metabolic panel (03/22/2025 5:49 AM EDT) [facility] Sodium 136 133 - 145 mmol/L LAB CHEMISTRY METHOD 03/22/2025 11:26 AM [facility] Potassium 3.4(L) 3.5 - 5.5 mmol/L LAB CHEMISTRY METHOD 03/22/2025 11:26 AM [facility] Chloride 103 96 - 110 mmol/L LAB CHEMISTRY METHOD 03/22/2025 11:26 AM [facility] CO2 21 21 - 32 mmol/L LAB CHEMISTRY METHOD 03/22/2025 11:26 AM [facility] Anion Gap 12(H) 3 - 11 LAB CHEMISTRY METHOD 03/22/2025 11:26 AM [facility] Glucose 176(H) 70 - 100 mg/dL LAB CHEMISTRY METHOD 03/22/2025 11:26 AM [facility] BUN 48(H) 5 - 25 mg/dL LAB CHEMISTRY METHOD 03/22/2025 11:26 AM [facility] Creatinine 1.58(H) 0.50 - 1.10 mg/dL LAB CHEMISTRY METHOD 03/22/2025 11:26 AM [facility] eGFR 34(L) >=60 mL/min/1. 73m2 LAB CHEMISTRY METHOD 03/22/2025 11:26 AM [facility] Comment:Calculation based on the??Chronic Kidney Disease Epidemiology Collaboration (CKD-EPI) equation refit??without adjustment for race. BUN/Creatinine Ratio 30.4 LAB CHEMISTRY METHOD 03/22/2025 11:26 AM [facility] Calcium 9.1 8.5 - 10.5 mg/dL LAB CHEMISTRY METHOD 03/22/2025 11:26 AM [facility] AST (SGOT) 12 10 - 42 unit/L LAB CHEMISTRY METHOD 03/22/2025 11:26 AM [facility] ALT (SGPT) 29 10 - 60 unit/L LAB CHEMISTRY METHOD 03/22/2025 11:26 AM [facility] Alkaline Phosphatase 121 42 - 121 unit/L LAB CHEMISTRY METHOD 03/22/2025 11:26 AM [facility] Total Protein 6.0 6.0 - 8.0 g/dL LAB CHEMISTRY METHOD 03/22/2025 11:26 AM [facility] Albumin 3.2 3.2 - 5.0 g/dL LAB CHEMISTRY METHOD 03/22/2025 11:26 AM [facility] Total Bilirubin 0.3 0.0 - 1.4 mg/dL LAB CHEMISTRY METHOD 03/22/2025 11:26 AM [facility] Blood Venous blood specimen / Unknown Venipuncture / Unknown 03/22/2025 5:49 AM EDT 03/22/2025 9:35 AM EDT us Daisy Lee MD LAB BLOOD ORDERABLES Final Resu lt [facility] [address] [place] [address], [place] [phone] documented in this encounter Visit Diagnoses Diagnosis Encounter for other general examination documented in this encounter Care Teams Crop Grain Or Livestock Farmer Relationship Specialty Start Date End Date Daisy Lee MD [address] [place] [phone] PCP - General Hospitalist Medicine 03/18/25 documented as of this encounter
[2025-04-07 16:33] LABS: MANUAL DIFF FLAG NO
[2025-04-07 16:48] LABS: VBG pCO2 36 mmHg
[2025-04-07 16:49] LABS: VBG Base Excess -1.2 mmol/L; VBG HCO3 23 mmol/L (22-26)
[2025-04-07 16:52] LABS: Venous Blood Gas Refer to POC result
[2025-04-07 17:17] LABS: Basophils Percent Auto 0.4 % (0-2); Eosinophils Percent Auto 0.1 % (0-4); Hemoglobin 11.3 g/dl (12.0-16.0); Imm Gran Pct Auto 4.7 % (0.0-0.4); Lymphocytes Absolute Auto 0.3 X10*3/uL (1.2-4.9); Lymphocytes Percent Auto 3.5 % (20-40); Mean Corpuscular HGB Conc 33.2 g/dl (31.0-35.0); Mean Corpuscular Hemoglobin 29.8 pg (27.0-33.0); Mean Corpuscular Volume 89.7 fL (80.0-98.0); Mean Platelet Volume 11.3 fL (9.4-12.3); Monocytes Absolute Auto 0.2 X10*3/uL (0.1-1.2); Monocytes Percent Auto 2.6 % (2-11); Neutrophils Absolute Auto 7.5 x10*3/uL (2.0-8.3); Neutrophils Percent Auto 88.7 % (45-73); Platelet Count 168 X10*3/uL (160-400); Red Blood Count 3.79 X10*6/uL (4.20-5.50); Red Cell Distribution Width 14.7 % (11.0-16.0); White Blood Count 8.5 X10*3/uL (4.8-10.8)
[2025-04-07 17:45] LABS: Alanine Aminotransferase 46 U/L (0-31); Albumin Level 4.2 g/dL (3.5-5.0); Alkaline Phosphatase 154 U/L (39-117); Anion Gap 18 (12-20); Aspartate Amino Transferase 33 U/L (5-31); Bilirubin Direct 0.2 mg/dL (0.0-0.5); Bilirubin Total 0.5 mg/dL (0.0-1.0); Blood Urea Nitrogen 48 mg/dL (9-16); Calcium 10.4 mg/dL (8.4-10.2); Carbon Dioxide 21 mmol/L (22-29); Chloride 102 mmol/L (96-108); Estimated Glomerular Filt Rate 36; Glucose Random 195 mg/dL (60-115); Potassium 4.5 mmol/L (3.3-5.1); Sodium 136 mmol/L (135-145); Total Protein 6.8 g/dL (6.5-8.0)
[2025-04-08 18:43] LABS: IgA 160 mg/dL (70-320); IgG 346 mg/dL (600-1540); IgM 23 mg/dL (50-300)
[2025-04-08 21:43] LABS: Immunoglobulin E 7 kU/L (<OR=114)
== END 2025-04-07 15:15 | disposition home or self-care (01) ==
LOC: HO.LAB 15:14
PROVIDERS: PCP Internal Medicine; Visit Provider Hospitalist
DX: J47.0 Bronchiectasis with acute lower respiratory infection (principal); J44.0 Chronic obstructive pulmonary disease with (acute) lower respiratory infection; D80.1 Nonfamilial hypogammaglobulinemia; M30.1 Polyarteritis with lung involvement [Churg-Strauss]; E11.65 Type 2 diabetes mellitus with hyperglycemia; M48.061 Spinal stenosis, lumbar region without neurogenic claudication; M54.50 Low back pain, unspecified; Z79.52 Long term (current) use of systemic steroids
CPT/HCPCS: 36415; 80048; 80076; 82784; 82785; 82803; 85025; 99212

== ENCOUNTER 2025-05-19 12:53 | Outpatient (AMB) | payer MEDICARE, OTHER, SELFPAY ==
[2025-05-19 13:02] VITALS: BP 136/70; PULSE 93; O2SAT 96
--- NOTE | 2025-05-19 13:02 | A.OFFVIS_ITS ---
Vital Signs 05/19/25 13:02 Height 5 ft 2 in BMI Reason not done Patient refused/unable BP 136/70 Blood Pressure Location Lt brachial Position Sitting Pulse 93 Pulse Source Pulse Oximeter Pulse Oximetry (%) 96 Oxygen Delivery Method Room Air Intake Visit Reasons: Bronchiectasis Transportation Maintenance Operator Required: No Accompanied by: Spouse Allergies Benzodiazepines (BENZODIAZEPINES) Allergy (Intermediate, Verified 05/19/25 13:05) ANXIETY levofloxacin (From LEVAQUIN) Allergy (Intermediate, Verified 05/19/25 13:05) PAIN IN LEGS AND JOINTS clonazepam Allergy (Mild, Verified 05/19/25 13:05) Hallucinations lorazepam Allergy (Mild, Verified 05/19/25 13:05) Hallucinations olanzapine (Zyprexa) Allergy (Mild, Verified 05/19/25 13:05) Cough Penicillins (PENICILLINS) Allergy (Mild, Verified 05/19/25 13:05) Hives Sulfa (Sulfonamide Antibiotics) (SULFA (SULFONAMIDE ANTIBIOTICS)) Allergy (Mild, Verified 05/19/25 13:05) Sensivity mycophenolate mofetil (From CellCept) Allergy (Unknown, Verified 05/19/25 13:05) Blister MSG Allergy (Mild, Uncoded 08/27/24 14:03) Upset stomach HPI Comments Details: The patient is a 80-year-old woman with a 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 The patient also has significant asthma with eosinophilia was treated with Nucala. She responded to the therapy for some time with good results but then stop responding. She did follow up in [place] with her assistant district attorney and at that point the decision was to start her on rituximab. She received 2 doses. The 1st dose she ended up with pneumonia and up in the hospital and then she received a 2nd dose she has not felt well. She complains of worsening shortness of breath and cough with mucus production. She has a hard time expectorating. She has been on prednisone. She had a sputum culture was positive for Pseudomonas. She was placed on a nebulized amikacin but then had a reaction which has a stop it. She was then admitted to the hospital for IV antibiotics. She was discharged from the hospital she still have feels a lot of shortness of breath. Still on a small dose of prednisone. Last night her cough and shortness of breath was significantly worsen and she thought she would have to go back to the hospital. This morning she feels a little better. She still has a hard time expectorating. Sounds like she has a croupy barky cough. Suggesting the possibility of tracheomalacia. The patient does not use CPAP. She does have daytime drowsiness and does have issues with headaches in the morning. She on needs to have a sleep study. As far CPT she uses a flutter valve. She will have a CT scan of the chest that I personally reviewed demonstrating significant bronchiectasis primarily at the bases with mucus plugging. She has failed flutter valve and also has had resistant organisms therefore will try to get her a percussion vest as soon as possible to improve her chest PT. She did have a CT scan of the chest consistent with sinusitis. Her x-ray did demonstrated haziness in the right base suggesting airspace disease. She was given a dose of aztreonam. Infectious Disease was consulted and did not feel strongly about admitting her to the hospital or starting aztreonam. I did call microbiology in order to aztreonam to her Pseudomonas sensitivity panel. Will monitor closely her symptoms. At this point will start her on azithromycin for the bronchiectasis. She was also on Bactrim however she had a bump on her creatinine from 1.5-1.8. Therefore I will hold off on the Bactrim and see how she does in the azithromycin for now. She does follow up with her assistant district attorney in [place] and further discuss this. In the meantime her IgG levels were significantly low. She has severe infections in the upper or lower respiratory tract and does require to start IgG therapies as well as possible. The patient is sedimentation rate still elevated at on her recent bl ood work of 75 she has ongoing symptoms bringing up the question if her vasculitis still active. She is going to be following up with [place] soon regarding additional rituximab or additional therapies for the ongoing vasculitis. The the bronchoscopy demonstrated significant purulent Secretions and significant tracheobronchomalacia. Her Pseudomonas is extremely resistant. She started azithromycin Friday and Friday and she also started her percussion vest for her bronchiectasis with good effect. Overall she is feeling better. She also has immunodeficiency syndrome and will start IgG infusions tomorrow. 05/14/2023 the patient is here for a pulmonary follow-up visit. She is doing well from a respiratory status. No significant chest congestion. She continues on her chest PT using her nebulized therapy hypertonic saline a percussion vest. She is having issues with her sinuses. Having sinus pressure and also some bulging of the eyes. The patient did have an ENT evaluation and did have cultures which were positive. I do not have the results. She was referred back to [facility] in [place] for further care. She may need to go back on topical antibiotics. the patient did have blood work which I reviewed. It appears that her ANCA is negative still which is reassuring. She has not had to receive any additional Rituxan which is also reassuring. She continues on 11 mg of prednisone. The patient continues on the IVIG every 6 weeks. Her IgG levels are low normal so therefore she should continue with the every 6 weeks at this time. She is wondering about using the mask. I did encourage her to continue using the mask due to her immunodeficiency. 09/09/2023 the patient is here for a follow-up visit. Overall the patient continues to have some dyspnea on exertion. Ttyj-gy-cqucldka severity. Her sinuses start still an issue. She did go to ENT in [place] recently and she was again prescribed a compound BEULAH/ budesonide suspension that she does use twice a day. She will continue that for another 12 weeks and then they will follow-up with her. The patient has not had to start Rituxan just yet. She is actually weaning down the prednisone some. She is concerned that her kidney function got worse. She is going to follow up with her assistant district attorney soon. If her symptoms worsen she can always have more blood work done. I did put the blood work in the system. She continues on the IVIG therapy every 6 weeks which she is tolerating fairly well without any significant adverse effects. She also continues with respiratory therapy. No significant chest congestion at this time. 12/17/2023 the patient is here for pulmonary follow-up visit. From a respiratory status she is actually doing very well. Her congested subsided significantly. She also has improvement of her sinuses after the be BEULAH budesonide suspension. She also was able to stop that. Although she had worsening inflammatory changes and when she went to [place] her prednisone was increased from 11 mg to 15 mg. Subsequently after that during Thanksgiving dinner the patient developed severe hypoglycemia requiring a hospital visit. The patient was placed on medications although she was symptomatic with dizziness and falls and ultimately was taken off 1 medication and then placed on a different medication and had problems again. Therefore she has been off all medications. 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 She is able to decrease prednisone down to 13 mg but she is going to go slowly undergo be monitoring closely in [place]. The patient is continued to get her IVIG infusions as prescribed with good effect. She also continues to use her CPT also with good effect as her congestion is significantly improved. 05/13/2024 the patient is here for a pulmonary follow-up visit. Overall she has doing a little better. She was hospitalized was given high-dose steroids and she had significant hyperglycemia. He has been very difficult to control her sugars. She is on insulin. The patient has been doing well from a respiratory status. She is down to prednisone 13 mg. She is slowly decreasing. I wonder she is going to need a steroid sparing agent to minimize steroid use. May be a good candidate for mycophenolate. In the meantime she is getting her IVIG. Will go and check her trough levels before the next dose. She continues her respiratory therapy. Does not have any significant chest congestion. Will try to wean her off the azithromycin macrolide suppression therapy that she uses for bronchiectasis. Will try to wean her off completely to make sure we can simplify her medication regimen. 08/27/2024 the patient is here for a pulmonary follow-up visit. She has had worsening cough chest congestion and wheezing. Moderate severity. Is going to going on for the last 3-5 days. She continues on 13 mg of prednisone. She has not been able to cut down further. She is having moderate degree of chest congestion. We tried . Sputum sample in the office but we were not able to do so. Therefore will go ahead and start her on Augmentin since this is 1 of the antibiotics she can not tolerate. And will also try to get a sputum culture whenever possible. We can also consider additional imaging studies and also consider bronchoscopy if the patient is not able to clear this. She is also having significant wheezing on examination. Although does have issues with hyperglycemia and diabetes so therefore hold off on increasing the prednisone at this time. She continues to receive her IVIG. She also has been taking the azithromycin 3 times a week. She did try to cut down but she could not do so because of her worsening congestion. 04/07/2025 the patient is here for pulmonary follow-up visit. The patient has been very sick now for many months. The chronic prednisone has affected her significantly. He has had severe back pain due to significant disease that is consider nonoperable causing to have chronic pain issues. She was placed on strong opiates to try to control the pain. Unfortunately to the prednisone has caused her to have elevated blood sugars and now dealing with diabetes. In addition to that her underlying respiratory disease and vasculitis. She has not been able to get down on to lower than 20 mg of prednisone. She did follow-up in [place] all this very difficult for her to travel to [place] now because of her chronic pain issues very debilitating. Therefore, will go ahead and start a sm all dose of mycophenolate and start decreasing her prednisone down by 1 mg every 2 weeks and will follow-up in 6 weeks to see if we can get at least get her down to 17 mg. And at that point will go ahead and request additional blood work. The patient had been on IVIG therapy for her immunodeficiency. But because she has been so chronically ill and going from the hospital to the rehab she has mi ssed several dosages. Therefore will go ahead and request additional blood work to see where her IgG levels are and then restart her on IVIG therapy. Her respiratory exam is reassuring. Will have her undergo blood work today and hopefully start IVIG soon. 05/19/2025 the patient is here for pulmonary follow-up visit. She has been able to wean down the prednisone she is down to 16 mg. She is going to continue to decrease further every 2 weeks until she gets to 14 mg. In the meantime she did get her IVIG. She did have some symptoms during and after the infusion but then afterwards she was okay. We are avoiding any Solu-Medrol premedications as we are trying to avoid corticosteroids altogether. She initially started CellCept and then switched over to Imuran because of a question allergic reaction but it was actually thrush. Then she restarted the CellCept but then developed abdominal pain so she is going to go ahead and stop it and then she is going to start now the Imuran again at 25 mg daily which is a very small dose she will see if she can stay away from needing additional corticosteroids with a steroid sparing agent. She is still having significant pain in the back which is limiting her ability to stand. She had been evaluated by pain management in the past year. Will go ahead and refer her again to see if there is any modalities I can provide any relief. From a pulmonary standpoint she is doing better and if she does need anesthesia she could tolerated specially since her significant discomfort does limit her quality of life. Therefore, she will continue with the current respiratory therapy as her lungs are clear she will continue to receive the IVIG and will going to continue decreasing the prednisone safely. When she gets to 14 mg will start decreasing it down by 0.5 mg to minimize any significant adverse effects. She does feel some withdrawal symptoms but she is moving forward. Follow-up in the next 4-6 weeks. If she has any issues prior to this she will call for an earlier assessment. [facility] Medical History (Updated 04/07/25 @ 23:24 by Marquis Morel MD) Diabetes mellitus Status post administration of all doses of COVID-19 vaccine series COPD (chronic obstructive pulmonary disease) Bronchiectasis Rash Hypogammaglobulinemia CSS (Churg-James syndrome) Surgical History History of appendectomy History of ileostomy History of cholecystectomy History of hysterectomy History of colectomy History of bronchoscopy (~2019) Social History Patient Tobacco Use Status: Never used Tobacco Advance Directives Date on File: 09/19/20 Review of Systems Const Reports body aches, Denies chills, Reports difficulty sleeping, Reports fatigue and Denies fever(s) Eyes Reports change in vision ENT Reports dizziness, Denies lip swelling, Reports neck pain and Denies tongue swelling Card Denies chest pain, Denies leg edema, Denies lightheadedness, Denies palpitations, Denies dyspnea on exertion, Denies orthopnea and Denies other Resp Reports cough, Denies dyspnea on exertion and Denies wheezing GI Denies hematochezia and Denies change in stool character Musc Reports abnormal gait, Reports back pain, Reports arthralgias, Reports muscle weakness, Reports neck pain, Denies numbness, Reports radiating pain into limb and Reports tingling Skin/Breast Reports rash Neuro Reports abnormal gait, Reports dizziness, Denies numbness and Reports tingling Psych Denies no additional complaints Endo Reports fatigue and Denies palpitations Paul/Lymph Denies easy bleeding and Denies lymphadenopathy Aller/Immun Denies lip swelling, Denies tongue swelling and Denies wheezing Physical Exam Vital Signs: Last Vital Signs Pulse 93 05/19/25 13:02 BP 136/70 05/19/25 13:02 Pulse Ox 96 05/19/25 13:02 Oxygen Delivery Method Room Air 05/19/25 13:02 Const General: comfortable and alert HEENT Throat: Yes postnasal drainage (thick yellow mucus noted) Eyes Conjunctivae: conjunctival abnormal Neck Neck: Yes normal visual inspection, Yes full ROM and Yes no lymphadenopathy Chest Chest palpation & inspection: normal inspection of the chest Resp Effort & Inspection: normal respiratory effort Auscultation: no rales, no rhonchi, no wheezes and diminished lung sounds Cardio Rate: regular rate Rhythm: regular rhythm Heart sounds: S1 normal heart sound present and S2 normal heart sound present GI Palpation (GI): Soft to palpation and nontender Auscultation: normal bowel sounds Skin General skin exam: rashes and/or lesions noted Extrem General: Yes no clubbing, cyanosis or edema Assessment & Plan Assessment & Plan (1) Bronchiectasis: Code(s): J47.9 - Bronchiectasis, uncomplicated Category: Medical Qualifiers: Bronchiectasis type: with acute lower respiratory infection Qualified Code(s): J47.0 - Bronchiectasis with acute lower respiratory infection (2) COPD (chronic obstructive pulmonary disease): Code(s): J44.9 - Chronic obstructive pulmonary disease, unspecified Category: Medical Qualifiers: COPD type: COPD with acute lower respiratory infection Qualified Code(s): J44.0 - Chronic obstructive pulmonary disease with (acute) lower respiratory infection (3) Hypogammaglobulinemia: Code(s): D80.1 - Nonfamilial hypogammaglobulinemia Category: Medical (4) CSS (Churg-James syndrome): Comment: Failed Nucala. 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 [Churg-James]; D72.18 - Eosinophilia in diseases classified elsewhere Category: Medical (5) Diabetes mellitus: Code(s): E11.9 - Type 2 diabetes mellitus without complications Category: Medical Qualifiers: Diabetes mellitus complication status: with hyperglycemia Diabetes mellitus long term care administrator insulin use: without fpc use Diabetes mellitus type: type 2 Qualified Code(s): E11.65 - Type 2 diabetes mellitus with hyperglycemia (6) Spinal stenosis of lumbar region: Code(s): M48.061 - Spinal stenosis, lumbar region without neurogenic claudication Category: Medical Qualifiers: Neurogenic claudication status: unspecified Qualified Code(s): M48.061 - Spinal stenosis, lumbar region without neurogenic claudication (7) Low back pain: Code(s): M54.50 - Low back pain, unspecified Category: Medical Qualifiers: Back pain laterality: unspecified Chronicity: chronic Sciatica presence: with sciatica Plan Decrease Prednisone 16mg->14mg then decrease by 1mg every 2 weeks, till 14mg start steoid sparring agent: stop Cellcept due to abdominal pain and will start Imuran 25mg daily Continue budesonide benzonate for dry cough Duoneb continue CPT with hypertonic saline 3% and percussion vest continue IVIG infusions m1datmj, check through level Zyrtec daily bloodwork will trial tincture CBD w/o THC pain management, re-referral to pain clinic Follow-up in 2 months Orders: Referrals Pain Management Referral M48.061 - Spinal stenosis, lumbar region without neurogenic claudication, M54.50 - Low back pain, unspecified Coding Level of Care Code Complex EM visit Add On G2211 Diagnoses Bronchiectasis with acute lower respiratory infection J47.0 Bronchiectasis type: with acute lower respiratory infection Chronic obstructive pulmonary disease with acute lower respiratory infection J44.0 COPD type: COPD with acute lower respiratory infection Hypogammaglobulinemia D80.1 CSS (Churg-James syndrome) M30.1; D72.18 Type 2 diabetes mellitus with hyperglycemia, without long-term current use of insulin E11.65 Diabetes mellitus complication status: with hyperglycemia Diabetes mellitus long term care administrator insulin use: without fpc use Diabetes mellitus type: type 2 Spinal stenosis of lumbar region, unspecified whether neurogenic claudication present M48.061 Neurogenic claudication status: unspecified Low back pain M54.50 Back pain laterality: unspecified Chronicity: chronic Sciatica presence: with sciatica Time Spent (min) 60
--- OUTSIDE RECORDS SUMMARY | 2025-05-19 13:59 | XMS_ITS | Continuity of Care Document ---
Author Organization [facility] [address] [place] [address] Phone [phone] Care Team Providers Care Information Technology Account Manager Name Role Phone Eduardo Albert M.D. Care Team Information Public Policy Associate [phone] Problems Active Problems Provider Date Vitamin B12 [...] Social History Type Date Description Comments Sex Female Sex Unknown Lives With Spouse Work Status [...] SIG Qnty Indications Ordering Provider Date Novolog [id number]/ML Solution Pen-Inject inject 2 to 6 units three times daily pre meals 45ml E10.Schuyler Montiel M.D. 01/06/2025 Z79.4 Freestyle Pollo 3 Plus/Sesor/Glucose Monitoring SystemMisc one sensor to skin every 14 days dx: e11.9 9units Galilea Montiel M.D. 08/26/2024 Freestyle Pollo 3/Sensor/Glucose Monitoring Ccrzod8Twyupv Misc One To Skin Every Fourteen Days DX:E10.65 6units E10Poonam Montiel M.D. 03/26/2024 Freestyle Pollo 3/[place]/Glucose Monitoring Yftyvo9Vglemk Device use with sensors to check blood sugar dx:e10.65 1units Galilea Montiel M.D. 03/26/2024 BD Pen Needle/Deanne 2ND Gen/32G X 4mm32G X 4 mm Misc 1 pen needle to insulin pen 3 times a day dx:e11.9 300units E11Poonam Montiel M.D. 02/18/2024 Calcium 500/Vitamin D500-3.125mg-mcg Tablets 1 by mouth twice a day Unknown Vitamin E834hvm (1000 Ut) Capsules 1 by mouth every day Unknown Vitamin [id number] Tablets ER 1 by mouth every day Unknown Magnesium Wugdy579cp Tablets take 1 tablets by mouth 2 times a day Unknown Mtyxqnhxuo22ms Tablets 2 tabs qd Unknown Amlodipine Gvjhdxre42jm Tablets 1 by mouth every day Unknown Accu-Chek Softclix LancetsMisc Please Check Your Blood Sugar 3 Times Daily Unknown Sodium Chloride3% Nebulizer Inhale 4 ML Inhaled 2 Times A Day For 30 Days Marquis Morel Qxtaxdxjfuo943we Tablets Take 1 Tablet By Mouth Twice A Day Jimi Elaine, Quvslknevj37.5mg Tablets Take 1/2 Tablet By Mouth Twice A Day With Meals Unknown Budesonide0.5mg/2ML Suspension 0.5 MG (2 ML) Inhaled 2 Times A Day Marquis Morel Accu-Chek GuideStrips Use To Check Sugars 1-2 Times Per Day DX:E11.9 Daniel Dodge NP Accu-Chek Guide MeW/Device Kit Use To Check Blood Sugars 1-2 Times A Day DX: E11.9 Daniel Dodge NP Albuterol Sulfate WLO029(90Base) mcg/Act Aerosol Inhale 2 Puffs Every 6 Hours as Needed For Shortness Or Breath Or Wheezing For 3 Marquis Morel Pantoprazole Jgefzg24rb Tablets DR Take 1 Tablet By Mouth Twice A Day Unknown Kbgdkgnsdlma593pj Tablets Take 1 Tablet (250 MG) By Mouth 3 Times A Week Marquis Morel Potassium Citrate [id number] (1080 mg) Tablets ER Take 1 Tablet [...] 01/20/2024 Inhouse Glucose Fingerstick 197 Glucose 12/18/2023 [facility] Glucose 120 mg/dL High (70-99) Glucose 12/18/2023 [facility] Glucose 116 mg/dL High (70-99) Glucose 12/18/2023 [facility] Glucose 102 mg/dL High (70-99) Glucose Fingerstick 12/15/2023 Inhouse Glucose Fingerstick 135 Glucose Fingerstick 11/14/2023 Inhouse Glucose Fingerstick 146 Procedures Date Code Description Status 07/28/2024 37997 Glucose Monitoring Interpeta tion And Report Completed 05/06/2024 66472 Glucose Monitoring Interpeta tion And Report Completed 03/31/2024 39270 Glucose Monitoring Interpeta tion And Report Completed 02/18/2024 13896 Glucose Monitoring Interpeta tion And Report Completed 02/11/2024 57223 Glucose Monitori ng From Interstital Tissue Fluid Minimum 72 Hours Completed 11/14/2023 48786 Glucose Monitori ng From Interstital Tissue Fluid Minimum 72 Hours Completed Medical Devices Description No Information Available Encounters Type Date Location Provider Dx Diagnosis Office Visit 11/10/2024 1:15p Main Office Galilea Montiel M.D. 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 11/10/2024 Z79.4 remote computer terminal operator (current) use of i nsulin Galilea Montiel M.D. 11/10/2024 Z79.52 remote computer terminal operator (curre nt) use of systemic steroids Galilea [...]
== END 2025-05-19 13:38 | disposition home or self-care (01) ==
LOC: HO.HPS 12:53
PROVIDERS: PCP Internal Medicine; Visit Provider Hospitalist
DX: J47.0 Bronchiectasis with acute lower respiratory infection (principal); J44.0 Chronic obstructive pulmonary disease with (acute) lower respiratory infection; D80.1 Nonfamilial hypogammaglobulinemia; M30.1 Polyarteritis with lung involvement [Churg-Strauss]; D72.18 Eosinophilia in diseases classified elsewhere; E11.65 Type 2 diabetes mellitus with hyperglycemia; M48.061 Spinal stenosis, lumbar region without neurogenic claudication; M54.50 Low back pain, unspecified
CPT/HCPCS: 99215; G2211

== ENCOUNTER → 2025-05-19 12:53 | Outpatient (BNVA) | payer MEDICARE, OTHER, SELFPAY | PROVIDERS: PCP Internal Medicine; Visit Provider Hospitalist | DX: J47.0 Bronchiectasis with acute lower respiratory infection (principal); J44.0 Chronic obstructive pulmonary disease with (acute) lower respiratory infection; D80.1 Nonfamilial hypogammaglobulinemia; M30.1 Polyarteritis with lung involvement [Churg-Strauss]; D72.18 Eosinophilia in diseases classified elsewhere; M48.061 Spinal stenosis, lumbar region without neurogenic claudication; M54.50 Low back pain, unspecified; E11.65 Type 2 diabetes mellitus with hyperglycemia | CPT/HCPCS: 99212 ==

== ENCOUNTER 2025-06-27 10:52 | Outpatient (AMB) | payer MEDICARE, OTHER, SELFPAY ==
--- OUTSIDE RECORDS SUMMARY | 2025-04-06 09:00 | XMS_ITS ---
Author Organization [facility] Address [address] [place] [address] Care Team Providers Care Indexer Name Role Phone Eduardo Albert MD Primary Care Provider Sherry Kelly [phone] Encounters Encounter Location Date Provider Diagnosis [address] [place] [address] 04/06/2025 Sherry Trujillo Plan Of Treatment No Information Progress Notes * Griselda WELSH WDOB:[birth year] (80 yo F)Acc No.[id number]:04/06/2025 Progress Note Patient: Aurelio SPENCERICHY Griselda Ferguson Provider: Kenji Trujillo DPM :1945 A ge:79 Y S ex:Female Date:04/06/2025 Address:[address] [place] [address] Pcp:Eduardo Albert MD Subjective: * Chief Complaints: [...] Date: 04/06/2025 Generated for Printi ng/Faxing/eTransmitting on: 06/27/2025 12:08 PM EDT
--- NOTE | 2025-06-27 11:05 | A.OFFVIS_ITS ---
Vital Signs 06/27/25 11:07 Height 5 ft 2 in Weight 147 lb BMI 26.9 BP 139/73 Blood Pressure Location Lt brachial Position Sitting Respiration 16 Pulse 88 Pulse Source Pulse Oximeter Pulse Oximetry (%) 96 Oxygen Delivery Method Room Air Intake Visit Reasons: Low back pain/SID 08/14/23 w/ Yahaira Physician Chief Of Pathology Required: No Allergies Benzodiazepines (BENZODIAZEPINES) Allergy (Intermediate, Verified 06/27/25 11:08) ANXIETY levofloxacin (From LEVAQUIN) Allergy (Intermediate, Verified 06/27/25 11:08) PAIN IN LEGS AND JOINTS clonazepam Allergy (Mild, Verified 06/27/25 11:08) Hallucinations lorazepam Allergy (Mild, Verified 06/27/25 11:08) Hallucinations olanzapine (Zyprexa) Allergy (Mild, Verified 06/27/25 11:08) Cough Penicillins (PENICILLINS) Allergy (Mild, Verified 06/27/25 11:08) Hives Sulfa (Sulfonamide Antibiotics) (SULFA (SULFONAMIDE ANTIBIOTICS)) Allergy (Mild, Verified 06/27/25 11:08) Sensivity mycophenolate mofetil (From CellCept) Allergy (Unknown, Verified 06/27/25 11:08) Blister MSG Allergy (Mild, Uncoded 06/27/25 11:08) Upset stomach Medication List - Last Reconciled 06/27/25 by Abigail Phillips LPN acetaminophen (Tylenol) 325 mg PO TID PRN albuterol sulfate 90 mcg/actuation 2 inhalations inhalation Q6H PRN 30 days allopurinol 100 mg PO azathioprine (Imuran) 25 mg (1/2 x 50 mg) PO DAILY 28 days budesonide 0.25 mg (2 mL) inhalation BID carvedilol 6.25 mg PO BID cholecalciferol (vitamin D3) 25 mcg PO DAILY famotidine 20 mg PO DAILY fentanyl 12 mcg/hr 1 patch transdermal Q3D Gammagard Liquid 10 % (immun glob G(IgG)-gly-IgA ov50) 40 grams IV Q4W 30 days NS guaifenesin ER (Mucinex) 600 mg PO Q12H PRN insulin lispro (Humalog Dez KwikPen (U-100)) 1 sliding scale dose subcut USEASDIRECTD levalbuterol HCl 1.25 mg (3 mL) inhalation TID magnesium 200 mg PO BID nebulizers As directed oxycodone 5 mg PO Q4-6H PRN prednisone 20 mg PO DAILY 10 days timolol maleate (PF) 0.5% drps ophthalmic (eye) tizanidine 2 mg PO TID PRN vitamin B complex (B Complex-Vitamin B12 tablet) 1 tab PO DAILY HPI HPI Low back pain/SID 08/14/23 w/ Yahaira: Details: History of Present Illness The patient is a 80-year-old female presenting with chronic pain management concerns. She experiences bilateral leg pain, predominantly in the right leg, and severe lower back pain radiating to the hip, which impairs her ability to stand or walk. The pain has worsened since August, attributed to prednisone use leading to osteoporosis and a lumbar spine compression fracture. The patient has been hospitalized and in rehabilitation recently, with a three- week stay noted. Her medication regimen includes tapering prednisone and pain management with fentanyl and oxycodone, though she reports variable effectiveness and side effects. She also reports recent hearing loss, with a sinus x-ray showing no abnormalities. Her medical history is significant for kidney failure and an iliostomy. Further invasive procedures have been discouraged due to the risk of worsening her spinal condition. Pain Description - Onset: Pain has been progressively worsening since August. - Quality: Severe pain in the lower back radiating to the hip, making standing and walking difficult. - Location: Bilateral leg pain, predominantly in the right leg, and lower back pain. - Exacerbating factors: Standing and walking increase pain severity. - Relieving factors: Attempts to manage with fentanyl and oxycodone, though effectiveness is mixed. Physical Exam - Appears afebrile. - Alert and oriented. - Mood and affect appropriate. - Follows and participates in conversation appropriately. - Respiratory effort is unlabored. - Seated in wheelchair. Results - Sinus x-ray: No significant findings. Pain Management - Affect: Pain significantly impacts mobility and daily activities. - Analgesia: Current regimen includes fentanyl and oxycodone, with mixed effectiveness reported. - Adverse Effects: Reports of withdrawal symptoms when fentanyl patch was missing. - Activities of Daily Living: Pain limits ability to stand and walk, requiring a walker for mobility. - Aberrant Drug Related Behaviors: No aberrant behaviors reported, patient attempts to minimize oxycodone use. [facility] Medical History (Updated 06/29/25 @ 11:59 by Jc Miller MD) Diabetes mellitus Status post administration of all doses of COVID-19 vaccine series COPD (chronic obstructive pulmonary disease) Bronchiectasis Rash Hypogammaglobulinemia CSS (Churg-James syndrome) Surgical History History of appendectomy History of ileostomy History of cholecystectomy History of hysterectomy History of colectomy History of bronchoscopy (~2019) Social History Patient Tobacco Use Status: Never used Tobacco Advance Directives Date on File: 09/19/20 Physical Exam Vital Signs: Last Vital Signs Pulse 88 06/27/25 11:07 Resp 16 06/27/25 11:07 BP 139/73 06/27/25 11:07 Pulse Ox 96 06/27/25 11:07 Oxygen Delivery Method Room Air 06/27/25 11:07 BMI result Body Mass Index 26.9 Assessment & Plan Assessment & Plan (1) Spinal stenosis of lumbar region: Code(s): M48.061 - Spinal stenosis, lumbar region without neurogenic claudication Category: Medical Qualifiers: Neurogenic claudication status: unspecified Qualified Code(s): M48.061 - Spinal stenosis, lumbar region without neurogenic claudication (2) Lumbar degenerative disc disease: Code(s): M51.36 - Other intervertebral disc degeneration, lumbar region Category: Medical (3) Osteoporotic compression fracture of spine: Code(s): M80.88XA - Other osteoporosis with current pathological fracture, vertebra(e), initial encounter for fracture Category: Medical Plan Plan - Maintain current pain management with fentanyl and oxycodone, adjusting as necessary for pain control. - Gradually reduce prednisone dosage to limit osteoporosis progression. - Seek consultation with a case management specialist for comprehensive management of multiorgan symptoms and comfort. - Refrain from invasive procedures to prevent further spinal damage. - Discuss with primary care about optimal pathway to obtain outpatient palliative care services. Patient was informed and verbally consented to the use of an ambient scribe for clinic note documentation during this visit. Discussion Notes I discussed with the patient the current management of her chronic pain, emphasizing the importance of maintaining her current medication regimen with fentanyl and oxycodone while adjusting dosages as needed for optimal pain control. We also talked about the gradual tapering of prednisone to minimize osteoporosis progression and the potential benefits of consulting with a case management specialist to optimize comfort and manage her multi-system issues. I advised against invasive procedures due to the risk of exacerbating her spinal condition and suggested coordinating with her primary care provider for potential inpatient palliative care consultation if outpatient options are unavailable. Patient Instructions - Continue taking fentanyl and oxycodone as prescribed, and report any changes in pain levels to your doctor. - Follow the prednisone tapering schedule as directed by your healthcare provider. - Discuss with your primary care doctor about seeing a case management specialist for additional support. - Avoid any invasive procedures unless advised by your healthcare team. - Contact your primary care provider if you experience any new symptoms or if your condition worsens. Coding Level of Care Code Est Pt Level 4 (72967) Diagnoses Spinal stenosis of lumbar region, unspecified whether neurogenic claudication present M48.061 Neurogenic claudication status: unspecified Lumbar degenerative disc disease M51.36 Osteoporotic compression fracture of spine M80.88XA
[2025-06-27 11:07] VITALS: BP 139/73; PULSE 88; RESP 16; O2SAT 96; BMI 26.9
--- OUTSIDE RECORDS SUMMARY | 2025-06-27 12:08 | XMS_ITS | Encounter Summary ---
Author Organization [facility] Address [address] [place] [address] Care Team Providers Care Interface Designer Name Role Phone Daisy Lee MD Primary Care Provider [phone] Encounter Details Date Type Department Care Team (Late st Contact Info) Description 11/27/2024 Lab Requisition [facility] - Main Lab [address] [place] [address] Daisy Lee MD [address] [place] [address] Encounter for other general examination Social History [...] LAB CHEMISTRY METHOD 11/27/2024 11:21 AM EST [facility] Potassium 4.2 3.5 - 5.5 mmol/L LAB CHEMISTRY METHOD 11/27/2024 11:21 AM EST [facility] Comment:Hemolysis present Chloride 108 96 - 110 mmol/L LAB CHEMISTRY METHOD 11/27/2024 11:21 AM EST [facility] CO2 17(L) 21 - 32 mmol/L LAB CHEMISTRY METHOD 11/27/2024 11:21 AM [facility] Anion Gap 9 3 - 11 LAB CHEMISTRY METHOD 11/27/2024 11:21 AM [facility] Glucose 128(H) 70 - 100 mg/dL LAB CHEMISTRY METHOD 11/27/2024 11:21 AM [facility] BUN 62(H) 5 - 25 mg/dL LAB CHEMISTRY METHOD 11/27/2024 11:21 AM [facility] Creatinine 1.73(H) 0.50 - 1.10 mg/dL LAB CHEMISTRY METHOD 11/27/2024 11:21 AM [facility] eGFR 30(L) >=60 mL/min/1. 73m2 LAB CHEMISTRY METHOD 11/27/2024 11:21 AM [facility] Comment:Calculation based on the Chronic Kidney Disease Epidemiology Collaboration (CKD-EPI) equation refit without adjustment for race. BUN/Creatinine Ratio 35.8 LAB CHEMISTRY METHOD 11/27/2024 11:21 AM [facility] Calcium 9.5 8.5 - 10.5 mg/dL LAB CHEMISTRY METHOD 11/27/2024 11:21 AM [facility] AST (SGOT) 27 10 - 42 unit/L LAB CHEMISTRY METHOD 11/27/2024 11:21 AM [facility] Comment:Hemolysis present ALT (SGPT) 46 10 - 60 unit/L LAB CHEMISTRY METHOD 11/27/2024 11:21 AM [facility] Alkaline Phosphatase 143(H) 42 - 121 unit/L LAB CHEMISTRY METHOD 11/27/2024 11:21 AM [facility] Total Protein 6.5 6.0 - 8.0 g/dL LAB CHEMISTRY METHOD 11/27/2024 11:21 AM [facility] Albumin 3.3 3.2 - 5.0 g/dL LAB CHEMISTRY METHOD 11/27/2024 11:21 AM [facility] Total Bilirubin 0.3 0.0 - 1.4 mg/dL LAB CHEMISTRY METHOD 11/27/2024 11:21 AM EST [facility] Blood Venous blood specimen / Unknown Venipuncture / Unknown 11/27/2024 7:52 AM EST 11/27/2024 9:36 AM EST us Daisy Lee MD LAB BLOOD ORDERABLES Final Resu lt [facility] [address] [place] [address], documented in this encounter Visit Diagnoses Diagnosis Encounter for other general examination documented in this encounter Care Teams Interface Designer Relationship Specialty Start Date End Date Daisy Lee MD [address] [place] [id number] PCP - General Hospitalist Medicine 03/18/25 documented as of this encounter
--- OUTSIDE RECORDS SUMMARY | 2025-06-27 12:09 | XMS_ITS | Encounter Summary ---
Author Organization [facility] Address [address] [place] [address] Phone Care Team Providers Care Tallow Pumper Name Role Phone Eduardo Albert MD Primary Care Provider [phone] Marquis Morel MD Unavailable Kilo Diaz MD Primary Care Provider + Kilo Diaz MD Unavailable [phone] Eduardo Albert MD Primary Care Provider [phone] Encounter Details Date Type Department Care Team (Late st Contact Info) Description 03/10/2018 Procedure Pass [facility] - [facility], Main [address] [address] Social History Tobacco Use Types Packs/Day Years Used Date Smoking Tobacco: Former Smokeless Tobacco: Never Comments No Sex and Gender Information Value Date Recorded Sex Assigned at Not on file Legal Sex Female 8:05 PM EST Gender Identity Not on file Sexual Orientation Not on file documented as of this encounter Plan of Treatment Upcoming Encounters Date Type Department Care Team (Latest Contact Info) Description 07/18/2025 9:00 AM EDT Telemedicine - audio only [facility] [address] [place] [address] [phone] Jone Nobles MD [address] [place] [phone] 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 10/08/2022 10/15/2023 1:21 AM EST documented as of this encounter Care Teams Tallow Pumper Relationship Specialty Start Date End Date Eduardo Albert MD [address] [employer] [address] [place] [address] PCP - General Internal Medicine 01/03/17 01/22/23 Kilo Diaz MD [address] [place] [address] PCP - General Nephrology 01/23/23 04/16/23 Eduardo Albert MD [address] [address] PCP - General Internal Medicine 04/17/23 Marquis Morel MD [address] [place] [address] [address] [place] [address] [employer] Pulmonary Disease 08/16/21 Kilo Diaz MD [address] [place] [phone] Nephrology 01/23/23 documented as of this encounter Additional Source Comments The information contained in this document represents components of the legal health record. It is not the complete legal health record.[facility]
--- OUTSIDE RECORDS SUMMARY | 2025-06-27 12:09 | XMS_ITS | Clinical Summary ---
Author Organization [facility], Address [address] [place] [address] [place] [address] Phone Care Team Providers Care High Lift Mule Operator Name Role Phone Eduardo Albert MD Primary Care Provider [phone] Allergies Active Allergy Reactions Criticality Noted Date [...] % nebulizer solution 1 Active nystatin (MYCOSTATIN) 728549 UNIT/ML suspension 1 Active neomycin-polymy paco-dexamethame thasone (POLYDEX) 3.5-13395-0.1 ointment 1 Active levalbuterol (XOPENEX) 1.25 MG/3ML [...] 12/08/20082021 Overview (12/25/2021): 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 Immunizations Immunization Administration Dates Next Due Influenza [...] Hemoglobin A1C 03/06/2025 025, 10/03/2024 Influenza Vaccine (#1) 2025 7, 10/10/2015 Diabetes: Ophthalmology Exam 08/16/2025 08/16/2024 Hepatitis B Vaccine Aged Out No longe r eligible based on patient's age to complete this topic Procedures Procedure Name Priority Date/Time Associated Diagnosis Comments CBC Routine 02/08/2025 3:30 PM EDT Eosinophilic granulomatosis with polyangiitis (EGPA) (HCC) Stage 3b chronic kidney disease (HCC) Anemia in chronic kidney disease Hypertensive disorder Hypogammaglobulinemia (HCC) from Last 3 Months or Most Recently Relevant to Health Maintenance Results * (ABNORMAL) CBC (02/08/2025 3:30 PM EDT) WBC 8.9 3.4 - 10.8 x10E3/uL [facility] RBC 3.48(L) 3.77 - 5.28 x10E6/uL [facility] Hemoglobin 10.7(L) 11.1 - 15.9 g/dL [facility] Hematocrit 32.5(L) 34.0 - 46.6 % [facility] MCV 93 79 - 97 fL [facility] MCH 30.7 26.6 - 33.0 pg [facility] MCHC 32.9 31.5 - 35.7 g/dL [facility] RDW 16.2(H) 11.7 - 15.4 % [facility] Platelets 212 150 - 450 x10E3/uL [facility] Blood specimen (specimen) Venous blood / Unknown 02/08/2025 3:30 PM EDT 02/08/2025 Kilo Diaz MD LAB BLOOD ORDERABLES Final Result [facility] [address] [place] [phone] from Last 3 Months or Most Recently Relevant to Health Maintenance Insurance Medicare [facility] Care Teams High Lift Mule Operator Relationship Specialty Start Date End Date Eduardo Albert MD [address] [place] [address] PCP - General 10/05/19
--- OUTSIDE RECORDS SUMMARY | 2025-06-27 12:09 | XMS_ITS | Continuity of Care Document ---
Author Organization [facility] [address] [facility] [address] [place] [address] Phone [phone] Care Team Providers Care Pr Specialist Name Role Phone Eduardo Albert M.D. Care Team Information Diesel Fleet Mechanic [phone] Problems Active Problems Provider Date Vitamin B12 [...] SIG Qnty Indications Ordering Provider Date Novolog Fwvynue679Isro/ML Solution Pen-Inject inject 2 to 6 units three times daily pre meals 45ml E10.Schuyler Montiel M.D. 01/06/2025 Z79.4 Freestyle Pollo 3 Plus/Sesor/Glucose Monitoring SystemMisc one sensor to skin every 14 days dx: e11.9 9units Galilea Montiel M.D. 08/26/2024 Freestyle Pollo 3/Sensor/Glucose Monitoring Qnmjgv5Lxsijq Misc One To Skin Every Fourteen Days DX:E10.65 6units E10Poonam Montiel M.D. 03/26/2024 Freestyle Pollo 3/[place]/Glucose Monitoring Pmvhuc1Rkigtu Device use with sensors to check blood sugar dx:e10.65 1units Galilea Montiel M.D. 03/26/2024 BD Pen Needle/Deanne 2ND Gen/32G X 4mm32G X 4 mm Misc 1 pen needle to insulin pen 3 times a day dx:e11.9 300units E11Poonam Montiel M.D. 02/18/2024 Calcium 500/Vitamin D500-3.125mg-mcg Tablets 1 by mouth twice a day Unknown Vitamin W755mhr (1000 Ut) Capsules 1 by mouth every day Unknown Vitamin [id number] Tablets ER 1 by mouth every day Unknown Magnesium Hvsag019my Tablets take 1 tablets by mouth 2 times a day Unknown Gmwqpdhsgr02vd Tablets 2 tabs qd Unknown Amlodipine Ppxcryah35uu Tablets 1 by mouth every day Unknown Accu-Chek Softclix LancetsMisc Please Check Your Blood Sugar 3 Times Daily Unknown Sodium Chloride3% Nebulizer Inhale 4 ML Inhaled 2 Times A Day For 30 Days Marquis Morel Knueslczjrb971nk Tablets Take 1 Tablet By Mouth Twice A Day Jimi Elaine, Unnwyvciyr55.5mg Tablets Take 1/2 Tablet By Mouth Twice A Day With Meals Unknown Budesonide0.5mg/2ML Suspension 0.5 MG (2 ML) Inhaled 2 Times A Day Marquis Morel Accu-Chek GuideStrips Use To Check Sugars 1-2 Times Per Day DX:E11.9 Daniel Dodge NP Accu-Chek Guide MeW/Device Kit Use To Check Blood Sugars 1-2 Times A Day DX: E11.9 Daniel Dodge NP Albuterol Sulfate IVM160(90Base) mcg/Act Aerosol Inhale 2 Puffs Every 6 Hours as Needed For Shortness Or Breath Or Wheezing For 3 Marquis Morel Pantoprazole Dlwega26cb Tablets DR Take 1 Tablet By Mouth Twice A Day Unknown Onyfhyfhtzyy173tw Tablets Take 1 Tablet (250 MG) By Mouth 3 Times A Week Marquis Morel Potassium Citrate QR55Fqe (1080 mg) Tablets ER Take 1 Tablet [...] 01/20/2024 Inhouse Glucose Fingerstick 197 Glucose 12/18/2023 [facility] Glucose 120 mg/dL High (70-99) Glucose 12/18/2023 [facility] Glucose 116 mg/dL High (70-99) Glucose 12/18/2023 [facility] Glucose 102 mg/dL High (70-99) Glucose Fingerstick 12/15/2023 Inhouse Glucose Fingerstick 135 Glucose Fingerstick 11/14/2023 Inhouse Glucose Fingerstick 146 Procedures Date Code Description Status 07/28/2024 43080 Glucose Monitoring Interpeta tion And Report Completed 05/06/2024 24999 Glucose Monitoring Interpeta tion And Report Completed 03/31/2024 82264 Glucose Monitoring Interpeta tion And Report Completed 02/18/2024 57949 Glucose Monitoring Interpeta tion And Report Completed 02/11/2024 12905 Glucose Monitori ng From Interstital Tissue Fluid Minimum 72 Hours Completed 11/14/2023 07646 Glucose Monitori ng From Interstital Tissue Fluid Minimum 72 Hours Completed Medical Devices Description No Information Available Encounters Type Date Location Provider Dx Diagnosis Office Visit 11/10/2024 1:15p Main Office Galilea Montiel M.D. 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 11/10/2024 Z79.4 dedicated intermodal truck driver (current) use of i nsulin Galilea Montiel M.D. 11/10/2024 Z79.52 dedicated intermodal truck driver (curre nt) use of systemic steroids Galilea Montiel M.D. 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 11/10/2024 N18.32 Chronic kidney disease, stag e 3b Galilea Montiel M.D. 11/10/2024 M80.08xS Age-related oste oporosis with current pathological fracture, vertebra(e), sequela Galilea Montiel M.D. Plan of Treatment Future Appointment(s):* 09/21/2025 2:45 pm - Galilea Montiel M.D. 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
--- OUTSIDE RECORDS SUMMARY | 2025-06-27 12:09 | XMS_ITS | Data Portability ---
Author Organization [place] [facility], Allergy Address [address] [address] Assessment No assessment recorded. Plan of Treatment [...] (mycology) culture Final report Not Available [facility] ([facility]) [address] [place], [address], 07/03/2024 07:42:57 06/02/20 24 07/02/2024 FUNGU S (MYCO LOGY) CULTU RE result 1 COMMEN T No yeast or mold isola champ after 4 weeks . Not Available [facility] ([facility]) [address] [facility], [place], [address], 07/03/2024 07:42:57 06/02/2006/05/2024 GENIT AL CULTU RE, ROUTI NE genital [...] to this speci men.) Not Available [facility] ([facility]) [address] [facility], [place], [address], 07/03/2024 07:42:58 06/02/20 24 06/05/2024 GENIT AL CULTU RE, ROUTI NE result 1 COMMEN T Routi ne respi rator y gayatri Not Available [facility] ([facility]) [address] [facility], [place], [address], 07/03/2024 07:42:58 07/21/20 24 01/04/2021 imagi ng/di [...] Name and Address Organization Details Recorded Time Chronic maxillary sinusitis 33450422 Active 2013 Chronic maxillary sinusitis ; Location: bilateral [facility] Risk: low risk [facility] Treatment : establish ed problem (to examiner) : unstable or worsening Note: Date Diagnosed : 4 11:49 AM (473.0) Not Available [facility] 4 02:48:23 Cough 59961714 Active 2015 Cough, unspecifi ed; Note: Changed from R05 to R05.9 (10/22/20 22 2:30 PM) , Date Diagnosed : 06/12/2016 11:33 AM (R05) Not Available [facility] 4 02:48:25 Chronic ethmoidal sinusitis 07875176 Active 2015 Chronic ethmoidal sinusitis ; Note: Date Diagnosed : 07/29/2016 11:26 AM (J32.2) Not Available [facility] 4 02:48:20 Impacted cerumen in right ear [id number] 15023 Active 2016 Impacted cerumen, right ear; Note: Date Diagnosed : 12/16/2016 1:38 PM (H61.21) Not Available [facility] 4 02:48:17 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]; Note: Date Diagnosed : 12/16/2016 1:37 PM (M30.1) Not Available [facility] 4 02:48:21 Migraine without aura, not refractor y 284963124 Active 2016 Migraine without aura, not intractab le, without status migrainos us; Note: Date Diagnosed : 02/26/2017 12:17 PM (G43.009) Not Available [facility] 4 02:48:22 Dizziness and giddiness 470905924 Active 2016 Dizziness and giddiness ; Note: Date Diagnosed : 03/10/2017 4:48 PM (R42) Not Available [facility] 4 02:48:18 Disorder of right Eustachia n tube 47165848622 09304 Active 2016 Other specified disorders of Eustachia n tube, right ear; Note: Date Diagnosed : 05/15/2017 12:11 PM (H69.81) Not Available [facility] 4 02:48:23 Dysphonia 03604463 Active 2016 Hoarsenes s; Note: Date Diagnosed : 07/24/2017 11:20 AM (R49.0) Not Available [facility] 4 02:48:22 Headache 48225244 Active 2016 Headache, unspecifi ed; Location: right Not e: Changed from R51 to R51.9 (09/24/20 2:18 PM) , Date Diagnosed : 08/26/2017 1:22 PM (R51) Not Available [facility] 4 02:48:17 Posterior rhinorrhe a 74286285 Active 2017 Postnasal drip; Note: Date Diagnosed : 01/09/2018 1:12 PM (R09.82) Not Available [facility] 4 02:48:24 Recurrent acute sinusitis 191435317 Active 2018 Other acute recurrent sinusitis ; Note: Date Diagnosed : 07/27/2019 1:37 PM (J01.81) Not Available [facility] 4 02:48:25 Allergic rhinitis 11701739 Active 2018 Allergic Rhinitis; CMS Risk: low [...] ; Start Date : 6 Not Available [facility] 4 02:48:21 Sensorine ural hearing loss of bilateral ears 300671148 Active 2019 Sensorine ural hearing loss, bilateral ; Note: Date Diagnosed : 12/03/2019 3:08 PM (H90.3) Sensori neural hearing loss, bilateral ; Note: Date Diagnosed : 7 1:52 PM (H90.3) ; Start Date : 7 Not Available [facility] 4 02:48:17 Acute sialoaden itis 057435340 Active 2020 Acute sialoaden itis; Note: Date Diagnosed : 12/04/2020 4:35 PM (K11.21) Not Available [facility] 4 02:48:21 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 Other condition s related to polyarter itis nodosa; Note: Date Diagnosed : 01/09/2023 11:36 AM (M30.8) Not Available [facility] 4 02:48:25 Chronic sinusitis 69146334 Active 2022 Chronic pansinusi tis; Note: Date Diagnosed : 4 10:08 AM (473.8) ; Start Date : 4 Other chronic sinusitis ; Note: Date Diagnosed : 04/23/2023 2:59 PM (J32.8) Other chronic sinusitis ; Note: Date Diagnosed : 09/02/2017 9:41 AM (J32.8) ; Start Date : 7 Not Available [facility] 4 02:48:20 Chronic pansinusi tis 78140276 Active 2023 ANTONELLA HAGAN MD [address] [address], [place], [address] , [facility] 16:54:47 Problem Notes None recorded. Procedures Surgical History Date Name Laterality Status Provider Name and Address Organization Details Recorded Time 08/24/2024 NasalEndos copy_DP completed ANTONELLA HAGAN MD [address] [address], [place], [address], [facility] 08/24/2024 10:33:16 06/02/2024 NasalEndos copy_DP completed ANTONELLA HAGAN MD [address] [address], [place], [address], [facility] 06/03/2024 07:31:42 Imaging Results None recorded. Procedure Notes None recorded. Medical Equipment None Reported. Allergies Allergen ID Allergen Name Allergen Category Reaction Reaction Severity Criticality Documentation Date Start Date Code Code System Note Provider Name and Address Organization Details Recorded Time 391122 amoxicill in / clavulana te medicatio n other Not available Not available 04/13/2024 78072 RxNorm React ion: unkno wn, unspe cifie d;; Not Available [facility] 4 01:13:12 296535 prednison e medicatio n other Not available Not available 04/13/2024 8640 RxNorm React ion: unkno wn, unspe cifie d;; Not Available [facility] 4 01:13:13 142591 Substance with sulfonami de structure and antibacte rial mechanism of action (substanc e) medicatio n other Not available Not available 04/13/2024 46240 8003 SNOMED React ion: unkno wn, unspe cifie d;; Not Available [facility] 4 01:13:14 Medications Name Sig Start Date Stop Date Status Note LastModified by Organization Details LastModified Time Singulair 10 mg tablet 1 tablet 05/27 [place]: [id number] Pr escribed By Name: PK Kennedy nd Name: Kraig Severino Method: E-Prescr ibed Sub s Allowed: subs OK Speci al Instruct ion: Take 1 tablet by mouth every day in the evening Medicati onGeneri cName: Singulai r Not Available Not Available Not Available amoxicill in 500 mg capsule TAKE 1 CAPSULE (500 MG) BY MOUTH EVERY 8 HOURS FOR 5 DAYS active Not Available Not Available No t Available budesonid e 32 mcg/actua tion nasal spray Inhale 2 spray into both nostrils once a day 05/09 completed Medicati on ID: [id number] D uration Value: 30 Prescri bed By Name: DAVID Hogue Bra nd Name: allanjarrod de Send Method: E-Prescr ibed Sub s Allowed: subs OK Medic ationGen ericName : budesoni de Not Available Not Available Not Available clotrimaz ole 10 mg juan 01/16 completed Medicati on ID: [id number] B rand Name: clotrima zole Sen d Method: E-Prescr ibed Sub s Allowed: subs OK Medic ationGen ericName : clotrima zole Not Available Not Available Not Available Augmentin 875 mg-125 mg tablet 09/16 completed Medicati on ID: [id number] D uration Value: 10 Prescri bed By Name: Antonella powell MD Brand Name: Augmenti n Send Method: E-Prescr ibed Sub s Allowed: subs OK Speci al Instruct ion: 1 po bid for 10 days Med icationG enericNa me: Augmenti n Not Available Not Available Not Available BD Alcohol Swabs 01/16 completed Medicati on ID: [id number] B rand Name: BD Alcohol Swabs Se [...] by mouth 04/23 completed Medicati on ID: [id number] P rescribe d By Name: Antonella powell MD Brand Name: doxycycl ine hyclate Send [...] nebulizat ion 04/23 completed Medicati on ID: [id number] B rand Name: albutero l sulfate Send Method: E-Prescr ibed Sub s Allowed: subs OK Speci al Instruct ion: USE ONE VIAL VIA NEBULIZE R EVERY 6 HOURS NEEDED M edicatio nGeneric Name: albutero l sulfate Not Available Not Available Not Available azithromy beatrice 250 mg tablet TAKE 1 TABLET ORALLY 3 TIMES A WEEK active Not Available Not Available No t Available fluconazo le 150 mg tablet 01/16 completed Medicati on ID: [id number] B rand Name: fluconaz ole Send Method: E-Prescr ibed Sub s Allowed: subs OK Medic ationGen ericName : fluconaz ole Not Available Not Available Not Available sulfameth oxazole 400 mg-trimet hoprim 80 mg tablet 01/16 completed Medicati on ID: [id number] B rand Name: sulfamet hoxazole -trimeth oprim [...] gram tablet 04/23 completed Medicati on ID: [id number] B rand Name: sucralfa te Send Method: E-Prescr ibed Sub s Allowed: subs OK Medic ationGen ericName : sucralfa te Not Available Not Available Not Available prednison e 5 mg tablet 01/16 completed Medicati on ID: 731933 B rand Name: predniso ne Send Method: [...] mg tablet 05/15 completed Medicati on ID: [id number] D uration Value: 90 Reason: () Brand [...] release 05/15 completed Medicati on ID: 6524 Mchenry son: () Brand Name: aspirin Send Method: E-Prescr ibed Sub s Allowed: subs OK Medic ationGen ericName : aspirin Not Available Not Available Not Available triamcino lone acetonide 0.1 % topical cream 04/23 completed Medicati on ID: [id number] B rand Name: triamcin olone acetonid e Send Method: E-Prescr ibed Sub s Allowed: subs OK Medic ationGen ericName : triamcin olone acetonid e Not Available Not Available Not Available amoxicill in 500 mg tablet 12/20 completed Medicati on ID: [id number] D uration Value: 21 Brand Name: amoxicil [...] by mouth 2016 active Medicati on ID: 873119 D uration Value: 10 Prescri bed By [...] by mouth 2018 active Medicati on ID: [id number] D uration Value: 7 Prescri bed By [...] mg tablet 12/20 completed Medicati on ID: [id number] D uration Value: 21 Brand Name: Lamictal Send Method: E-Prescr ibed Sub s Allowed: No subs Med icationG enericNa me: Lamictal Not Available Not Available Not Available cephalexi n 500 mg capsule 01/16 completed Medicati on ID: [id number] B rand Name: cephalex in Send Method: [...] nasal spray 12/20 completed Medicati on ID: [id number] D uration Value: 90 Brand Name: mometaso [...] mg tablet 12/20 completed Medicati on ID: [id number] D uration Value: 90 Brand Name: colchici ne Send Method: E-Prescr ibed Sub s Allowed: subs OK Speci al Instruct ion: TAKE 1 TABLET (0.6 MG TOTAL) BY MOUTH EVERY OTHER DAY. Med icationG enericNa me: colchici ne Not Available Not Available Not Available ketoconaz ole 2 % topical cream 04/23 completed Medicati on ID: [id number] B rand Name: ketocona zole Donavan d Method: E-Prescr ibed Sub s Allowed: [...] a day 2021 active Medicati on ID: [id number] D uration Value: 10 Brand Name: doxycycl ine hyclate Send Method: E-Prescr ibed Sub s Allowed: subs OK Medic ationGen ericName : doxycycl ine hyclate Not Available Not Available Not Available Augmentin 500 mg-125 mg tablet 1 tablet by mouth 2021 active Medicati on ID: [id number] D uration Value: 10 Brand Name: Augmenti n Send Method: E-Prescr ibed Sub s Allowed: subs OK Medic ationGen ericName : Augmenti n Not Available Not Available Not Available ipratropi um bromide 0.02 % solution for inhalatio n 04/23 completed Medicati on ID: [id number] B rand Name: ipratrop ium bromide Send Method: E-Prescr ibed Sub s Allowed: subs OK Speci al Instruct ion: USE 1.25 ML VIA INHALATI ON 4 TIMES A DAY (J45.51) Medicat ionGener icName: ipratrop ium bromide Not Available Not Available Not Available tobramyci n 0.3 %-dexamet hasone 0.1 % eye drops,josh pension 12/20 completed Medicati on ID: [id number] D uration Value: 10 Brand Name: tobramyc in-dexam ethasone Send Method: E-Prescr ibed Sub s Allowed: subs OK Speci al Instruct ion: PLACE ONE DROP INTO BOTH EYES 4 TIMES A DAY FOR 7-10 DAYS Med icationG enericNa me: tobramyc in-dexam ethasone Not Available Not Available Not Available hydroxyzi ne pamoate 25 mg capsule 12/20 completed Medicati on ID: [id number] D uration Value: 30 Brand Name: hydroxyz ine pamoate Send Method: E-Prescr ibed Sub s Allowed: subs OK Speci al Instruct ion: TAKE ONE CAPSULE BY MOUTH 3 TIMES A DAY NEEDED FOR ANXIETY Medicati onGeneri cName: hydroxyz ine pamoate Not Available Not Available Not Available neomycin 3.5 mg/g-poly myxin B 10,000 unit/g-de xameth 0.1 % eye oint 12/20 completed Medicati on ID: [id number] D uration Value: 20 Brand Name: neomycin -polymyx in B-dexame th Send Method: E-Prescr ibed Sub s Allowed: subs OK Speci al Instruct ion: APPLY TO RIGHT EYE TWICE A DAY X7-10 DAYS Med icationG enericNa me: neomycin -polymyx in B-dexame th Not Available Not Available Not Available [employer] 01/16 completed Medicati on ID: [id number] B rand Name: Sydni Best r Send Method: E-Prescr ibed Sub s Allowed: subs OK Speci al Instruct ion: USE DIRECTED E Medica tionGene ricName: Sharptiffany Containe r Not Available Not Available Not Available nitrofura ntoin monohydra te/macroc rystals 100 mg capsule TAKE 1 CAPSULE BY MOUTH EVERY 12 HOURS WITH FOOD FOR 10 DAYS active Not Available Not Available No t Available fluocinon sylvie 0.1 % topical cream 12/20 completed Medicati on ID: [id number] D uration Value: 30 Brand Name: fluocino nide Sen d Method: E-Prescr ibed Sub s Allowed: subs OK Medic ationGen ericName : fluocino nide Not Available Not Available Not Available methotrex ate 05/15 completed Medicati on ID: [id number] R micheline: () Brand Name: methotre xate Sen d Method: E-Prescr ibed Sub s Allowed: subs OK Medic ationGen ericName : methotre xate Not Available Not Available Not Available Nasonex Inhale 2 spray into both nostrils once a day as directed 12/20 completed Medicati on ID: [id number] D uration Value: 30 Brand Name: nasonex Send Method: E-Prescr ibed Sub s Allowed: subs OK Medic ationGen ericName : nasonex Not Available Not Available Not Available Symbicort 160 mcg-4.5 mcg/actua tion HFA aerosol inhaler 12/20 completed Medicati on ID: [id number] D uration Value: 90 Brand Name: Symbicor t Send Method: E-Prescr ibed Sub s Allowed: subs OK Medic ationGen ericName : Symbicor t Not Available Not Available Not Available Humalog KwikPen (U-100) Insulin 100 unit/mL subcutane ous INJECT 2-4 UNITS BEFORE LUNCH DX:E10.6 5 active Not Available Not Available No t Available OptiChamb er Mikala VHC spacer 12/20 completed Medicati on ID: [id number] D uration Value: 1 Brand Name: Donald Bach [facility] Send Method: E-Prescr ibed Sub s Allowed: subs OK Speci al Instruct ion: USE DIRECTED WITH INHALER Medicati onGeneri cName: Donald Bach [facility] Not Available Not Available Not Available EpiPen 2-Leon 0.3 mg/0.3 mL injection , auto-inje ctor 12/20 completed Medicati on ID: [id number] D uration Value: 2 Brand Name: EpiPen [...] mcg vaginal tablet active Medicati on ID: [id number] B rand Name: Yuvafem Send Method: E-Prescr [...] Available No t Available FreeStyle Pollo 2 Bourbon USE DIRECTED WITH SENSORS (DX: E10.65) active Not Available Not Available No t Available FreeStyle Pollo 3 Sensor device ONE TO SKIN EVERY FOURTEEN DAYS DX:E10.6 5 active Not Available Not Available No t Available Miebo (PF) 100 % eye drops INSTILL 1 DROP INTO BOTH EYES 4 TIMES A DAY DIRECTED active Not Available Not Available No t Available FreeStyle Pollo 3 Bourbon USE WITH SENSORS TO CHECK BLOOD SUGAR DX:E10.6 5 active Not Available Not Available No t Available Vitals Date Recorded Body height Body mass index (BMI) Body weight Provider Name and Address Organization Details Last Updated DateTime 06/02/2024 160.02 cm 24.8 kg/m2 45268.93 g John Novak [place] [facility] 06/02/2024 15:50:53 Date Recorded Body height Body mass index (BMI) Body weight Provider Name and Address Organization Details Last Updated DateTime 08/24/2024 160.02 cm 24.8 kg/m2 95065.93 g John Novak [facility] 08/24/2024 10:06:40 Social History None recorded. [...] Note [id number] ANTONELLA HAGAN MD [facility] on [address] [place] [phone] 06/02/2024 15:22:21 06/02/2024 16:20:46 Chronic pansinusitis 10595491 J32.4 She may have mild sinusitis based on purulent mucus. Culture performed. Will want input from Dr. Anand on resuming tobramycin rinses vs. oral antiobitcs . Will follow up culture. 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 [id number] ANTONELLA HAGAN MD [facility] [address] [place] [address] 08/24/2024 09:46:57 08/24/2024 10:32:43 Chronic pansinusitis 74995131 J32.4 No purulence on endoscopy today. Prior two cultures without pathogens. Agree with azelastine and oral antihistam ine on alternatin g days as well as saline rinses. F/u [address] Anand and her software testing specialist s notes as well as well as outside culture results. Eosinophil ic granulomatosis with polyangiitis 43252495 M30.1 Defer to her specialist . Health Concerns Section Related Observation LastModified by Organization Detai ls LastModified Time None Recorded Concern Status LastModified by Organization Details LastModified Time None Recorded Advance Directives Directive None Recorded Payers Insurance Date Sequence Insurance Name Policy Number Policy Connor Covered Member ID Connor Member ID Guarantor Name 08/24/2024 1 [place]: [employer] Griselda Welsh [id number] Griselda Welsh 08/24/2024 2 [facility] [id number] Griselda Welsh [id number] Griselda Welsh OBGyn Episode No OBEpisode recorded.
== END 2025-06-27 12:09 | disposition home or self-care (01) ==
LOC: HO.PMC 10:53
PROVIDERS: PCP Internal Medicine; Referring Provider Hospitalist; Visit Provider Internal Medicine
DX: M48.061 Spinal stenosis, lumbar region without neurogenic claudication (principal); M51.369 Other intervertebral disc degeneration, lumbar region without mention of lumbar back pain or lower extremity pain; M80.88XA Other osteoporosis with current pathological fracture, vertebra(e), initial encounter for fracture
CPT/HCPCS: 99214

== ENCOUNTER → 2025-06-27 10:52 | Outpatient (BNVA) | payer MEDICARE, OTHER, SELFPAY | PROVIDERS: PCP Internal Medicine; Referring Provider Hospitalist; Visit Provider Internal Medicine | DX: M48.061 Spinal stenosis, lumbar region without neurogenic claudication (principal); M51.362 Other intervertebral disc degeneration, lumbar region with discogenic back pain and lower extremity pain; M80.88XA Other osteoporosis with current pathological fracture, vertebra(e), initial encounter for fracture; G89.29 Other chronic pain; Z79.891 Long term (current) use of opiate analgesic | CPT/HCPCS: 99212 ==

== ENCOUNTER 2025-06-30 12:56 | Outpatient (AMB) | payer MEDICARE, OTHER, SELFPAY ==
--- OUTSIDE RECORDS SUMMARY | 2025-04-06 09:00 | XMS_ITS ---
Author Organization [facility] Address [address] [place] [address] Care Team Providers Care Shot Fireman Name Role Phone Eduardo Albert MD Primary Care Provider Sherry Kelly [phone] Encounters Encounter Location Date Provider [facility] [address] [place] [address] 04/06/2025 Sherry Trujillo Plan Of Treatment No Information Progress Notes * Griselda WELSH WDOB:[birth year] (80 yo F)Acc No.[id number]:04/06/2025 Progress Note Patient: Aurelio SPENCERICHY Griselda Ferguson Provider: Kenji Trujillo DPM :1945 A ge:79 Y S ex:Female Date:04/06/2025 Address:[address] [place] [address] Pcp:Eduardo Albert MD Subjective: * Chief Complaints: [...] Date: 04/06/2025 Generated for Printi ng/Faxing/eTransmitting on: 06/30/2025 01:05 PM EDT
[2025-06-30 13:00] VITALS: BP 158/76; PULSE 79; O2SAT 97
--- NOTE | 2025-06-30 13:00 | A.OFFVIS_ITS ---
Vital Signs 06/30/25 13:00 Height 5 ft 2 in BMI Reason not done Patient refused/unable BP 158/76 H Blood Pressure Location Rt brachial Position Sitting Pulse 79 Pulse Source Pulse Oximeter Pulse Oximetry (%) 97 Oxygen Delivery Method Room Air Intake Visit Reasons: Bronchiectasis Allergies amlodipine Allergy (Severe, Verified 06/30/25 13:05) Swelling Benzodiazepines (BENZODIAZEPINES) Allergy (Intermediate, Verified 06/30/25 13:05) ANXIETY levofloxacin (From LEVAQUIN) Allergy (Intermediate, Verified 06/30/25 13:05) PAIN IN LEGS AND JOINTS clonazepam Allergy (Mild, Verified 06/30/25 13:05) Hallucinations lorazepam Allergy (Mild, Verified 06/30/25 13:05) Hallucinations olanzapine (Zyprexa) Allergy (Mild, Verified 06/30/25 13:05) Cough Penicillins (PENICILLINS) Allergy (Mild, Verified 06/30/25 13:05) Hives Sulfa (Sulfonamide Antibiotics) (SULFA (SULFONAMIDE ANTIBIOTICS)) Allergy (Mild, Verified 06/30/25 13:05) Sensivity mycophenolate mofetil (From CellCept) Allergy (Unknown, Verified 06/30/25 13:05) Blister MSG Allergy (Mild, Uncoded 06/27/25 11:08) Upset stomach HPI Comments Details: The patient is a 80-year-old woman with a 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 The patient also has significant asthma with eosinophilia was treated with Nucala. She responded to the therapy for some time with good results but then stop responding. She did follow up in [place] with her guest attendant and at that point the decision was to start her on rituximab. She received 2 doses. The 1st dose she ended up with pneumonia and up in the hospital and then she received a 2nd dose she has not felt well. She complains of worsening shortness of breath and cough with mucus production. She has a hard time expectorating. She has been on prednisone. She had a sputum culture was positive for Pseudomonas. She was placed on a nebulized amikacin but then had a reaction which has a stop it. She was then admitted to the hospital for IV antibiotics. She was discharged from the hospital she still have feels a lot of shortness of breath. Still on a small dose of prednisone. Last night her cough and shortness of breath was significantly worsen and she thought she would have to go back to the hospital. This morning she feels a little better. She still has a hard time expectorating. Sounds like she has a croupy barky cough. Suggesting the possibility of tracheomalacia. The patient does not use CPAP. She does have daytime drowsiness and does have issues with headaches in the morning. She on needs to have a sleep study. As far CPT she uses a flutter valve. She will have a CT scan of the chest that I personally reviewed demonstrating significant bronchiectasis primarily at the bases with mucus plugging. She has failed flutter valve and also has had resistant organisms therefore will try to get her a percussion vest as soon as possible to improve her chest PT. She did have a CT scan of the chest consistent with sinusitis. Her x-ray did demonstrated haziness in the right base suggesting airspace disease. She was given a dose of aztreonam. Infectious Disease was consulted and did not feel strongly about admitting her to the hospital or starting aztreonam. I did call microbiology in order to aztreonam to her Pseudomonas sensitivity panel. Will monitor closely her symptoms. At this point will start her on azithromycin for the bronchiectasis. She was also on Bactrim however she had a bump on her creatinine from 1.5-1.8. Therefore I will hold off on the Bactrim and see how she does in the azithromycin for now. She does follow up with her guest attendant in [place] and further discuss this. In the meantime her IgG levels were significantly low. She has severe infections in the upper or lower respiratory tract and does require to start IgG therapies as well as possible. The patient is sedimentation rate still elevated at on her recent blood work of 75 she has ongoing symptoms bringing up the question if her vasculitis still active. She is going to be following up with [place] soon regarding additional rituximab or additional therapies for the ongoing vasculitis. The the bronchoscopy demonstrated significant purulent Secretions and significant tracheobronchomalacia. Her Pseudomonas is extremely resistant. She started azithromycin Friday and Friday and she also started her percussion vest for her bronchiectasis with good effect. Overall she is feeling better. She also has immunodeficiency syndrome and will start IgG infusions tomorrow. 05/14/2023 the patient is here for a pulmonary follow-up visit. She is doing well from a respiratory status. No significant chest congestion. She continues on her chest PT using her nebulized therapy hypertonic saline a percussion vest. She is having issues with her sinuses. Having sinus pressure and also some bulging of the eyes. The patient did have an ENT evaluation and did have cultur es which were positive. I do not have the results. She was referred back to [facility] in [place] for further care. She may need to go back on topical antibiotics. the patient did have blood work which I reviewed. It appears that her ANCA is negative still which is reassuring. She has not had to receive any additional Rituxan which is also reassuring. She continues on 11 mg of prednisone. The patient continues on the IVIG every 6 weeks. Her IgG levels are low normal so therefore she should continue with the every 6 weeks at this time. She is wondering about using the mask. I did encourage her to continue using the mask due to her immunodeficiency. 09/09/2023 the patient is here for a follow-up visit. Overall the patient continues to have some dyspnea on exertion. [id number] severity. Her sinuses start still an issue. She did go to ENT in [place] recently and she was again prescribed a compound BEULAH/ budesonide suspension that she does use twice a day. She will continue that for another 12 weeks and then they will follow-up with her. The patient has not had to start Rituxan just yet. She is actually weaning down the prednisone some. She is concerned that her kidney function got worse. She is going to follow up with her guest attendant soon. If her symptoms worsen she can always have more blood work done. I did put the blood work [facility]. She continues on the IVIG therapy every 6 weeks which she is tolerating fairly well without any significant adverse effects. She also continues with respiratory therapy. No significant chest congestion at this time. 12/17/2023 the patient is here for pulmonary follow-up visit. From a respiratory status she is actually doing very well. Her congested subsided significantly. She also has improvement of her sinuses after the be BEULAH budesonide suspension. She also was able to stop that. Although she had worsening inflammatory changes and when she went to [place] her prednisone was increased from 11 mg to 15 mg. Subsequently after that during Thanksgiving dinner the patient developed severe hypoglycemia requiring a hospital visit. The patient was placed on medications although she was symptomatic with dizziness and falls and ultimately was taken off 1 medication and then placed on a different medication and had problems again. Therefore she has been off all medications. 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 She is able to decrease prednisone down to 13 mg but she is going to go slowly undergo be monitoring closely in [place]. The patient is continued to get her IVIG infusions as prescribed with good effect. She also continues to use her CPT also with good effect as her congestion is significantly improved. 05/13/2024 the patient is here for a pulmonary follow-up visit. Overall she has doing a little better. She was hospitalized was given high-dose steroids and she had significant hyperglycemia. He has been very difficult to control her sugars. She is on insulin. The patient has been doing well from a respiratory status. She is down to prednisone 13 mg. She is slowly decreasing. I wonder she is going to need a steroid sparing agent to minimize steroid use. May be a good candidate for mycophenolate. In the meantime she is getting her IVIG. Will go and check her trough levels before the next dose. She continues her respiratory therapy. Does not have any significant chest congestion. Will try to wean her off the azithromycin macrolide suppression therapy that she uses for bronchiectasis. Will try to wean her off completely to make sure we can simplify her medication regimen. 08/27/2024 the patient is here for a pulmonary follow-up visit. She has had worsening cough chest congestion and wheezing. Moderate severity. Is going to going on for the last 3-5 days. She continues on 13 mg of prednisone. She has not been able to cut down further. She is having moderate degree of chest congestion. We tried . Sputum sample in the office but we were not able to do so. Therefore will go ahead and start her on Augmentin since this is 1 of the antibiotics she can not tolerate. And will also try to get a sputum culture whenever possible. We can also consider additional imaging studies and also consider bronchoscopy if the patient is not able to clear this. She is also having significant wheezing on examination. Although does have issues with hyperglycemia and diabetes so therefore hold off on increasing the prednisone at this time. She continues to receive her IVIG. She also has been taking the azithromycin 3 times a week. She did try to cut down but she could not do so because of her worsening congestion. 04/07/2025 the patient is here for pulmonary follow-up visit. The patient has been very sick now for many months. The chronic prednisone has affected her significantly. He has had severe back pain due to significant disease that is consider nonoperable causing to have chronic pain issues. She was placed on strong opiates to try to control the pain. Unfortunately to the prednisone has caused her to have elevated blood sugars and now dealing with diabetes. In addition to that her underlying respiratory disease and vasculitis. She has not been able to get down on to lower than 20 mg of prednisone. She did follow-up in [place] all this very difficult for her to travel to [place] now because of her chronic pain issues very debilitating. Therefore, will go ahead and start a small dose of mycophenolate and start decreasing her prednisone down by 1 mg every 2 weeks and will follow-up in 6 weeks to see if we can get at least get her down to 17 mg. And at that point will go ahead and request additional blood work. The patient had been on IVIG therapy for her immunodeficiency. But because she has been so chronically ill and going from the hospital to the rehab she has missed several dosages. Therefore will go ahead and request additional blood work to see where her IgG levels are and then restart her on IVIG therapy. Her respiratory exam is reassuring. Will have her undergo blood work today and hopefully start IVIG soon. 05/19/2025 the patient is here for pulmonary follow-up visit. She has been able to wean down the prednisone she is down to 16 mg. She is going to continue to decrease further every 2 weeks until she gets to 14 mg. In the meantime she did get her IVIG. She did have some symptoms during and after the infusion but then afterwards she was okay. We are avoiding any Solu-Medrol premedications as we are trying to avoid corticosteroids altogether. She initially started CellCept and then switched over to Imuran because of a question allergic reaction but it was actually thrush. Then she restarted the CellCept but then developed abdominal pain so she is going to go ahead and stop it and then she is going to start now the Imuran again at 25 mg daily which is a very small dose she will see if she can stay away from needing additional corticosteroids with a steroid sparing agent. She is still having significant pain in the back which is limiting her ability to stand. She had been evaluated by pain management in the past year. Will go ahead and refer her again to see if there is any modalities I can provide any relief. From a pulmonary standpoint she is doing better and if she does need anesthesia she could tolerated specially since her significant discomfort does limit her quality of life. Therefore, she will continue with the current respiratory therapy as her lungs are clear she will continue to receive the IVIG and will going to continue decreasing the prednisone safely. When she gets to 14 mg will start decreasing it down by 0.5 mg to minimize any significant adverse effects. She does feel some withdrawal symptoms but she is moving forward. Follow-up in the next 4-6 weeks. If she has any issues prior to this she will call for an earlier assessment. 06/30/2025 the patient is here for pulmonary follow-up visit. Overall the patient has been doing fairly okay. She continues to have significant back pain. It is very debilitating the discomfort. She had been hospitalized because of lower extremity edema and some blood pressure derangements. It was thought to be related to her cardiac medications were recently adjusted. During the hospital stay the patient did have a chest x-ray which was personally by me demonstrating some silhouette sign of the left lower lobe area with an opacity likely atelectasis. Appears to be chronic although can not rule out pneumonia. The patient was treated for a lower respiratory infection. As far as the Imuran she is tolerating the 25 mg daily and she had been able to cut down the predniso ne to 15 mg. Therefore, she is going to cut down further to 14 mg and will slowly increase the Imuran to 50 mg daily. I am hopeful that she can tolerate that and will request blood work during the next visit. In the meantime she did follow-up with pain management in not much that could be offered accept a continue her pain medications at this time. Her respiratory exam is reassuring. She continues on the IVIG therapy. Will follow-up in 6 weeks. [facility] Medical History (Updated 06/30/25 @ 21:55 by Marquis Morel MD) Diabetes mellitus Status post administration of all doses of COVID-19 vaccine series COPD (chronic obstructive pulmonary disease) Bronchiectasis Rash Hypogammaglobulinemia CSS (Churg-James syndrome) Surgical History History of appendectomy History of ileostomy History of cholecystectomy History of hysterectomy History of colectomy History of bronchoscopy (~2019) Social History Patient Tobacco Use Status: Never used Tobacco Advance Directives Date on File: 09/19/20 Review of Systems Const Reports body aches, Denies chills, Reports difficulty sleeping, Reports fatigue and Denies fever(s) Eyes Reports change in vision ENT Reports dizziness, Denies lip swelling, Reports neck pain and Denies tongue swelling Card Denies chest pain, Denies leg edema, Denies lightheadedness, Denies palpitations, Denies dyspnea on exertion, Denies orthopnea and Denies other Resp Reports cough, Denies dyspnea on exertion and Denies wheezing GI Denies hematochezia and Denies change in stool character Musc Reports abnormal gait, Reports back pain, Reports arthralgias, Reports muscle weakness, Reports neck pain, Denies numbness, Reports radiating pain into limb and Reports tingling Skin/Breast Reports rash Neuro Reports abnormal gait, Reports dizziness, Denies numbness and Reports tingling Psych Denies no additional complaints Endo Reports fatigue and Denies palpitations Paul/Lymph Denies easy bleeding and Denies lymphadenopathy Aller/Immun Denies lip swelling, Denies tongue swelling and Denies wheezing Physical Exam Vital Signs: Last Vital Signs Pulse 79 06/30/25 13:00 BP 158/76 H 06/30/25 13:00 Pulse Ox 97 06/30/25 13:00 Oxygen Delivery Method Room Air 06/30/25 13:00 Const General: comfortable and alert HEENT Throat: Yes postnasal drainage (thick yellow mucus noted) Eyes Conjunctivae: conjunctival abnormal Neck Neck: Yes normal visual inspection, Yes full ROM and Yes no lymphadenopathy Chest Chest palpation & inspection: normal inspection of the chest Resp Effort & Inspection: normal respiratory effort Auscultation: no rales, no rhonchi, no wheezes and diminished lung sounds Cardio Rate: regular rate Rhythm: regular rhythm Heart sounds: S1 normal heart sound present and S2 normal heart sound present GI Palpation (GI): Soft to palpation and nontender Auscultation: normal bowel sounds Skin General skin exam: rashes and/or lesions noted Extrem General: Yes no clubbing, cyanosis or edema Assessment & Plan Assessment & Plan (1) Bronchiectasis: Code(s): J47.9 - Bronchiectasis, uncomplicated Category: Medical Qualifiers: Bronchiectasis type: with acute lower respiratory infection Qualified Code(s): J47.0 - Bronchiectasis with acute lower respiratory infection (2) COPD (chronic obstructive pulmonary disease): Code(s): J44.9 - Chronic obstructive pulmonary disease, unspecified Category: Medical Qualifiers: COPD type: COPD with acute lower respiratory infection Qualified Code(s): J44.0 - Chronic obstructive pulmonary disease with (acute) lower respiratory infection (3) Hypogammaglobulinemia: Code(s): D80.1 - Nonfamilial hypogammaglobulinemia Category: Medical (4) CSS (Churg-James syndrome): Comment: Failed Nucala. 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 [Churg-James]; D72.18 - Eosinophilia in diseases classified elsewhere Category: Medical (5) Diabetes mellitus: Code(s): E11.9 - Type 2 diabetes mellitus without complications Category: Medical Qualifiers: Diabetes mellitus complication status: with hyperglycemia Diabetes mellitus long chain quiller tender insulin use: without long chain quiller tender use Diabetes mellitus type: type 2 Qualified Code(s): E11.65 - Type 2 diabetes mellitus with hyperglycemia (6) Spinal stenosis of lumbar region: Code(s): M48.061 - Spinal stenosis, lumbar region without neurogenic claudication Category: Medical Qualifiers: Neurogenic claudication status: unspecified Qualified Code(s): M48.061 - Spinal stenosis, lumbar region without neurogenic claudication (7) Low back pain: Code(s): M54.50 - Low back pain, unspecified Category: Medical Qualifiers: Back pain laterality: unspecified Chronicity: chronic Sciatica presence: with sciatica Sciatica laterality: sciatica laterality unspecified Qualified Code(s): M54.40 - Lumbago with sciatica, unspecified side; G89.29 - Other chronic pain Plan Decrease Prednisone 16mg->14mg Increase Imuran 25mg daily-->BID Continue budesonide benzonate for dry cough Duoneb continue CPT with hypertonic saline 3% and percussion vest continue IVIG infusions [id number], check through level Zyrtec daily tincture CBD w/o THC pain management Follow-up in 2 months Coding Level of Care Code Est Pt Level 5 (16738) Complex EM visit Add On G2211 Diagnoses Bronchiectasis with acute lower respiratory infection J47.0 Bronchiectasis type: with acute lower respiratory infection Chronic obstructive pulmonary disease with acute lower respiratory infection J44.0 COPD type: COPD with acute lower respiratory infection Hypogammaglobulinemia D80.1 CSS (Churg-James syndrome) M30.1; D72.18 Type 2 diabetes mellitus with hyperglycemia, without long-term current use of insulin E11.65 Diabetes mellitus complication status: with hyperglycemia Diabetes mellitus fdc insulin use: without fdc use Diabetes mellitus type: type 2 Spinal stenosis of lumbar region, unspecified whether neurogenic claudication present M48.061 Neurogenic claudication status: unspecified Chronic low back pain with sciatica, sciatica laterality unspecified, unspecified back pain laterality M54.40; G89.29 Back pain laterality: unspecified Chronicity: chronic Sciatica presence: with sciatica Sciatica laterality: sciatica laterality unspecified Time Spent (min) 40
--- OUTSIDE RECORDS SUMMARY | 2025-06-30 13:06 | XMS_ITS | Encounter Summary ---
Author Organization [facility] Address [address] [place] [id number] Phone Care Team Providers Care Heat Set Operator Name Role Phone Eduardo Albert MD Primary Care Provider [phone] Marquis Morel MD Unavailable Kilo Diaz MD Primary Care Provider + Kilo Diaz MD Unavailable [phone] Eduardo Albert MD Primary Care Provider [phone] Encounter Details Date Type Department Care Team (Late st Contact Info) Description 03/10/2018 Procedure [facility] - CT, Main [address] [id number] Social History Tobacco Use Types Packs/Day Years [...] - audio only [facility] [address] [place] [address] [id number] Jone Nobles MD [address] [place] [id number] 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 10/08/2022 10/15/2023 1:21 AM EST documented as of this encounter Care Teams Heat Set Operator Relationship Specialty Start Date End Date Eduardo Albert MD [address] [place] [id number] PCP - General Internal Medicine 01/03/17 01/22/23 Kilo Diaz MD [address] [place] [id number] PCP - General Nephrology 01/23/23 04/16/23 Eduardo Albert MD [address] [address] PCP - General Internal Medicine 04/17/23 Marquis Morel MD [address] [place] [address] [address] [place] [address] Staying Machine Operator Pulmonary Disease 08/16/21 Kilo Diaz MD [address] [place] [id number] Nephrology 01/23/23 documented as of this encounter Additional Source Comments The information contained in this document represents components of the legal health record. It is not the complete legal health record.[facility]
--- OUTSIDE RECORDS SUMMARY | 2025-06-30 13:06 | XMS_ITS | Continuity of Care Document ---
Author Organization [facility] [address] [place] [address] Phone [phone] Care Team Providers Care Cutting Supervisor Name Role Phone Eduardo Albert M.D. Care Team Information Pastry Baker [phone] Problems Active Problems Provider Date Vitamin B12 [...] SIG Qnty Indications Ordering Provider Date Novolog Lokvxbk193Piws/ML Solution Pen-Inject inject 2 to 6 units three times daily pre meals 45ml E10.Schuyler Montiel M.D. 01/06/2025 Z79.4 Freestyle Pollo 3 Plus/Sesor/Glucose Monitoring SystemMisc one sensor to skin every 14 days dx: e11.9 9units Galilea Montiel M.D. 08/26/2024 Freestyle Pollo 3/Sensor/Glucose Monitoring Pwbqto1[place]ovlah Misc One To Skin Every Fourteen Days DX:E10.65 6units E10Poonam Montiel M.D. 03/26/2024 Freestyle Pollo 3/[place]/Glucose Monitoring Hzohic9Lwuaut Device use with sensors to check blood sugar dx:e10.65 1units Galilea Montiel M.D. 03/26/2024 BD Pen Needle/Deanne 2ND Gen/32G X 4mm32G X 4 mm Misc 1 pen needle to insulin pen 3 times a day dx:e11.9 300units E11Poonam Montiel M.D. 02/18/2024 Calcium 500/Vitamin D500-3.125mg-mcg Tablets 1 by mouth twice a day Unknown Vitamin L585tpx (1000 Ut) Capsules 1 by mouth every day Unknown Vitamin [id number] Tablets ER 1 by mouth every day Unknown Magnesium Usphg129lh Tablets take 1 tablets by mouth 2 times a day Unknown Qpqehmloqx36bl Tablets 2 tabs qd Unknown Amlodipine Abhzxgtz35iq Tablets 1 by mouth every day Unknown Accu-Chek Softclix LancetsMisc Please Check Your Blood Sugar 3 Times Daily Unknown Sodium Chloride3% Nebulizer Inhale 4 ML Inhaled 2 Times A Day For 30 Days Marquis Morel Gxkqlnjnwtt433nc Tablets Take 1 Tablet By Mouth Twice A Day Jimi Elaine, Kjnvnjovdn64.5mg Tablets Take 1/2 Tablet By Mouth Twice A Day With Meals Unknown Budesonide0.5mg/2ML Suspension 0.5 MG (2 ML) Inhaled 2 Times A Day Marquis Morel Accu-Chek GuideStrips Use To Check Sugars 1-2 Times Per Day DX:E11.9 Daniel Dodge NP Accu-Chek Guide MeW/Device Kit Use To Check Blood Sugars 1-2 Times A Day DX: E11.9 Daniel Dodge NP Albuterol Sulfate YLX810(90Base) mcg/Act Aerosol Inhale 2 Puffs Every 6 Hours as Needed For Shortness Or Breath Or Wheezing For 3 Marquis Morel Pantoprazole Apnqup95tj Tablets DR Take 1 Tablet By Mouth Twice A Day Unknown Fdlnigebpghb872gp Tablets Take 1 Tablet (250 MG) By Mouth 3 Times A Week Marquis Morel Potassium Citrate ZB77Lik (1080 mg) Tablets ER Take 1 Tablet [...] 01/20/2024 Inhouse Glucose Fingerstick 197 Glucose 12/18/2023 [facility] Glucose 120 mg/dL High (70-99) Glucose 12/18/2023 [facility] Glucose 116 mg/dL High (70-99) Glucose 12/18/2023 [facility] Glucose 102 mg/dL High (70-99) Glucose Fingerstick 12/15/2023 Inhouse Glucose Fingerstick 135 Glucose Fingerstick 11/14/2023 Inhouse Glucose Fingerstick 146 Procedures Date Code Description Status 07/28/2024 85242 Glucose Monitoring Interpeta tion And Report Completed 05/06/2024 64365 Glucose Monitoring Interpeta tion And Report Completed 03/31/2024 50152 Glucose Monitoring Interpeta tion And Report Completed 02/18/2024 72767 Glucose Monitoring Interpeta tion And Report Completed 02/11/2024 89555 Glucose Monitori ng From Interstital Tissue Fluid Minimum 72 Hours Completed 11/14/2023 95411 Glucose Monitori ng From Interstital Tissue Fluid Minimum 72 Hours Completed Medical Devices Description No Information Available Encounters Type Date Location Provider Dx Diagnosis Office Visit 11/10/2024 1:15p Main Office Galilea Montiel M.D. 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
--- OUTSIDE RECORDS SUMMARY | 2025-06-30 13:06 | XMS_ITS | Clinical Summary ---
Author Organization [facility], Address [address] [place] [address] [place] [address] Phone Care Team Providers Care Gift Officer Name Role Phone Eduardo Albert MD Primary Care Provider [phone] Allergies Active Allergy Reactions Criticality Noted Date [...] % nebulizer solution 1 Active nystatin (MYCOSTATIN) 465280 UNIT/ML suspension 1 Active neomycin-polymy paco-dexamethame thasone (POLYDEX) 3.5-42475-3.1 ointment 1 Active levalbuterol (XOPENEX) 1.25 MG/3ML [...] WBC 8.9 3.4 - 10.8 x10E3/uL [facility] RBC 3.48(L) 3.77 - 5.28 x10E6/uL [facility] Hemoglobin 10.7(L) 11.1 - 15.9 g/dL [facility] Hematocrit 32.5(L) 34.0 - 46.6 % [facility] MCV 93 79 - 97 fL [facility] MCH 30.7 26.6 - 33.0 pg [facility] MCHC 32.9 31.5 - 35.7 g/dL [facility] RDW 16.2(H) 11.7 - 15.4 % [facility] Platelets 212 150 - 450 x10E3/uL [facility] Blood specimen (specimen) Venous blood / Unknown 02/08/2025 3:30 PM EDT 02/08/2025 Kilo Diaz MD LAB BLOOD ORDERABLES Final Result [facility] [address] [place] [phone] from Last 3 Months or Most Recently Relevant to Health Maintenance Insurance Medicare [facility] Care Teams Gift Officer Relationship Specialty Start Date End Date Eduardo Albert MD [address] [place] [address] PCP - General 10/05/19
--- OUTSIDE RECORDS SUMMARY | 2025-06-30 13:06 | XMS_ITS | Encounter Summary ---
Author Organization [facility] Address [address] [place] [address] Care Team Providers Care Director Of Diversity And Inclusion Name Role Phone Daisy Lee MD Primary Care Provider Encounter Details Date Type Department Care Team (Late st Contact Info) Description 11/27/2024 Lab Requisition [facility] - Main Lab [address] [place] [address] Daisy Lee MD [address] [place] [id number] Encounter for other general examination Social History [...] LAB CHEMISTRY METHOD 11/27/2024 11:21 AM EST [facility] Potassium 4.2 3.5 - 5.5 mmol/L LAB CHEMISTRY METHOD 11/27/2024 11:21 AM EST [facility] Comment:Hemolysis present Chloride 108 96 - 110 mmol/L LAB CHEMISTRY METHOD 11/27/2024 11:21 AM EST [facility] CO2 17(L) 21 - 32 mmol/L LAB CHEMISTRY METHOD 11/27/2024 11:21 AM [facility] Anion Gap 9 3 - 11 LAB CHEMISTRY METHOD 11/27/2024 11:21 AM [facility] Glucose 128(H) 70 - 100 mg/dL LAB CHEMISTRY METHOD 11/27/2024 11:21 AM [facility] BUN 62(H) 5 - 25 mg/dL LAB CHEMISTRY METHOD 11/27/2024 11:21 AM [facility] Creatinine 1.73(H) 0.50 - 1.10 mg/dL LAB CHEMISTRY METHOD 11/27/2024 11:21 AM [facility] eGFR 30(L) >=60 mL/min/1. 73m2 LAB CHEMISTRY METHOD 11/27/2024 11:21 AM [facility] Comment:Calculation based on the Chronic Kidney Disease Epidemiology Collaboration (CKD-EPI) equation refit without adjustment for race. BUN/Creatinine Ratio 35.8 LAB CHEMISTRY METHOD 11/27/2024 11:21 AM [facility] Calcium 9.5 8.5 - 10.5 mg/dL LAB CHEMISTRY METHOD 11/27/2024 11:21 AM [facility] AST (SGOT) 27 10 - 42 unit/L LAB CHEMISTRY METHOD 11/27/2024 11:21 AM [facility] Comment:Hemolysis present ALT (SGPT) 46 10 - 60 unit/L LAB CHEMISTRY METHOD 11/27/2024 11:21 AM [facility] Alkaline Phosphatase 143(H) 42 - 121 unit/L LAB CHEMISTRY METHOD 11/27/2024 11:21 AM [facility] Total Protein 6.5 6.0 - 8.0 g/dL LAB CHEMISTRY METHOD 11/27/2024 11:21 AM [facility] Albumin 3.3 3.2 - 5.0 g/dL LAB CHEMISTRY METHOD 11/27/2024 11:21 AM [facility] Total Bilirubin 0.3 0.0 - 1.4 mg/dL LAB CHEMISTRY METHOD 11/27/2024 11:21 AM EST [facility] Blood Venous blood specimen / Unknown Venipuncture / Unknown 11/27/2024 7:52 AM EST 11/27/2024 9:36 AM EST us Daisy Lee MD LAB BLOOD ORDERABLES Final Resu lt [facility] [address] [place] [address], documented in this encounter Visit Diagnoses Diagnosis Encounter for other general examination documented in this encounter Care Teams Director Of Diversity And Inclusion Relationship Specialty Start Date End Date Daisy Lee MD [address] [place] [phone] PCP - General Hospitalist Medicine 03/18/25 documented as of this encounter
== END 2025-06-30 13:33 | disposition home or self-care (01) ==
LOC: HO.HPS 12:57
PROVIDERS: PCP Internal Medicine; Visit Provider Hospitalist
DX: J47.0 Bronchiectasis with acute lower respiratory infection (principal); J44.0 Chronic obstructive pulmonary disease with (acute) lower respiratory infection; D80.1 Nonfamilial hypogammaglobulinemia; M30.1 Polyarteritis with lung involvement [Churg-Strauss]; D72.18 Eosinophilia in diseases classified elsewhere; E11.65 Type 2 diabetes mellitus with hyperglycemia; M48.061 Spinal stenosis, lumbar region without neurogenic claudication; M54.40 Lumbago with sciatica, unspecified side; G89.29 Other chronic pain
CPT/HCPCS: 99215; G2211

== ENCOUNTER → 2025-06-30 12:56 | Outpatient (BNVA) | payer MEDICARE, OTHER, SELFPAY | PROVIDERS: PCP Internal Medicine; Visit Provider Hospitalist | DX: J47.0 Bronchiectasis with acute lower respiratory infection (principal); J44.0 Chronic obstructive pulmonary disease with (acute) lower respiratory infection; D80.1 Nonfamilial hypogammaglobulinemia; M30.1 Polyarteritis with lung involvement [Churg-Strauss]; D72.18 Eosinophilia in diseases classified elsewhere; E11.65 Type 2 diabetes mellitus with hyperglycemia; M48.061 Spinal stenosis, lumbar region without neurogenic claudication; M54.40 Lumbago with sciatica, unspecified side; G89.29 Other chronic pain | CPT/HCPCS: 99212 ==

== ENCOUNTER 2025-08-11 12:48 | Outpatient (AMB) | payer MEDICARE, OTHER, SELFPAY ==
--- OUTSIDE RECORDS SUMMARY | 2022-08-28 | XMS_ITS | Encounter Summary ---
Author Organization [facility] Address [address] [place] [phone] Phone Care Team Providers Care Inventory Control Manager Name Role Phone Eduardo Albert MD Primary Care Provider [phone] Marquis Morel MD Unavailable Encounter Details Date Type Department Care Team (Late st Contact Info) Description 08/28/2022 Hospital Encounter [facility] [address] [place] [address] Earnest Anand MD, MS [address] [place] [address] [email or web address] Social History Tobacco Use Types Packs/Day [...] EDT Office Visit [facility] [address] [place] [phone] Jone Nobles MD [address] [place] [phone] [email or web address] documented as of this encounter Procedures Procedure [...] IMG OUTSIDE IMAGING W/OUT INTERPRETATION Final Result Performing Organization Address City/State/[facility] Co de Phone Number [facility] documented in this encounter Visit Diagnoses Not on filedocumented in this encounter Additional Health Concerns Infection Onset Date Last Indicated Resolved Time 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 It is not the complete legal health record.[facility]
--- OUTSIDE RECORDS SUMMARY | 2024-12-07 11:15 | XMS_ITS ---
Author Organization [facility] Address [address] [place] [address] Care Team Providers Care Geomorphologist Name Role Phone Eduardo Albert MD Primary Care Provider Sherry Kelly [phone] Encounters Encounter Location Date [facility] [address] [place] [address] 12/07/2024 Sherry Trujillo Plan Of Treatment No Information Progress Notes * Griselda WELSH WDOB:[birth year] (80 yo F)Acc No.[id number]:12/07/2024 Progress Note Patient: Aurelio SPENCERICHY Griselda Ferguson Provider: Kenji Trujillo DPM :1945 A ge:79 Y S ex:Female Date:12/07/2024 Address:[address] [place] [address] Pcp:Eduardo Albert MD Subjective: * Chief Complaints: [...] Trujillo DPM Date: 0 12/07/2024 Generated for Printi ng/Faxing/eTransmitting on: 0 08/11/2025 04:57 PM EDT
--- OUTSIDE RECORDS SUMMARY | 2025-01-05 10:30 | XMS_ITS ---
Author Organization [facility] Address [address] [place] [address] Care Team Providers Care Irrigation Laborer Name Role Phone Eduardo Albert MD Primary Care Provider Sherry Kelly [phone] Encounters Encounter Location Date Provider [facility] [address] [place] [address] 01/05/2025 Sherry Trujillo Plan Of Treatment No Information Progress Notes * Griselda WELSH WDOB:[birth year] (80 yo F)Acc No.[id number]:01/05/2025 Progress Note Patient: Aurelio SPENCERICHY Griselda Ferguson Provider: Kenji Trujillo DPM :1945 A ge:79 Y S ex:Female Date:01/05/2025 Address:[address] [place] [address] Pcp:Eduardo Albert MD Subjective: * Chief Complaints: * * Medical History: Objective: * Vitals: Assessment: Plan: * Treatment: * Images: * The named appointment provid er may or may not be the originator of this progress note, and it is not deemed complete until electronically signed by the appointment provider. Sign off status: Pending * Provider: Kenji Trujillo DPM Date: 01/05/2025 Generated for Printi ng/Faxing/eTransmitting on: 08/11/2025 04:58 PM EDT
--- OUTSIDE RECORDS SUMMARY | 2025-01-19 10:30 | XMS_ITS ---
Author Organization [facility] Address [address] [facility] [place] [address] Care Team Providers Care Med Dir Name Role Phone Eduardo Albert MD Primary Care Provider Sherry Kelly [phone] Encounters Encounter Location Date Provider Diagnosis [address] [place] [address] 01/19/2025 Sherry Trujillo Plan Of Treatment No Information Progress Notes * Griselda WELSH WDOB:[birth year] (80 yo F)Acc No.[id number]:01/19/2025 Progress Note Patient: Aurelio SPENCERICHY Griselda Ferguson Provider: Kenji Trujillo DPM :1945 A ge:79 Y S ex:Female Date:01/19/2025 Address:[address] [place] [address] Pcp:Eduardo Albert MD Subjective: * Chief Complaints: * * Medical History: Objective: * Vitals: Assessment: Plan: * Treatment: * Images: * The named appointment provid er may or may not be the originator of this progress note, and it is not deemed complete until electronically signed by the appointment provider. Sign off status: Pending * Provider: Kenji Trujillo DPM Date: 01/19/2025 Generated for Printi ng/Faxing/eTransmitting on: 08/11/2025 04:57 PM EDT
--- OUTSIDE RECORDS SUMMARY | 2025-04-06 09:00 | XMS_ITS ---
Author Organization [facility] Address [address] [place] [address] Care Team Providers Care Rock Worker Name Role Phone Eduardo Albert MD Primary Care Provider Sherry Kelly [phone] Encounters Encounter Location Date Provider Diagnosis [address] [facility] [place] [address] 04/06/2025 Sherry Trujillo Plan Of Treatment No Information Progress Notes * Griselda WELSH WDOB:[birth year] (80 yo F)Acc No.[id number]:04/06/2025 Progress Note Patient: Aurelio SPENCERICHY Griselda Ferguson Provider: Kenji Trujillo DPM :1945 A ge:79 Y S ex:Female Date:04/06/2025 Address:[address] [place] [address] Pcp:Eduardo Albert MD Subjective: * Chief Complaints: * * Medical History: Objective: * Vitals: Assessment: Plan: * Treatment: * Images: * The named appointment provid er may or may not be the originator of this progress note, and it is not deemed complete until electronically signed by the appointment provider. Sign off status: Pending * Provider: Kenji Trujillo DPM Date: 04/06/2025 Generated for Printi ng/Faxing/eTransmitting on: 08/11/2025 04:56 PM EDT
--- NOTE | 2025-08-11 12:52 | MHC.OFFVIS ---
Vital Signs 08/11/25 12:53 Height 5 ft 2 in BMI Reason not done Patient refused/unable BP 154/84 H Blood Pressure Location Lt brachial Position Sitting Pulse 102 H Pulse Source Pulse Oximeter Pulse Oximetry (%) 95 Oxygen Delivery Method Room Air Intake Visit Reasons: Bronchiectasis Allergies amlodipine Allergy (Severe, Verified 08/11/25 12:59) Swelling Benzodiazepines (BENZODIAZEPINES) Allergy (Intermediate, Verified 08/11/25 12:59) ANXIETY levofloxacin (From LEVAQUIN) Allergy (Intermediate, Verified 08/11/25 12:59) PAIN IN LEGS AND JOINTS clonazepam Allergy (Mild, Verified 08/11/25 12:59) Hallucinations lorazepam Allergy (Mild, Verified 08/11/25 12:59) Hallucinations olanzapine (Zyprexa) Allergy (Mild, Verified 08/11/25 12:59) Cough Penicillins (PENICILLINS) Allergy (Mild, Verified 08/11/25 12:59) Hives Sulfa (Sulfonamide Antibiotics) (SULFA (SULFONAMIDE ANTIBIOTICS)) Allergy (Mild, Verified 08/11/25 12:59) Sensivity mycophenolate mofetil (From CellCept) Allergy (Unknown, Verified 08/11/25 12:59) Blister MSG Allergy (Mild, Uncoded 06/27/25 11:08) Upset stomach HPI Comments Details: The patient is a 80-year-old woman with a 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 The patient also has significant asthma with eosinophilia was treated with Nucala. She responded to the therapy for some time with good results but then stop responding. She did follow up in [place] with her sweatband flanger and at that point the decision was to start her on rituximab. She received 2 doses. The 1st dose she ended up with pneumonia and up in the hospital and then she received a 2nd dose she has not felt well. She complains of worsening shortness of breath and cough with mucus production. She has a hard time expectorating. She has been on prednisone. She had a sputum culture was positive for Pseudomonas. She was placed on a nebulized amikacin but then had a reaction which has a stop it. She was then admitted to the hospital for IV antibiotics. She was discharged from the hospital she still have feels a lot of shortness of breath. Still on a small dose of prednisone. Last night her cough and shortness of breath was significantly worsen and she thought she would have to go back to the hospital. This morning she feels a little better. She still has a hard time expectorating. Sounds like she has a croupy barky cough. Suggesting the possibility of tracheomalacia. The patient does not use CPAP. She does have daytime drowsiness and does have issues with headaches in the morning. She on needs to have a sleep study. As far CPT she uses a flutter valve. She will have a CT scan of the chest that I personally reviewed demonstrating significant bronchiectasis primarily at the bases with mucus plugging. She has failed flutter valve and also has had resistant organisms therefore will try to get her a percussion vest as soon as possible to improve her chest PT. She did have a CT scan of the chest consistent with sinusitis. Her x-ray did demonstrated haziness in the right base suggesting airspace disease. She was given a dose of aztreonam. Infectious Disease was consulted and did not feel strongly about admitting her to the hospital or starting aztreonam. I did call microbiology in order to aztreonam to her Pseudomonas sensitivity panel. Will monitor closely her symptoms. At this point will start her on azithromycin for the bronchiectasis. She was also on Bactrim however she had a bump on her creatinine from 1.5-1.8. Therefore I will hold off on the Bactrim and see how she does in the azithromycin for now. She does follow up with her sweatband flanger in [place] and further discuss this. In the meantime her IgG levels were significantly low. She has severe infections in the upper or lower respiratory tract and does require to start IgG therapies as well as possible. The patient is sedimentation rate still elevated at on her recent blood work of 75 she has ongoing symptoms bringing up the question if her vasculitis still active. She is going to be following up with [place] soon regarding additional rituximab or additional therapies for the ongoing vasculitis. The the bronchoscopy demonstrated significant purulent Secretions and significant tracheobronchomalacia. Her Pseudomonas is extremely resistant. She started azithromycin Friday and Friday and she also started her percussion vest for her bronchiectasis with good effect. Overall she is feeling better. She also has immunodeficiency syndrome and will start IgG infusions tomorrow. 05/14/2023 the patient is here for a pulmonary follow-up visit. She is doing well from a respiratory status. No significant chest congestion. She continues on her chest PT using her nebulized therapy hypertonic saline a percussion vest. She is having issues with her sinuses. Having sinus pressure and also some bulging of the eyes. The patient did have an ENT evaluation and did have cultures which were positive. I do not have the results. She was referred back to [facility] in [place] for further care. She may need to go back on topical antibiotics. the patient did have blood work which I reviewed. It appears that her ANCA is negative still which is reassuring. She has not had to receive any additional Rituxan which is also reassuring. She continues on 11 mg of prednisone. The patient continues on the IVIG every 6 weeks. Her IgG levels are low normal so therefore she should continue with the every 6 weeks at this time. She is wondering about using the mask. I did encourage her to continue using the mask due to her immunodeficiency. 09/09/2023 the patient is here for a follow-up visit. Overall the patient continues to have some dyspnea on exertion. [id number] severity. Her sinuses start still an issue. She did go to ENT in [place] recently and she was again prescribed a compound BEULAH/ budesonide suspension that she does use twice a day. She will continue that for another 12 weeks and then they will follow-up with her. The patient has not had to start Rituxan just yet. She is actually weaning down the prednisone some. She is concerned that her kidney function got worse. She is going to follow up with her sweatband flanger soon. If her symptoms worsen she can always have more blood work done. I did put the blood work in the system. She continues on the IVIG therapy every 6 weeks which she is tolerating fairly well without any significant adverse effects. She also continues with respiratory therapy. No significant chest congestion at this time. 12/17/2023 the patient is here for pulmonary follow-up visit. From a respiratory status she is actually doing very well. Her congested subsided significantly. She also has improvement of her sinuses after the be BEULAH budesonide suspension. She also was able to stop that. Although she had worsening inflammatory changes and when she went to [place] her prednisone was increased from 11 mg to 15 mg. Subsequently after that during Thanksgiving dinner the patient developed severe hypoglycemia requiring a hospital visit. The patient was placed on medications although she was symptomatic with dizziness and falls and ultimately was taken off 1 medication and then placed on a different medication and had problems again. Therefore she has been off all medications. 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 She is able to decrease prednisone down to 13 mg but she is going to go slowly undergo be monitoring closely in [place]. The patient is continued to get her IVIG infusions as prescribed with good effect. She also continues to use her CPT also with good effect as her congestion is significantly improved. 05/13/2024 the patient is here for a pulmonary follow-up visit. Overall she has doing a little better. She was hospitalized was given high-dose steroids and she had significant hyperglycemia. He has been very difficult to control her sugars. She is on insulin. The patient has been doing well from a respiratory status. She is down to prednisone 13 mg. She is slowly decreasing. I wonder she is going to need a steroid sparing agent to minimize steroid use. May be a good candidate for mycophenolate. In the meantime she is getting her IVIG. Will go and check her trough levels before the next dose. She continues her respiratory therapy. Does not have any significant chest congestion. Will try to wean her off the azithromycin macrolide suppression therapy that she uses for bronchiectasis. Will try to wean her off completely to make sure we can simplify her medication regimen. 08/27/2024 the patient is here for a pulmonary follow-up visit. She has had worsening cough chest congestion and wheezing. Moderate severity. Is going to going on for the last 3-5 days. She continues on 13 mg of prednisone. She has not been able to cut down further. She is having moderate degree of chest congestion. We tried . Sputum sample in the office but we were not able to do so. Therefore will go ahead and start her on Augmentin since this is 1 of the antibiotics she can not tolerate. And will also try to get a sputum culture whenever possible. We can also consider additional imaging studies and also consider bronchoscopy if the patient is not able to clear this. She is also having significant wheezing on examination. Although does have issues with hyperglycemia and diabetes so therefore hold off on increasing the prednisone at this time. She continues to receive her IVIG. She also has been taking the azithromycin 3 times a week. She did try to cut down but she could not do so because of her worsening congestion. 04/07/2025 the patient is here for pulmonary follow-up visit. The patient has been very sick now for many months. The chronic prednisone has affected her significantly. He has had severe back pain due to significant disease that is consider nonoperable causing to have chronic pain issues. She was placed on strong opiates to try to control the pain. Unfortunately to the prednisone has caused her to have elevated blood sugars and now dealing with diabetes. In addition to that her underlying respiratory disease and vasculitis. She has not been able to get down on to lower than 20 mg of prednisone. She did follow-up in [place] all this very difficult for her to travel to [place] now because of her chronic pain issues very debilitating. Therefore, will go ahead and start a small dose of mycophenolate and start decreasing her prednisone down by 1 mg every 2 weeks and will follow-up in 6 weeks to see if we can get at least get her down to 17 mg. And at that point will go ahead and request additional blood work. The patient had been on IVIG therapy for her immunodeficiency. But because she has been so chronically ill and going from the hospital to the rehab she has missed several dosages. Therefore will go ahead and request additional blood work to see where her IgG levels are and then restart her on IVIG therapy. Her respiratory exam is reassuring. Will have her undergo blood work today and hopefully start IVIG soon. 05/19/2025 the patient is here for pulmonary follow-up visit. She has been able to wean down the prednisone she is down to 16 mg. She is going to continue to decrease further every 2 weeks until she gets to 14 mg. In the meantime she did get her IVIG. She did have some symptoms during and after the infusion but then afterwards she was okay. We are avoiding any Solu-Medrol premedications as we are trying to avoid corticosteroids altogether. She initially started CellCept and then switched over to Imuran because of a question allergic reaction but it was actually thrush. Then she restarted the CellCept but then developed abdominal pain so she is going to go ahead and stop it and then she is going to start now the Imuran again at 25 mg daily which is a very small dose she will see if she can stay away from needing additional corticosteroids with a steroid sparing agent. She is still having significant pain in the back which is limiting her ability to stand. She had been evaluated by pain management in the past year. Will go ahead and refer her again to see if there is any modalities I can provide any relief. From a pulmonary standpoint she is doing better and if she does need anesthesia she could tolerated specially since her significant discomfort does limit her quality of life. Therefore, she will continue with the current respiratory therapy as her lungs are clear she will continue to receive the IVIG and will going to continue decreasing the prednisone safely. When she gets to 14 mg will start decreasing it down by 0.5 mg to minimize any significant adverse effects. She does feel some withdrawal symptoms but she is moving forward. Follow-up in the next 4-6 weeks. If she has any issues prior to this she will call for an earlier assessment. 06/30/2025 the patient is here for pulmonary follow-up visit. Overall the patient has been doing fairly okay. She continues to have significant back pain. It is very debilitating the discomfort. She had been hospitalized because of lower extremity edema and some blood pressure derangements. It was thought to be related to her cardiac medications were recently adjusted. During the hospital stay the patient did have a chest x-ray which was personally by me demonstrating some silhouette sign of the left lower lobe area with an opacity likely atelectasis. Appears to be chronic although can not rule out pneumonia. The patient was treated for a lower respiratory infection. As far as the Imuran she is tolerating the 25 mg daily and she had been able to cut down the prednisone to 15 mg. Therefore, she is going to cut down further to 14 mg and will slowly increase the Imuran to 50 mg daily. I am hopeful that she can tolerate that and will request blood work during the next visit. In the meantime she did follow-up with pain management in not much that could be offered accept a continue her pain medications at this time. Her respiratory exam is reassuring. She continues on the IVIG therapy. Will follow-up in 6 weeks. 08/11/2025 the patient is here for pulmonary follow-up visit. She continues to do well from a respiratory status. Although has been having significant sinus issues. She did see ENT and cultures were sent but she is still waiting for the results of week ago. In the meantime she continues on 15 mg of prednisone. She has been concerned about going down specially with the ongoing symptoms. She is needs to started doing her Neti bottle rinsing along with budesonide. She also continues on the Imuran just half a tablet daily. She is concerned about going to twice a day. We will hold off until the next visit to increase her medication as long she is doing well from a pulmonary standpoint. She continues with the IV infusions which appears to be affecting beneficial. Her blood pressure is better controlled. She came off the [facility] because of the swelling and then was placed on carvedilol but then the was not controlling her blood pressure. Nauseous she is on losartan. This is a question about using the cannabinoid tincture with the losartan but explained to her that she should use it at different times specially she can use the tincture just at nighttime and not to take the to agents together. Otherwise follow-up in 6-8 weeks. If she has any issues prior to this she will call for further recommendations. [facility] Medical History (Updated 06/30/25 @ 21:55 by Marquis Morel MD) Diabetes mellitus Status post administration of all doses of COVID-19 vaccine series COPD (chronic obstructive pulmonary disease) Bronchiectasis Rash Hypogammaglobulinemia CSS (Churg-James syndrome) Surgical History History of appendectomy History of ileostomy History of cholecystectomy History of hysterectomy History of colectomy History of bronchoscopy (~2019) Social History Patient Tobacco Use Status: Never used Tobacco Advance Directives Date on File: 09/19/20 Review of Systems Const Reports body aches, Denies chills, Reports difficulty sleeping, Reports fatigue and Denies fever(s) Eyes Reports change in vision ENT Reports dizziness, Denies lip swelling, Reports nasal congestion, Reports neck pain, Reports sinus pain, Reports sinus pressure and Denies tongue swelling Card Denies chest pain, Denies leg edema, Denies lightheadedness, Denies palpitations, Denies dyspnea on exertion, Denies orthopnea and Denies other Resp Reports cough, Denies dyspnea on exertion and Denies wheezing GI Denies hematochezia and Denies change in stool character Musc Reports abnormal gait, Reports back pain, Reports arthralgias, Reports muscle weakness, Reports neck pain, Denies numbness, Reports radiating pain into limb and Reports tingling Skin/Breast Reports rash Neuro Reports abnormal gait, Reports dizziness, Denies numbness and Reports tingling Psych Denies no additional complaints Endo Reports fatigue and Denies palpitations Paul/Lymph Denies easy bleeding and Denies lymphadenopathy Aller/Immun Denies lip swelling, Denies tongue swelling and Denies wheezing Physical Exam Vital Signs: Last Vital Signs Pulse 102 H 08/11/25 12:53 BP 154/84 H 08/11/25 12:53 Pulse Ox 95 08/11/25 12:53 Oxygen Delivery Method Room Air 08/11/25 12:53 Const General: comfortable and alert HEENT Throat: Yes postnasal drainage (thick yellow mucus noted) Eyes Conjunctivae: conjunctival abnormal Neck Neck: Yes normal visual inspection, Yes full ROM and Yes no lymphadenopathy Chest Chest palpation & inspection: normal inspection of the chest Resp Effort & Inspection: normal respiratory effort Auscultation: no rales, no rhonchi, no wheezes and diminished lung sounds Cardio Rate: regular rate Rhythm: regular rhythm Heart sounds: S1 normal heart sound present and S2 normal heart sound present GI Palpation (GI): Soft to palpation and nontender Auscultation: normal bowel sounds Skin General skin exam: rashes and/or lesions noted Extrem General: Yes no clubbing, cyanosis or edema Assessment & Plan Assessment & Plan (1) Bronchiectasis: Code(s): J47.9 - Bronchiectasis, uncomplicated Category: Medical Qualifiers: Bronchiectasis type: with acute lower respiratory infection Qualified Code(s): J47.0 - Bronchiectasis with acute lower respiratory infection (2) COPD (chronic obstructive pulmonary disease): Code(s): J44.9 - Chronic obstructive pulmonary disease, unspecified Category: Medical Qualifiers: COPD type: COPD with acute lower respiratory infection Qualified Code(s): J44.0 - Chronic obstructive pulmonary disease with (acute) lower respiratory infection (3) Hypogammaglobulinemia: Code(s): D80.1 - Nonfamilial hypogammaglobulinemia Category: Medical (4) CSS (Churg-James syndrome): Comment: Failed Nucala. 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 [Churg-James]; D72.18 - Eosinophilia in diseases classified elsewhere Category: Medical (5) Diabetes mellitus: Code(s): E11.9 - Type 2 diabetes mellitus without complications Category: Medical Qualifiers: Diabetes mellitus complication status: with hyperglycemia Diabetes mellitus assistant terminal manager insulin use: without assistant terminal manager use Diabetes mellitus type: type 2 Qualified Code(s): E11.65 - Type 2 diabetes mellitus with hyperglycemia (6) Spinal stenosis of lumbar region: Code(s): M48.061 - Spinal stenosis, lumbar region without neurogenic claudication Category: Medical Qualifiers: Neurogenic claudication status: unspecified Qualified Code(s): M48.061 - Spinal stenosis, lumbar region without neurogenic claudication (7) Low back pain: Code(s): M54.50 - Low back pain, unspecified Category: Medical Qualifiers: Back pain laterality: unspecified Chronicity: chronic Sciatica laterality: sciatica laterality unspecified Sciatica presence: with sciatica Qualified Code(s): M54.40 - Lumbago with sciatica, unspecified side; G89.29 - Other chronic pain (8) Sinusitis: Code(s): J32.9 - Chronic sinusitis, unspecified Category: Medical Qualifiers: Sinusitis location: unspecified location Chronicity: chronic Qualified Code(s): J32.9 - Chronic sinusitis, unspecified Plan Prednisone 16mg->15mg Imuran 25mg daily-->BID next visit Continue budesonide ok once a day start neti bottle with budesonide Afrin x 5 days benzonate for dry cough Levalbuterol BID continue CPT with hypertonic saline 3% and percussion vest continue IVIG infusions [id number], check through level Zyrtec daily tincture CBD w/o THC pain management Follow-up in 2 months Medications: New oxymetazoline 0.05% (Afrin (oxymetazoline)) 2 sprays intranasal Q12H PRN 22 mL 0RF nasal congestion 5 days prednisone PO daily; Take 6 tabs daily x 3 days, then 5 tabs x 3 days, then 4 tabs x 3 days, then 3 tabs x 3 days, then 2 tabs daily x 3 days, then 1 tab x 3 days to complete. 63 tabs 0RF 18 days Coding Level of Care Code Est Pt Level 4 (50557) Complex EM visit Add On G2211 Diagnoses Bronchiectasis with acute lower respiratory infection J47.0 Bronchiectasis type: with acute lower respiratory infection Chronic obstructive pulmonary disease with acute lower respiratory infection J44.0 COPD type: COPD with acute lower respiratory infection Hypogammaglobulinemia D80.1 CSS (Churg-James syndrome) M30.1; D72.18 Type 2 diabetes mellitus with hyperglycemia, without long-term current use of insulin E11.65 Diabetes mellitus complication status: with hyperglycemia Diabetes mellitus snf insulin use: without assistant terminal manager use Diabetes mellitus type: type 2 Spinal stenosis of lumbar region, unspecified whether neurogenic claudication present M48.061 Neurogenic claudication status: unspecified Chronic low back pain with sciatica, sciatica laterality unspecified, unspecified back pain laterality M54.40; G89.29 Back pain laterality: unspecified Chronicity: chronic Sciatica laterality: sciatica laterality unspecified Sciatica presence: with sciatica Chronic sinusitis, unspecified location J32.9 Sinusitis location: unspecified location Chronicity: chronic Time Spent (min) 20
[2025-08-11 12:53] VITALS: BP 154/84; PULSE 102; O2SAT 95
--- OUTSIDE RECORDS SUMMARY | 2025-08-11 16:57 | XMS_ITS | Encounter Summary ---
Author Organization [facility] Address [address] [place] [address] Phone Care Team Providers Care Store Custodian Name Role Phone Eduardo Albert MD Primary Care Provider [phone] Marquis Morel MD Unavailable Kilo Diaz MD Primary Care Provider + Kilo Diaz MD Unavailable [phone] Eduardo Albert MD Primary Care Provider [phone] Encounter Details Date Type Department Care Team (Late st Contact Info) Description 03/10/2018 Procedure Pass [facility] - [facility], Main [address] [address] Social History Tobacco Use Types Packs/Day Years Used Date Smoking Tobacco: Former Smokeless Tobacco: Never Comments No Sex and Gender Information Value Date Recorded Sex Assigned at Not on file Legal Sex Female 8:05 PM EST Gender Identity Not on file Sexual Orientation Not on file documented as of this encounter Plan of Treatment Upcoming Encounters Date Type Department Care Team (Late Contact Info) Description 07/20/2026 11:30 AM EDT Office [facility] [address] [place] [address] Jone Nobles MD [address] [place] [phone] [email or web address] documented as of this encounter Visit Diagnoses Not on filedocumented in this encounter Additional Health Concerns Infection Onset Date Last Indicated Resolved Time 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 10/08/2022 10/15/2023 1:21 AM EST documented as of this encounter Care Teams Store Custodian Relationship Specialty Start Date End Date Eduardo Albert MD [address] [place] [address] PCP - General Internal Medicine 01/03/17 01/22/23 Kilo Diaz MD [address] [place] [address] PCP - General Nephrology 01/23/23 04/16/23 Eduardo Albert MD [address] [address] PCP - General Internal Medicine 04/17/23 Marquis Morel MD [address] [place] [address] [address] [place] [address] Cranberry Grower Pulmonary Disease 08/16/21 Kilo Diaz MD [address] [place] [address] Nephrology 01/23/23 documented as of this encounter Additional Source Comments The information contained in this document represents components of the legal health record. It is not the complete legal health record.[facility]
--- OUTSIDE RECORDS SUMMARY | 2025-08-11 16:57 | XMS_ITS | Patient Health Record ---
Author Organization [facility] Address [address] [facility] [place] [address] Care Team Providers Care Retail Wireless Sales Representative Name Role Phone Eduardo Albert MD Primary Care Provider Unavailabl e Black, Sherry Unavailable [phone] Allergies Allergen (clinical drug ingredient) Drug/Non Drug Allergy documented on EMR Reaction Allergy Type Onset Date Status ibuprofen Advil Unknown Drug Allergy Active aspirin Aspirin Unknown Drug Allergy Active sulfamethoxazole / trimethoprim Bactrim sick stomach Drug Allergy Active ciprofloxacin Cipro sick stomach Drug Allergy Active Keflex sick stomach Drug Allergy Acti ve Penicillin rash Drug Allergy Active Reason For Referral No Information Medications Medication [...] Problem Status W/U Status Risk Notes Problem Polyneuropathy due to type 2 diabetes mellitus (747765973) Type 2 diabetes mellitus with diabetic polyneuropathy (E11.42) Active confirmed Problem Acquired hammer toe of right foot (009113270721268 5) Hammer toe of right foot (M20.41) Active confirmed Problem Acquired hammer toe of left foot (286423812527938 3) Hammer toe of left foot (M20.42) Active confirmed Problem Neuropathy (136680511) Neuropathy (G62.9) Active confirmed Problem Ulcer of toe of right foot (disorder) (394716812377637 01) Skin ulcer of toe of right foot, limited to breakdown of skin (L97.511) Active confirmed Problem Ulcer of toe of left foot (disorder) (361197893589389 02) Skin ulcer of toe of left foot, limited to breakdown of skin (L97.521) Active confirmed Response to treatment - Improvement Vital Signs Height 5 ft 2 in in 08/31/2024 Weight 140 lbs 08/31/2024 BMI 25.6 kg/m2 08/31/2024 Procedures Procedure Date Ordered Date Performed Result Body Sit e 85300-TRVCMTX NAIL, 6 OR MORE 08/31/2024 N/A 13787-GOGA SKIN LESIONS, 2 TO 4 08/31/2024 N/A Encounters Encounter Location Date Provider Diagnosis [facility] [address] 08/31/2024 Sherry Trujillo Type 2 diabetes mellitus with diabetic polyneuropathy E11.42 and Tinea unguium B35.1 [facility] [address] [place] [address] 12/02/2024 Sherry Trujillo [address] [address] 01/18/2025 Sherry Trujillo [address] [address] 03/23/2025 Sherry Trujillo Assessments Encounter Date Diagnosis (ICD Code) Assessment Notes Treatment Notes Treatment Clinical Notes Section Notes 08/31/2024 Type 2 diabetes mellitus with diabetic polyneuropathy (ICD-10 - E11.42) 08/31/2024 Tinea unguium (ICD-10 - B35.1) Plan Of Treatment Pending Test Test Name Order Date 04558-NMGKKZZ NAIL, 6 OR MORE 02/13/2024 23090-AICDOZP NAIL, 6 OR MORE 05/25/2024 08791-SQROCMH NAIL, 6 OR MORE 08/31/2024 20333-Tvggmdmm Plate 05/25/2024 83700- Debride <25 sq cm 06/15/2024 59393-RWQN SKIN LESIONS, 2 TO 4 08/31/20 24 51736-LRXT SKIN LESIONS, 2 TO 4 05/25/20 77857-KHLH SKIN LESIONS, 2 TO 4 02/13/20 J5031-JDALJHBW DYSTROPHIC NAILS ANY # Insurance Providers Payer Name Payer Address Payer Phone Subscriber Number Group Number Insured Name Patient Relationship to Insured Coverage Start Date Coverage End Date Medicare National [employer] [address] [place] [address] [id number] Griselda Daniels i Self - patient is the insured [employer] [address] [place] [id number] [id number] Griselda Daniels i Self - patient is [...]
--- OUTSIDE RECORDS SUMMARY | 2025-08-11 16:57 | XMS_ITS | Encounter Summary ---
Author Organization [facility] Address [address] [place] [address] Phone Care Team Providers Care Drums Teacher Name Role Phone Marquis Morel MD Unavailable Kilo Diaz MD Unavailable [phone] Eduardo Albert MD Primary Care Provider [phone] Reason for Referral * Consultation (Routine) - Closed Specialty Diagnoses / Procedures Referred By Jyoti bynum Referred To Contact Allergy and Immunology Earnest Anand MD, [place] Phone: tel: fax: mailto:[email or web address] [address] Phone: tel: Referral ID Status Reason Start Date Expiration Date Visits Re quested Visits Authorized [id number] Closed 09/11/2023 09/11/2024 1 1 Encounter Details Date Type Department Care Team (Late st Contact Info) Description 09/11/2023 Transcribe Orders [facility] Referral Management [address] [place] [address] Sonido Parra MD [address] [place] [address] [email or web address] Social History Tobacco Use Types Packs/Day [...] EDT Office Visit [facility] [address] [place] [address] Jone Nobles MD [address] [place] [address] [email or web address] Scheduled Referrals Name Type Priority Associated Diagnoses Order Schedule Ambulatory referral to [facility] Allergy Outpatient Referral Routine Ordered: 09/11/2023 documented as of this encounter Visit Diagnoses Not on filedocumented in this encounter Additional Health Concerns Infection Onset Date Last Indicated Resolved Time 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 10/08/2022 10/15/2023 1:21 AM EST documented as of this encounter Care Teams Drums Teacher Relationship Specialty Start Date End Date Eduardo Albert MD [address] [place] [address] [place] [address] PCP - General Internal Medicine 04/17/23 Marquis Morel MD [address] [place] [address] [address] [place] [address] [employer] And Watch Hands Dipper Pulmonary Disease 08/16/21 Kilo Diaz MD [address] [place] [address] [email or web address] Nephrology 01/23/23 documented as of this encounter Additional Source Comments The information contained in this document represents components of the legal health record. It is not the complete legal health record.[facility]
--- OUTSIDE RECORDS SUMMARY | 2025-08-11 16:57 | XMS_ITS | Clinical Summary ---
Author Organization [facility] Address [address] [place] [address] Phone Care Team Providers Care Route Delivery Service Driver Name Role Phone Marquis Morel MD Unavailable Kilo Diaz MD Unavailable Eduardo Albert MD Primary Care Provider [phone] Allergies Active Allergy Reactions Criticality Noted Date Comments Clonazepam Anxiety Low 01/08/2017 Lorazepam Anxiety Low 01/08/2017 Penicillins 01/08/2017 Not amoxacillin Pollen Extracts 05/23/2023 Prednisone 01/08/2017 diabetes Sulfa (Sulfonamide Antibiotics) 05/31 Medications predniSONE (DELTASONE) 20 MG tabletIndications :vasculitis Take 11 mg by mouth daily. 40 alternating with 30 Indications: inflammation of the blood vessels Active amLODIPine (NORVASC) 2.5 MG tablet Take 2.5 mg by mouth daily. Active budesonide-formot hebert (SYMBICORT) 80-4.5 mcg/actuation inhaler Inhale 2 puffs into the lungs 2 (two) times a day. Active folic acid (FOLVITE) 1 MG tabletIndications :folate deficiency Take 1 mg by mouth daily. Indications: Folate Deficiency Active raNITIdine (ZANTAC) 150 MG tablet Take 150 mg by mouth 2 (two) times a day. Active sodium chloride 1 gram tabletIndications :Diarrhea due to malabsorption Take 1 tablet (1 g total) by mouth 4 (four) times a day. 400 tablet 3 11/04/20 17 Active Additional Information Patient not taking.Reported on 01/20/2019 fluocinonide (VANOS) 0.1 % Crea Apply topically 2 (two) times a day. 120 g 1 01/13/20 18 Active Additional Information Patient not taking.Reported on 10/01/2019 ipratropium-albut hebert (DUONEB) 0.5-2.5 mg/3 mL nebulizer solution as needed. 04/16/20 13 Active MEPOLIZUMAB (NUCALA SUBQ) Inject under the skin. Active cetirizine HCl (ZYRTEC ORAL) Take by mouth. A ctive varicella-zoster gE-AS01B, PF, (SHINGRIX) 50 mcg/0.5 mL IM injectionIndicati ons:Immunosuppres denisse Inject 0.5 mL into the muscle Every 2 Months, Every 8 Weeks, Every 60 Days. 0.5 mL 1 07/02/20 18 Active Additional Information Patient not taking.Reported on 10/01/2019 albuterol (ACCUNEB) 0.63 mg/3 mL nebulizer solution Take 1 ampule by nebulization every 6 (six) hours as needed for wheezing. Active cholecalciferol, vitamin D3, (VITAMIN D3 ORAL) Take by mouth. Active cyanocobalamin, vitamin B-12, (VITAMIN B12 ORAL) Take by mouth. Activ e MAGNESIUM ORAL Take by mouth. Active Lactobacillus acidophilus (PROBIOTIC ORAL) Take by mouth. Active allopurinol (ZYLOPRIM) 100 MG tabletIndications :Acute gout due to renal impairment involving right foot Alternate 50mg with 100mg each day. 90 tablet 3 07/06/20 19 Active cyclophosphamide (CYTOXAN) 25 mg Cap Take 2 capsules (50 mg total) by mouth daily. 60 capsule 03/20/20 20 Active sodium chloride (PF) Soln 2 mL with amikacin 500 mg/2 mL Soln 500 mgIndications:Bro nchiectasis with acute lower respiratory infection Take 500 mg by nebulization 2 (two) times a day. 20 vial 03/27/20 20 Active syringe with needle, safety 3 mL 23 gauge x 1 Syrg 1 each by Miscellaneous route 2 (two) times a day. 20 Syringe 03/27/20 20 Active sodium chloride 0.9 % nebulizer solution Take 3 mL by nebulization 2 (two) times a day. Please dispence 30 of the 3 ml vials for nebulizer 90 mL 1 03/27/20 20 Active acetylcysteine (MUCOMYST) 200 mg/mL (20 %) nebulizer solutionIndicatio ns:Churg-James syndrome with lung involvement,Bronc hiectasis with acute lower respiratory infection,Acute bronchitis due to other specified organisms,Mucopur ulent chronic bronchitis Take 4 mL (800 mg total) by nebulization 3 (three) times a day. 180 mL 3 05/18/20 20 Active sulfamethoxazole- trimethoprim (BACTRIM,SEPTRA) 400-80 mg per tablet Take 1 tablet (80 mg of trimethoprim total) by mouth daily. 90 tablet 3 08/13/20 21 Active levoFLOXacin 100 mg compounded for sinus rinse incorporation capsule Add 1 capsule (100 mg total) to 240 mL Neilmed sinus rinse and use nasally 2 (two) times a day as directed for 8 weeks 120 capsule 10/17/20 22 Active cefTAZidime-budes onide (600 mg-0.6 mg) compounded for sinus rinse incorporation capsule Add 1 capsule (600 mg -0.6 mg) to 240 mL Neilmed sinus rinse and use nasally 2 (two) times a day as directed. 112 capsule 11/04/20 22 Active Medication-Free Text Ceftazidime 125mg capsule for compounded topical nasal rinse. Please add 1 capsule to 8 ounces of nasal sinus rinse and use nasally twice a day for 8 weeks 120 capsule 12/13/19 23 Active sodium bicarbonate 650 mg tablet Take 1 tablet (650 mg total) by mouth 4 (four) times a day. 120 tablet 3 07/12/20 23 Active azithromycin (ZITHROMAX) 250 MG tablet TAKE 1 TABLET (250 MG) BY MOUTH 3 TIMES A WEEK 07/31/20 23 Active levalbuterol (XOPENEX) 1.25 mg/3 mL nebulizer solution 1.25 MG (3 ML) INHALED 3 TIMES A DAY 07/22/20 23 Active YUVAFEM [address] 1 tablet vaginally 2 (two) times a week. 07/21/20 23 Active nystatin (NYSTOP) powder Apply topically 2 (two) times a day. APPLY TO AFFECTED AREA 06/17/20 23 Active loratadine (CLARITIN) 10 mg tablet Take 10 mg by mouth daily. Active Medication-Free Text Topical Tobramycin irrigation capsules 20 mg Add one capsule to 8 ounces neilmed sinuse rinse and use nasally twice a day 60 capsule 2 08/12/20 23 Active pantoprazole (PROTONIX) 40 MG tabletIndications :Heartburn Take 1 tablet (40 mg total) by mouth 2 (two) times a day. 56 tablet 1 09/11/20 23 Active potassium citrate (UROCIT-K) 10 mEq SR tablet Take 1 tablet (10 mEq total) by mouth daily with breakfast. 60 tablet 2 11/10/20 23 Active budesonide 0.6 mg compounded for sinus rinse incorporation capsule Add 1 capsule (0.6 mg total) to 240 mL Neilmed sinus rinse and use nasally twice a day as directed. 180 capsule 2 01/02/20 24 Active MIEBO 100 % Drop INSTILL 1 DROP INTO BOTH EYES 4 TIMES A DAY DIRECTED 07/21/20 24 Active ZERVIATE 0.24 % Dpet USE 1 DROP INTO BOTH EYES TWICE A DAY 07/23/20 24 Active azelastine (ASTELIN) 137 mcg (0.1 %) nasal spray 2 sprays by Nasal route 2 (two) times a day. Use in each nostril as directed 30 mL 6 08/23/20 24 Active carvedilol (COREG) 12.5 MG tablet TAKE 1/2 TABLET BY MOUTH TWICE A DAY WITH MEALS 45 tablet 3 04/11/20 25 Active Active Problems Problem Noted Date Diagnosed [...] Encounters Date Type Department Care Team Description 07/18/2025 9:00 AM EDT Telemedicine - audio only [facility] [address] [place] [address] Jone Nobles MD ANCA-associated vasculitis (Primary Dx); Churg-James syndrome from Last 3 Months Immunizations Immunization Administration Dates Next Due Influenza High-Dose Trivalent [...] 80 04/01/2024 11:00 AM EDT Temperature 36.4 C (97.6 F) 04/01/2024 11:00 AM EDT Respiratory Rate 18 01/12/2020 11:53 AM EST [...] Office Visit [facility] [address] [place] [address] Jone Nobles MD [address] [place] [phone] [email or web address] Health Maintenance Due Date Last Done [...] 04/01/2025 04/01/2024, 10/2023, 07/07/2023, Additional history exists INFLUENZA VACCINE (#1) 2025 , 09/10/2023, 10/14/2022, Additional history exists LIPID PANEL 04/17/2028 04/17/2023, [...] age to complete this topic MENINGOCOCCAL VACCINES (B) Aged Out N o longer eligible based [...] EDT) SODIUM 131(L) 135 - 145 mmol/L [facility] POTASSIUM 4.0 3.4 - 5.0 mmol/L [facility] CHLORIDE 100 98 - 108 mmol/L [facility] CO2 14(L) 23 - 32 mmol/L [facility] BUN 66(H) 8 - 25 mg/dL [facility] CREATININE 1.87(H) 0.60 - 1.50 mg/dL [facility] GLUCOSE 209(H) 70 - 110 mg/dL [facility] ALBUMIN 3.9 3.3 - 5.0 g/dL [facility] TOTAL PROTEIN 6.4 6.0 - 8.3 g/dL [facility] CALCIUM 9.4 8.5 - 10.5 mg/dL [facility] ALKALINE PHOSPHATASE 129(H) 30 - 100 U/L [facility] TOTAL BILIRUBIN 0.3 0.0 - 1.0 mg/dL [facility] AST 37(H) 9 - 32 U/L [facility] ALT 48(H) 7 - 33 U/L [facility] GLOBULIN 2.5 1.9 - 4.1 g/dL [facility] EGFR 28(L) >59 mL/min/1. 73m2 [facility] Comment:Estimated glomerular filtration rate calculated using the CKD-EPI refit equation. ANION GAP 17 3 - 17 mmol/L [facility] 04/01/2024 11:5 7 AM EDT 04/01/2024 4:30 PM EDT Jone Nobles MD LAB BLOOD ORDERABLES Final Result Performing Organization Address [facility] Co de Phone Number [address] [address] * (ABNORMAL) Lipid panel (04/17/2023 1:20 PM EDT) HDL 46 35 - 100 mg/dL [facility] CHOLESTEROL 203(H) <200 mg/dL [facility] TRIGLYCERIDES 499(H) 40 - 150 mg/dL [facility] LDL -- 50 - 129 mg/dL [facility] Comment: Calculated LDL is inaccurate when triglycerides exceed 400 mg/dl. CARDIAC RISK RATIO 4.4 0.0 - 5.0 [facility] NON-HDL CHOLESTEROL 157 mg/dL [facility] Comment:NCEP ATP III guideli david suggest a non-HDL cholesterol goal 30 mg/dl higher than the patient-specific LDL goal. Blood 04/17/2023 1:20 PM EDT 04/17/2023 4:33 PM EDT Soham Light MD LAB BLOOD ORDERABLES Final Resul t Performing Organization Address City/[facility]/ZIP Co de Phone Number [address] [address] * (ABNORMAL) Hepatitis C antibody, qualitative (01/08/2017 3:35 PM EST) HCV ANTIBODY Credit(A) Negative [facility] Comment:SPECIMEN RELOGGED Blood 01/08/2017 3:35 PM EST 01/08/2017 6:16 PM EST us Sonido Parra MD LAB BLOOD ORDERABLES Final Resul t [facility] [address] [place] [address] from Last 3 Months or Most Recently Relevant to Health Maintenance Insurance MEDICARE PART A & B [facility] MEDICARE PREFERRED SUPPLEMENT [facility] MEDICARE [place] [address] MEDICARE PART A & B [facility] MEDICARE PREFERRED SUPPLEMENT [facility] MEDICARE [place] [address] MEDICARE PART A & B [facility] MEDICARE PREFERRED SUPPLEMENT MEDICARE PART A & B [facility] MEDICARE [place] [address] MEDICARE PART A & B [facility] MEDICARE PREFERRED SUPPLEMENT [facility] MEDICARE [place] [address] MEDICARE PART A & B [facility] MEDICARE PREFERRED SUPPLEMENT [facility] [place] [address] MEDICARE PART A & B [facility] MEDICARE PREFERRED SUPPLEMENT [facility] MEDICARE ENHANCE SUPPLEMENT MEDICARE PART A & B [facility] MEDICARE PREFERRED SUPPLEMENT MEDICARE PART A & B [facility] MEDICARE PREFERRED SUPPLEMENT [facility] MEDICARE ENHANCE SUPPLEMENT Care Teams Route Delivery Service Driver Relationship Specialty Start Date End Date Eduardo Albert MD [facility] Darren Mejía [address] [address] PCP - General Internal Medicine 04/17/23 Marquis Morel MD [address] [place] [address] Dr [place]ás[place] [address] Crucible Packer Pulmonary Disease 08/16/21 Kilo Diaz MD [address] [place] [address] [email or web address] Nephrology 01/23/23 Additional Source Comments The information contained in this document represents components of the legal health record. It is not the complete legal health record.[facility]
--- OUTSIDE RECORDS SUMMARY | 2025-08-11 16:58 | XMS_ITS | Encounter Summary ---
Author Organization [facility], Address [address] [place] [address] Phone Care Team Providers Care Master Control Technician Name Role Phone Eduardo Albert MD Primary Care Provider [phone] Encounter Details Date Type Department Care Team (Late st Contact Info) Description 02/10/2024 Documentation Only [facility], [address] [place] [phone] Guillermo [place]reg[place], [place] [address] [place] [address] Social History Tobacco Use Types [...] on filedocumented in this encounter Care Teams Master Control Technician Relationship Specialty Start Date End Date Eduardo Albert MD [facility] [address] [place] [address] [address] [place] [address] PCP - General 10/05/19 documented as of this encounter
--- OUTSIDE RECORDS SUMMARY | 2025-08-11 16:58 | XMS_ITS | Clinical Summary ---
Author Organization [facility], Address [address] [place] [address] [place] [address] Phone Care Team Providers Care Human Resource Assistant Name Role Phone Eduardo Albert MD Primary Care Provider [phone] Allergies Active Allergy Reactions Criticality Noted Date [...] % nebulizer solution 1 Active nystatin (MYCOSTATIN) 851262 UNIT/ML suspension 1 Active neomycin-polymy paco-dexamethame thasone (POLYDEX) 3.5-83838-8.1 ointment 1 Active levalbuterol (XOPENEX) 1.25 MG/3ML [...] WBC 8.9 3.4 - 10.8 x10E3/uL [facility] RBC 3.48(L) 3.77 - 5.28 x10E6/uL [facility] Hemoglobin 10.7(L) 11.1 - 15.9 g/dL [facility] Hematocrit 32.5(L) 34.0 - 46.6 % [facility] MCV 93 79 - 97 fL [facility] MCH 30.7 26.6 - 33.0 pg [facility] MCHC 32.9 31.5 - 35.7 g/dL [facility] RDW 16.2(H) 11.7 - 15.4 % [facility] Platelets 212 150 - 450 x10E3/uL [facility] Blood specimen (specimen) Venous blood / Unknown 02/08/2025 3:30 PM EDT 02/08/2025 Kilo Diaz MD LAB BLOOD ORDERABLES Final Result [facility] [address] [place] [phone] from Last 3 Months or Most Recently Relevant to Health Maintenance Insurance Medicare [facility] Care Teams Human Resource Assistant Relationship Specialty Start Date End Date Eduardo Albert MD [address] [place] [address] PCP - General 10/05/19
--- OUTSIDE RECORDS SUMMARY | 2025-08-11 16:58 | XMS_ITS | Encounter Summary ---
Author Organization [facility] [place], Address [address] [place] [address] Phone Care Team Providers Care Executive Administrator Name Role Phone Eduardo Albert MD Primary Care Provider [phone] Encounter Details Date Type Department Care Team (Late st Contact Info) Description 02/23/2024 Documentation Only [facility] [place], [address] [place] [phone] Guillermo Fregoso[place], [place] [address] [place] [address] Social History Tobacco Use Types [...] on filedocumented in this encounter Care Teams Executive Administrator Relationship Specialty Start Date End Date Eduardo Albert MD [facility] [address] [place] [address] [place] [address] PCP - General 10/05/19 documented as of this encounter
--- OUTSIDE RECORDS SUMMARY | 2025-08-11 16:58 | XMS_ITS | Encounter Summary ---
Author Organization [facility], Address [address] [address] Phone Care Team Providers Care Lead Performance Support Analyst Name Role Phone Eduardo Albert MD Primary Care Provider [phone] Encounter Details Date Type Department Care Team (Late st Contact Info) Description 01/23/2023 Documentation Only [facility], [address] [place] [id number] Kilo Diaz MD [address] [place] [address] Social History Tobacco Use Types [...] on filedocumented in this encounter Care Teams Lead Performance Support Analyst Relationship Specialty Start Date End Date Eduardo Albert MD [facility] [email or web address] [address] [place] [address] [address] [place] [address] PCP - General 10/05/19 documented as of this encounter
--- OUTSIDE RECORDS SUMMARY | 2025-08-11 16:58 | XMS_ITS | Encounter Summary ---
Author Organization [facility] Address [address] [place] [address] Phone Care Team Providers Care Care Transition Mgr Name Role Phone Eduardo Albert MD Primary Care Provider [phone] Marquis Morel MD Unavailable [phone] Kilo Diaz MD Primary Care Provider + Kilo Diaz MD Unavailable [phone] Eduardo Albert MD Primary Care Provider [phone] Encounter Details Date Type Department Care Team (Late st Contact Info) Description 02/12/2018 Procedure [facility] [address] [place] [address] Social History Tobacco Use Types Packs/Day Years Used Date Smoking Tobacco: Former Comments No Sex and Gender Information Value Date Recorded Sex Assigned at Not on file Legal Sex Female 8:05 PM EST Gender Identity Not on file Sexual Orientation Not on file documented as of this encounter Plan of Treatment Upcoming Encounters Date Type Department Care Team (Late Contact Info) Description 07/20/2026 11:30 AM EDT Office Visit [facility] [address] [place] [phone] Jone Nobles MD [address] [place] [phone] [email or web address] documented as of this encounter Visit Diagnoses Not on filedocumented in this encounter Additional Health Concerns Infection Onset Date Last Indicated Resolved Time 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 10/08/2022 10/15/2023 1:21 AM EST documented as of this encounter Care Teams Care Transition Mgr Relationship Specialty Start Date End Date Eduardo Albert MD [address] [address] PCP - General Internal Medicine 01/03/17 01/22/23 Kilo Diaz MD [address] [place] [address] PCP - General Nephrology 01/23/23 04/16/23 Eduardo Albert MD [address] [address] PCP - General Internal Medicine 04/17/23 Marquis Morel MD [address] [place] [address] [address] [place] [address] Relationship Executive Pulmonary Disease 08/16/21 Kilo Diaz MD [address] [place] [id number] Nephrology 01/23/23 documented as of this encounter Additional Source Comments The information contained in this document represents components of the legal health record. It is not the complete legal health record.[facility]
--- OUTSIDE RECORDS SUMMARY | 2025-08-11 16:58 | XMS_ITS | Encounter Summary ---
Author Organization [facility], Address [address] [place] [address] Phone Care Team Providers Care Market Basket Maker Name Role Phone Eduardo Albert MD Primary Care Provider [phone] Encounter Details Date Type Department Care Team (Late st Contact Info) Description 08/09/2024 Documentation Only [facility], [address] [place] [phone] [address], [place] [address] [place] [address] Social History Tobacco Use Types [...] on filedocumented in this encounter Care Teams Market Basket Maker Relationship Specialty Start Date End Date Eduardo Albert MD [facility] [address] [place] [address] [address] [place] [address] PCP - General 10/05/19 documented as of this encounter
== END 2025-08-11 13:30 | disposition home or self-care (01) ==
LOC: HO.HPS 12:48
PROVIDERS: PCP Internal Medicine; Visit Provider Hospitalist
DX: J47.0 Bronchiectasis with acute lower respiratory infection (principal); J44.0 Chronic obstructive pulmonary disease with (acute) lower respiratory infection; D80.1 Nonfamilial hypogammaglobulinemia; M30.1 Polyarteritis with lung involvement [Churg-Strauss]; D72.18 Eosinophilia in diseases classified elsewhere; E11.65 Type 2 diabetes mellitus with hyperglycemia; M48.061 Spinal stenosis, lumbar region without neurogenic claudication; M54.40 Lumbago with sciatica, unspecified side; G89.29 Other chronic pain; J32.9 Chronic sinusitis, unspecified
CPT/HCPCS: 99214; G2211

== ENCOUNTER → 2025-08-11 12:48 | Outpatient (BNVA) | payer MEDICARE, OTHER, SELFPAY | PROVIDERS: PCP Internal Medicine; Visit Provider Hospitalist | DX: J47.0 Bronchiectasis with acute lower respiratory infection (principal); J44.0 Chronic obstructive pulmonary disease with (acute) lower respiratory infection; M30.1 Polyarteritis with lung involvement [Churg-Strauss]; D72.18 Eosinophilia in diseases classified elsewhere; E11.65 Type 2 diabetes mellitus with hyperglycemia; M48.061 Spinal stenosis, lumbar region without neurogenic claudication; G89.29 Other chronic pain; J32.9 Chronic sinusitis, unspecified | CPT/HCPCS: 99212 ==

== ENCOUNTER 2025-10-13 13:34 | Outpatient (AMB) | payer MEDICARE, OTHER, SELFPAY ==
--- OUTSIDE RECORDS SUMMARY | 2022-08-27 23:00 | XMS_ITS | Encounter Summary ---
Author Organization [facility] Address [address] [place] [phone] Phone Care Team Providers Care Leather Tooler Name Role Phone Eduardo Albert MD Primary Care Provider [phone] Marquis Moerl MD Unavailable Encounter Details Date Type Department Care Team (Late st Contact Info) Description 08/28/2022 Hospital Encounter [facility] [address] [place] [phone] Earnest Anand MD, MS [address] [place] [address] [email or web address] Social History Tobacco Use Types Packs/Day Years Used Date Smoking Tobacco: Former Smokeless Tobacco: Never Alcohol Use Standard Drinks/Week Comments Not Currently 0 (1 standard drink = 0.6 oz pur e alcohol) Education Answer Date Recorded Are you interested in more education? Not on santino e 03/27/2023 Are you concerned about learning? Not on file 03/27/2023 No 03/27/2023 No 03/27/2023 Digital Access Answer Date Recorded No 04/23/2023 No 04/23/2023 Reliable internet access at home? Not on file 04/23/2023 Device with a working camera? Not on file Comments No Sex and Gender Information Value Date Recorded Sex Assigned at Not on file Legal Sex Female 8:05 PM EST Gender Identity Not on file Sexual Orientation Not on file documented as of this encounter Plan of Treatment Upcoming Encounters Date Type Department Care Team (Late st Contact Info) Description 07/20/2026 11:30 AM EDT Office [facility] [address] [place] [phone] Jone Nobles MD [address] [place] [phone] [email or web address] documented as of this encounter Procedures Procedure Name Priority Date/Time Associated Diagnosis Comments CT FACE OUTSIDE (NO INTERPRETATION) Routine 08/28/2022 12:00 AM EDT documented in this encounter Results * CT Face Outside (No Interpretation) (08/28/2022 12:00 AM EDT) Narrative [facility] - 10/08/2022 5:18 PM EST This study is for PACS storage only and not for interpretation. 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 It is not the complete legal health record.[facility]
--- OUTSIDE RECORDS SUMMARY | 2024-05-21 08:15 | XMS_ITS ---
Author Organization [facility] Address [address] [place] [address] Care Team Providers Care Step Down Specialist Name Role Phone Eduardo Albert MD Primary Care Provider Sherry Kelly [phone] Encounters Encounter Location Date Provider Diagnosis [address] [place] [address] 05/21/2024 Sherry Trujillo Plan Of Treatment No Information Progress Notes * Griselda WELSH WDOB:[birth year] (80 yo F)Acc No.[id number]:05/21/2024 Progress Note Patient: Aurelio SPENCERICHY Griselda Ferguson Provider: Kenji Trujillo DPM :1945 A ge:79 Y S ex:Female Date:05/21/2024 Address:[address] [place] [address] Pcp:Eduardo Albert MD Subjective: * Chief Complaints: * * Medical History: Objective: * Vitals: Assessment: Plan: * Treatment: * Images: * The named appointment provid er may or may not be the originator of this progress note, and it is not deemed complete until electronically signed by the appointment provider. Sign off status: Pending * Provider: Kenji Trujillo DPM Date: 0 05/21/2024 Generated for Printi ng/Fapacog/eTransmitting on: 12/13/2024 04:53 PM EST
--- OUTSIDE RECORDS SUMMARY | 2024-12-07 10:15 | XMS_ITS ---
Author Organization [facility] Address [address] [facility] [place] [address] Care Team Providers Care Charge Out Clerk Name Role Phone Eduardo Albert MD Primary Care Provider Sherry Kelly [phone] Encounters Encounter Location Date Provider Diagnosis [address] [place] [address] 12/07/2024 Sherry Trujillo Plan Of Treatment No Information Progress Notes * Griselda WELSH WDOB:[birth year] (80 yo F)Acc No.[id number]:12/07/2024 Progress Note Patient: Aurelio SPENCERICHY Griselda Ferguson Provider: Kenji Trujillo DPM :1945 A ge:79 Y S ex:Female Date:12/07/2024 Address:[address] [place] [address] Pcp:Eduardo Albert MD Subjective: * Chief Complaints: * * Medical History: Objective: * Vitals: Assessment: Plan: * Treatment: * Images: * The named appointment provid er may or may not be the originator of this progress note, and it is not deemed complete until electronically signed by the appointment provider. Sign off status: Pending * Provider: Kenji Trujillo DPM Date: 0 12/07/2024 Generated for Anisai ng/Fapacog/eTransmitting on: 12/13/2024 04:53 PM EST
--- OUTSIDE RECORDS SUMMARY | 2025-01-05 09:30 | XMS_ITS ---
Author Organization [facility] Address [address] [facility] [place] [address] Care Team Providers Care Compressor Operator Portable Name Role Phone Eduardo Albert MD Primary Care Provider Sherry Kelly [phone] Encounters Encounter Location Date Provider Diagnosis [address] [place] [address] 01/05/2025 Sherry Trujillo Plan Of Treatment No Information Progress Notes * Griselda WELSH WDOB:[birth year] (80 yo F)Acc No.[id number]:01/05/2025 Progress Note Patient: Aurelio SPENCERICHY Griselda Ferguson Provider: Kenji Trujillo DPM :1945 A ge:79 Y S ex:Female Date:01/05/2025 Address:[address] [place] [address] Pcp:Eduardo Albert MD Subjective: * Chief Complaints: * * Medical History: Objective: * Vitals: Assessment: Plan: * Treatment: * Images: * The named appointment provid er may or may not be the originator of this progress note, and it is not deemed complete until electronically signed by the appointment provider. Sign off status: Pending * Provider: Kenji Trujillo DPM Date: 0 01/05/2025 Generated for Printi ng/Fapacog/eTransmitting on: 12/13/2024 04:54 PM EST
--- OUTSIDE RECORDS SUMMARY | 2025-01-19 09:30 | XMS_ITS ---
Author Organization [facility] Address [address] [facility] [place] [address] Care Team Providers Care Pyrometer Operator Name Role Phone Eduardo Albert MD Primary Care Provider Sherry Kelly [phone] Encounters Encounter Location Date Provider [facility] [address] [facility] [address] 01/19/2025 Sherry Trujillo Plan Of Treatment No Information Progress Notes * Griselda WELHS WDOB:[birth year] (80 yo F)Acc No.[id number]:01/19/2025 Progress Note Patient: Aurelio SPENCERICHY Griselda Ferguson Provider: Kneji Trujillo DPM :1945 A ge:79 Y S ex:Female Date:01/19/2025 Address:[address] [place] [address] Pcp:Eduardo Albert MD Subjective: * Chief Complaints: * * Medical History: Objective: * Vitals: Assessment: Plan: * Treatment: * Images: * The named appointment provid er may or may not be the originator of this progress note, and it is not deemed complete until electronically signed by the appointment provider. Sign off status: Pending * Provider: Kenji Trujillo DPM Date: 0 01/19/2025 Generated for Printi ng/Fapacog/eTransmitting on: 12/13/2024 04:52 PM EST
--- OUTSIDE RECORDS SUMMARY | 2025-04-06 08:00 | XMS_ITS ---
Author Organization [facility] Address [address] [facility] [place] [address] Care Team Providers Care Regulatory Affairs Consultant Name Role Phone Eduardo Albert MD Primary Care Provider Sherry Kelly [phone] Encounters Encounter Location Date Provider Diagnosis [address] [place] [address] 04/06/2025 Sherry Trujillo Plan Of Treatment No Information Progress Notes * Griselda WELSH WDOB:[birth year] (80 yo F)Acc No.[id number]:04/06/2025 Progress Note Patient: Aurelio SPENCERICHY Griselda Ferguson Provider: Kenji Trujillo DPM :1945 A ge:79 Y S ex:Female Date:04/06/2025 Address:[address] [place] [address] Pcp:Eduardo Albert MD Subjective: * Chief Complaints: * * Medical History: Objective: * Vitals: Assessment: Plan: * Treatment: * Images: * The named appointment provid er may or may not be the originator of this progress note, and it is not deemed complete until electronically signed by the appointment provider. Sign off status: Pending * Provider: Kenji Trujillo DPM Date: 0 04/06/2025 Generated for Anisai ng/Fapacog/eTransmitting on: 12/13/2024 04:52 PM EST
[2025-10-13 13:39] VITALS: BP 138/80; PULSE 108; O2SAT 97
--- NOTE | 2025-10-13 13:39 | A.OFFVIS_ITS ---
Vital Signs 10/13/25 13:39 Height 5 ft 2 in BMI Reason not done Patient refused/unable BP 138/80 Blood Pressure Location Lt brachial Position Sitting Pulse 108 H Pulse Source Pulse Oximeter Pulse Oximetry (%) 97 Oxygen Delivery Method Room Air Intake Visit Reasons: Bronchiectasis Glass Finisher Required: No Accompanied by: Spouse Allergies amlodipine Allergy (Severe, Verified 10/13/25 13:43) Swelling Benzodiazepines (BENZODIAZEPINES) Allergy (Intermediate, Verified 10/13/25 13:43) ANXIETY levofloxacin (From LEVAQUIN) Allergy (Intermediate, Verified 10/13/25 13:43) PAIN IN LEGS AND JOINTS clonazepam Allergy (Mild, Verified 10/13/25 13:43) Hallucinations lorazepam Allergy (Mild, Verified 10/13/25 13:43) Hallucinations olanzapine (Zyprexa) Allergy (Mild, Verified 10/13/25 13:43) Cough Penicillins (PENICILLINS) Allergy (Mild, Verified 10/13/25 13:43) Hives Sulfa (Sulfonamide Antibiotics) (SULFA (SULFONAMIDE ANTIBIOTICS)) Allergy (Mild, Verified 10/13/25 13:43) Sensivity mycophenolate mofetil (From CellCept) Allergy (Unknown, Verified 10/13/25 13:43) Blister MSG Allergy (Mild, Uncoded 06/27/25 11:08) Upset stomach HPI Comments Details: The patient is a 80-year-old woman with a 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 The patient also has significant asthma with eosinophilia was treated with Nucala. She responded to the therapy for some time with good results but then stop responding. She did follow up in [place] with her general utility machine operator and at that point the decision was to start her on rituximab. She received 2 doses. The 1st dose she ended up with pneumonia and up in the hospital and then she received a 2nd dose she has not felt well. She complains of worsening shortness of breath and cough with mucus production. She has a hard time expectorating. She has been on prednisone. She had a sputum culture was positive for Pseudomonas. She was placed on a nebulized amikacin but then had a reaction which has a stop it. She was then admitted to the hospital for IV antibiotics. She was discharged from the hospital she still have feels a lot of shortness of breath. Still on a small dose of prednisone. Last night her cough and shortness of breath was significantly worsen and she thought she would have to go back to the hospital. This morning she feels a little better. She still has a hard time expectorating. Sounds like she has a croupy barky cough. Suggesting the possibility of tracheomalacia. The patient does not use CPAP. She does have daytime drowsiness and does have issues with headaches in the morning. She on needs to have a sleep study. As far CPT she uses a flutter valve. She will have a CT scan of the chest that I personally reviewed demonstrating significant bronchiectasis primarily at the bases with mucus plugging. She has failed flutter valve and also has had resistant organisms therefore will try to get her a percussion vest as soon as possible to improve her chest PT. She did have a CT scan of the chest consistent with sinusitis. Her x-ray did demonstrated haziness in the right base suggesting airspace disease. She was given a dose of aztreonam. Infectious Disease was consulted and did not feel strongly about admitting her to the hospital or starting aztreonam. I did call microbiology in order to aztreonam to her Pseudomonas sensitivity panel. Will monitor closely her symptoms. At this point will start her on azithromycin for the bronchiectasis. She was also on Bactrim however she had a bump on her creatinine from 1.5-1.8. Therefore I will hold off on the Bactrim and see how she does in the azithromycin for now. She does follow up with her general utility machine operator in [place] and further discuss this. In the meantime her IgG levels were significantly low. She has severe infections in the upper or lower respiratory tract and does require to start IgG therapies as well as possible. The patient is sedimentation rate still elevated at on her recent blood work of 75 she has ongoing symptoms bringing up the question if her vasculitis still active. She is going to be following up with [place] soon regarding additional rituximab or additional therapies for the ongoing vasculitis. The the bronchoscopy demonstrated significant purulent Secretions and significant tracheobronchomalacia. Her Pseudomonas is extremely resistant. She started azithromycin Friday and Friday and she also started her percussion vest for her bronchiectasis with good effect. Overall she is feeling better. She also has immunodeficiency syndrome and will start IgG infusions tomorrow. 05/14/2023 the patient is here for a pulmonary follow-up visit. She is doing well from a respiratory status. No significant chest congestion. She continues on her chest PT using her nebulized therapy hypertonic saline a percussion vest. She is having issues with her sinuses. Having sinus pressure and also some bulging of the eyes. The patient did have an ENT evaluation and did have cultures which were positive. I do not have the results. She was referred back to [facility] in [place] for further care. She may need to go back on topical antibiotics. the patient did have blood work which I reviewed. It appears that her ANCA is negative still which is reassuring. She has not had to receive any additional Rituxan which is also reassuring. She continues on 11 mg of prednisone. The patient continues on the IVIG every 6 weeks. Her IgG levels are low normal so therefore she should continue with the every 6 weeks at this time. She is wondering about using the mask. I did encourage her to continue using the mask due to her immunodeficiency. 09/09/2023 the patient is here for a follow-up visit. Overall the patient continues to have some dyspnea on exertion. [id number] severity. Her sinuses start still an issue. She did go to ENT in [place] recently and she was again prescribed a compound BEULAH/ budesonide suspension that she does use twice a day. She will continue that for another 12 weeks and then they will follow-up with her. The patient has not had to start Rituxan just yet. She is actually weaning down the prednisone some. She is concerned that her kidney function got worse. She is going to follow up with her general utility machine operator soon. If her symptoms worsen she can always have more blood work done. I did put the blood work in the system. She continues on the IVIG therapy every 6 weeks which she is tolerating fairly well without any significant adverse effects. She also continues with respiratory therapy. No significant chest congestion at this time. 12/17/2023 the patient is here for pulmonary follow-up visit. From a respiratory status she is actually doing very well. Her congested subsided significantly. She also has improvement of her sinuses after the be BEULAH budesonide suspension. She also was able to stop that. Although she had worsening inflammatory changes and when she went to [place] her prednisone was increased from 11 mg to 15 mg. Subsequently after that during Thanksgiving dinner the patient developed severe hypoglycemia requiring a hospital visit. The patient was placed on medications although she was symptomatic with dizziness and falls and ultimately was taken off 1 medication and then placed on a different medication and had problems again. Therefore she has been off all medications. 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 She is able to decrease prednisone down to 13 mg but she is going to go slowly undergo be monitoring closely in [place]. The patient is continued to get her IVIG infusions as prescribed with good effect. She also continues to use her CPT also with good effect as her congestion is significantly improved. 05/13/2024 the patient is here for a pulmonary follow-up visit. Overall she has doing a little better. She was hospitalized was given high-dose steroids and she had significant hyperglycemia. He has been very difficult to control her sugars. She is on insulin. The patient has been doing well from a respiratory status. She is down to prednisone 13 mg. She is slowly decreasing. I wonder she is going to need a steroid sparing agent to minimize steroid use. May be a good candidate for mycophenolate. In the meantime she is getting her IVIG. Will go and check her trough levels before the next dose. She continues her respiratory therapy. Does not have any significant chest congestion. Will try to wean her off the azithromycin macrolide suppression therapy that she uses for bronchiectasis. Will try to wean her off completely to make sure we can simplif y her medication regimen. 08/27/2024 the patient is here for a pulmonary follow-up visit. She has had worsening cough chest congestion and wheezing. Moderate severity. Is going to going on for the last 3-5 days. She continues on 13 mg of prednisone. She has not been able to cut down further. She is having moderate degree of chest congestion. We tried . Sputum sample in the office but we were not able to do so. Therefore will go ahead and start her on Augmentin since this is 1 of the antibiotics she can not tolerate. And will also try to get a sputum culture whenever possible. We can also consider additional imaging studies and also consider bronchoscopy if the patient is not able to clear this. She is also having significant wheezing on examination. Although does have issues with hyperglycemia and diabetes so therefore hold off on increasing the prednisone at this time. She continues to receive her IVIG. She also has been taking the azithromycin 3 times a week. She did try to cut down but she could not do so because of her worsening congestion. 04/07/2025 the patient is here for pulmonary follow-up visit. The patient has been very sick now for many months. The chronic prednisone has affected her significantly. He has had severe back pain due to significant disease that is consider nonoperable causing to have chronic pain issues. She was placed on strong opiates to try to control the pain. Unfortunately to the prednisone has caused her to have elevated blood sugars and now dealing with diabetes. In addition to that her underlying respiratory disease and vasculitis. She has not been able to get down on to lower than 20 mg of prednisone. She did follow-up in [place] all this very difficult for her to travel to [place] now because of her chronic pain issues very debilitating. Therefore, will go ahead and start a small dose of mycophenolate and start decreasing her prednisone down by 1 mg every 2 weeks and will follow-up in 6 weeks to see if we can get at least get her down to 17 mg. And at that point will go ahead and request additional blood work. The patient had been on IVIG therapy for her immunodeficiency. But because she has been so chronically ill and going from the hospital to the rehab she has missed several dosages. Therefore will go ahead and request additional blood work to see where her IgG levels are and then restart her on IVIG therapy. Her respiratory exam is reassuring. Will have her undergo blood work today and hopefully start IVIG soon. 05/19/2025 the patient is here for pulmonary follow-up visit. She has been able to wean down the prednisone she is down to 16 mg. She is going to continue to decrease further every 2 weeks until she gets to 14 mg. In the meantime she did get her IVIG. She did have some symptoms during and after the infusion but then afterwards she was okay. We are avoiding any Solu-Medrol premedications as we are trying to avoid corticosteroids altogether. She initially started CellCept and then switched over to Imuran because of a question allergic reaction but it was actually thrush. Then she restarted the CellCept but then developed abdominal pain so she is going to go ahead and stop it and then she is going to start now the Imuran again at 25 mg daily which is a very small dose she will see if she can stay away from needing additional corticosteroids with a steroid sparing agent. She is still having significant pain in the back which is limiting her ability to stand. She had been evaluated by pain management in the past year. Will go ahead and refer her again to see if there is any modalities I can provide any relief. From a pulmonary standpoint she is doing better and if she does need anesthesia she could tolerated specially since her significant discomfort does limit her quality of life. Therefore, she will continue with the current respiratory therapy as her lungs are clear she will continue to receive the IVIG and will going to continue decreasing the prednisone safely. When she gets to 14 mg will start decreasing it down by 0.5 mg to minimize any significant adverse effects. She does feel some withdrawal symptoms but she is moving forward. Follow-up in the next 4-6 weeks. If she has any issues prior to this she will call for an earlier assessment. 06/30/2025 the patient is here for pulmonary follow-up visit. Overall the patient has been doing fairly okay. She continues to have significant back pain. It is very debilitating the discomfort. She had been hospitalized because of lower extremity edema and some blood pressure derangements. It was thought to be related to her cardiac medications were recently adjusted. During the hospital stay the patient did have a chest x-ray which was personally by me demonstrating some silhouette sign of the left lower lobe area with an opacity likely atelectasis. Appears to be chronic although can not rule out pneumonia. The patient was treated for a lower respiratory infection. As far as the Imuran she is tolerating the 25 mg daily and she had been able to cut down the prednisone to 15 mg. Therefore, she is going to cut down further to 14 mg and will slowly increase the Imuran to 50 mg daily. I am hopeful that she can tolerate that and will request blood work during the next visit. In the meantime she did follow-up with pain management in not much that could be offered accept a continue her pain medications at this time. Her respiratory exam is reassuring. She continues on the IVIG therapy. Will follow-up in 6 weeks. 08/11/2025 the patient is here for pulmonary follow-up visit. She continues to do well from a respiratory status. Although has been having significant sinus issues. She did see ENT and cultures were sent but she is still waiting for the results of week ago. In the meantime she continues on 15 mg of prednisone. She has been concerned about going down specially with the ongoing symptoms. She is needs to started doing her Neti bottle rinsing along with budesonide. She also continues on the Imuran just half a tablet daily. She is concerned about going to twice a day. We will hold off until the next visit to increase her medication as long she is doing well from a pulmonary standpoint. She continues with the IV infusions which appears to be affecting beneficial. Her blood pressure is better controlled. She came off the Norvas because of the swelling and then was placed on carvedilol but then the was not controlling her blood pressure. Nauseous she is on losartan. This is a question about using the cannabinoid tincture with the losartan but explained to her that she should use it at different times specially she can use the tincture just at nighttime and not to take the to agents together. Otherwise follow-up in 6-8 weeks. If she has any issues prior to this she will call for further recommendations. 10/13/2025 the patient is here for pulmonary follow-up visit. Overall she is doing okay. She states that her breathing has been okay. She did have some congestion and but she was able to use the flutter valve and she was able to clear the secretions. She continues with the nebulizer treatments as prescribed . She continues with the nasal therapy. She is following closely with the ENT and recently she was evaluated had another sinus culture done she is awaiting for the results. The patient also has been on the Imuran just a half a tablet 25 mg daily. Will go ahead and increase it to 25 mg twice a day. She continues on 15 mg of prednisone. If she can not tolerate the Imuran twice a day will start thinking about cutting down the prednisone down to 14 mg. Will have that discussion further when she comes back in December. She is complaining about hair loss. Therefore will start her on biotin and folate specially since the Imuran is going to potentially cause some hair loss. But at this time the prednisone is causing more harm and we need to work on decreasing it further to the lowest most effective dose. The patient will follow-up in December if any issues arise she can always call for further recommendations. [facility] Medical History (Updated 06/30/25 @ 21:55 by Marquis Morel MD) Diabetes mellitus Status post administration of all doses of COVID-19 vaccine series COPD (chronic obstructive pulmonary disease) Bronchiectasis Rash Hypogammaglobulinemia CSS (Churg-James syndrome) Surgical History History of appendectomy History of ileostomy History of cholecystectomy History of hysterectomy History of colectomy History of bronchoscopy (~2019) Social History Patient Tobacco Use Status: Never used Tobacco Advance Directives Date on File: 09/19/20 Review of Systems Const Reports body aches, Denies chills, Reports difficulty sleeping, Reports fatigue and Denies fever(s) Eyes Reports change in vision ENT Reports dizziness, Denies lip swelling, Reports nasal congestion, Reports neck pain, Reports sinus pain, Reports sinus pressure and Denies tongue swelling Card Denies chest pain, Denies leg edema, Denies lightheadedness, Denies palpitations, Denies dyspnea on exertion, Denies orthopnea and Denies other Resp Reports cough, Denies dyspnea on exertion and Denies wheezing GI Denies hematochezia and Denies change in stool character Musc Reports abnormal gait, Reports back pain, Reports arthralgias, Reports muscle weakness, Reports neck pain, Denies numbness, Reports radiating pain into limb and Reports tingling Skin/Breast Reports rash Neuro Reports abnormal gait, Reports dizziness, Denies numbness and Reports tingling Psych Denies no additional complaints Endo Reports fatigue and Denies palpitations Paul/Lymph Denies easy bleeding and Denies lymphadenopathy Aller/Immun Denies lip swelling, Denies tongue swelling and Denies wheezing Physical Exam Vital Signs: Last Vital Signs Pulse 108 H 10/13/25 13:39 BP 138/80 10/13/25 13:39 Pulse Ox 97 10/13/25 13:39 Oxygen Delivery Method Room Air 10/13/25 13:39 Const General: comfortable and alert HEENT Throat: Yes postnasal drainage (thick yellow mucus noted) Eyes Conjunctivae: conjunctival abnormal Neck Neck: Yes normal visual inspection, Yes full ROM and Yes no lymphadenopathy Chest Chest palpation & inspection: normal inspection of the chest Resp Effort & Inspection: normal respiratory effort Auscultation: no rales, no rhonchi, no wheezes and diminished lung sounds Cardio Rate: regular rate Rhythm: regular rhythm Heart sounds: S1 normal heart sound present and S2 normal heart sound present GI Palpation (GI): Soft to palpation and nontender Auscultation: normal bowel sounds Skin General skin exam: rashes and/or lesions noted Extrem General: Yes no clubbing, cyanosis or edema Assessment & Plan Assessment & Plan (1) Bronchiectasis: Code(s): J47.9 - Bronchiectasis, uncomplicated Category: Medical Qualifiers: Bronchiectasis type: with acute lower respiratory infection Qualified Code(s): J47.0 - Bronchiectasis with acute lower respiratory infection (2) COPD (chronic obstructive pulmonary disease): Code(s): J44.9 - Chronic obstructive pulmonary disease, unspecified Category: Medical Qualifiers: COPD type: COPD with acute lower respiratory infection Qualified Code(s): J44.0 - Chronic obstructive pulmonary disease with (acute) lower respiratory infection (3) Hypogammaglobulinemia: Code(s): D80.1 - Nonfamilial hypogammaglobulinemia Category: Medical (4) CSS (Churg-James syndrome): Comment: Failed Nucala. 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 [Churg-James]; D72.18 - Eosinophilia in diseases classified elsewhere Category: Medical (5) Diabetes mellitus: Code(s): E11.9 - Type 2 diabetes mellitus without complications Category: Medical Qualifiers: Diabetes mellitus type: type 2 Diabetes mellitus care home insulin use: without care home use Diabetes mellitus complication status: with hyperglycemia Qualified Code(s): E11.65 - Type 2 diabetes mellitus with hyperglycemia (6) Spinal stenosis of lumbar region: Code(s): M48.061 - Spinal stenosis, lumbar region without neurogenic claudication Category: Medical Qualifiers: Neurogenic claudication status: unspecified Qualified Code(s): M48.061 - Spinal stenosis, lumbar region without neurogenic claudication (7) Low back pain: Code(s): M54.50 - Low back pain, unspecified Category: Medical Qualifiers: Chronicity: chronic Back pain laterality: unspecified Sciatica presence: with sciatica Sciatica laterality: sciatica laterality unspecified Qualified Code(s): M54.40 - Lumbago with sciatica, unspecified side; G89.29 - Other chronic pain (8) Sinusitis: Code(s): J32.9 - Chronic sinusitis, unspecified Category: Medical Qualifiers: Sinusitis location: unspecified location Chronicity: chronic Qualified Code(s): J32.9 - Chronic sinusitis, unspecified Plan Prednisone 16mg->15mg increase Imuran 25mg daily-->BID Continue budesonide ok once a day start neti bottle with budesonide benzonate for dry cough Levalbuterol BID continue CPT with hypertonic saline 3% and percussion device continue IVIG infusions [id number], check through level Zyrte daily pain management Follow-up in 2 months Medications: New biotin 5 mg PO DAILY 30 tabs 6RF 30 days folic acid 1 mg PO DAILY 30 tabs 7RF 30 days Coding Level of Care Code Est Pt Level 5 (97544) Complex EM visit Add On G2211 Diagnoses Bronchiectasis with acute lower respiratory infection J47.0 Bronchiectasis type: with acute lower respiratory infection Chronic obstructive pulmonary disease with acute lower respiratory infection J44.0 COPD type: COPD with acute lower respiratory infection Hypogammaglobulinemia D80.1 CSS (Churg-James syndrome) M30.1; D72.18 Type 2 diabetes mellitus with hyperglycemia, without long-term current use of insulin E11.65 Diabetes mellitus type: type 2 Diabetes mellitus ocean transportation intermediary insulin use: without ocean transportation intermediary use Diabetes mellitus complication status: with hyperglycemia Spinal stenosis of lumbar region, unspecified whether neurogenic claudication present M48.061 Neurogenic claudication status: unspecified Chronic low back pain with sciatica, sciatica laterality unspecified, un specified back pain laterality M54.40; G89.29 Chronicity: chronic Back pain laterality: unspecified Sciatica presence: with sciatica Sciatica laterality: sciatica laterality unspecified Chronic sinusitis, unspecified location J32.9 Sinusitis location: unspecified location Chronicity: chronic Time Spent (min) 35
--- OUTSIDE RECORDS SUMMARY | 2025-10-13 16:52 | XMS_ITS | Encounter Summary ---
Author Organization [facility] Address [address] [place] [address] Care Team Providers Care Ct Scan Technician Name Role Phone Daisy Lee MD Primary Care Provider Encounter Details Date Type Department Care Team (Late st Contact Info) Description 11/27/2024 Lab Requisition [facility] - Main Lab [address] [place] [address] Daisy Lee MD [address] [place] [phone] Encounter for other general examination Social History [...] LAB CHEMISTRY METHOD 11/27/2024 11:21 AM EST [facility] Potassium 4.2 3.5 - 5.5 mmol/L LAB CHEMISTRY METHOD 11/27/2024 11:21 AM EST [facility] Comment:Hemolysis present Chloride 108 96 - 110 mmol/L LAB CHEMISTRY METHOD 11/27/2024 11:21 AM EST [facility] CO2 17(L) 21 - 32 [...] LAB CHEMISTRY METHOD 11/27/2024 11:21 AM EST [facility] Blood Venous blood specimen / Unknown Venipuncture / Unknown 11/27/2024 7:52 AM EST 11/27/2024 9:36 AM EST us Daisy Lee MD LAB BLOOD ORDERABLES Final Resu lt [facility] [address] [place] [address], documented in this encounter Visit Diagnoses Diagnosis Encounter for other general examination documented in this encounter Care Teams Ct Scan Technician Relationship Specialty Start Date End Date Daisy Lee MD [address] [place] [address] PCP - General Hospitalist Medicine 03/18/25 documented as of this encounter
--- OUTSIDE RECORDS SUMMARY | 2025-10-13 16:52 | XMS_ITS | Encounter Summary ---
Author Organization [facility] Address [address] [place] [address] Care Team Providers Care Obstetrician Gynecologist Name Role Phone Daisy Lee MD Primary Care Provider [phone] Encounter Details Date Type Department Care Team (Late st Contact Info) Description 11/26/2024 Lab Requisition [facility] - Main Lab [address] [facility] [place] [address] Daisy Lee MD [address] [place] [address] Encounter for other general examination Social History [...] % LAB HEMETOLOGY METHOD 11/26/2024 10:52 AM [facility] Bands % 1.0 % LAB HEMETOLOGY METHOD 11/26/2024 10:52 AM [facility] Lymphocytes % 12.0 % LAB HEMETOLOGY METHOD 11/26/2024 10:52 AM [facility] Monocytes % 5.0 % LAB HEMETOLOGY METHOD 11/26/2024 10:52 AM [facility] Eosinophils % 1.0 % LAB HEMETOLOGY METHOD 11/26/2024 10:52 AM [facility] Basophils % 0.0 % LAB HEMETOLOGY METHOD 11/26/2024 10:52 AM [facility] Metamyelocytes % 1.0(H) % LAB HEMETOLOGY METHOD 11/26/2024 10:52 AM [facility] Myelocytes % 3.0(H) % LAB HEMETOLOGY METHOD 11/26/2024 10:52 AM [facility] Neutrophils Absolute Manual 6.39 1.50 - 7.00 K/mcL LAB HEMETOLOGY METHOD 11/26/2024 10:52 AM [facility] Bands Absolute Manual 0.08(H) 0.00 - 0.00 K/mcL LAB HEMETOLOGY METHOD 11/26/2024 10:52 AM [facility] Lymphocytes Absolute 1.00 1.00 - 5.00 K/mcL LAB HEMETOLOGY METHOD 11/26/2024 10:52 AM [facility] Monocytes Absolute Manual 0.42 0.20 - 1.00 K/mcL LAB HEMETOLOGY METHOD 11/26/2024 10:52 AM [facility] Eosinophils Absolute Manual 0.08 0.00 - 0.50 K/mcL LAB HEMETOLOGY METHOD 11/26/2024 10:[address] [facility] Basophils Absolute Manual 0.00 0.00 - 0.20 K/[facility] LAB HEMETOLOGY METHOD 11/26/2024 10:[address] [facility] Metamyelocytes Absolute Manual 0.08(H) 0.00 - 0.00 K/mcL LAB HEMETOLOGY METHOD 11/26/2024 10:[address] [facility] Myelocytes Absolute Manual 0.25(H) 0.00 - 0.00 K/[facility] LAB HEMETOLOGY METHOD 11/26/2024 10:52 AM [facility] Rbc Morphology Present( A) Consistent with indices, Normal for LAB HEMETOLOGY METHOD 11/26/2024 10:52 AM [facility] Comment:RBC: Morphology agre es with CBC Platelet Morphology - [facility] See Note(A) Normal LAB HEMETOLOGY METHOD 11/26/2024 10:52 AM [facility] Comment:PLT: Normal Tear Drop Cells Present 5 - 10%(A) (none) LAB HEMETOLOGY METHOD 11/26/2024 10:52 AM [facility] Blood Venous blood specimen / Unknown Venipuncture / Unknown 11/26/2024 7:25 AM EST 11/26/2024 9:22 AM EST us Daisy Lee MD LAB BLOOD ORDERABLES Final Resu lt [facility] [address] [place] [address], * (ABNORMAL) CBC auto differential (11/26/2024 7:25 AM EST) WBC 8.3 4.8 - 10.8 K/mcL LAB HEMETOLOGY METHOD 11/26/2024 10:52 AM [facility] RBC 3.40(L) 3.80 - 4.80 M/mcL LAB HEMETOLOGY METHOD 11/26/2024 10:52 AM [facility] Hemoglobin 9.6(L) 11.5 - 16.0 g/dL LAB HEMETOLOGY METHOD 11/26/2024 10:52 AM [facility] Hematocrit 30.3(L) 35.0 - 47.0 % LAB HEMETOLOGY METHOD 11/26/2024 10:52 AM [facility] MCV 89.1 79.0 - 98.0 FL LAB HEMETOLOGY METHOD 11/26/2024 10:52 AM [facility] MCH 28.2 27.0 - 32.0 pcg LAB HEMETOLOGY METHOD 11/26/2024 10:52 AM [facility] MCHC 31.7(L) 32.0 - 37.0 g/dL LAB HEMETOLOGY METHOD 11/26/2024 10:52 AM [facility] RDW 16.3(H) 11.0 - 15.0 % LAB HEMETOLOGY METHOD 11/26/2024 10:52 AM [facility] Platelets 184 130 - 400 K/mcL LAB HEMETOLOGY METHOD 11/26/2024 10:52 AM [facility] MPV 10.5 7.0 - 11.0 FL LAB HEMETOLOGY METHOD 11/26/2024 10:52 AM [facility] NRBC 0.0 <1.0 % LAB HEMETOLOGY METHOD 11/26/2024 10:52 AM [facility] NRBC Absolute 0.00 <0.10 K/mcL LAB HEMETOLOGY METHOD 11/26/2024 10:52 AM [facility] Blood Venous blood specimen / Unknown Venipuncture / Unknown 11/26/2024 7:25 AM EST 11/26/2024 9:22 AM EST us Daisy Lee MD LAB BLOOD ORDERABLES Final Resu lt Performing Organization Address [facility]/ZIP Co de Phone Number [facility] [address] [place] [address], * Magnesium (11/26/2024 7:25 AM EST) Magnesium 2.0 1.9 - 2.6 mg/dL LAB CHEMISTRY METHOD 11/26/2024 10:[address] [facility] Blood Venous blood specimen / Unknown Venipuncture / Unknown 11/26/2024 7:25 AM EST 11/26/2024 9:22 AM EST Daisy Lee MD LAB BLOOD ORDERABLES Final Resu lt Performing Organization Address [facility]/ZIP Co de Phone Number [facility] [address] [place] [address], * (ABNORMAL) Comprehensive metabolic panel (11/26/2024 7:25 AM EST) Pathologist [facility] Sodium 136 133 - 145 mmol/L LAB CHEMISTRY METHOD 11/26/2024 10:34 AM [facility] Potassium 4.1 3.5 - 5.5 mmol/L LAB CHEMISTRY METHOD 11/26/2024 10:34 AM [facility] Chloride 108 96 - 110 mmol/L LAB CHEMISTRY METHOD 11/26/2024 10:34 AM [facility] CO2 16(L) 21 - 32 mmol/L LAB CHEMISTRY METHOD 11/26/2024 10:34 AM [facility] Anion Gap 12(H) 3 - 11 LAB CHEMISTRY METHOD 11/26/2024 10:34 AM [facility] Glucose 113(H) 70 - 100 mg/dL LAB CHEMISTRY METHOD 11/26/2024 10:34 AM [facility] BUN 63(H) 5 - 25 mg/dL LAB CHEMISTRY METHOD 11/26/2024 10:34 AM [facility] Creatinine 1.75(H) 0.50 - 1.10 mg/dL LAB CHEMISTRY METHOD 11/26/2024 10:34 AM [facility] eGFR 30(L) >=60 mL/min/1. 73m2 LAB CHEMISTRY METHOD 11/26/2024 10:34 AM [facility] Comment:Calculation based on the Chronic Kidney Disease Epidemiology Collaboration (CKD-EPI) equation refit without adjustment for race. BUN/Creatinine Ratio 36.0 LAB CHEMISTRY METHOD 11/26/2024 10:34 AM [facility] Calcium 9.1 8.5 - 10.5 mg/dL LAB CHEMISTRY METHOD 11/26/2024 10:34 AM [facility] AST (SGOT) 27 10 - 42 unit/L LAB CHEMISTRY METHOD 11/26/2024 10:34 AM [facility] ALT (SGPT) 47 10 - 60 unit/L LAB CHEMISTRY METHOD 11/26/2024 10:34 AM [facility] Alkaline Phosphatase 127(H) 42 - 121 unit/L LAB CHEMISTRY METHOD 11/26/2024 10:34 AM [facility] Total Protein 6.1 6.0 - 8.0 g/dL LAB CHEMISTRY METHOD 11/26/2024 10:34 AM [facility] Albumin 3.1(L) 3.2 - 5.0 g/dL LAB CHEMISTRY METHOD 11/26/2024 10:34 AM [facility] Total Bilirubin 0.4 0.0 - 1.4 mg/dL LAB CHEMISTRY METHOD 11/26/2024 10:34 AM [facility] Blood Venous blood specimen / Unknown Venipuncture / Unknown 11/26/2024 7:25 AM EST 11/26/2024 9:22 AM EST us Daisy Lee MD LAB BLOOD ORDERABLES Final Resu lt [facility] LAB [address] [place] [address], documented in this encounter Visit Diagnoses Diagnosis Encounter for other general examination documented in this encounter Care Teams Obstetrician Gynecologist Relationship Specialty Start Date End Date Daisy Lee MD [address] [place] [phone] PCP - General Hospitalist Medicine 03/18/25 documented as of this encounter
--- OUTSIDE RECORDS SUMMARY | 2025-10-13 16:53 | XMS_ITS | Encounter Summary ---
Author Organization [facility] Address [address] [place] [address] Phone Care Team Providers Care Internal Combustion Engine Inspector Name Role Phone Marquis Morel MD Unavailable [phone] Kilo Diaz MD Unavailable [phone] Eduardo Albert MD Primary Care Provider [phone] Reason for Referral * Consultation (Routine) - Closed Specialty Diagnoses / Procedures Referred By Jyoti bynum Referred To Contact Allergy and Immunology Earnest Anand MD, [place] Phone: tel: fax: mailto:[email or web address] [address] Phone: tel: Referral ID Status Reason Start Date Expiration Date Visits Re quested Visits Authorized [id number] Closed 09/11/2023 09/11/2024 1 1 Encounter Details Date Type Department Care Team ([facility] st Contact Info) Description 09/11/2023 Transcribe Orders [facility] Referral Management [address] [place] [phone] Sonido Parra MD [address] [place] [phone] [email or web address] Social History Tobacco Use Types Packs/Day Years [...] EDT Office Visit [facility] [address] [place] [phone] Jone Nobles MD [address] [place] [phone] [email or web address] Scheduled Referrals Name Type Priority Associated Diagnoses Order Schedule Ambulatory referral to [facility] Allergy Outpatient Referral Routine Ordered: 09/11/2023 documented as of this encounter Visit Diagnoses Not on filedocumented in this encounter Additional Health Concerns Infection Onset Date Last Indicated Resolved Time 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 10/08/2022 10/15/2023 1:21 AM EST documented as of this encounter Care Teams Internal Combustion Engine Inspector Relationship Specialty Start Date End Date Eduardo Albert MD [address] [place] [address] [place] [address] PCP - General Internal Medicine 04/17/23 Marquis Morel MD [address] [place] [address] [address] [place] [address] Etiologist Pulmonary Disease 08/16/21 Kilo Diaz MD [address] [place] [phone] [email or web address] Nephrology 01/23/23 documented as of this encounter Additional Source Comments The information contained in this document represents components of the legal health record. It is not the complete legal health record.[facility]
--- OUTSIDE RECORDS SUMMARY | 2025-10-13 16:53 | XMS_ITS | Encounter Summary ---
Author Organization [facility] Address [address] [place] [address] Phone Care Team Providers Care C.O.D. Biller Name Role Phone Eduardo Albert MD Primary Care Provider [phone] Marquis Morel MD Unavailable [phone] Kilo Diaz MD Primary Care Provider + Kilo Diaz MD Unavailable [phone] Eduardo Albert MD Primary Care Provider [phone] Encounter Details Date Type Department Care Team (Late st Contact Info) Description 03/10/2018 Procedure Pass [facility] - CT, Main [address] [address] Social History Tobacco Use Types Packs/Day Years [...] EDT Office Visit [facility] [address] [place] [address] Jone Nobles MD [address] [place] [phone] [email or web address] documented as of this encounter Visit Diagnoses Not on filedocumented in this encounter Additional Health Concerns Infection Onset Date Last Indicated Resolved Time 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 Biller Relationship Specialty Start Date End Date Eduardo Albert MD [address] [place] [phone] PCP - General Internal Medicine 01/03/17 01/22/23 Kilo Diaz MD [address] [place] [address] PCP - General Nephrology 01/23/23 04/16/23 Eduardo Albert MD [address] [address] PCP - General Internal Medicine 04/17/23 Marquis Morel MD [address] [place] [address] [address] [place] [address] Potato Sorter Pulmonary Disease 08/16/21 Kilo Diaz MD [address] [place] [phone] Nephrology 01/23/23 documented as of this encounter Additional Source Comments The information contained in this document represents components of the legal health record. It is not the complete legal health record.[facility]
--- OUTSIDE RECORDS SUMMARY | 2025-10-13 16:53 | XMS_ITS | Continuity of Care Document ---
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 Franco, presents with her for follow up of sinusitis. Most recent sinus culture was positive for Pseudomonas. On nasal endoscopy, there is purulent material arising from the left maxillary antrostomy which was cultured today. I did not appreciate an effusion in either ear today. This was confirmed with tuning fork testing. Patient was instructed to resume budesonide irrigation only at this time. Additional treatment may be considered depending on the results. She already has a follow-up appointment scheduled with Dr. Laguerre next month for reassessment. Given the subjective decline in hearing, will also arrange for updated audiometric testing at the earliest convenient time. All questions were answered. Case discussed with Dr. Sneed. [email or web address] Not available 10/10/2025 18:28:25 Plan of Treatment Reminders Order Date Submit Date Provider Last Modified By Organization Details Last Modified Time Details Appointments Hearing Test Same Day (First) 2024 11:30A M Hearing Test Not available Not available Not available Establish ed 30 2024 12:00P M ANTONELLA Carey MD Not available Not available Not available Lab fungus, culture, unspecifi ed specimen 2024 025 [email or web address] [facility] (Centralized Electronic Ordering - All Locations), Patient Can Go To The Location Of Their Choice, [id number] 10/10/2025 18:15:34 culture, aerobic + anaerobic 2024 025 [email or web address] [facility] (Centralized Electronic Ordering - All Locations), Patient Can Go To The Location Of Their Choice, [id number] 10/10/2025 18:15:39 Referral None recorded. Procedures None recorded. Surgeries None recorded. Imaging None recorded. Medication Orders clotrimaz ole 1 % topical solution 2024 025 [facility] #[id number], [address] [place], [address], 10/10/2025 15:54:08 Patient TargetsNo targets recorded. Patient InstructionsNo instructions recorded. Reason for Referral None Reported. Problems Name Problem SNOMED Code Status Onset Date Resolution Date Notes Provider Name and Address Organization Details Recorded Time Chronic maxillary sinusitis 65711837 Active 2013 Chronic maxillary sinusitis ; Location: bilateral [facility] Risk: low risk [facility] Treatment : establish ed problem (to examiner) : unstable or worsening Note: Date Diagnosed : 4 11:49 AM (473.0) Not Available [facility] 4 02:48:23 Cough 05680942 Active 2015 Cough, unspecifi ed; Note: Changed from R05 to R05.9 (10/22/20 22 2:30 PM) , Date Diagnosed : 06/12/2016 11:33 AM (R05) Not Available [facility] 4 02:48:25 Chronic ethmoidal sinusitis 68188904 Active 2015 Chronic ethmoidal sinusitis ; Note: Date Diagnosed : 07/29/2016 11:26 AM (J32.2) Not Available [facility] 4 02:48:20 Impacted cerumen in right ear [id number] 25288 Active 2016 Impacted cerumen, right ear; Note: Date Diagnosed : 12/16/2016 1:38 PM (H61.21) Not Available [facility] 4 02:48:17 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]; Note: Date Diagnosed : 12/16/2016 1:37 PM (M30.1) ANTONELLA LAGUERRE MD [address] [place] [address], [facility] [place], [address] , [facility] - [facility] 5 13:15:01 Migraine without aura, not refractor y 933681619 Active 2016 Migraine without aura, not intractab le, without status migrainos us; Note: Date Diagnosed : 02/26/2017 12:17 PM (G43.009) Not Available [facility] 4 02:48:22 Dizziness and giddiness 654967761 Active 2016 Dizziness and giddiness ; Note: Date Diagnosed : 03/10/2017 4:48 PM (R42) Not Available [facility] 4 02:48:18 Disorder of right Eustachia n tube 94998072892 49775 Active 2016 Other specified disorders of Eustachia n tube, right ear; Note: Date Diagnosed : 05/15/2017 12:11 PM (H69.81) Not Available [facility] 4 02:48:23 Dysphonia 84593634 Active 2016 Hoarsenes s; Note: Date Diagnosed : 07/24/2017 11:20 AM (R49.0) Not Available [facility] 4 02:48:22 Headache 32208336 Active 2016 Headache, unspecifi ed; Location: right Not e: Changed from R51 to R51.9 (09/24/20 22 2:18 PM) , Date Diagnosed : 08/26/2017 1:22 PM (R51) Not Available [facility] 4 02:48:17 Posterior rhinorrhe a 78122911 Active 2017 Postnasal drip; Note: Date Diagnosed : 01/09/2018 1:12 PM (R09.82) Not Available [facility] 4 02:48:24 Recurrent acute sinusitis 139053971 Active 2018 Other acute recurrent sinusitis ; Note: Date Diagnosed : 07/27/2019 1:37 PM (J01.81) Not Available [facility] 4 02:48:25 Allergic rhinitis 19515951 Active 2018 Allergic Rhinitis; CMS Risk: low [...] ; Start Date : 6 Not Available [facility] 4 02:48:21 Sensorine ural hearing loss of bilateral ears 938272540 Active 2019 Sensorine ural hearing loss, bilateral ; Note: Date Diagnosed : 12/03/2019 3:08 PM (H90.3) Sensori neural hearing loss, bilateral ; Note: Date Diagnosed : 7 1:52 PM (H90.3) ; Start Date : 7 Not Available [facility] 4 02:48:17 Acute sialoaden itis 749843515 Active 2020 Acute sialoaden itis; Note: Date Diagnosed : 12/04/2020 4:35 PM (K11.21) Not Available [facility] 4 02:48:21 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 Other condition s related to polyarter itis nodosa; Note: Date Diagnosed : 01/09/2023 11:36 AM (M30.8) Not Available [facility] 4 02:48:25 Chronic sinusitis 95607387 Active 2022 Chronic pansinusi tis; Note: Date Diagnosed : 4 10:08 AM (473.8) ; Start Date : 4 Other chronic sinusitis ; Note: Date Diagnosed : 04/23/2023 2:59 PM (J32.8) Other chronic sinusitis ; Note: Date Diagnosed : 09/02/2017 9:41 AM (J32.8) ; Start Date : 7 Not Available [facility] 4 02:48:20 Chronic pansinusi tis 73785439 Active 2023 ANTONELLA LAGUERRE MD [address] [facility] [place] [address], [place], [address] , [facility] - [facility] 5 13:20:33 Dysfuncti on of left eustachia n tube 10156504301 41717 Active 2024 ANTONELLA LAGUERRE MD [address] [facility],[place] [address], [facility] [place], [address] , [facility] - [facility] 5 14:27:16 Acute otitis externa 64946311 Active 2024 ANTONELLA LAGUERRE MD [address] [facility],[place] [address], [facility] [place], [address] , [facility] - [facility] 5 13:20:54 Itching of ear 674737681 Active 2024 DONELL EMANUEL [address] [facility],[place] [address], [place], [address] , [facility] - [facility] 5 15:53:40 Acute infective otitis externa 523802390 Active [address] [facility] [place] [address], [place], [address] , [facility] - [facility] 18:08:00 Problem Notes None recorded. Procedures Surgical History Date Name Laterality Status Provider Name and Address Organization Details Recorded Time 5 JMSNasal/Sinu s Endoscopy-MILLICENT OR surgical cavities completed DONELL EMANUEL [address] [facility] [place] [address], [place], [address], [facility] - [facility] 10/10/2025 18:07:15 5 NasalEndoscop y_DP completed ANTONELLA LAGUERRE MD [address] [facility] [place] [facility], [place], [address], [facility] - [facility] 08/02/2025 14:26:09 4 NasalEndoscop y_DP completed ANTONELLA LAGUERRE MD [address] [facility],[place] [address], [place], [address], [facility] 08/24/2024 10:33:16 4 NasalEndoscop y_DP completed ANTONELLA LAGUERRE MD [address] [facility] [address], [place], [address], [facility] 06/03/2024 07:31:42 Imaging Results None recorded. Procedure Notes None recorded. Medical Equipment None Reported. Allergies Allergen ID Allergen Name Allergen Category Reaction Reaction Severity Criticality Documentation Date Start Date Code Code System Note Provider Name and Address Organization Details Recorded Time [id number] amoxicill in / clavulana te medicatio n other Not available Not available 04/13/2024 61571 RxNorm React ion: unkno wn, unspe cifie d;; Not Available [facility] 4 01:13:12 [id number] prednison e medicatio n other Not available Not available 04/13/2024 8640 RxNorm React ion: unkno wn, unspe cifie d;; Not Available [facility] 4 01:13:13 477329 Substance with sulfonami de structure and antibacte rial mechanism of action (substanc e) medicatio n other Not available Not available 04/13/2024 45640 8003 SNOMED React ion: unkno wn, unspe cifie d;; Not Available [facility] 4 01:13:14 Medications Name Sig Start Date Stop Date Status Note LastModified by Organization Details LastModified Time Singulair 10 mg tablet 1 tablet 05/27 completed Medicati on ID: [id number] Pr escribed By Name: PK Kennedy nd Name: Kraig carey Send Method: E-Prescr ibed Sub s Allowed: subs OK Speci al Instruct ion: Take 1 tablet by mouth every day in the evening Medicati onGeneri cName: Kraig carey Not Available Not Available Not Available losartan 50 mg tablet TAKE 1 TABLET BY MOUTH TWICE A DAY active Not Available Not Available No t Available amoxicill in 500 mg capsule TAKE 1 CAPSULE (500 MG) BY MOUTH EVERY 8 HOURS FOR 5 DAYS 08/20 completed Not Available Not Available Not Available budesonid e 32 mcg/actua tion nasal spray Inhale 2 spray into both nostrils once a day 05/09 completed Medicati on ID: [id number] D uration Value: 30 Prescri bed By Name: Le Canales, DYE BECK REEL OPERATORMyron Bra nd Name: michael vaca Send Method: E-Prescr ibed Sub s Allowed: subs OK Medic ationGen ericName : budesoni de Not Available Not Available Not Available clotrimaz ole 10 mg juan DISSOLVE 1 TABLET SLOWLY IN THE MOUTH 5 TIMES DAILY FOR 14 DAYS active Not Available Not Available No t Available BD Alcohol Swabs 01/16 completed Medicati on ID: [id number] B rand Name: BD Alcohol Swabs Se nd Method: E-Prescr ibed Sub s Allowed: subs OK Medic ationGen ericName : BD Alcohol Swabs Not Available Not Available Not Available nystatin 100,000 unit/mL oral suspensio n TAKE 5 ML BY MOUTH 4 TIMES A DAY FOR 10 DAYS active Not Available Not Available No t Available prednison e 10 mg tablet PLEASE SEE ATTACHED FOR DETAILED DIRECTIO NS active Not Available Not Available No t Available doxycycli ne hyclate 100 mg capsule by mouth 04/23 completed Medicati on ID: [id number] P yukiriamy hitchcock By Name: Antonella powell MD Brand Name: [...] Not Available Not Available No t Available tizanidin e 2 mg tablet TAKE 1 TABLET (2 MG) BY ORAL ROUTE EVERY 8 HOURS NEEDED active Not Available Not Available No t Available albuterol sulfate 2.5 mg/3 mL (0.083 %) solution for nebulizat ion 04/23 completed Medicati on ID: [id number] B rand Name: albutero l sulfate Send Method: E-Prescr ibed Sub s Allowed: subs OK Speci al Instruct ion: USE ONE VIAL VIA NEBULIZE R EVERY 6 HOURS NEEDED M ednoris nGeneric Name: albutero l sulfate Not Available Not Available Not Available cefpodoxi me 200 mg tablet TAKE 1 TABLET ORALLY 2 TIMES A DAY FOR 10 DAYS MUST ADMINIST ER WITH A MEAL/JASMYN D active Not Available Not Available No t Available azithromy beatrice 250 mg tablet TAKE 1 TABLET ORALLY 3 TIMES A WEEK active Not Available Not Available No t Available fluconazo le 150 mg tablet 01/16 completed Medicati on ID: [id number] B rand Name: fluconaz ole Send Method: E-Prescr ibed Sub s Allowed: subs OK Medic ationGen ericName : fluconaz ole Not Available Not Available Not Available sulfameth oxazole 400 mg-trimet hoprim 80 mg tablet 01/16 completed Medicati on ID: [id number] B rand Name: sulfamet hoxazole -trimeth oprim Se nd Method: E-Prescr ibed Sub s Allowed: subs OK Medic ationGen ericName : sulfamet hoxazole -trimeth oprim Not Available Not Available Not Available sodium chloride 3 % for nebulizat ion TAKE 1 VIAL INHALED 2 TIMES A DAY FOR 30 DAYS active Not Available Not Available No t Available sucralfat e 1 gram tablet 04/23 completed Medicati on ID: [id number] B rand Name: sucralfa te Send Method: E-Prescr ibed Sub s Allowed: subs OK Medic ationGen ericName : sucralfa te Not Available Not Available Not Available prednison e 20 mg tablet TAKE 1 TABLET BY MOUTH EVERY DAY DIRECTED active Not Available Not Available No t Available prednison e 5 mg tablet TAKE 3 TABLETS BY MOUTH DAILY FOR 30 DAYS active Not Available Not Available No t Available glipizide ER 5 mg tablet, extended release 24 hr TAKE 1 TABLET BY MOUTH 1 TIME EACH DAY DO NOT CRUSH, CHEW, OR SPLIT. 08/20 completed Not Available Not Available Not Available atenolol 50 mg-chlort halidone 25 mg tablet TAKE 1 TABLET BY MOUTH EVERY DAY active Not Available Not Available No t Available Accu-Chek Softclix Lancets PLEASE CHECK YOUR BLOOD SUGAR 3 TIMES DAILY active Not Available Not Available No t Available amlodipin e 2.5 mg tablet 05/15 completed Medicati on ID: [id number] D uration Value: 90 Reason: () Brand Name: amlodipi ne Send Method: E-Prescr ibed Sub s Allowed: subs OK Medic ationGen ericName : amlodipi ne Not Available Not Available Not Available azathiopr ine 50 mg tablet TAKE 1 TABLET BY MOUTH ONCE DAILY FOR 90 DAYS active Not Available Not Available No t Available amlodipin e 5 mg tablet TAKE 1.5 TABLETS BY MOUTH ONCE DAILY FOR 90 DAYS active Not Available Not Available No t Available allopurin ol 100 mg tablet TAKE 0.5 TABLET BY MOUTH EVERY OTHER DAY active Not Available Not Available No t Available omeprazol e 40 mg capsule,d elayed release TAKE 1 CAPSULE BY MOUTH EVERY DAY active Not Available Not Available No t Available aspirin 81 mg tablet,de layed release 05/15 completed Medicati on ID: [id number] [place] son: () Brand Name: aspirin Send Method: E-Prescr ibed Sub s Allowed: subs OK Medic ationGen ericName : aspirin Not Available Not Available Not Available doxycycli ne monohydra te 100 mg tablet TAKE 1 TABLET BY MOUTH TWICE A DAY FOR 14 DAYS active Not Available Not Available No t Available triamcino lone acetonide 0.1 % topical cream 04/23 completed Medicati on ID: [id number] B rand Name: triamcin olone acetonid e Send Method: E-Prescr ibed Sub s Allowed: subs OK Medic ationGen ericName : triamcin olone acetonid e Not Available Not Available Not Available amoxicill in 500 mg tablet 12/20 completed Medicati on ID: [id number] D uration Value: 21 Brand Name: amoxicil chidi Send Method: E-Prescr ibed Sub s Allowed: subs OK Medic ationGen ericName : amoxicil chidi Not Available Not Available Not Available carvedilo l 3.125 mg tablet TAKE 3 TABLETS BY MOUTH TWICE A DAY AFTER MEALS active Not Available Not Available No t Available ondansetr on 8 mg disintegr ating tablet PLEASE SEE ATTACHED FOR DETAILED DIRECTIO NS active Not Available Not Available No t Available potassium chloride 20 mEq/15 mL oral liquid PLEASE SEE ATTACHED FOR DETAILED DIRECTIO NS active Not Available Not Available No t Available mycopheno late mofetil 500 mg tablet 500 MG ORALLY 2 TIMES A DAY FOR 30 DAYS active Not Available Not Available No t Available amoxicill in 875 mg tablet 1 tablet by mouth 08/20 completed Medicati on ID: [id number] D uration Value: 10 Prescri bed By Name: Antonella powell MD Brand Name: amoxicil chidi Send Method: E-Prescr ibed Sub s Allowed: subs OK Medic ationGen ericName : amoxicil chidi Not Available Not Available Not Available famotidin e 20 mg tablet TAKE 1 TABLET BY MOUTH EVERY DAY DIRECTED active Not Available Not Available No t Available prednison e 1 mg tablet TAKE 4 TABLETS BY MOUTH EVERY DAY active Not Available Not Available No t Available Keflex 250 mg capsule 1 capsule by mouth 08/20 completed Medicati on ID: [id number] D uration Value: 7 Prescri bed By Name: Antonella powell MD Brand Name: Keflex S end Method: E-Prescr ibed Sub s Allowed: subs OK Medic ationGen ericName : Keflex Not Available Not Available Not Available sodium bicarbona te 650 mg tablet TAKE 1 TABLET BY MOUTH TWICE A DAY FOR 7 DAYS active Not Available Not Available No t Available amlodipin e 10 mg tablet TAKE 1 TABLET BY MOUTH EVERY DAY active Not Available Not Available No t Available potassium citrate ER 10 mEq (1,080 mg) tablet,ex tended release TAKE 1 TABLET BY MOUTH EVERY DAY active Not Available Not Available No t Available Lamictal 25 mg tablet 12/20 completed Medicati on ID: [id number] D uration Value: 21 Brand Name: Lamictal Send Method: E-Prescr ibed Sub s Allowed: No subs Med icationG enericNa me: Lamictal Not Available Not Available Not Available cephalexi n 500 mg capsule 01/16 completed Medicati on ID: [id number] B rand Name: cephalex in Send Method: E-Prescr ibed Sub s Allowed: subs OK Medic ationGen ericName : cephalex in Not Available Not Available Not Available pantopraz ole 40 mg tablet,de layed release TAKE 1 TABLET BY MOUTH TWICE A DAY active Not Available Not Available No t Available losartan 25 mg tablet TAKE 1 TABLET BY MOUTH EVERY DAY active Not Available Not Available No t Available Lamictal 100 mg tablet 12/20 completed Medicati on ID: [id number] Dur ation Value: 90 Brand Name: Lamictal Send Method: E-Prescr ibed Sub s Allowed: No subs Med icationG enericNa me: Lamictal Not Available Not Available Not Available clotrimaz ole 1 % topical solution APPLY 4 DROPS TO THE AFFECTED EAR 3 TIMES A DAY FOR 2 WEEKS 2024 active Not Available Not Available Not Avai lable mometason e 50 mcg/actua tion nasal spray 12/20 completed Medicati on ID: [id number] D uration Value: 90 Brand Name: mometaso ne Send Method: E-Prescr ibed Sub s Allowed: subs OK Medic ationGen ericName : lexietaso ne Not Available Not Available Not Available budesonid e 0.5 mg/2 mL suspensio n for nebulizat ion ADD VIAL TO SALINE RINSE DAILY active Not Available Not Available No t Available hydroxyzi ne HCl 25 mg tablet TAKE 1 TABLET BY MOUTH THREE TIMES A DAY NEEDED active Not Available Not Available No t Available gabapenti n 100 mg capsule TAKE 2 CAPSULES BY ORAL ROUTE 3 TIMES PER DAY active Not Available Not Available No [...] 1.25 mg/3 mL solution for nebulizat ion USE 1.25 MG (3 ML) IN NEBULIZE R INHALED 3 TIMES A DAY active Not Available [...] mg tablet 12/20 completed Medicati on ID: [id number] D uration Value: 90 Brand Name: neela ne Send Method: E-Prescr ibed Sub s Allowed: subs OK Speci al Instruct ion: TAKE 1 TABLET (0.6 MG TOTAL) BY MOUTH EVERY OTHER DAY. Med icationG enericNa me: neela ne Not Available Not Available Not Available ketoconaz ole 2 % topical cream 04/23 completed Medicati on ID: [id number] B rand Name: ketocona zole Sen d Method: E-Prescr ibed Sub s Allowed: subs OK Medic ationGen ericName : ketocona zole Not Available Not Available Not Available morphine 15 mg immediate release tablet TAKE 1 TABLET (15 MG) BY ORAL ROUTE EVERY 4-6 HOURS NEEDED FOR SEVERE PAIN active Not Available Not Available No t Available hydroxyzi ne HCl 10 mg tablet TAKE ONE TABLET ( NEEDED) AT BEDTIME 08/20 completed Not Available Not Available Not Available ondansetr on 4 mg disintegr ating tablet DISSOLVE 1 TABLET BY MOUTH EVERY 8 HOURS NEEDED FOR NAUSEA AND VOMITING FOR 30 DAYS active Not Available Not Available No t Available sodium chloride 0.9 % for nebulizat ion INHALED 2.5 ML BY MOUTH EVERY 12 HOURS 08/20 completed Not Available Not Available Not Available doxycycli ne hyclate 100 mg tablet Take 1 tablet by mouth twice a day 08/20 completed Medicati on ID: [id number] D uration Value: 10 Brand Name: doxycycl ine hyclate Send Method: E-Prescr ibed Sub s Allowed: subs OK Medic ationGen ericName : doxycycl ine hyclate Not Available Not Available Not Available ipratropi um bromide 0.02 % solution for inhalatio n 04/23 completed Medicati on ID: [id number] B rand Name: ipratrop ium bromide Send Method: E-Prescr ibed Sub s Allowed: subs OK Speci al Instruct ion: USE 1.25 ML VIA INHALATI ON 4 TIMES A DAY (J45.51) Medicat ionGener icName: ipratrop ium bromide Not Available Not Available Not Available amoxicill in 875 mg-potass ium clavulana te 125 mg tablet TAKE 1 TABLET BY MOUTH EVERY 12 HOURS FOR 7 DAYS active Not Available Not Available No t Available amoxicill in 500 mg-potass ium clavulana te 125 mg tablet TAKE 1 TABLET BY MOUTH EVERY 12 HOURS FOR 7 DAYS active Not Available Not Available No t Available tobramyci n 0.3 %-dexamet hasone 0.1 % eye drops,josh pension 12/20 completed Medicati on ID: [id number] D uration Value: 10 Brand Name: tobramyc in-dexam ethasone Send Method: E-Prescr ibed Sub s Allowed: subs OK Speci al Instruct ion: PLACE ONE DROP INTO BOTH EYES 4 TIMES A DAY FOR 7-10 DAYS Med ication enericNa me: tobramyc in-dexam ethasone Not Available Not Available Not Available oxycodone 5 mg tablet PLEASE SEE ATTACHED FOR DETAILED DIRECTIO NS active Not Available Not Available No t Available hydroxyzi ne pamoate 25 mg capsule 12/20 completed Medicati on ID: [id number] D uration Value: 30 Brand Name: hydroxyz ine pamoate Send Method: E-Prescr ibed Sub s Allowed: subs OK Speci al Instruct ion: TAKE ONE CAPSULE BY MOUTH 3 TIMES A DAY NEEDED FOR ANXIETY Medicati onGeneri cName: hydroxyz ine pamoate Not Available Not Available Not Available neomycin 3.5 mg/g-poly myxin B 10,000 unit/g-de xameth 0.1 % eye oint 12/20 completed Medicati on ID: [id number] D uration Value: 20 Brand Name: neomycin -polymyx in B-dexame th Send Method: E-Prescr ibed Sub s Allowed: subs OK Speci al Instruct ion: APPLY TO RIGHT EYE TWICE A DAY X7-10 DAYS [facility] neomycin -polymyx in B-dexame th Not Available Not Available Not Available [employer] 01/16 completed Medicati on ID: [id number] B rand Name: Sharps Containe r Send Method: E-Prescr ibed Sub s Allowed: subs OK Speci al Instruct ion: USE DIRECTED E Medica tionGene ricName: Sharps Containe r Not Available Not Available Not Available Novolog FlexPen U-100 Insulin aspart 100 unit/mL (3 mL) subcutane ous INJECT 2 TO 6 UNITS THREE TIMES DAILY PRE MEALS active Not Available Not Available No t Available ciproflox acin 0.3 %-dexamet hasone 0.1 % ear drops,josh pension INSTILL 4 DROPS INTO THE LEFT EAR 2 TIMES A DAY 09/23 completed Not Available Not Available Not Available Nephro-Vi te 0.8 mg tablet TAKE 1 TABLET BY MOUTH EVERY DAY * SEE PCP FOR FURTHER REFILLS active Not Available Not Available No t Available nitrofura ntoin monohydra te/macroc rystals 100 mg capsule TAKE 1 CAPSULE BY MOUTH EVERY 12 HOURS WITH FOOD FOR 7 DAYS active Not Available Not Available No t Available duloxetin e 20 mg capsule,d elayed release TAKE 1 CAPSULE BY MOUTH EVERY DAY active Not Available Not Available No t Available fluocinon sylvie 0.1 % topical cream 12/20 completed Medicati on ID: [id number] D uration Value: 30 Brand Name: fluocino nide Donavan hitchcock Method: E-Prescr ibed Sub s Allowed: subs OK Medic ationGen ericName : fluocino nide Not Available Not Available Not Available fentanyl 12 mcg/hr transderm al patch APPLY 1 PATCH (12 MCG / HOUR) BY TRANSDER MAL ROUTE EVERY 72 HOURS active Not Available Not Available No t Available methotrex ate 05/15 completed Medicati on ID: [id number] R micheline: () Brand Name: methotre xate Donavan d Method: E-Prescr ibed Sub s Allowed: subs OK Medic ationGen ericName : methotre xate Not Available Not Available Not Available Nasonex Inhale 2 spray into both nostrils once a day as directed 12/20 completed Medicati on ID: [id number] D uration Value: 30 Brand Name: nasonex Send Method: E-Prescr ibed Sub s Allowed: subs OK Medic ationGen ericName : nasonex Not Available Not Available Not Available Symbicort 160 mcg-4.5 mcg/actua tion HFA aerosol inhaler 12/20 completed Medicati on ID: [id number] D uration Value: 90 Brand Name: Symbicor t Send Method: E-Prescr ibed Sub s Allowed: subs OK Medic ationGen ericName : Symbicor t Not Available Not Available Not Available Humalog KwikPen (U-100) Insulin 100 unit/mL subcutane ous INJECT 2-4 UNITS BEFORE LUNCH DX:E10.6 5 active Not Available Not Available No t Available Wendy Bach [facility] spacer 12/20 completed Medicati on ID: [id number] D uration Value: 1 Brand Name: Donald Bach [facility] Send Method: E-Prescr ibed Sub s Allowed: subs OK Speci al Instruct ion: USE DIRECTED WITH INHALER [facility] Not Available Not Available Not Available EpiPen 2-Leon 0.3 mg/0.3 mL injection , auto-inje ctor 12/20 completed Medicati on ID: [id number] D uration Value: 2 Brand Name: EpiPen 2-Leon Se nd Method: E-Prescr ibed Sub s Allowed: subs OK Speci al Instruct ion: USE DIRECTED FOR ANAPHYLA XIS AND CALL 911 Medi cationGe nericNam e: EpiPen 2-Leon Not Available Not Available Not Available Jardiance 10 mg tablet TAKE 1 TABLET BY MOUTH EVERY MORNING 08/20 completed Not Available Not Available Not Available duloxetin e 40 mg capsule,d elayed release TAKE 1 CAPSULE BY MOUTH EVERY DAY active Not Available Not Available No t Available Yuvafem 10 mcg vaginal tablet 08/20 completed Medicati on ID: [id number] B rand Name: Yuvafem Send Method: E-Prescr [...] 1 SENSOR EVERY 14 DAYS (DX: E10.65) 08/20 completed Not Available Not Available Not Available FreeStyle Pollo 2 [place] USE DIRECTED WITH SENSORS (DX: E10.65) 08/20 completed Not Available Not Available Not Available Miebo (PF) 100 % eye drops INSTILL 1 DROP INTO BOTH EYES 4 TIMES A DAY DIRECTED active Not Available Not Available No t Available FreeStyle Pollo 3 [place] USE WITH SENSORS TO CHECK BLOOD SUGAR DX:E10.6 5 active Not Available Not Available No t Available FreeStyle Pollo 3 Plus Sensor device ONE TO SKIN EVERY FOURTEEN DAYS DX:E10.6 5 active Not Available Not Available No t Available Deanne 2nd Gen Pen Needle 32 gauge x 5/32 1 PEN NEEDLE TO INSULIN PEN 3 TIMES A DAY DX:E11.9 active Not Available Not Available No t Available Vitals Date Recorded Body height Body mass index (BMI) Body weight Provider Name and Address Organization Details Last Updated DateTime 10/10/2025 160.02 cm 24.8 kg/m2 63383.93 g Nickie Kwong [place] - [facility] 10/10/2025 10:51:30 Social History None recorded. Functional Status None recorded. Mental Status None recorded. Family History Nothing Reported. Medical History No medical history recorded. Gynecological HistoryNo gynecological history recorded. 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 Patient may likely have a low-grade fungal infection. Recommend clotrimazo le drops for the left ear. Water precaution s were reviewed. Sensorineu ral hearing loss of bilateral ears 446991684 H90.3 Health Concerns Section Related Observation LastModified by Organization Detai ls LastModified Time None Recorded Concern Status LastModified by Organization Details LastModified Time None Recorded Payers Encounter Date Sequence Insurance Name Policy Number Policy Connor Covered Member ID Connor Member ID Guarantor Name 10/10/2025 2 [facility] (MEDICARE SUPPLEMENT) Griselda Welsh [id number] Griselda Welsh 10/10/2025 1 MEDICARE B-AZ: [facility] [employer] Griselda Welsh [id number] Griselda Welsh Notes Date Note Type Note Provider Name and Address Organization Details Recorded Time 10/10/2025 text/html ROS as noted in the HPI 80 year old female, 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 Franco, presents with her for follow up of sinusitis. Patient was formerly followed by Dr. Anand but currently sees Dr. Parra at [facility]. During the last visit with Dr. Laguerre, a sinus culture was obtained which was positive for Pseudomonas. After consulting with Dr. Anand, she was started on tobramycin/budesoni de irrigation twice daily. Today, patient returns to the office and reports she stopped the tobramycin/budesoni de irrigations two weeks ago as she felt water was getting stuck inside her right ear, resulting in decreased hearing on that side. She continues to endorse pressure in her cheeks and forehead. Patient inquires whether she needs to resume the irrigations. She also states her left ear is still sensitive and itchy despite completing the course of antibiotic drops for otitis externa. RUTH SNEED MD [address] [place] [address], [id number], [place] - [facility] 10/10/2025 20:04:40 OBGyn Episode No OBEpisode recorded.
--- OUTSIDE RECORDS SUMMARY | 2025-10-13 16:53 | XMS_ITS | Continuity of Care Document ---
Author Organization [facility] [address] [place] [address] Phone [phone] Care Team Providers Care Real Estate Lawyer Name Role Phone Eduardo Albert M.D. Care Team Information Steam Crane Operator [phone] Problems Active Problems Provider Date Vitamin B12 [...] SIG Qnty Indications Ordering Provider Date Novolog Ctjhwjy492Myre/ML Solution Pen-Inject inject 2 to 6 units three times daily pre meals 45ml E10.Schuyler Montiel M.D. 01/06/2025 Z79.4 Freestyle Pollo 3 Plus/Sesor/Glucose Monitoring SystemMisc one sensor to skin every 14 days dx: e11.9 9units Galilea Montiel M.D. 08/26/2024 Freestyle Pollo 3/Sensor/Glucose Monitoring Nvcyys5Qdecmj Misc One To Skin Every Fourteen Days DX:E10.65 6units E10Poonam Montiel M.D. 03/26/2024 Freestyle Pollo 3/[place]/Glucose Monitoring Gnrtpm2Lhbvqs Device use with sensors to check blood sugar dx:e10.65 1units Galilea Montiel M.D. 03/26/2024 BD Pen Needle/Deanne 2ND Gen/32G X 4mm32G X 4 mm Misc 1 pen needle to insulin pen 3 times a day dx:e11.9 300units E11Poonam Montiel M.D. 02/18/2024 Calcium 500/Vitamin D500-3.125mg-mcg Tablets 1 by mouth twice a day Unknown Vitamin R264opu (1000 Ut) Capsules 1 by mouth every day Unknown Vitamin Y093950hpi Tablets ER 1 by mouth every day Unknown Magnesium Bsclb843lw Tablets take 1 tablets by mouth 2 times a day Unknown Pnddcklrtg23wx Tablets 2 tabs qd Unknown Amlodipine Zwgunbsl85ff Tablets 1 by mouth every day Unknown Accu-Chek Softclix LancetsMisc Please Check Your Blood Sugar 3 Times Daily Unknown Sodium Chloride3% Nebulizer Inhale 4 ML Inhaled 2 Times A Day For 30 Days Marquis Morel Pdxlgzhbziw247xc Tablets Take 1 Tablet By Mouth Twice A Day Jimi Elaine, Mylwqvcqou00.5mg Tablets Take 1/2 Tablet By Mouth Twice A Day With Meals Unknown Budesonide0.5mg/2ML Suspension 0.5 MG (2 ML) Inhaled 2 Times A Day Marquis Morel Accu-Chek GuideStrips Use To Check Sugars 1-2 Times Per Day DX:E11.9 Daniel Dodge NP Accu-Chek Guide MeW/Device Kit Use To Check Blood Sugars 1-2 Times A Day DX: E11.9 Daniel Dodge NP Albuterol Sulfate HCW634(90Base) mcg/Act Aerosol Inhale 2 Puffs Every 6 Hours as Needed For Shortness Or Breath Or Wheezing For 3 Marquis Morel Pantoprazole Pzxaqz21bt Tablets DR Take 1 Tablet By Mouth Twice A Day Unknown Toayptucyptp075xx Tablets Take 1 Tablet (250 MG) By Mouth 3 Times A Week Marquis Morel Potassium Citrate CR51Dft (1080 mg) Tablets ER Take 1 Tablet [...] 01/20/2024 Inhouse Glucose Fingerstick 197 Glucose 12/18/2023 [facility] Glucose 120 mg/dL High (70-99) Glucose 12/18/2023 [facility] Glucose 116 mg/dL High (70-99) Glucose 12/18/2023 [facility] Glucose 102 mg/dL High (70-99) Glucose Fingerstick 12/15/2023 Inhouse Glucose Fingerstick 135 Glucose Fingerstick 11/14/2023 Inhouse Glucose Fingerstick 146 Procedures Date Code Description Status 07/28/2024 04552 Glucose Monitoring Interpeta tion And Report Completed 05/06/2024 34755 Glucose Monitoring Interpeta tion And Report Completed 03/31/2024 57248 Glucose Monitoring Interpeta tion And Report Completed 02/18/2024 17024 Glucose Monitoring Interpeta tion And Report Completed 02/11/2024 07460 Glucose Monitori ng From Interstital Tissue Fluid Minimum 72 Hours Completed 11/14/2023 18439 Glucose Monitori ng From Interstital Tissue Fluid Minimum 72 Hours Completed Medical Devices Description No Information Available Encounters Type Date Location Provider Dx Diagnosis Office Visit 11/10/2024 1:15p Main Office Galilea Montiel M.D. 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 11/10/2024 Z79.4 supervisor intermediates (current) use of i nsulin Galilea Montiel M.D. 11/10/2024 Z79.52 [facility] (curre nt) use of systemic steroids Galilea [...]
--- OUTSIDE RECORDS SUMMARY | 2025-10-13 16:53 | XMS_ITS | Encounter Summary ---
Author Organization [facility] Address [address] [place] [address] Care Team Providers Care Ladder Operator Name Role Phone Daisy Lee MD Primary Care Provider Encounter Details Date Type Department Care Team (Late st Contact Info) Description 06/25/2025 Lab Requisition [facility] - Main Lab [address] [place] [address] Cathi Alford PA [address] [place] [id number] Encounter for other general examination Social History [...] Procedure Name Priority Date/Time Associated Diagnosis Comments BASIC METABOLIC PANEL Routine 06/25/2025 6:22 AM EDT Encounter for other general examination documented in this encounter Results * (ABNORMAL) Basic metabolic panel (06/25/2025 6:22 AM EDT) Sodium 136 133 - 145 mmol/L LAB CHEMISTRY METHOD 06/25/2025 11:00 AM EDT [facility] Potassium 3.7 3.5 - 5.5 mmol/L LAB CHEMISTRY METHOD 06/25/2025 11:00 AM EDT [facility] Chloride 106 96 - 110 mmol/L LAB CHEMISTRY METHOD 06/25/2025 11:00 AM EDT [facility] CO2 24 21 - 32 mmol/L LAB CHEMISTRY METHOD 06/25/2025 11:00 AM [facility] Anion Gap 6 3 - 11 LAB CHEMISTRY METHOD 06/25/2025 11:00 AM [facility] Glucose 121(H) 70 - 100 mg/dL LAB CHEMISTRY METHOD 06/25/2025 11:00 AM [facility] BUN 46(H) 5 - 25 mg/dL LAB CHEMISTRY METHOD 06/25/2025 11:00 AM [facility] Creatinine 1.41(H) 0.50 - 1.10 mg/dL LAB CHEMISTRY METHOD 06/25/2025 11:00 AM [facility] eGFR 38(L) >=60 mL/min/1. 73m2 LAB CHEMISTRY METHOD 06/25/2025 11:00 AM [facility] Comment:Calculation based on the Chronic Kidney Disease Epidemiology Collaboration (CKD-EPI) equation refit without adjustment for race. BUN/Creatinine Ratio 32.6 LAB CHEMISTRY METHOD 06/25/2025 11:00 AM [facility] Calcium 8.6 8.5 - 10.5 mg/dL LAB CHEMISTRY METHOD 06/25/2025 11:00 AM [facility] Blood Venous blood specimen / Unknown Venipuncture / Unknown 06/25/2025 6:22 AM EDT 06/25/2025 9:53 AM EDT us Cathi MARLEY LAB BLOOD ORDERABLES Final Resul t [facility] [address] [place] [address], documented in this encounter Visit Diagnoses Diagnosis Encounter for other general examination documented in this encounter Care Teams Ladder Operator Relationship Specialty Start Date End Date Daisy Lee MD [address] [place] [id number] PCP - General Hospitalist Medicine 03/18/25 documented as of this encounter
--- OUTSIDE RECORDS SUMMARY | 2025-10-13 16:53 | XMS_ITS | Data Portability ---
Author Organization [place] - [facility], Allergy Address [address] [address] Assessment Encounter Date Assessment Date Assessment LastModified [...] Go To The Location Of Their Choice, [address] 10/10/2025 18:15:34 culture, aerobic + anaerobic 2024 [email or web address] [facility] (Centralized Electronic Ordering - All Locations), Patient Can Go To The Location Of Their Choice, [address] 10/10/2025 18:15:39 Referral None recorded. Procedures None recorded. Surgeries None recorded. Imaging None recorded. Medication Orders clotrimaz ole 1 % topical solution 2024 [facility][id number], [address] [place], [address], 10/10/2025 15:54:08 Patient TargetsNo targets recorded. Patient InstructionsNo instructions recorded. Reason for Referral None Reported. Results Created Date Observation Date Name Description Value Unit Range Abnormal Flag Note LastModifiedBy Organization Detail LastModifiedTime 06/02/20 24 07/02/2024 FUNGU S (MYCO LOGY) CULTU RE fungus (mycology) culture Final report Not Available [facility] ([facility]) [address] [facility], [place], [address], 07/03/2024 07:42:57 06/02/2007/02/2024 FUNGU S (MYCO LOGY) CULTU RE result 1 COMMEN T No yeast or mold isola champ after 4 weeks . Not Available [facility] ([facility]) [address] [place], [address], 07/03/2024 07:42:57 06/02/20 24 06/05/2024 GENIT AL CULTU RE, ROUTI NE genital culture, routine Final report Speci men stabi lity note: A swab trans port (ie., ESwab , Amies agar gel) recei kris by the lab more than 24 hours after colle ction may resul t in reduc ed recov hussein of Neiss eria gonor rhonorman e (). (This is infor matio nal only and may not apply to this speci men.) Not Available [facility] ([facility]) [address] [place], [address], 07/03/2024 07:42:58 06/02/20 24 06/05/2024 GENIT AL CULTU RE, ROUTI NE result 1 COMMEN T Katie ne respi rator y gayatri Not Available [facility] ([facility]) [address] [place], [address], 07/03/2024 07:42:58 08/02/20 25 08/05/2025 AEROB IC BACTE RIAL CULTU RE aerobic bacterial culture Final report abnormal Not Available [facility] ([facility]) [address] [place], [address], 08/23/2025 08:30:08 08/02/20 25 08/05/2025 AEROB IC BACTE RIAL CULTU RE result 1 COMMEN 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 Moder ate growt h Not Available [facility] ([facility]) [address] [place], [address], 08/23/2025 08:30:08 08/02/20 25 08/05/2025 AEROB IC BACTE RIAL CULTU RE result 2 COMMEN T Katie ne respi rator y gayatri Scant growt h Not Available [facility] ([facility]) [address] [place], [address], 08/23/2025 08:30:08 08/02/20 25 08/05/2025 AEROB IC BACTE RIAL CULTU RE antimicrobia l susceptibili ty Commen t S = Susce ptibl e; I = Inter media te; R = Resis tant P = Posit doc; N = Negat doc MICS are expre ssed in micro grams per mL Antib iotic RSLT# 1 RSLT# 2 RSLT# 3 RSLT# 4 Cefep cedric S Cefta zidim e S Cefta zidim e/yue bacta m S Cefto lozan e/terrance obact am S Cipro floxa beatrice S Levof loxac in S Merop enem S Piper acill in/Ta zobac norman S Tobra mycin S Not Available [facility] ([facility]) [address] [facility], [place], [address], 08/23/2025 08:30:08 08/02/20 25 08/23/2025 FUNGU S (MYCO LOGY) CULTU RE fungus (mycology) culture Final report Not Available [facility] ([facility]) [address] [facility], [place], [address], 08/23/2025 08:30:08 08/02/20 25 08/23/2025 FUNGU S (MYCO LOGY) CULTU RE result 1 Commen t Cultu re overg rown with bacte pennie. Not Available [facility] ([facility]) [address] [facility], [place], [address], 08/23/2025 08:30:08 07/21/20 24 01/04/2021 imagi ng/di agnos tic [...] Organization Details Recorded Time Chronic maxillary sinusitis 53022795 Active 2013 Chronic maxillary sinusitis ; Location: bilateral [facility] Risk: low risk [facility] Treatment : establish ed problem (to examiner) : unstable or worsening Note: Date Diagnosed : 4 11:49 AM (473.0) Not Available [facility] 4 02:48:23 Cough 03162448 Active 2015 Cough, unspecifi ed; Note: Changed from R05 to R05.9 (10/22/20 22 2:30 PM) , Date Diagnosed : 06/12/2016 11:33 AM (R05) Not Available [facility] 4 02:48:25 Chronic ethmoidal sinusitis 20090028 Active 2015 Chronic ethmoidal sinusitis ; Note: Date Diagnosed : 07/29/2016 11:26 AM (J32.2) Not Available [facility] 4 02:48:20 Impacted cerumen in right ear 78863641725 97745 Active 2016 Impacted cerumen, right ear; Note: Date Diagnosed : 12/16/2016 1:38 PM (H61.21) Not Available [facility] 4 02:48:17 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 58165922 Active 2016 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]; Note: Date Diagnosed : 12/16/2016 1:37 PM (M30.1) ANTONELLA LAGUERRE MD [address] [place] [address], [place], [address] , [place] [facility] [facility] 5 13:15:01 Migraine without aura, not refractor y 742369912 Active 2016 Migraine without aura, not intractab le, without status migrainos ; Note: Date Diagnosed : 02/26/2017 12:17 PM (G43.009) Not Available [facility] 4 02:48:22 Dizziness and giddiness 949798460 Active 2016 Dizziness and giddiness ; Note: Date Diagnosed : 03/10/2017 4:48 PM (R42) Not Available [facility] 4 02:48:18 Disorder of right Eustachia n tube 44923452737 57966 Active 2016 Other specified disorders of Eustachia n tube, right ear; Note: Date Diagnosed : 05/15/2017 12:11 PM (H69.81) Not Available [facility] 4 02:48:23 Dysphonia 80800509 Active 2016 Hoarsenes s; Note: Date Diagnosed : 07/24/2017 11:20 AM (R49.0) Not Available [facility] 4 02:48:22 Headache 53295208 Active 2016 Headache, unspecifi ed; Location: right Not e: Changed from R51 to R51.9 (09/24/20 22 2:18 PM) , Date Diagnosed : 08/26/2017 1:22 PM (R51) Not Available [facility] 4 02:48:17 Posterior rhinorrhe a 95898148 Active 2017 Postnasal drip; Note: Date Diagnosed : 01/09/2018 1:12 PM (R09.82) Not Available [facility] 4 02:48:24 Recurrent acute sinusitis 239485098 Active 2018 Other acute recurrent sinusitis ; Note: Date Diagnosed : 07/27/2019 1:37 PM (J01.81) Not Available [facility] 4 02:48:25 Allergic rhinitis 63230478 Active 2018 Allergic Rhinitis; CMS Risk: low [...] ; Start Date : 6 Not Available [facility] 4 02:48:21 Sensorine ural hearing loss of bilateral ears 221074020 Active 2019 Sensorine ural hearing loss, bilateral ; Note: Date Diagnosed : 12/03/2019 3:08 PM (H90.3) Sensori neural hearing loss, bilateral ; Note: Date Diagnosed : 7 1:52 PM (H90.3) ; Start Date : 7 Not Available [facility] 4 02:48:17 Acute sialoaden itis 529406148 Active 2020 Acute sialoaden itis; Note: Date Diagnosed : 12/04/2020 4:35 PM (K11.21) Not Available [facility] 4 02:48:21 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 Other condition s related to polyarter itis nodosa; Note: Date Diagnosed : 01/09/2023 11:36 AM (M30.8) Not Available [facility] 4 02:48:25 Chronic sinusitis 49335331 Active 2022 Chronic pansinusi tis; Note: Date Diagnosed : 4 10:08 AM (473.8) ; Start Date : 4 Other chronic sinusitis ; Note: Date Diagnosed : 04/23/2023 2:59 PM (J32.8) Other chronic sinusitis ; Note: Date Diagnosed : 09/02/2017 9:41 AM (J32.8) ; Start Date : 7 Not Available [facility] 4 02:48:20 Chronic pansinusi tis 59507518 Active 2023 ANTONELLA LAGUERRE MD [address] [place] [address],[place] [address], [place], [address] , [place] [facility] 5 13:20:33 Dysfuncti on of left eustachia n tube 29768779865 14003 Active 2024 ANTONELLA LAGUERRE MD [address] [place] [address],[place] [address], Richie hitchcock, [place], [address] , [place] [facility] 5 14:27:16 Acute otitis externa 37718127 Active 2024 ANTONELLA LAGUERRE MD [address] [place] [address],[place] [address], [place]ie hitchcock, [place], [address] , [place] - [facility] 5 13:20:54 Itching of ear 251926173 Active 2024 DONELL EMANUEL [address] [place] [address],[place] [address], [place] hitch[place], [place], [address] , [place] - [facility] 5 15:53:40 Acute infective otitis externa 205104786 Active 2024 DONELL EMANUEL [address] [place], [place] [address]on [place] [address], [place], [place], [address] , [place] - [facility] 5 18:08:00 Problem Notes None recorded. Procedures Surgical History Date Name Laterality Status Provider Name and Address Organization Details Recorded Time 5 JMSNasal/Sinu s Endoscopy-MILLICENT OR surgical cavities completed DONELL EMANUEL [address] [facility],[address], [address], [facility] 10/10/2025 18:07:15 5 NasalEndoscop y_DP completed ANTONELLA LAGUERRE MD [address] [facility],[address], [address], [facility] - [facility] 08/02/2025 14:26:09 4 NasalEndoscop y_DP completed ANTONELLA [facility]AG[facility]ERRE MD [facility] [place],[address], [address], [facility] - [facility] 08/24/2024 10:33:16 4 NasalEndoscop y_DP completed ANTONELLA LAGUERRE MD [address] [facility] [place],[address], [address], [place] 06/03/2024 07:31:42 Imaging Results None recorded. Procedure Notes None recorded. Medical Equipment None Reported. Allergies Allergen ID Allergen Name Allergen Category Reaction Reaction Severity Criticality Documentation Date Start Date Code Code System Note Provider Name and Address Organization Details Recorded Time 126528 amoxicill in / clavulana te medicatio n other Not available Not available 04/13/2024 04211 RxNorm React ion: unkno wn, unspe cifie d;; Not Available [facility] 4 01:13:12 261972 prednison e medicatio n other Not available Not available 04/13/2024 8640 RxNorm React ion: unkno wn, unspe cifie d;; Not Available [facility] 4 01:13:13 542225 Substance with sulfonami de structure and antibacte rial mechanism of action (substanc e) medicatio n other Not available Not available 04/13/2024 40417 8003 SNOMED React ion: unkno wn, unspe cifie d;; Not Available [facility] 4 01:13:14 Medications Name Sig Start Date Stop Date Status Note LastModified by Organization Details LastModified Time Singulair 10 mg tablet 1 tablet 05/27 completed Medicati on ID: [id number] Pr escribed By Name: PK Kennedy nd Name: Kraig carey Send Method: E-Prescr ibed Sub s Allowed: subs OK Speci al Instruct ion: Take 1 tablet by mouth every day in the evening Medicati onGeneri cName: Cristobalolivei r Not Available Not Available Not Available losartan [...] a day 05/09 completed Medicati on ID: 124922 D uration Value: 30 Prescri bed By [...] Alcohol Swabs 01/16 completed Medicati on ID: [id number] B rand Name: BD Alcohol Swabs Se [...] by mouth 04/23 completed Medicati on ID: [id number] Mitul hitchcock By Name: Antonella powell MD Brand [...] nebulizat ion 04/23 completed Medicati on ID: 223801 B rand Name: albutero l sulfate Send [...] mg tablet 01/16 completed Medicati on ID: 352222 B rand Name: fluconaz ole Send Method: E-Prescr ibed Sub s Allowed: subs OK Medic ationGen ericName : fluconaz ole Not Available Not Available Not Available sulfameth oxazole 400 mg-trimet hoprim 80 mg tablet 01/16 completed Medicati on ID: 611324 B rand Name: sulfamet hoxazole -trimeth oprim [...] gram tablet 04/23 completed Medicati on ID: 073433 B rand Name: sucralfa te Send Method: [...] mg tablet 05/15 completed Medicati on ID: 672369 D uration Value: 90 Reason: () Brand [...] release 05/15 completed Medicati on ID: 6524 [place] son: () Brand Name: aspirin Send Method: E-Prescr ibed Sub s Allowed: subs OK Medic ationGen ericName : aspirin Not Available Not Available Not Available doxycycli ne monohydra te 100 mg tablet TAKE 1 TABLET BY MOUTH TWICE A DAY FOR 14 DAYS active Not Available Not Available No t Available triamcino lone acetonide 0.1 % topical cream 04/23 completed Medicati on ID: 248219 B rand Name: triamcin olone acetonid e Send Method: E-Prescr ibed Sub s Allowed: subs OK Medic ationGen ericName : triamcin olone acetonid e Not Available Not Available Not Available amoxicill in 500 mg tablet 12/20 completed Medicati on ID: 194865 D uration Value: 21 Brand Name: amoxicil [...] by mouth 08/20 completed Medicati on ID: [id number] D uration Value: 10 Prescri bed By [...] by mouth 08/20 completed Medicati on ID: 043430 D uration Value: 7 Prescri bed By [...] mg tablet 12/20 completed Medicati on ID: 790105 D uration Value: 21 Brand Name: Lamictal Send Method: E-Prescr ibed Sub s Allowed: No subs Med icationG enericNa me: Lamictal Not Available Not Available Not Available cephalexi n 500 mg capsule 01/16 completed Medicati on ID: 977689 B rand Name: cephalex in Send Method: [...] nasal spray 12/20 completed Medicati on ID: 283673 D uration Value: 90 Brand Name: mometaso [...] mg tablet 12/20 completed Medicati on ID: 677194 D uration Value: 90 Brand Name: colchici ne Send Method: E-Prescr ibed Sub s Allowed: subs OK Speci al Instruct ion: TAKE 1 TABLET (0.6 MG TOTAL) BY MOUTH EVERY OTHER DAY. Med icationG enericNa me: colchici ne Not Available Not Available Not Available ketoconaz ole 2 % topical cream 04/23 completed Medicati on ID: 732696 B rand Name: ketocona zole Sen d [...] a day 08/20 completed Medicati on ID: [id number] D uration Value: 10 Brand Name: doxycycl ine hyclate Send Method: E-Prescr ibed Sub s Allowed: subs OK Medic ationGen ericName : doxycycl ine hyclate Not Available Not Available Not Available ipratropi um bromide 0.02 % solution for inhalatio n 04/23 completed Medicati on ID: [id number] B rand Name: ipratrop ium bromide Send Method: E-Prescr ibed Sub s Allowed: subs JACK galdamez Instruct ion: USE 1.25 ML VIA INHALATI [...] drops,josh pension 12/20 completed Medicati on ID: [id number] D uration Value: 10 Brand Name: tobramyc in-dexam ethasone Send Method: E-Prescr ibed Sub s Allowed: subs JACK galdamez Instruct ion: PLACE ONE DROP INTO BOTH EYES 4 TIMES A DAY FOR 7-10 DAYS Med icationG enericNa me: tobramyc in-dexam ethasone Not Available Not Available Not Available oxycodone 5 mg tablet PLEASE SEE ATTACHED FOR DETAILED DIRECTIO NS active Not Available Not Available No t Available hydroxyzi ne pamoate 25 mg capsule 12/20 completed Medicati on ID: [id number] D uration Value: 30 Brand Name: hydroxyz ine pamoate Send Method: E-Prescr ibed Sub s Allowed: subs JACK galdamez Instruct ion: TAKE ONE CAPSULE BY MOUTH 3 TIMES A DAY NEEDED FOR ANXIETY Medicati onGeneri cName: hydroxyz ine pamoate Not Available Not Available Not Available neomycin 3.5 mg/g-poly myxin B 10,000 unit/g-de xameth 0.1 % eye oint 12/20 completed Medicati on ID: [id number] D uration Value: 20 Brand Name: neomycin -polymyx in B-dexame th Send Method: E-Prescr ibed Sub s Allowed: subs JACK galdamez Instruct ion: APPLY TO RIGHT EYE TWICE A DAY X7-10 DAYS Med icationG enericNa me: neomycin -polymyx in B-dexame th Not Available Not Available Not Available [employer] 01/16 completed Medicati on ID: 344543 B rand Name: Sydni carey Send Method: E-Prescr ibed Sub s Allowed: subs OK Speci al Instruct ion: USE DIRECTED E Medica tionGene ricName: Sydni Best r Not Available Not Available Not Available [...] topical cream 12/20 completed Medicati on ID: 508477 D uration Value: 30 Brand Name: fluocino oze Donavan hitchcock Method: E-Prescr ibed Sub s Allowed: subs OK Medic ationGen ericName : fluocino nide Not Available Not Available Not Available fentanyl 12 mcg/hr transderm al patch APPLY 1 PATCH (12 MCG / HOUR) BY TRANSDER MAL ROUTE EVERY 72 HOURS active Not Available Not Available No t Available methotrex ate 05/15 completed Medicati on ID: [id number] R micheline: () Brand Name: methotre xate Sen d Method: E-Prescr ibed Sub s Allowed: subs OK Medic ationGen ericName : methotre xate Not Available Not Available Not Available Nasonex Inhale 2 spray into both nostrils once a day as directed 12/20 completed Medicati on ID: [id number] D uration Value: 30 Brand Name: nasonex Send Method: E-Prescr ibed Sub s Allowed: subs OK Medic ationGen ericName : nasonex Not Available Not Available Not Available Symbicort 160 mcg-4.5 mcg/actua tion HFA aerosol inhaler 12/20 completed Medicati on ID: [id number] D uration Value: 90 Brand Name: Symbicor t Send Method: E-Prescr ibed Sub s Allowed: subs OK Medic ationGen ericName : Symbicor t Not Available Not Available Not Available Humalog KwikPen (U-100) Insulin 100 unit/mL subcutane ous INJECT 2-4 UNITS BEFORE LUNCH DX:E10.6 5 active Not Available Not Available No t Available [facility] 12/20 completed Medicati on ID: [id number] D uration Value: 1 Brand Name: Donald rowland [facility] Send Method: E-Prescr ibed Sub s Allowed: subs OK Speci al Instruct ion: USE DIRECTED WITH INHALER Medicati onGeneri cName: Donald rowland [facility] Not Available Not Available Not Available EpiPen 2-Leon 0.3 mg/0.3 mL injection , auto-inje ctor 12/20 completed Medicati on ID: [id number] D uration Value: 2 Brand Name: EpiPen [...] vaginal tablet 08/20 completed Medicati on ID: [id number] B rand Name: Yuvafem Send Method: E-Prescr [...] Not Available Not Available FreeStyle Pollo 2 Dan[place] USE DIRECTED WITH SENSORS (DX: E10.65) 08/20 completed Not Available Not Available Not Available Miebo (PF) 100 % eye drops INSTILL 1 DROP INTO BOTH EYES 4 TIMES A DAY DIRECTED active Not Available Not Available No t Available FreeStyle Pollo 3 Danby USE WITH SENSORS TO CHECK BLOOD SUGAR [...] Updated DateTime 06/02/2024 160.02 cm 24.8 kg/m2 82341.93 g John Novak [place] - [facility] 06/02/2024 15:50:53 Date Recorded Body height Body mass index (BMI) Body weight Provider Name and Address Organization Details Last Updated DateTime 08/02/2025 160.02 cm 24.8 kg/m2 36420.93 g John Novak [place] - [facility] 08/02/2025 13:19:14 Date Recorded Body height Body mass index (BMI) Body weight Provider Name and Address Organization Details Last Updated DateTime 08/24/2024 160.02 cm 24.8 kg/m2 39398.93 g John Novak [place] - [facility] 08/24/2024 10:06:40 Date Recorded Body height Body mass index (BMI) Body weight Provider Name and Address Organization Details Last Updated DateTime 10/10/2025 160.02 cm 24.8 kg/m2 39613.93 g Nickie Kwong [place] - [facility] 10/10/2025 10:51:30 Social History None recorded. Functional Status None recorded. Mental Status None recorded. Family History Nothing Reported. Medical History No medical history recorded. Gynecological HistoryNo gynecological history recorded. Obstetrics History GPAL:G 0 P 0 0 0 0 Past Encounters Encounter ID Performer Location Encounter Start Date Encounter Closed Date Diagnosis/Indication Diagnosis SNOMED-CT Code Diagnosis ICD10 Code Diagnosis IMO Codes Diagnosis Note [id number] ANTONELLA LAGUERRE MD [facility] on [address] [place] [address] 06/02/2024 15:22:21 06/02/2024 16:20:46 Chronic pansinusitis 65765945 J32.4 She may have mild sinusitis based on purulent mucus. Culture performed. Will want input from Dr. Anand on resuming tobramycin rinses vs. oral antiobitcs . Will follow up culture. Eosinophil ic granulomatosis with polyangiitis 74309309 M30.1 Defer to her specialist . [id number] ANTONELLA LAGUERRE MD [facility] [address] [address] 08/24/2024 09:46:57 08/24/2024 10:32:43 Chronic pansinusitis 33839041 J32.4 No purulence on endoscopy today. Prior two cultures without pathogens. Agree with azelastine and oral antihistam ine on alternatin g days as well as saline rinses. F/u [address] Anand and her utility specialist s notes as well as well as outside culture results. Eosinophil ic granulomatosis with polyangiitis 93003474 M30.1 Defer to her specialist . [id number] ANTONELLA LAGUERRE MD [facility] [address] [address] 08/02/2025 13:10:58 08/02/2025 14:26:36 Chronic pansinusitis 70813717 J32.4 There was purulence on nasal endoscopy today. I performed a culture. Given her sensitivit y to various antibiotic s we will defer empiric treatment in favor of following up the culture results. We will consider treatment based on the results. I asked her to message me after a week if she has not heard the result. Eosinophil ic granulomatosis with polyangiitis 85151417 M30.1 Defer to her specialist . Dysfunctio n of left eustachian tube 7045535477 606636 H69.92 86371677 I gave reassuranc e there is no effusion on exam today. I hope her ear pressure will improve as her sinusitis resolves. [id number] ANTONELLA LAGUERRE MD [facility] [address] [address] 08/22/2025 12:45:57 08/22/2025 14:00:21 Chronic pansinusitis 93658000 J32.4 Cx grew pseudomona s. she can't tolerate PO cipro. I spoke with Dr. Anand her rhinologis t. he recommende d tobramycin /budesonid e rinses BID. I called this in to her [facility]. Eosinophil ic granulomatosis with polyangiitis 90263923 M30.1 Defer to her specialist . Acute otitis externa 302 05036 H60.509 440193804 recommend continued ear drops which were prescribed by the ER and to call if not improved. [id number] DONELL EMANUEL [facility] [address] [address] 10/10/2025 10:41:21 10/10/2025 11:59:34 Chronic pansinusitis 74452037 J32.4 Eosinophil ic granulomatosis with polyangiitis 86423789 M30.1 Itching of ear 166848578 L29.9 9220527 Otoscopic exam is notable for dry flaky debris bilaterall y. Patient may likely have a low-grade fungal infection. Recommend clotrimazo le drops for the left ear. Water precaution s were reviewed. Sensorineu ral hearing loss of bilateral ears 079982520 H90.3 Health Concerns Section Related Observation LastModified by Organization Detai ls LastModified Time None Recorded Concern Status LastModified by Organization Details LastModified Time None Recorded Advance Directives Directive None Recorded Payers Insurance Date Sequence Insurance Name Policy Number Policy Connor Covered Member ID Connor Member ID Guarantor Name 10/10/2025 2 [facility] (MEDICARE SUPPLEMENT) Griselda Ferguson Anitha [id number] Griselda Ferguson Anitha 08/02/2025 3 [facility] (PPO) Griselda Ferguson Anitha [id number] Griselda Ferguson Anitha 10/10/2025 1 MEDICARE [place]: [employer] Griselda Ferguson Anitha [id number] 0 Griselda Ferguson Anitha 08/02/2025 2 [facility] (HMO) [id number] Griselda Ferguson Anitha [id number] Griselda Ferguson Anitha Notes Date Note Type Note Provider Name and Address Organization Details Recorded Time 06/02/2024 text/html ROS as noted in the HPI visit for chronic [id number] d female presents for reevaluation of sinusitis. 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 She sees Dr. Parra in [employer]. She is followed by Dr. Anand and since the last visit stopped tobramycin/budesoni de. Over the past few weeks she has developed right sided facial pain. She presents for endoscopy and culture. ANTONELLA LAGUERRE MD [address] [place] [address], [address], [facility] 06/03/2024 07:33:31 08/24/2024 text/html ROS as noted in the HPI visit for chronic xyytofbvo57-lkes-cl d female presents for reevaluation of sinusitis. 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 She sees Dr. Parra in [employer]. She is followed by Dr. Anand who she saw last month. He did a culture which showed coag negative kristina. Dr. Taveras called her yesterday and saline rinses and anthistamines as well as azelastine was recommended rather than another course of tobramycin/budesoni de rinses. She is on chronic prednisone. Hx of retuximab and nucala use but not currently. Still receiving IVIG. ANTONELLA LAGUERRE MD [address] [place] [address], [phone], [facility] 08/24/2024 10:34:04 08/02/2025 text/html ROS as noted in the [facility] visit for chronic [id number] d female presents for reevaluation of sinusitis. 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 She sees Dr. Parra in [employer]. She is followed by Dr. Anand who she saw last month. He did a culture which showed coag negative staph. She is on chronic prednisone and is now wheelchair bound due to spinal issues which she attributes to prednisone use. Hx of retuximab and nucala use but not currently. She has stopped IVIG. Her pulmonlogist Dr. Morel put her on abx back in October. A couple of months later she developed sinus pressure and thick mucus which persists. She has been on several abx including Augmentin but nothing has cleared it. She is trying to taper of prednisone. She is now on 15mg. ANTONELLA LAGUERRE MD [address] [place] [address], [phone], [facility] 08/02/2025 14:27:52 08/22/2025 text/html ROS as noted in the [facility] Verbal consent obtained for telehealth visit. Simultaneous video call technology used.80-year-old female presents for sinusitis. She has a history of EGPA syndrome. She sees Dr. Parra in [employer]. She was followed by Dr. Anand. Hx of retuximab and nucala use but not currently. She has stopped IVIG. At the last visit I performed a sinus cx which has grown pseudomonas. I spoke to her production control analyst over the weekend. She went to the [facility] for ear pain. She reports she felt discomfort after her elbow hit hear hearing aid while in place. She was diagnosed with OE and put on drops. The ear feels slightly improved. ANTONELLA LAGUERRE MD [address] [place] [address],[place] [address], [place], [phone], [facility] 08/22/2025 13:21:30 10/10/2025 text/html ROS as noted in the HPI 80 year old female, 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 Franco, presents with her for follow up of sinusitis. Patient was formerly followed by Dr. Anand but currently sees Dr. Parra at [facility]. During the last visit with Dr. Laguerre, [...] drops for otitis externa. RUTH SNEED MD [address] [place] [address], [place], [phone], [facility] 10/10/2025 20:04:40 OBGyn Episode No OBEpisode recorded.
--- OUTSIDE RECORDS SUMMARY | 2025-10-13 16:53 | XMS_ITS | Patient Health Record ---
[facility] Address [address] [facility] [place] [address] Care Team Providers Care Licensed Direct Entry Midwife Name Role Phone Eduardo Albert MD Primary Care Provider Unavailabl e Black, Sherry Unavailable [phone] Allergies Allergen (clinical drug ingredient) Drug/Non Drug [...] Polyneuropathy due to type 2 diabetes mellitus (111776190) Type 2 diabetes mellitus with diabetic polyneuropathy (E11.42) Active confirmed Problem Acquired hammer toe of right foot (889359894774450 5) Hammer toe of right foot (M20.41) Active confirmed Problem Acquired hammer toe of left foot (686534857514045 3) Hammer toe of left foot (M20.42) Active confirmed Problem Neuropathy (508630075) Neuropathy (G62.9) Active confirmed Problem Ulcer of toe of right foot (disorder) (758919869558730 01) Skin ulcer of toe of right foot, limited to breakdown of skin (L97.511) Active confirmed Problem Ulcer of toe of left foot (disorder) (090197892546600 02) Skin ulcer of toe of left foot, limited to breakdown of skin (L97.521) Active confirmed Response to treatment - Improvement Encounters Encounter Location Date Provider Diagnosis [facility] [address] [place] [address] 12/02/[address] [address] 01/18/[address] [address] 03/23/2025 Sherry Trujillo Plan Of Treatment Pending Test Test Name Order Date [id number] NAIL, 6 OR MORE 02/13/2024 [id number] NAIL, 6 OR MORE 05/25/2024 [id number] NAIL, 6 OR MORE 08/31/2024 72347-Yzseygbx Plate 05/25/2024 79118- Debride <25 sq cm 06/15/2024 [id number] SKIN LESIONS, 2 TO 4 08/31/20 24 48298-WQZJ SKIN LESIONS, 2 TO 4 05/25/20 24 03452-DYWJ SKIN LESIONS, 2 TO 4 02/13/20 24 [id number] DYSTROPHIC NAILS ANY # Insurance Providers Payer Name Payer Address Payer Phone Subscriber Number Group Number Insured Name Patient Relationship to Insured Coverage Start Date Coverage End Date Medicare National [employer] [address] [place] [address] [id number] Griselda Daniels i Self - patient is the insured [employer] [address] [place] [address] [id number] Frances hector Griselda Self - patient is the insured Medical [...]
--- OUTSIDE RECORDS SUMMARY | 2025-10-13 16:54 | XMS_ITS | Encounter Summary ---
Author Organization [facility] Address [address] [place] [address] Care Team Providers Care Webfed Offset Press Operator Name Role Phone Daisy Lee MD Primary Care Provider Encounter Details Date Type Department Care Team (Late st Contact Info) Description 03/22/2025 Lab Requisition [facility] - Main Lab [address] [facility] [place] [address] Daisy Lee MD [address] [place] [address] Encounter for other general examination Social History [...] 11:19 AM [facility] Eosinophils Absolute Manual 0.00 0.00 - 0.50 K/mcL LAB HEMETOLOGY METHOD 03/22/2025 11:19 AM [facility] Basophils Absolute Manual 0.08 0.00 - 0.20 K/mcL LAB HEMETOLOGY METHOD 03/22/2025 11:19 AM [facility] Metamyelocytes Absolute Manual 0.08(H) 0.00 - 0.00 K/mcL LAB HEMETOLOGY METHOD 03/22/2025 11:19 AM EDT [facility] Myelocytes Absolute Manual 0.23(H) 0.00 - 0.00 K/mcL LAB HEMETOLOGY METHOD 03/22/2025 11:19 AM EDT [facility] Rbc Morphology Present( A) Consistent with indices, Normal for [place] LAB HEMETOLOGY METHOD 03/22/2025 11:19 AM EDT [facility] Platelet Morphology - W[facility] See Note(A) Normal [facility] 03/22/2025 11:19 AM EDT [facility] Comment:PLT: Normal Tear Drop Cells Present 5 - 10%(A) (none) LAB HEMETOLOGY METHOD 03/22/2025 11:19 AM EDT [facility] Blood Venous blood specimen / Unknown Venipuncture / Unknown 03/22/2025 5:49 AM EDT 03/22/2025 9:35 AM EDT us Daisy Lee MD LAB BLOOD ORDERABLES Final Resu lt [facility] [address] [place] [address], * (ABNORMAL) CBC auto differential (03/22/2025 5:49 AM EDT) WBC 7.7 4.8 - 10.8 K/mcL LAB HEMETOLOGY METHOD 03/22/2025 11:19 AM EDT [facility] RBC 3.30(L) 3.80 - 4.80 M/mcL LAB HEMETOLOGY METHOD 03/22/2025 11:19 AM EDT [facility] Hemoglobin 10.0(L) 11.5 - 16.0 [...] 03/22/2025 11:19 AM [facility] Blood Venous blood specimen / Unknown Venipuncture / Unknown 03/22/2025 5:49 AM EDT 03/22/2025 9:35 AM EDT us Daisy Lee MD LAB BLOOD ORDERABLES Final Resu lt [facility] [address] [place] [address], * Magnesium (03/22/2025 5:49 AM EDT) Pathologist [facility] Magnesium 1.9 1.9 - 2.6 mg/dL LAB CHEMISTRY METHOD 03/22/2025 11:26 AM [facility] Blood Venous blood specimen / Unknown Venipuncture / Unknown 03/22/2025 5:49 AM EDT 03/22/2025 9:35 AM EDT Daisy Lee MD LAB BLOOD ORDERABLES Final Resu lt [facility] [address] [place] [address], * (ABNORMAL) Comprehensive metabolic panel (03/22/2025 5:49 AM EDT) [facility] Sodium 136 133 - 145 mmol/L LAB CHEMISTRY METHOD 03/22/2025 11:26 AM [facility] Potassium 3.4(L) 3.5 - 5.5 mmol/L LAB CHEMISTRY METHOD 03/22/2025 11:26 AM [facility] Chloride 103 96 - 110 mmol/L LAB CHEMISTRY METHOD 03/22/2025 11:26 AM [facility] CO2 21 21 - 32 [...] [facility] Comment:Calculation based on the Chronic Kidney Disease Epidemiology Collaboration (CKD-EPI) equation refit without adjustment for race. BUN/Creatinine Ratio 30.4 LAB [...] 11:26 AM [facility] Total Bilirubin 0.3 0.0 - 1.4 mg/dL LAB CHEMISTRY METHOD 03/22/2025 11:26 AM [facility] Blood Venous blood specimen / Unknown Venipuncture / Unknown 03/22/2025 5:49 AM EDT 03/22/2025 9:35 AM EDT us Daisy Lee MD LAB BLOOD ORDERABLES Final Resu lt [facility] [address] [place] [address], [place] [phone] documented in this encounter Visit Diagnoses Diagnosis Encounter for other general examination documented in this encounter Care Teams Webfed Offset Press Operator Relationship Specialty Start Date End Date Daisy Lee MD [address] [place] [address] PCP - General Hospitalist Medicine 03/18/25 documented as of this encounter
--- OUTSIDE RECORDS SUMMARY | 2025-10-13 16:54 | XMS_ITS | Encounter Summary ---
Author Organization [facility] Address [address] [place] [address] Phone Care Team Providers Care Migratory Game Bird Biologist Name Role Phone Eduardo Albert MD Primary Care Provider [phone] Marquis Morel MD Unavailable Kilo Diaz MD Primary Care Provider + Kilo Diaz MD Unavailable [phone] Eduardo Albert MD Primary Care Provider [phone] Encounter Details Date Type Department Care Team (Late st Contact Info) Description 02/12/2018 Procedure Pass [facility] [address] [place] [address] Social History Tobacco Use Types Packs/Day Years [...] EDT Office Visit [facility] [address] [place] [address] Jone Nobles MD [address] [place] [phone] [email or web address] documented as of this encounter Visit Diagnoses Not on filedocumented in this encounter Additional Health Concerns Infection Onset Date Last Indicated Resolved Time 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 10/08/2022 10/15/2023 1:21 AM EST documented as of this encounter Care Teams Migratory Game Bird Biologist Relationship Specialty Start Date End Date Eduardo Albert MD [address] [address] PCP - General Internal Medicine 01/03/17 01/22/23 Kilo Diaz MD [address] [place] [address] PCP - General Nephrology 01/23/23 04/16/23 Eduardo Albert MD [address] [address] PCP - General Internal Medicine 04/17/23 Marquis Morel MD [address] [place] [address] [address] [place] [address] Wardrobe Assistant Pulmonary Disease 08/16/21 Kilo Diaz MD [address] [place] [address] Nephrology 01/23/23 documented as of this encounter Additional Source Comments The information contained in this document represents components of the legal health record. It is not the complete legal health record.[facility]
--- OUTSIDE RECORDS SUMMARY | 2025-10-13 16:54 | XMS_ITS | Encounter Summary ---
Author Organization [facility], Address [address] [place] [address] Phone Care Team Providers Care Piece Presser Name Role Phone Eduardo Albert MD Primary Care Provider [phone] Encounter Details Date Type Department Care Team (Late st Contact Info) Description 02/10/2024 Documentation Only [facility], [address] [place] [phone] [place], [place] [address] [place] [address] Social History Tobacco Use Types [...] on filedocumented in this encounter Care Teams Piece Presser Relationship Specialty Start Date End Date Eduardo Albert MD [facility] [address] [place] [address] [address] [place] [address] PCP - General 10/05/19 documented as of this encounter
--- OUTSIDE RECORDS SUMMARY | 2025-10-13 16:54 | XMS_ITS | Encounter Summary ---
Author Organization [facility] Address [address] [place] [address] Care Team Providers Care Copy Preparer Name Role Phone Daisy Lee MD Primary Care Provider [phone] Encounter Details Date Type Department Care Team (Late st Contact Info) Description 11/30/2024 Lab Requisition [facility] - Main Lab [address] [place] [address] Daisy Lee MD [address] [place] [address] Encounter for other general examination Social History [...] AM EST) WBC 7.7 4.8 - 10.8 K/[facility] LAB HEMETOLOGY METHOD 11/30/2024 10:31 AM EST [facility] RBC 3.30(L) 3.80 - 4.80 M/[facility] LAB HEMETOLOGY METHOD 11/30/2024 10:31 AM EST [facility] Hemoglobin 9.5(L) 11.5 - 16.0 g/dL LAB HEMETOLOGY METHOD 11/30/2024 10:31 AM [facility] Hematocrit 29.6(L) 35.0 - 47.0 % LAB HEMETOLOGY METHOD 11/30/2024 10:31 AM [facility] MCV 88.6 79.0 - 98.0 FL LAB HEMETOLOGY METHOD 11/30/2024 10:31 AM [facility] MCH 28.4 27.0 - 32.0 pcg LAB HEMETOLOGY METHOD 11/30/2024 10:31 AM [facility] MCHC 32.1 32.0 - 37.0 g/dL LAB HEMETOLOGY METHOD 11/30/2024 10:31 AM [facility] RDW 16.3(H) 11.0 - 15.0 % LAB HEMETOLOGY METHOD 11/30/2024 10:31 AM [facility] Platelets 181 130 - 400 K/mcL LAB HEMETOLOGY METHOD 11/30/2024 10:31 AM [facility] MPV 10.3 7.0 - 11.0 FL LAB HEMETOLOGY METHOD 11/30/2024 10:31 AM [facility] NRBC 0.0 <1.0 % LAB HEMETOLOGY METHOD 11/30/2024 10:31 AM [facility] NRBC Absolute 0.00 <0.10 K/mcL LAB HEMETOLOGY METHOD 11/30/2024 10:31 AM [facility] Blood Venous blood specimen / Unknown Venipuncture / Unknown 11/30/2024 5:06 AM EST 11/30/2024 9:41 AM EST us Daisy Lee MD LAB BLOOD ORDERABLES Final Resu lt [facility] [address] [place] [address], [place] [phone] * (ABNORMAL) Basic metabolic panel (11/30/2024 5:06 AM EST) Sodium 134 133 - 145 mmol/L LAB CHEMISTRY METHOD 11/30/2024 10:54 AM [facility] Potassium 4.0 3.5 - 5.5 mmol/L LAB CHEMISTRY METHOD 11/30/2024 10:54 AM [facility] Chloride 106 96 - 110 mmol/L LAB CHEMISTRY METHOD 11/30/2024 10:54 AM [facility] CO2 19(L) 21 - 32 mmol/L LAB CHEMISTRY METHOD 11/30/2024 10:54 AM [facility] Anion Gap 9 3 - 11 LAB CHEMISTRY METHOD 11/30/2024 10:54 AM [facility] Glucose 133(H) 70 - 100 mg/dL LAB CHEMISTRY METHOD 11/30/2024 10:54 AM [facility] BUN 55(H) 5 - 25 mg/dL LAB CHEMISTRY METHOD 11/30/2024 10:54 AM [facility] Creatinine 1.48(H) 0.50 - 1.10 mg/dL LAB CHEMISTRY METHOD 11/30/2024 10:54 AM [facility] eGFR 36(L) >=60 mL/min/1. 73m2 LAB CHEMISTRY METHOD 11/30/2024 10:54 AM [facility] Comment:Calculation based on the Chronic Kidney Disease Epidemiology Collaboration (CKD-EPI) equation refit without adjustment for race. BUN/Creatinine Ratio 37.2 LAB CHEMISTRY METHOD 11/30/2024 10:54 AM [facility] Calcium 8.9 8.5 - 10.5 mg/dL LAB CHEMISTRY METHOD 11/30/2024 10:54 AM [facility] Blood Venous blood specimen / Unknown Venipuncture / Unknown 11/30/2024 5:06 AM EST 11/30/2024 9:41 AM EST us Daisy Lee MD LAB BLOOD ORDERABLES Final Resu lt [facility] [address] [place] [address], documented in this encounter Visit Diagnoses Diagnosis Encounter for other general examination documented in this encounter Care Teams Copy Preparer Relationship Specialty Start Date End Date Daisy Lee MD [address] [place] [address] PCP - General Hospitalist Medicine 03/18/25 documented as of this encounter
--- OUTSIDE RECORDS SUMMARY | 2025-10-13 16:54 | XMS_ITS | Encounter Summary ---
Author Organization [employer] Address [address] [place] [address] Care Team Providers Care Powdered Sugar Supervisor Name Role Phone Daisy Lee MD Primary Care Provider Encounter Details Date Type Department Care Team (Late st Contact Info) Description 12/06/2024 Lab Requisition [facility] - Main Lab [address] [facility] [place] [address] Daisy Lee MD [address] [place] [id number] Encounter for other general examination Social History [...] % LAB HEMETOLOGY METHOD 12/06/2024 2:[address] [facility] Bands % 2.0 % LAB HEMETOLOGY METHOD 12/06/2024 2:[address] [facility] Lymphocytes % 8.0 % LAB HEMETOLOGY METHOD 12/06/2024 2:[address] [facility] Monocytes % 4.0 % LAB HEMETOLOGY METHOD 12/06/2024 2:[address] [facility] Eosinophils % 4.0 % LAB HEMETOLOGY METHOD 12/06/2024 2:[address] [facility] Basophils % 0.0 % LAB HEMETOLOGY METHOD 12/06/2024 2:[address] [facility] Myelocytes % 1.0(H) % LAB HEMETOLOGY METHOD 12/06/2024 2:[address] [facility] Neutrophils Absolute Manual 6.72 1.50 - 7.00 K/mcL LAB HEMETOLOGY METHOD 12/06/2024 2:[address] [facility] Bands Absolute Manual 0.16(H) 0.00 - 0.00 K/mcL LAB HEMETOLOGY METHOD 12/06/2024 2:[address] [facility] Lymphocytes Absolute 0.66(L) 1.00 - 5.00 K/mcL LAB HEMETOLOGY METHOD 12/06/2024 2:[address] [facility] Monocytes Absolute Manual 0.33 0.20 - 1.00 K/mcL LAB HEMETOLOGY METHOD 12/06/2024 2:[address] [facility] Eosinophils Absolute Manual 0.33 0.00 - 0.50 K/mcL LAB HEMETOLOGY METHOD 12/06/2024 2:[address] [facility] Basophils Absolute Manual 0.00 0.00 - 0.20 K/mcL LAB HEMETOLOGY METHOD 12/06/2024 2:24 PM EST [facility] Myelocytes Absolute Manual 0.08(H) 0.00 - 0.00 K/mcL LAB HEMETOLOGY METHOD 12/06/2024 2:24 PM EST [facility] Rbc Morphology Present( A) Consistent with indices, Normal for [place] LAB HEMETOLOGY METHOD 12/06/2024 2:24 PM EST [facility] Platelet Morphology - WAM See Note(A) Normal LAB HEMETOLOGY METHOD 12/06/2024 2:24 PM EST [facility] Comment:PLT: Normal Tear Drop Cells Present 11 - 15%(A) (none) LAB HEMETOLOGY METHOD 12/06/2024 2:[address] [facility] Blood Venous blood specimen / Unknown Venipuncture / Unknown 12/06/2024 5:34 AM EST 12/06/2024 12:02 PM EST us Daisy Lee MD LAB BLOOD ORDERABLES Final Resu lt [facility] [address] [place] [address], * (ABNORMAL) CBC auto differential (12/06/2024 5:34 AM EST) WBC 8.2 4.8 - 10.8 K/mcL LAB HEMETOLOGY METHOD 12/06/2024 2:[address] [facility] RBC 3.30(L) 3.80 - 4.80 M/mcL LAB HEMETOLOGY METHOD 12/06/2024 2:[address] [facility] Hemoglobin 9.4(L) 11.5 - 16.0 g/dL LAB HEMETOLOGY METHOD 12/06/2024 2:[address] [facility] Hematocrit 30.0(L) 35.0 - 47.0 % LAB HEMETOLOGY METHOD 12/06/2024 2:24 PM EST [facility] MCV 92.0 79.0 - 98.0 FL LAB HEMETOLOGY METHOD 12/06/2024 2:[address] [facility] MCH 28.8 27.0 - 32.0 pcg LAB HEMETOLOGY METHOD 12/06/2024 2:[address] [facility] MCHC 31.3(L) 32.0 - 37.0 g/dL LAB HEMETOLOGY METHOD 12/06/2024 2:[address] [facility] RDW 16.8(H) 11.0 - 15.0 % LAB HEMETOLOGY METHOD 12/06/2024 2:[address] [facility] Platelets 169 130 - 400 K/mcL LAB HEMETOLOGY METHOD 12/06/2024 2:24 PM EST [facility] MPV 10.4 7.0 - 11.0 FL LAB HEMETOLOGY METHOD 12/06/2024 2:24 PM EST [facility] NRBC 0.0 <1.0 % LAB HEMETOLOGY METHOD 12/06/2024 2:[address] [facility] NRBC Absolute 0.00 <0.10 K/mcL LAB HEMETOLOGY METHOD 12/06/2024 2:[address] [facility] Blood Venous blood specimen / Unknown Venipuncture / Unknown 12/06/2024 5:34 AM EST 12/06/2024 12:02 PM EST us Daisy Lee MD LAB BLOOD ORDERABLES Final Resu lt [facility] [address] [place] [address], * Magnesium (12/06/2024 5:34 AM EST) Magnesium 2.0 1.9 - 2.6 mg/dL LAB CHEMISTRY METHOD 12/06/2024 1:23 PM EST [facility] Blood Venous blood specimen / Unknown Venipuncture / Unknown 12/06/2024 5:34 AM EST 12/06/2024 12:02 PM EST us Daisy Lee MD LAB BLOOD ORDERABLES Final Resu lt Performing Organization Address [facility]/ZIP Co de Phone Number [facility] [address] [place] [address], [place] [phone] * (ABNORMAL) Hemoglobin A1c (12/06/2024 5:34 AM EST) [facility] Hemoglobin A1C 6.6(H) <6.5 % LAB CHEMISTRY METHOD 12/06/2024 8:50 PM EST [facility] Mean Bld Glu Estim. 143 mg/dL LAB CHEMISTRY METHOD 12/06/2024 8:50 PM EST [facility] Blood Venous blood specimen / Unknown Venipuncture / Unknown 12/06/2024 5:34 AM EST 12/06/2024 12:02 PM EST us Daisy Lee MD LAB BLOOD ORDERABLES Final Resu lt Performing Organization Address [facility]/ZIP Co de Phone Number [facility] [address] [place] [address], [place] [phone] * (ABNORMAL) Comprehensive metabolic panel (12/06/2024 5:34 AM EST) Pathologist [facility] Sodium 130(L) 133 - 145 mmol/L LAB CHEMISTRY METHOD 12/06/2024 1:24 PM EST [facility] Potassium 3.9 3.5 - 5.5 mmol/L LAB CHEMISTRY METHOD 12/06/2024 1:24 PM EST [facility] Chloride 106 96 - 110 mmol/L LAB CHEMISTRY METHOD 12/06/2024 1:[address] [facility] CO2 18(L) 21 - 32 mmol/L LAB CHEMISTRY METHOD 12/06/2024 1:[address] [facility] Anion Gap 6 3 - 11 LAB CHEMISTRY METHOD 12/06/2024 1:[address] [facility] Glucose 149(H) 70 - 100 mg/dL LAB CHEMISTRY METHOD 12/06/2024 1:[address] [facility] BUN 56(H) 5 - 25 mg/dL LAB CHEMISTRY METHOD 12/06/2024 1:[address] [facility] Creatinine 1.58(H) 0.50 - 1.10 mg/dL LAB CHEMISTRY METHOD 12/06/2024 1:[address] [facility] eGFR 34(L) >=60 mL/min/1. 73m2 LAB CHEMISTRY METHOD 12/06/2024 1:[address] [facility] Comment:Calculation based on the Chronic Kidney Disease Epidemiology Collaboration (CKD-EPI) equation refit without adjustment for race. BUN/Creatinine Ratio 35.4 LAB CHEMISTRY METHOD 12/06/2024 1:[address] [facility] Calcium 8.8 8.5 - 10.5 mg/dL LAB CHEMISTRY METHOD 12/06/2024 1:[address] [facility] AST (SGOT) 23 10 - 42 unit/L LAB CHEMISTRY METHOD 12/06/2024 1:[address] [facility] ALT (SGPT) 43 10 - 60 unit/L LAB CHEMISTRY METHOD 12/06/2024 1:[address] [facility] Alkaline Phosphatase 129(H) 42 - 121 unit/L LAB CHEMISTRY METHOD 12/06/2024 1:[address] [facility] Total Protein 5.9(L) 6.0 - 8.0 g/dL LAB CHEMISTRY METHOD 12/06/2024 1:24 PM EST [facility] Albumin 3.2 3.2 - 5.0 g/dL LAB CHEMISTRY METHOD 12/06/2024 1:24 PM EST [facility] Total Bilirubin 0.3 0.0 - 1.4 mg/dL LAB CHEMISTRY METHOD 12/06/2024 1:24 PM EST [facility] Blood Venous blood specimen / Unknown Venipuncture / Unknown 12/06/2024 5:34 AM EST 12/06/2024 12:02 PM EST us Daisy Lee MD LAB BLOOD ORDERABLES Final Resu lt [facility] [address] [place] [address], documented in this encounter Visit Diagnoses Diagnosis Encounter for other general examination documented in this encounter Care Teams Powdered Sugar Supervisor Relationship Specialty Start Date End Date Daisy Lee MD [address] [place] [id number] PCP - General Hospitalist Medicine 03/18/25 documented as of this encounter
--- OUTSIDE RECORDS SUMMARY | 2025-10-13 16:54 | XMS_ITS | Continuity of Care Document ---
Author Organization [place] - [facility], [facility] Address [address] [place] [address] Assessment No assessment recorded. Plan of Treatment Reminders Order Date Submit Date Provider Last Modified By Organization Details Last Modified Time Details Appointments Hearing Test Same Day (First) 2024 11:30A M Hearing Test Not available Not available Not available Establish ed 30 2024 12:00P M ANTONELLA Carey MD Not available Not available Not available Lab None recorded. Referral None recorded. Procedures None recorded. Surgeries None recorded. Imaging None recorded. Medication Orders None recorded. Patient TargetsNo targets recorded. Patient InstructionsNo instructions recorded. Reason for Referral None Reported. Results Created Date Observation Date Name Description Value Unit Range Abnormal Flag Note LastModifiedBy Organization Detail LastModifiedTime 08/02/2008/05/2025 AEROB IC BACTE RIAL CULTU RE aerobic bacterial culture Final report abnormal Not Available [facility] ([facility]) [address] [facility], [place], [address], 08/23/2025 08:30:08 08/02/2008/05/2025 AEROB IC BACTE RIAL CULTU RE result 1 COMMEN 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 Moder ate growt h Not Available [facility] ([facility]) [address] [facility], [place], [address], 08/23/2025 08:30:08 08/02/20 25 08/05/2025 AEROB IC BACTE RIAL CULTU RE result 2 COMMEN T Routi ne respi rator y gayatri Scant growt h Not Available [facility] ([facility]) [address] [facility], [place], [address], 08/23/2025 08:30:08 08/02/20 25 08/05/2025 AEROB IC [...] S Tobra mycin S Not Available [facility] ([facility]) [address] [facility], [place], [address], 08/23/2025 08:30:08 08/02/20 25 08/23/2025 FUNGU S (MYCO LOGY) CULTU RE fungus (mycology) culture Final report Not Available [facility] ([facility]) [address] [facility], [place], [address], 08/23/2025 08:30:08 08/02/20 25 08/23/2025 FUNGU S (MYCO LOGY) CULTU RE result 1 Commen t Cultu re overg rown with bacte pennie. Not Available [facility] ([facility]) [address] [place], [address], 08/23/2025 08:30:08 Result Notes None recorded. Problems Name Problem SNOMED Code Status Onset Date Resolution Date Notes Provider Name and Address Organization Details Recorded Time Chronic maxillary sinusitis 72276828 Active 2013 Chronic maxillary sinusitis ; Location: bilateral CMS Risk: low risk CMS Treatment : establish ed problem (to examiner) : unstable or worsening Note: Date Diagnosed : 4 11:49 AM (473.0) Not Available [facility] 4 02:48:23 Cough 80980529 Active 2015 Cough, unspecifi ed; Note: Changed from R05 to R05.9 (10/22/20 22 2:30 PM) , Date Diagnosed : 06/12/2016 11:33 AM (R05) Not Available [facility] 4 02:48:25 Chronic ethmoidal sinusitis 19196875 Active 2015 Chronic ethmoidal sinusitis ; Note: Date Diagnosed : 07/29/2016 11:26 AM (J32.2) Not Available [facility] 4 02:48:20 Impacted cerumen in right ear 19561251258 65353 Active 2016 Impacted cerumen, right ear; Note: Date Diagnosed : 12/16/2016 1:38 PM (H61.21) Not Available [facility] 4 02:48:17 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 34619454 Active 2016 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]; Note: Date Diagnosed : 12/16/2016 1:37 PM (M30.1) ANTONELLA HAGAN MD [address] [place] [address], [facility] [place], [address] , [facility] - [facility] 5 13:15:01 Migraine without aura, not refractor y 077946182 Active 2016 Migraine without aura, not intractab le, without status migrainos ; Note: Date Diagnosed : 02/26/2017 12:17 PM (G43.009) Not Available [facility] 4 02:48:22 Dizziness and giddiness 868337824 Active 2016 Dizziness and giddiness ; Note: Date Diagnosed : 03/10/2017 4:48 PM (R42) Not Available [facility] 4 02:48:18 Disorder of right Eustachia n tube 36234421549 99219 Active 2016 Other specified disorders of Eustachia n tube, right ear; Note: Date Diagnosed : 05/15/2017 12:11 PM (H69.81) Not Available [facility] 4 02:48:23 Dysphonia 22728275 Active 2016 Hoarsenes s; Note: Date Diagnosed : 07/24/2017 11:20 AM (R49.0) Not Available [facility] 4 02:48:22 Headache 36670890 Active 2016 Headache, unspecifi ed; Location: right Not e: Changed from R51 to R51.9 (09/24/20 22 2:18 PM) , Date Diagnosed : 08/26/2017 1:22 PM (R51) Not Available [facility] 4 02:48:17 Posterior rhinorrhe a 19831784 Active 2017 Postnasal drip; Note: Date Diagnosed : 01/09/2018 1:12 PM (R09.82) Not Available [facility] 4 02:48:24 Recurrent acute sinusitis 432965833 Active 2018 Other acute recurrent sinusitis ; Note: Date Diagnosed : 07/27/2019 1:37 PM (J01.81) Not Available [facility] 4 02:48:25 Allergic rhinitis 40699285 Active 2018 Allergic Rhinitis; [facility] Risk: low risk [facility] Treatment : establish ed problem (to examiner) : unstable or worsening Note: Date Diagnosed : 4 11:49 AM (477.9) ; Start Date : 4 Other allergic rhinitis; Note: Date Diagnosed : 07/27/2019 1:29 PM (J30.89) Allergi c rhinitis, unspecifi ed; Note: Date Diagnosed : 07/10/2016 11:57 AM (J30.9) ; Start Date : 6 Not Available [facility] 4 02:48:21 Sensorine ural hearing loss of bilateral ears 463542997 Active 2019 Sensorine ural hearing loss, bilateral ; Note: Date Diagnosed : 12/03/2019 3:08 PM (H90.3) Sensori neural hearing loss, bilateral ; Note: Date Diagnosed : 7 1:52 PM (H90.3) ; Start Date : 7 Not Available [facility] 4 02:48:17 Acute sialoaden itis 136500826 Active 2020 Acute sialoaden itis; Note: Date Diagnosed : 12/04/2020 4:35 PM (K11.21) Not Available [facility] 4 02:48:21 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 Other condition s related to polyarter itis nodosa; Note: Date Diagnosed : 01/09/2023 11:36 AM (M30.8) Not Available [facility] 4 02:48:25 Chronic sinusitis 25952934 Active 2022 Chronic pansinusi tis; Note: Date Diagnosed : 4 10:08 AM (473.8) ; Start Date : 4 Other chronic sinusitis ; Note: Date Diagnosed : 04/23/2023 2:59 PM (J32.8) Other chronic sinusitis ; Note: Date Diagnosed : 09/02/2017 9:41 AM (J32.8) ; Start Date : 7 Not Available [facility] 4 02:48:20 Chronic pansinusi tis 85033821 Active 2023 ANTONELLA HAGAN MD [address] [place], [place] [address], [address] , [facility] - [facility] 5 13:20:33 Dysfuncti on of left eustachia n tube 94519699079 84245 Active 2024 ANTONELLA HAGAN MD [address] [place] [address], [place], [address] , [facility] - [facility] 5 14:27:16 Acute otitis externa 27233934 Active 2024 ANTONELLA HAGAN MD [address] [place], [place] [address], [address] , [facility] 5 13:20:54 Itching of ear 931417865 Active 2024 DONELL EMANUEL [address] [facility],[place] [address], [place], [address] , [facility] 5 15:53:40 Acute infective otitis externa 236741627 Active 2024 DONELL EMANUEL [address] [facility],[address], [address] , [facility] 5 18:08:00 Problem Notes None recorded. Procedures Surgical History Date Name Laterality Status Provider Name and Address Organization Details Recorded Time 5 JMSNasal/Sinu s Endoscopy-MILLICENT OR surgical cavities completed DONELL EMANUEL [address] [place] [address], [phone], [facility] 10/10/2025 18:07:15 5 NasalEndoscop y_DP completed ANTONELLA HAGAN MD [address] [place] [address], [address], [facility] 08/02/2025 14:26:09 4 NasalEndoscop y_DP completed ANTONELLA HAGAN MD [address] [place] [address], [address], [facility] 08/24/2024 10:33:16 4 NasalEndoscop y_DP completed ANTONELLA HAGAN MD [address] [place] [address], [address], [facility] 06/03/2024 07:31:42 Imaging Results None recorded. Procedure Notes None recorded. Medical Equipment None Reported. Allergies Allergen ID Allergen Name Allergen Category Reaction Reaction Severity Criticality Documentation Date Start Date Code Code System Note Provider Name and Address Organization Details Recorded Time 117251 amoxicill in / clavulana te medicatio n other Not available Not available 04/13/2024 RxNorm React ion: unkno wn, unspe cifie d;; Not Available [facility] 4 01:13:12 461637 prednison e medicatio n other Not available Not available 04/13/2024 8640 RxNorm React ion: syed sawyer, unspe cifie d;; Not Available [facility] 4 01:13:13 446151 Substance with sulfonami de structure and antibacte rial mechanism of action (substanc e) medicatio n other Not available Not available 04/13/2024 21703 8003 SNOMED React ion: syed sawyer, unspe cifie d;; Not Available [facility] 4 01:13:14 Medications Name Sig Start Date Stop Date Status Note LastModified by Organization Details LastModified Time Singulair 10 mg tablet 1 tablet 05/27 [place]: 56784 Pr escribed By Name: PK Kennedy nd [...] a day 05/09 completed Medicati on ID: 280622 D uration Value: 30 Prescri bed By Name: DAVID Hogue nd Name: michael vaca Send Method: E-Prescr ibed Sub s Allowed: subs OK Medic ationGen ericName : budjarrod de Not Available Not Available Not Available clotrimaz ole 10 mg juan DISSOLVE 1 TABLET SLOWLY IN THE MOUTH 5 TIMES DAILY FOR 14 DAYS active Not Available Not Available No t Available BD Alcohol Swabs 01/16 completed Medicati on ID: [id number] B rand Name: BD Alcohol Swabs Se [...] by mouth 04/23 completed Medicati on ID: 115016 P yukiriamy d By Name: Antonella powell MD Brand [...] nebulizat ion 04/23 completed Medicati on ID: 747167 B rand Name: albutero l sulfate Send [...] mg tablet 01/16 completed Medicati on ID: 629407 B rand Name: fluconaz ole Send Method: E-Prescr ibed Sub s Allowed: subs OK Medic ationGen ericName : fluconaz ole Not Available Not Available Not Available sulfameth oxazole 400 mg-trimet hoprim 80 mg tablet 01/16 completed Medicati on ID: 700035 B rand Name: sulfamet hoxazole -trimeth oprim [...] gram tablet 04/23 completed Medicati on ID: 834562 B rand Name: sucralfa te Send Method: E-Prescr ibed Sub s Allowed: subs OK [facility] : sucralfa te Not Available Not [...] mg tablet 05/15 completed Medicati on ID: 152300 D uration Value: 90 Reason: () Brand Name: amlodipi ne Send Method: E-Prescr ibed Sub s Allowed: subs OK [facility] : amlodipi ne Not Available Not [...] release 05/15 completed Medicati on ID: 6524 [place] son: () Brand Name: aspirin Send Method: E-Prescr ibed Sub s Allowed: subs OK Medic ationGen ericName : aspirin Not Available Not Available Not Available doxycycli ne monohydra te 100 mg tablet TAKE 1 TABLET BY MOUTH TWICE A DAY FOR 14 DAYS active Not Available Not Available No t Available triamcino lone acetonide 0.1 % topical cream 04/23 completed Medicati on ID: [id number] B rand Name: triamcin olone acetonid e Send Method: E-Prescr ibed Sub s Allowed: subs OK Medic ationGen ericName : triamcin olone acetonid e Not Available Not Available Not Available amoxicill in 500 mg tablet 12/20 completed Medicati on ID: 937443 D uration Value: 21 Brand Name: amoxicil [...] by mouth 08/20 completed Medicati on ID: 378261 D uration Value: 10 Prescri bed By [...] by mouth 08/20 completed Medicati on ID: [id number] D uration Value: 7 Prescri bed By [...] mg tablet 12/20 completed Medicati on ID: [id number] D uration Value: 21 Brand Name: Lamictal Send Method: E-Prescr ibed Sub s Allowed: No subs Med icationG enericNa me: Lamictal Not Available Not Available Not Available cephalexi n 500 mg capsule 01/16 completed Medicati on ID: 433600 B rand Name: cephalex in Send Method: [...] nasal spray 12/20 completed Medicati on ID: 528432 D uration Value: 90 Brand Name: mometaso [...] mg tablet 12/20 completed Medicati on ID: 598064 D uration Value: 90 Brand Name: neela jain Send Method: E-Prescr ibed Sub s Allowed: subs OK Speci al Instruct ion: TAKE 1 TABLET (0.6 MG TOTAL) BY MOUTH EVERY OTHER DAY. Med icationG enericNa me: colchici ne Not Available Not Available Not Available ketoconaz ole 2 % topical cream 04/23 completed Medicati on ID: 837490 B rand Name: ketocona zole Donavan d [...] a day 08/20 completed Medicati on ID: [id number] D uration Value: 10 Brand Name: doxycycl ine hyclate Send Method: E-Prescr ibed Sub s Allowed: subs OK Medic ationGen ericName : doxycycl ine hyclate Not Available Not Available Not Available ipratropi um bromide 0.02 % solution for inhalatio n 04/23 completed Medicati on ID: 226390 B rand Name: ipratrop ium bromide Send Method: E-Prescr ibed Sub s Allowed: subs JACK Washburn al Instruct ion: USE 1.25 ML VIA [...] 0.3 %-dexamet hasone 0.1 % eye drops,josh marrmarina 12/20 completed Medicati on ID: [id number] D uration Value: 10 Brand Name: tobramyc in-dexam ethasone Send Method: E-Prescr ibed Sub s Allowed: subs JACK Washburn al Instruct ion: PLACE ONE DROP INTO BOTH EYES 4 TIMES A DAY FOR 7-10 DAYS Med icationG enericNa me: tobramyc in-dexam ethasone Not Available Not Available Not Available oxycodone 5 mg tablet PLEASE SEE ATTACHED FOR DETAILED DIRECTIO NS active Not Available Not Available No t Available hydroxyzi ne pamoate 25 mg capsule 12/20 completed Medicati on ID: [id number] D uration Value: 30 Brand Name: hydroxyz ine pamoate Send Method: E-Prescr ibed Sub s Allowed: subs OK Speci al Instruct ion: TAKE ONE CAPSULE BY MOUTH 3 TIMES A DAY NEEDED FOR ANXIETY Medicati onGeneri cName: hydroxyz ine pamoate Not Available Not Available Not Available neomycin 3.5 mg/g-poly myxin B 10,000 unit/g-de xameth 0.1 % eye oint 12/20 completed Medicati on ID: 743807 D uration Value: 20 Brand Name: neomycin -polymyx in B-dexame th Send Method: E-Prescr ibed Sub s Allowed: subs OK Speci al Instruct ion: APPLY TO RIGHT EYE TWICE A DAY X7-10 DAYS Med icationG enericNa me: neomycin -polymyx in B-dexame th Not Available Not Available Not Available [employer] 01/16 completed Medicati on ID: 704315 B rand Name: Sharps Containe r Send [...] topical cream 12/20 completed Medicati on ID: [id number] D uration Value: 30 Brand Name: jonathan owen Sen d Method: E-Prescr ibed Sub s Allowed: subs OK Medic ationGen ericName : fluocino oze Not Available Not Available Not Available fentanyl 12 mcg/hr transderm al patch APPLY 1 PATCH (12 MCG / HOUR) BY TRANSDER MAL ROUTE EVERY 72 HOURS active Not Available Not Available No t Available methotrex ate 05/15 completed Medicati on ID: [id number] R micheline: () Brand Name: methotre xate Sen d Method: E-Prescr ibed Sub s Allowed: subs OK Medic ationGen ericName : methotre xate Not Available Not Available Not Available Nasonex Inhale 2 spray into both nostrils once a day as directed 12/20 completed Medicati on ID: [id number] D uration Value: 30 Brand Name: nasonex Send Method: E-Prescr ibed Sub s Allowed: subs OK Medic ationGen ericName : nasonex Not Available Not Available Not Available Symbicort 160 mcg-4.5 mcg/actua tion HFA aerosol inhaler 12/20 completed Medicati on ID: 385226 D uration Value: 90 Brand Name: Symbicor t Send Method: E-Prescr ibed Sub s Allowed: subs OK Medic ationGen ericName : Symbicor t Not Available Not Available Not Available Humalog KwikPen (U-100) Insulin 100 unit/mL subcutane ous INJECT 2-4 UNITS BEFORE LUNCH DX:E10.6 5 active Not Available Not Available No t Available Wendy Bach [facility] spacer 12/20 completed Medicati on ID: 922084 D uration Value: 1 Brand Name: Donald aBch [facility] Send Method: E-Prescr ibed Sub s Allowed: subs OK Speci al Instruct ion: USE DIRECTED WITH INHALER Medicati onGeneri cName: Donald Bach [facility] Not Available Not Available Not Available EpiPen 2-Leon 0.3 mg/0.3 mL injection , auto-inje ctor 12/20 completed Medicati on ID: [id number] D uration Value: 2 Brand Name: EpiPen [...] vaginal tablet 08/20 completed Medicati on ID: [id number] B rand Name: Raymondfekaden Send Method: E-Prescr ibed Sub s Allowed: [...] Not Available Not Available FreeStyle Pollo 2 [place] USE DIRECTED WITH SENSORS (DX: E10.65) 08/20 completed Not Available Not Available Not Available Miebo (PF) 100 % eye drops INSTILL 1 DROP INTO BOTH EYES 4 TIMES A DAY DIRECTED active Not Available Not Available No t Available FreeStyle Pollo 3 [place] USE WITH SENSORS TO CHECK BLOOD SUGAR [...] Available Not Available No t Available Vitals None Recorded Social History None recorded. Functional Status None recorded. Mental Status None recorded. Family History Nothing Reported. Medical History No medical history recorded. Gynecological HistoryNo gynecological history recorded. Obstetrics History GPAL:G 0 P 0 0 0 0 Past Encounters Encounter ID Performer Location Encounter Start Date Encounter Closed Date Diagnosis/Indication Diagnosis SNOMED-CT Code Diagnosis ICD10 Code Diagnosis IMO Codes Diagnosis Note [id number] ANTONELLA HAGAN MD [facility] [address] [address] 08/02/2025 13:10:58 08/02/2025 14:26:36 Chronic pansinusitis 13352705 J32.4 There was purulence on nasal endoscopy today. I performed a culture. Given her sensitivit y to various antibiotic s we will defer empiric treatment in favor of following up the culture results. We will consider treatment based on the results. I asked her to message me after a week if she has not heard the result. 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 Dysfunctio n of left eustachian tube 1454925386 444727 H69.92 42311624 I gave reassuranc e there is no effusion on exam today. I hope her ear pressure will improve as her sinusitis resolves. [id number] ANTONELLA HAGAN MD [facility] [address] [address] 08/22/2025 12:45:57 08/22/2025 14:00:21 Chronic pansinusitis 43363092 J32.4 Cx grew pseudomona s. she can't tolerate PO cipro. I spoke with Dr. Anand her rhinologis t. he recommende d tobramycin /budesonid e rinses BID. I called this in to her [facility]. Eosinophil ic granulomatosis with polyangiitis 43392884 M30.1 Defer to her specialist . Acute otitis externa 302 32895 H60.509 [id number] recommend continued ear drops which were prescribed by the ER and to call if not improved. Health Concerns Section Related Observation LastModified by Organization Detai ls LastModified Time None Recorded Concern Status LastModified by Organization Details LastModified Time None Recorded Payers Encounter Date Sequence Insurance Name Policy Number Policy Connor Covered Member ID Connor Member ID Guarantor Name 08/22/2025 2 [facility] (MEDICARE SUPPLEMENT) Griselda Welsh [id number] Griselda Welsh 08/22/2025 1 [place] [facility] Griselda Welsh [id number] Griselda Ferguson Krzysztofdeidra Notes Date Note Type Note Provider Name and Address Organization Details Recorded Time 08/22/2025 text/html ROS as noted in the HPI Verbal consent obtained for telehealth visit. Simultaneous video call technology used.80-year-old female presents for sinusitis. She has a history of EGPA syndrome. She sees Dr. Parra in [place]. She was followed by Dr. Anand. Hx of retuximab and nucala use but not currently. She has stopped IVIG. At the last visit I performed a sinus cx which has grown pseudomonas. 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 She went to the [place] ER for ear pain. She reports she felt discomfort after her elbow hit hear hearing aid while in place. She was diagnosed with OE and put on drops. The ear feels slightly improved. ANTONELLA HAGAN MD [address] [place] [address], [place], [address], [facility] - [facility] 08/22/2025 13:21:30 OBGyn Episode No OBEpisode recorded.
--- OUTSIDE RECORDS SUMMARY | 2025-10-13 16:54 | XMS_ITS | Encounter Summary ---
Author Organization [facility], Address [address] [place] [address] Phone Care Team Providers Care Temperature Control Inspector Name Role Phone Eduardo Albert MD Primary Care Provider [phone] Encounter Details Date Type Department Care Team (Late st Contact Info) Description 08/09/2024 Documentation Only [facility], [address] [place] [id number] Guillermo [place]reg[place], [place] [address] [place] [address] Social History Tobacco Use Types [...] on filedocumented in this encounter Care Teams Temperature Control Inspector Relationship Specialty Start Date End Date Eduardo Albert [facility] [address] [place] [address] [address] [place] [address] PCP - General 10/05/19 documented as of this encounter
--- OUTSIDE RECORDS SUMMARY | 2025-10-13 16:54 | XMS_ITS | Clinical Summary ---
Author Organization [address] [facility] Address [address] [place] [address] Phone Care Team Providers Care Certified Drug Counselor Name Role Phone Daisy Lee MD Primary Care Provider [phone] Social History Tobacco Use Types Packs/Day Years Used Date Smoking Tobacco: Never Assessed Comments Unknown Sex and Gender Information Value Date Recorded Sex Assigned at Not on file Legal Sex Female 5:12 AM EST Gender Identity Not on file Sexual Orientation Not on file Plan of Treatment Health Maintenance Due Date Last Done Comments DTaP,Tdap,and Td Vaccines (1 - Tdap) 1966 Pneumococcal Vaccine: 50+ Years (1 of 2 - PCV) 1966 Zoster Vaccines (1 of 2) 1997 RSV Immunization Adult Patients (1 - 1-dose 75+ series) 2022 Falls Risk Assessment 11/27/2024 Hepatitis C Screening 11/27/2024 Medicare Annual Wellness Visit 11/27/2024 Osteoporosis Screening (Bone Density Screening) 11/27/2024 Social Influencers of Health Screening 11/27/2024 Depression Screening 12/01/2024 COVID-19 Vaccine ( season) 2025 Influenza Vaccine (#1) 2025 09/03/2017, 2014 Hypertension/CHF/CAD Annual BMP Blood Test 06/25/2026 06/25/2025, 06/22/2025, 06/15/2025, Additional history exists Cholesterol Screening (Lipid Panel) [...] other general examination from Last 3 Months or Most Recently Relevant to Health Maintenance Results * (ABNORMAL) Basic metabolic panel (06/25/2025 6:22 AM EDT) Sodium 136 133 - 145 mmol/L LAB CHEMISTRY METHOD 06/25/2025 11:00 AM [facility] Potassium 3.7 3.5 - 5.5 mmol/L LAB CHEMISTRY METHOD 06/25/2025 11:00 AM [facility] Chloride 106 96 - 110 mmol/L LAB CHEMISTRY METHOD 06/25/2025 11:00 AM [facility] CO2 24 21 - 32 mmol/L LAB CHEMISTRY METHOD 06/25/2025 11:00 AM [facility] Anion Gap 6 3 - 11 LAB CHEMISTRY METHOD 06/25/2025 11:00 AM [facility] Glucose 121(H) 70 - 100 mg/dL LAB CHEMISTRY METHOD 06/25/2025 11:00 AM [facility] BUN 46(H) 5 - 25 mg/dL LAB CHEMISTRY METHOD 06/25/2025 11:00 AM [facility] Creatinine 1.41(H) 0.50 - 1.10 mg/dL LAB CHEMISTRY METHOD 06/25/2025 11:00 AM EDT [facility] eGFR 38(L) >=60 mL/min/1. 73m2 LAB CHEMISTRY METHOD 06/25/2025 11:00 AM EDT [facility] Comment:Calculation based on the Chronic Kidney Disease Epidemiology Collaboration (CKD-EPI) equation refit without adjustment for race. BUN/Creatinine Ratio 32.6 LAB CHEMISTRY METHOD 06/25/2025 11:00 AM EDT [facility] Calcium 8.6 8.5 - 10.5 mg/dL LAB CHEMISTRY METHOD 06/25/2025 11:00 AM EDT [facility] Blood Venous blood specimen / Unknown Venipuncture / Unknown 06/25/2025 6:22 AM EDT 06/25/2025 9:53 AM EDT us Cathi MARLEY LAB BLOOD ORDERABLES Final Resul t [facility] [address] [place] [address], from Last 3 Months or Most Recently Relevant to Health Maintenance Insurance MEDICARE Care Teams Certified Drug Counselor Relationship Specialty Start Date End Date Daisy Lee MD [address] [place] [id number] PCP - General Hospitalist Medicine 03/18/25
--- OUTSIDE RECORDS SUMMARY | 2025-10-13 16:54 | XMS_ITS | Encounter Summary ---
Author Organization [facility], Address [address] [place] [address] Phone Care Team Providers Care Administrative Analyst Name Role Phone Eduardo Albert MD Primary Care Provider Encounter Details Date Type Department Care Team (Late st Contact Info) Description 02/23/2024 Documentation Only [facility], [address] [place] [id number] Guillermo [place]reg[place], [place] [address] [place] [address] Social History Tobacco Use Types [...] on filedocumented in this encounter Care Teams Administrative Analyst Relationship Specialty Start Date End Date Eduardo Albert MD [facility] [address] [place] [address] [address] [place] [address] PCP - General 10/05/19 documented as of this encounter
--- OUTSIDE RECORDS SUMMARY | 2025-10-13 16:54 | XMS_ITS | Clinical Summary ---
Author Organization [facility] Address [address] [place] [phone] Phone Care Team Providers Care Pattern Illustrator Name Role Phone Marquis Morel MD Unavailable Kilo Diaz MD Unavailable [phone] Eduardo Albert MD Primary Care Provider [phone] Allergies Active Allergy Reactions Criticality Noted Date [...] Encounters Date Type Department Care Team Description 08/19/2025 Telephone [facility] [address] [facility] [address] [place] [address] RN 07/18/2025 9:00 AM EDT Telemedicine - audio only [facility] [address] [address] Jone Nobles MD ANCA-associated vasculitis (Primary Dx); [...] EDT Office Visit [facility] [address] [place] [address] Jone Nobles MD [address] [place] [phone] [email or web address] Health Maintenance Due Date Last Done Comments Adult Td,Tdap Booster 1947 DEPRESSION SCREENING 1959 SMOKING Hx and SMOKELESS TOBACCO SCREENING 1960 PNEUMOCOCCAL VACCINES (50+ years) (1 of 2 - PCV) 1966 COLOGUARD 1992 COLONOSCOPY 1992 COLORECTAL CANCER SCREENING 1992 FIT TEST 1992 FOBT 1992 SIGMOIDOSCOPY 1992 VIRTUAL COLONOSCOPY 1992 OSTEOPOROSIS SCREENING INITIAL (ONE-TIME) 2012 CREATININE LEVEL 04/01/2025 04/01/2024, 10/2023, 07/07/2023, Additional history exists INFLUENZA VACCINE (#1) 2025 , 09/10/2023, 10/14/2022, Additional history exists COVID-19 VACCINE (2024- season) 2025 12/26/2023, 12/04/2022, 10/28/2022, Additional history exists LIPID PANEL 04/17/2028 04/17/2023, 08/01, 03/20/2021, Additional history exists HEPATITIS C SCREENING Completed 01/08/2017 , 01/08/2017, 01/08/2017, Additional history exists ZOSTER VACCINES Completed 10/25/2018, 07/12/2018 RSV VACCINE Completed 11/12/2023 HEPATITIS A VACCINES Aged Out No long er eligible based on patient's age to complete this topic HIB VACCINES Aged Out No longer eligi ble based on patient's age to complete this topic IPV VACCINES Aged Out No longer eligi ble [...] Date/Time Associated Diagnosis Comments COMPREHENSIVE METABOLIC PANEL (CMP) Routine 04/01/2024 11:57 AM EDT Churg-James syndrome ANCA-associated vasculitis Metabolic acidosis Stage 3b chronic kidney disease LIPID PANEL Routine 04/17/2023 1:20 PM EDT ANCA-associated vasculitis HEPATITIS C ANTIBODY, QUALITATIVE Routine 01/08/2017 3:35 PM EST Churg-James syndrome from Last 3 Months or Most Recently Relevant to Health Maintenance Results * (ABNORMAL) Comprehensive metabolic panel (04/01/2024 11:57 AM EDT) SODIUM 131(L) 135 - 145 mmol/L [facility] POTASSIUM 4.0 3.4 - 5.0 mmol/L [facility] CHLORIDE 100 98 - 108 mmol/L [facility] CO2 14(L) 23 - 32 mmol/L [facility] BUN 66(H) 8 - 25 mg/dL [facility] CREATININE 1.87(H) 0.60 - 1.50 mg/dL [facility] GLUCOSE 209(H) 70 - 110 mg/dL [facility] ALBUMIN 3.9 3.3 - 5.0 g/dL [facility] TOTAL PROTEIN 6.4 6.0 - 8.3 g/dL [facility] CALCIUM 9.4 8.5 - 10.5 mg/dL [facility] ALKALINE PHOSPHATASE 129(H) 30 - 100 U/L [facility] TOTAL BILIRUBIN 0.3 0.0 - 1.0 mg/dL [facility] AST 37(H) 9 - 32 U/L [facility] ALT 48(H) 7 - 33 U/L [facility] GLOBULIN 2.5 1.9 - 4.1 g/dL [facility] EGFR 28(L) >59 mL/min/1. 73m2 [facility] Comment:Estimated glomerular filtration rate calculated using the CKD-EPI refit equation. ANION GAP 17 3 - 17 mmol/L [facility] 04/01/2024 11:5 7 AM EDT 04/01/2024 4:30 PM EDT us Jone Nobles MD LAB BLOOD BKR ORDERABLES Fi nal Result Performing Organization Address City/[facility] Co de Phone Number [facility] [address] [place] [address] * (ABNORMAL) Lipid panel (04/17/2023 1:20 PM EDT) HDL 46 35 - 100 mg/dL [facility] CHOLESTEROL 203(H) <200 mg/dL [facility] TRIGLYCERIDES 499(H) 40 - 150 mg/dL [facility] LDL -- 50 - 129 mg/dL [facility] Comment: Calculated LDL is inaccurate when triglycerides exceed 400 mg/dl. CARDIAC RISK RATIO 4.4 0.0 - 5.0 [facility] NON-HDL CHOLESTEROL 157 mg/dL [facility] Comment:NCEP ATP III guideli david suggest a non-HDL cholesterol goal 30 mg/dl higher than the patient-specific LDL goal. Blood 04/17/2023 1:20 PM EDT 04/17/2023 4:33 PM EDT us Soham Light MD LAB BLOOD BKR ORDERABLES Final R esult Performing Organization Address City/[facility]/ZIP Co de Phone Number [facility] [address] [place] [address] * (ABNORMAL) Hepatitis C antibody, qualitative (01/08/2017 3:35 PM EST) HCV ANTIBODY Credit(A) Negative [facility] Comment:SPECIMEN RELOGGED Blood 01/08/2017 3:35 PM EST 01/08/2017 6:16 PM EST us Sonido Parra MD LAB BLOOD BKR ORDERABLES Final R esult Performing Organization Address City/[facility] Co de Phone Number [facility] [address] [place] [address] from Last 3 Months or Most Recently Relevant to Health Maintenance Insurance MEDICARE PART A & B [facility] MEDICARE PREFERRED SUPPLEMENT [facility] MEDICARE ENHANCE SUPPLEMENT MEDICARE PART A & B [facility] MEDICARE PREFERRED SUPPLEMENT [place] [id number] [facility] MEDICARE ENHANCE SUPPLEMENT MEDICARE PART A & B [facility] MEDICARE PREFERRED SUPPLEMENT MEDICARE PART A & B [facility] MEDICARE PREFERRED SUPPLEMENT MEDICARE PART A & B [facility] MEDICARE PREFERRED SUPPLEMENT [facility] MEDICARE [place] [address] MEDICARE PART A & B [facility] MEDICARE PREFERRED SUPPLEMENT [facility] MEDICARE [place] [address] MEDICARE PART A & B [facility] MEDICARE PREFERRED SUPPLEMENT [facility] [place] [id number] MEDICARE PART A & B [facility] MEDICARE PREFERRED SUPPLEMENT MEDICARE PART A & B [facility] MEDICARE PREFERRED SUPPLEMENT [facility] MEDICARE ENHANCE SUPPLEMENT Care Teams Pattern Illustrator Relationship Specialty Start Date End Date Eduardo Albert MD [address] [place] [phone] PCP - General Internal Medicine 04/17/23 Marquis Morel MD [address] [place] [address] [address] [place] [address] Signs Sales Representative Pulmonary Disease 08/16/21 Kilo Diaz MD [address] [place] [address] [place] [address] [email or web address] Nephrology 01/23/23 Additional Source Comments The information contained in this document represents components of the legal health record. It is not the complete legal health record.[facility]
--- OUTSIDE RECORDS SUMMARY | 2025-10-13 16:54 | XMS_ITS | Continuity of Care Document ---
Author Organization [place] - [facility], [facility] Address [address] [place] [address] Assessment No assessment recorded. Plan of Treatment [...] culture Final report abnormal Not Available [facility] ([facility]) [address] [facility], [place], [address], 08/23/2025 08:30:08 08/02/2008/05/2025 AEROB IC BACTE RIAL [...] Moder ate growt h Not Available [facility] ([facility]) [address] [facility], [place], [address], 08/23/2025 08:30:08 08/02/20 25 08/05/2025 AEROB IC BACTE RIAL CULTU RE result 2 COMMEN T Routi ne respi rator y gayatri Scant growt h Not Available [facility] ([facility]) [address] [facility], [place], [address], 08/23/2025 08:30:08 08/02/20 25 08/05/2025 AEROB IC [...] S Tobra mycin S Not Available [facility] ([facility]) [address] [facility], [place], [address], 08/23/2025 08:30:08 08/02/20 25 08/23/2025 FUNGU S (MYCO LOGY) CULTU RE fungus (mycology) culture Final report Not Available [facility] ([facility]) [address] [facility], [place], [address], 08/23/2025 08:30:08 08/02/20 25 08/23/2025 FUNGU S (MYCO LOGY) CULTU RE result 1 Commen t Cultu re overg rown with bacte pennie. Not Available [facility] ([facility]) [address] [place], [address], 08/23/2025 08:30:08 Result Notes None recorded. Problems Name Problem SNOMED Code Status Onset Date Resolution Date Notes Provider Name and Address Organization Details Recorded Time Chronic maxillary sinusitis 16738790 Active 2013 Chronic maxillary sinusitis ; Location: bilateral CMS Risk: low risk CMS Treatment : establish ed problem (to examiner) : unstable or worsening Note: Date Diagnosed : 4 11:49 AM (473.0) Not Available [facility] 4 02:48:23 Cough 75283673 Active 2015 Cough, unspecifi ed; Note: Changed from R05 to R05.9 (10/22/20 22 2:30 PM) , Date Diagnosed : 06/12/2016 11:33 AM (R05) Not Available [facility] 4 02:48:25 Chronic ethmoidal sinusitis 94001790 Active 2015 Chronic ethmoidal sinusitis ; Note: Date Diagnosed : 07/29/2016 11:26 AM (J32.2) Not Available [facility] 4 02:48:20 Impacted cerumen in right ear 80468637206 53304 Active 2016 Impacted cerumen, right ear; Note: Date Diagnosed : 12/16/2016 1:38 PM (H61.21) Not Available [facility] 4 02:48:17 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 5 13:15:01 Migraine without aura, not refractor y 779116822 Active 2016 Migraine without aura, not intractab le, without status migrainos ; Note: Date Diagnosed : 02/26/2017 12:17 PM (G43.009) Not Available [facility] 4 02:48:22 Dizziness and giddiness 386381990 Active 2016 Dizziness and giddiness ; Note: Date Diagnosed : 03/10/2017 4:48 PM (R42) Not Available [facility] 4 02:48:18 Disorder of right Eustachia n tube 63556102484 66747 Active 2016 Other specified disorders of Eustachia n tube, right ear; Note: Date Diagnosed : 05/15/2017 12:11 PM (H69.81) Not Available [facility] 4 02:48:23 Dysphonia 11753804 Active 2016 Hoarsenes s; Note: Date Diagnosed : 07/24/2017 11:20 AM (R49.0) Not Available [facility] 4 02:48:22 Headache 89508652 Active 2016 Headache, unspecifi ed; Location: right Not e: Changed from R51 to R51.9 (09/24/20 22 2:18 PM) , Date Diagnosed : 08/26/2017 1:22 PM (R51) Not Available [facility] 4 02:48:17 Posterior rhinorrhe a 33364543 Active 2017 Postnasal drip; Note: Date Diagnosed : 01/09/2018 1:12 PM (R09.82) Not Available [facility] 4 02:48:24 Recurrent acute sinusitis 750014309 Active 2018 Other acute recurrent sinusitis ; Note: Date Diagnosed : 07/27/2019 1:37 PM (J01.81) Not Available [facility] 4 02:48:25 Allergic rhinitis 69995503 Active 2018 Allergic Rhinitis; [facility] Risk: low risk [facility] Treatment : establish ed problem (to examiner) : unstable or worsening Note: Date Diagnosed : 4 11:49 AM (477.9) ; Start Date : 4 Other allergic rhinitis; Note: Date Diagnosed : 07/27/2019 1:29 PM (J30.89) Allergi c rhinitis, unspecifi ed; Note: Date Diagnosed : 07/10/2016 11:57 AM (J30.9) ; Start Date : 6 Not Available [facility] 4 02:48:21 Sensorine ural hearing loss of bilateral ears 465855666 Active 2019 Sensorine ural hearing loss, bilateral ; Note: Date Diagnosed : 12/03/2019 3:08 PM (H90.3) Sensori neural hearing loss, bilateral ; Note: Date Diagnosed : 7 1:52 PM (H90.3) ; Start Date : 7 Not Available [facility] 4 02:48:17 Acute sialoaden itis 737610760 Active 2020 Acute sialoaden itis; Note: Date Diagnosed : 12/04/2020 4:35 PM (K11.21) Not Available [facility] 4 02:48:21 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 Other condition s related to polyarter itis nodosa; Note: Date Diagnosed : 01/09/2023 11:36 AM (M30.8) Not Available [facility] 4 02:48:25 Chronic sinusitis 36971983 Active 2022 Chronic pansinusi tis; Note: Date Diagnosed : 4 10:08 AM (473.8) ; Start Date : 4 Other chronic sinusitis ; Note: Date Diagnosed : 04/23/2023 2:59 PM (J32.8) Other chronic sinusitis ; Note: Date Diagnosed : 09/02/2017 9:41 AM (J32.8) ; Start Date : 7 Not Available [facility] 4 02:48:20 Chronic pansinusi tis 98787646 Active 2023 ANTONELLA HAGAN MD [address] [place], [place] [address], [address] , [facility] - [facility] 5 13:20:33 Dysfuncti on of left eustachia n tube 90272831480 57590 Active 2024 ANTONELLA HAGAN MD [address] [place] [address], [place], [address] , [facility] - [facility] 5 14:27:16 Acute otitis externa 66669630 Active 2024 ANTONELLA HAGAN MD [address] [place], [place] [address], [address] , [facility] 5 13:20:54 Itching of ear 766356960 Active 2024 DONELL EMANUEL [address] [facility],[place] [address], [place], [address] , [facility] 5 15:53:40 Acute infective otitis externa 067421791 Active 2024 DONELL EMANUEL [address] [facility],[address], [address] , [facility] 5 18:08:00 Problem Notes None recorded. Procedures Surgical History Date Name Laterality Status Provider Name and Address Organization Details Recorded Time 5 JMSNasal/Sinu s Endoscopy-MILLICENT OR surgical cavities completed DONELL EMANUEL [address] [place] [address], [phone], [facility] 10/10/2025 18:07:15 5 NasalEndoscop y_DP completed ANTONELLA HAGAN MD [address] [place] [address], [address], [facility] 08/02/2025 14:26:09 4 NasalEndoscop y_DP completed ANTONELLA HAGAN MD [address] [place] [address], [address], [facility] 08/24/2024 10:33:16 4 NasalEndoscop y_DP completed ANTONELLA HAGAN MD [address] [place] [address], [address], [facility] 06/03/2024 07:31:42 Imaging Results None recorded. Procedure Notes None recorded. Medical Equipment None Reported. Allergies Allergen ID Allergen Name Allergen Category Reaction Reaction Severity Criticality Documentation Date Start Date Code Code System Note Provider Name and Address Organization Details Recorded Time 712813 amoxicill in / clavulana te medicatio n other Not available Not available 04/13/2024 RxNorm React ion: unkno wn, unspe cifie d;; Not Available [facility] 4 01:13:12 059735 prednison e medicatio n other Not available Not available 04/13/2024 8640 RxNorm React ion: syed sawyer, unspe cifie d;; Not Available [facility] 4 01:13:13 617731 Substance with sulfonami de structure and antibacte rial mechanism of action (substanc e) medicatio n other Not available Not available 04/13/2024 26072 8003 SNOMED React ion: syed sawyer, unspe cifie d;; Not Available [facility] 4 01:13:14 Medications Name Sig Start Date Stop Date Status Note LastModified by Organization Details LastModified Time Singulair 10 mg tablet 1 tablet 05/27 completed Medicati on ID: [id number] Pr escribed By Name: PK Kennedy nd [...] a day 05/09 completed Medicati on ID: 193052 D uration Value: 30 Prescri bed By [...] Alcohol Swabs 01/16 completed Medicati on ID: 592853 B rand Name: BD Alcohol Swabs Se [...] by mouth 04/23 completed Medicati on ID: 053071 P yukiriamy d By Name: Antonella powell [...] nebulizat ion 04/23 completed Medicati on ID: 573269 B rand Name: albutero l sulfate Send [...] mg tablet 01/16 completed Medicati on ID: 061028 B rand Name: fluconaz ole Send Method: E-Prescr ibed Sub s Allowed: subs OK Medic ationGen ericName : fluconaz ole Not Available Not Available Not Available sulfameth oxazole 400 mg-trimet hoprim 80 mg tablet 01/16 completed Medicati on ID: 658041 B rand Name: sulfamet hoxazole -trimeth oprim [...] gram tablet 04/23 completed Medicati on ID: 201662 B rand Name: sucralfa te Send Method: E-Prescr ibed Sub s Allowed: subs OK [facility] : sucralfa te Not Available Not [...] mg tablet 05/15 completed Medicati on ID: 217081 D uration Value: 90 Reason: () Brand Name: amlodipi ne Send Method: E-Prescr ibed Sub s Allowed: subs OK [facility] : amlodipi ne Not Available Not [...] release 05/15 completed Medicati on ID: 65[address] [place] son: () Brand Name: aspirin Send Method: E-Prescr ibed Sub s Allowed: subs OK Medic ationGen ericName : aspirin Not Available Not Available Not Available doxycycli ne monohydra te 100 mg tablet TAKE 1 TABLET BY MOUTH TWICE A DAY FOR 14 DAYS active Not Available Not Available No t Available triamcino lone acetonide 0.1 % topical cream 04/23 completed Medicati on ID: 014335 B rand Name: triamcin olone acetonid e Send Method: E-Prescr ibed Sub s Allowed: subs OK Medic ationGen ericName : triamcin olone acetonid e Not Available Not Available Not Available amoxicill in 500 mg tablet 12/20 completed Medicati on ID: 690728 D uration Value: 21 Brand Name: amoxicil [...] by mouth 08/20 completed Medicati on ID: 493566 D uration Value: 10 Prescri bed By [...] by mouth 08/20 completed Medicati on ID: 612634 D uration Value: 7 Prescri bed By [...] mg tablet 12/20 completed Medicati on ID: 838334 D uration Value: 21 Brand Name: Lamictal Send Method: E-Prescr ibed Sub s Allowed: No subs Med icationG enericNa me: Lamictal Not Available Not Available Not Available cephalexi n 500 mg capsule 01/16 completed Medicati on ID: 056516 B rand Name: cephalex in Send Method: [...] nasal spray 12/20 completed Medicati on ID: 202064 D uration Value: 90 Brand Name: mometaso [...] mg tablet 12/20 completed Medicati on ID: 946303 D uration Value: 90 Brand Name: neela jain Send Method: E-Prescr ibed Sub s Allowed: subs OK Speci al Instruct ion: TAKE 1 TABLET (0.6 MG TOTAL) BY MOUTH EVERY OTHER DAY. Med icationG enericNa me: colchici ne Not Available Not Available Not Available ketoconaz ole 2 % topical cream 04/23 completed Medicati on ID: 848868 B rand Name: ketocona zole Donavan d [...] a day 08/20 completed Medicati on ID: 592663 D uration Value: 10 Brand Name: doxycycl ine hyclate Send Method: E-Prescr ibed Sub s Allowed: subs OK Medic ationGen ericName : doxycycl ine hyclate Not Available Not Available Not Available ipratropi um bromide 0.02 % solution for inhalatio n 04/23 completed Medicati on ID: 105782 B rand Name: ipratrop ium bromide Send [...] drops,josh marrmarina 12/20 completed Medicati on ID: 823817 D uration Value: 10 Brand Name: tobramyc [...] mg capsule 12/20 completed Medicati on ID: 864234 D uration Value: 30 Brand Name: hydroxyz ine pamoate Send Method: E-Prescr ibed Sub s Allowed: subs OK Speci al Instruct ion: TAKE ONE CAPSULE BY MOUTH 3 TIMES A DAY NEEDED FOR ANXIETY Medicati onGeneri cName: hydroxyz ine pamoate Not Available Not Available Not Available neomycin 3.5 mg/g-poly myxin B 10,000 unit/g-de xameth 0.1 % eye oint 12/20 completed Medicati on ID: 330715 D uration Value: 20 Brand Name: neomycin -polymyx in B-dexame th Send Method: E-Prescr ibed Sub s Allowed: subs OK Speci al Instruct ion: APPLY TO RIGHT EYE TWICE A DAY X7-10 DAYS Med icationG enericNa me: neomycin -polymyx in B-dexame th Not Available Not Available Not Available [employer] 01/16 completed Medicati on ID: 499628 B rand Name: Sharps Containe r Send [...] topical cream 12/20 completed Medicati on ID: 547425 D uration Value: 30 Brand Name: jonathan [...] methotrex ate 05/15 completed Medicati on ID: [id number] R micheline: () Brand Name: methotre xate Sen d Method: E-Prescr ibed Sub s Allowed: subs OK Medic ationGen ericName : methotre xate Not Available Not Available Not Available Nasonex Inhale 2 spray into both nostrils once a day as directed 12/20 completed Medicati on ID: 536559 D uration Value: 30 Brand Name: nasonex Send Method: E-Prescr ibed Sub s Allowed: subs OK Medic ationGen ericName : nasonex Not Available Not Available Not Available Symbicort 160 mcg-4.5 mcg/actua tion HFA aerosol inhaler 12/20 completed Medicati on ID: [id number] D uration Value: 90 Brand Name: Symbicor t Send Method: E-Prescr ibed Sub s Allowed: subs OK Medic ationGen ericName : Symbicor t Not Available Not Available Not Available Humalog KwikPen (U-100) Insulin 100 unit/mL subcutane ous INJECT 2-4 UNITS BEFORE LUNCH DX:E10.6 5 active Not Available Not Available No t Available Wendy Bach [facility] spacer 12/20 completed Medicati on ID: 968061 D uration Value: 1 Brand Name: Donald Bach [facility] Send Method: E-Prescr ibed Sub s Allowed: subs OK Speci al Instruct ion: USE DIRECTED WITH INHALER Medicati onGeneri cName: Donald Bach [facility] Not Available Not Available Not Available EpiPen 2-Leon 0.3 mg/0.3 mL injection , auto-inje ctor 12/20 completed Medicati on ID: 760322 D uration Value: 2 Brand Name: EpiPen [...] vaginal tablet 08/20 completed Medicati on ID: 584132 B rand Name: Raymondfekaden Send Method: E-Prescr [...] Not Available Not Available FreeStyle Pollo 2 [place] USE DIRECTED WITH SENSORS (DX: E10.65) 08/20 completed Not Available Not Available Not Available Miebo (PF) 100 % eye drops INSTILL 1 DROP INTO BOTH EYES 4 TIMES A DAY DIRECTED active Not Available Not Available No t Available FreeStyle Pollo 3 [place] USE WITH SENSORS TO CHECK BLOOD SUGAR [...] Updated DateTime 08/02/2025 160.02 cm 24.8 kg/m2 82673.93 g John Novak [place] - [facility] 08/02/2025 13:19:14 Social History None recorded. Functional Status None recorded. Mental Status None recorded. Family History Nothing Reported. Medical History No medical history recorded. Gynecological HistoryNo gynecological history recorded. Obstetrics History GPAL:G 0 P 0 0 0 0 Past Encounters Encounter ID Performer Location Encounter Start Date Encounter Closed Date Diagnosis/Indication Diagnosis SNOMED-CT Code Diagnosis ICD10 Code Diagnosis IMO Codes Diagnosis Note [id number] ANTONELLA HAGAN MD [facility] [address] [address] 08/02/2025 13:10:58 08/02/2025 14:26:36 Chronic pansinusitis 88852710 J32.4 There was purulence on nasal endoscopy today. I performed a culture. Given her sensitivit y to various antibiotic s we will defer empiric treatment in favor of following up the culture results. We will consider treatment based on the results. I asked her to message me after a week if she has not heard the result. 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 Dysfunctio n of left eustachian tube 0450435389 778175 H69.92 76665903 I gave reassuranc e there is no effusion on exam today. I hope her ear pressure will improve as her sinusitis resolves. Health Concerns Section Related Observation LastModified by Organization Detai ls LastModified Time None Recorded Concern Status LastModified by Organization Details LastModified Time None Recorded Payers Encounter Date Sequence Insurance Name Policy Number Policy Connor Covered Member ID Connor Member ID Guarantor Name 08/02/2025 2 [facility] (MEDICARE SUPPLEMENT) Griselad Welsh [id number] Griselda Welsh 08/02/2025 1 MEDICARE [place]: [employer] Griselda Welsh [id number] Griselda Welsh Notes Date Note Type Note Provider Name and Address Organization Details Recorded Time 08/02/2025 text/html ROS as noted in the HPI visit for chronic dlxctrbos93-xxbf-r ld female presents for reevaluation of sinusitis. 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 She sees Dr. Parra in [place]. She is followed by Dr. Anand who [...] prednisone. She is now on 15mg. ANTONELLA HAGAN MD [address] [place] [address], [place], [address], [facility] - [facility] 08/02/2025 14:27:52 OBGyn Episode No OBEpisode recorded.
--- OUTSIDE RECORDS SUMMARY | 2025-10-13 16:54 | XMS_ITS | Encounter Summary ---
Author Organization [facility], Address [address] [address] Phone Care Team Providers Care Quality Technician Fiberglass Name Role Phone Eduardo Albert MD Primary Care Provider [phone] Encounter Details Date Type Department Care Team (Late st Contact Info) Description 01/23/2023 Documentation Only [facility], [address] [place] [phone] Kilo Diaz MD [address] [place] [address] Social History Tobacco Use Types [...] on filedocumented in this encounter Care Teams Quality Technician Fiberglass Relationship Specialty Start Date End Date Eduardo Albert [facility] [address] [place] [address] [address] [place] [address] PCP - General 10/05/19 documented as of this encounter
--- OUTSIDE RECORDS SUMMARY | 2025-10-13 16:54 | XMS_ITS | Encounter Summary ---
Author Organization [facility] Address [address] [place] [address] Care Team Providers Care Stripping Shovel Operator Name Role Phone Daisy Lee MD Primary Care Provider Encounter Details Date Type Department Care Team (Late st Contact Info) Description 06/20/[address] [facility] [address] [place] [address] Cathi Alford PA [address] [place] [phone] Encounter for other general examination Social History [...] Associated Diagnosis Comments COMPLETE BLOOD COUNT Routine 06/20/2025 6:23 AM EDT Encounter for other general examination documented in this encounter Results * (ABNORMAL) Complete blood count (06/20/2025 6:23 AM EDT) WBC 5.7 4.8 - 10.8 K/[facility] LAB HEMETOLOGY METHOD 06/20/2025 12:47 PM EDT [facility] RBC 3.00(L) 3.80 - 4.80 M/[facility] LAB HEMETOLOGY METHOD 06/20/2025 12:47 PM EDT [facility] Hemoglobin 9.2(L) 11.5 - 16.0 g/dL LAB HEMETOLOGY METHOD 06/20/2025 12:47 PM EDT [facility] Hematocrit 29.1(L) 35.0 - 47.0 % LAB HEMETOLOGY METHOD 06/20/2025 12:47 PM EDT [facility] MCV 96.0 79.0 - 98.0 FL LAB HEMETOLOGY METHOD 06/20/2025 12:47 PM EDT [facility] MCH 30.4 27.0 - 32.0 pcg LAB HEMETOLOGY METHOD 06/20/2025 12:47 PM EDT [facility] MCHC 31.6(L) 32.0 - 37.0 g/dL LAB HEMETOLOGY METHOD 06/20/2025 12:47 PM EDT [facility] RDW 16.6(H) 11.0 - 15.0 % LAB HEMETOLOGY METHOD 06/20/2025 12:47 PM EDT [facility] Platelets 166 130 - 400 K/mcL LAB HEMETOLOGY METHOD 06/20/2025 12:47 PM EDT [facility] MPV 11.2(H) 7.0 - 11.0 FL LAB HEMETOLOGY METHOD 06/20/2025 12:47 PM EDT [facility] NRBC 0.4 <1.0 % LAB HEMETOLOGY METHOD 06/20/2025 12:47 PM EDT [facility] NRBC Absolute 0.02 <0.10 K/mcL LAB HEMETOLOGY METHOD 06/20/2025 12:47 PM EDT [facility] Blood Venous blood specimen / Unknown Venipuncture / Unknown 06/20/2025 6:23 AM EDT 06/20/2025 10:32 AM EDT us Cathi MARLEY LAB BLOOD ORDERABLES Final Resul t [facility] [address] [place] [address], [place] [phone] documented in this encounter Visit Diagnoses Diagnosis Encounter for other general examination documented in this encounter Care Teams Stripping Shovel Operator Relationship Specialty Start Date End Date Daisy Lee MD [address] [place] [id number] PCP - General Hospitalist Medicine 03/18/25 documented as of this encounter
--- OUTSIDE RECORDS SUMMARY | 2025-10-13 16:54 | XMS_ITS | Encounter Summary ---
Author Organization [employer] Address [address] [place] [address] Care Team Providers Care Fire Observer Name Role Phone Daisy Lee MD Primary Care Provider Encounter Details Date Type Department Care Team (Late st Contact Info) Description 10/05/2024 Lab Requisition [facility] - Main Lab [address] [place] [address] Jonathon Antunez MD [address] [place] [phone] Low back pain, unspecified; Weakness Social History [...] LAB CHEMISTRY METHOD 10/05/2024 2:44 PM EST [facility] ([facility]) [facility] Blood Venous blood specimen / Unknown Venipuncture / Unknown 10/05/2024 5:42 AM EST 10/05/2024 11:00 AM EST us Jonathon Antunez MD LAB BLOOD ORDERABLES Final Res ult [facility] [address] [place] [address], [place] [phone] * (ABNORMAL) Complete blood count (10/05/2024 5:42 AM EST) Pathologist [facility] WBC 8.0 4.8 - 10.8 K/mcL LAB HEMETOLOGY METHOD 10/05/2024 12:58 PM [facility] LAB RBC 3.30(L) 3.80 - 4.80 M/mcL LAB HEMETOLOGY METHOD 10/05/2024 12:58 PM [facility] LAB Hemoglobin 9.5(L) 11.5 - 16.0 g/dL LAB HEMETOLOGY METHOD 10/05/2024 12:58 PM [facility] LAB Hematocrit 30.0(L) 35.0 - 47.0 % LAB HEMETOLOGY METHOD 10/05/2024 12:58 PM [facility] LAB MCV 89.8 79.0 - 98.0 FL LAB HEMETOLOGY METHOD 10/05/2024 12:58 PM [facility] LAB MCH 28.4 27.0 - 32.0 pcg LAB HEMETOLOGY METHOD 10/05/2024 12:58 PM [facility] LAB MCHC 31.7(L) 32.0 - 37.0 g/dL LAB HEMETOLOGY METHOD 10/05/2024 12:58 PM [facility] LAB RDW 14.9 11.0 - 15.0 % LAB HEMETOLOGY METHOD 10/05/2024 12:58 PM [facility] LAB Platelets 203 130 - 400 K/mcL LAB HEMETOLOGY METHOD 10/05/2024 12:58 PM EST [facility] LAB MPV 10.7 7.0 - 11.0 FL LAB HEMETOLOGY METHOD 10/05/2024 12:58 PM EST [facility] LAB NRBC 0.0 <1.0 % LAB HEMETOLOGY METHOD 10/05/2024 12:58 PM [facility] LAB NRBC Absolute 0.00 <0.10 K/mcL LAB HEMETOLOGY METHOD 10/05/2024 12:58 PM [facility] Blood Venous blood specimen / Unknown Venipuncture / Unknown 10/05/2024 5:42 AM EST 10/05/2024 11:00 AM EST Jonathon Antunez MD LAB BLOOD ORDERABLES Final Res ult [facility] [address] [place] [address], * (ABNORMAL) Comprehensive metabolic panel (10/05/2024 5:42 AM EST) Sodium 137 133 - 145 mmol/L LAB CHEMISTRY METHOD 10/05/2024 2:46 PM [facility] Potassium 3.8 3.5 - 5.5 mmol/L LAB CHEMISTRY METHOD 10/05/2024 2:46 PM [facility] Chloride 104 96 - 110 mmol/L LAB CHEMISTRY METHOD 10/05/2024 2:46 PM [facility] CO2 21 21 - 32 mmol/L LAB CHEMISTRY METHOD 10/05/2024 2:46 PM [facility] LAB Anion Gap 12(H) 3 - 11 LAB CHEMISTRY METHOD 10/05/2024 2:46 PM [facility] Glucose 171(H) 70 - 100 mg/dL LAB CHEMISTRY METHOD 10/05/2024 2:46 PM [facility] BUN 58(H) 5 - 25 mg/dL LAB CHEMISTRY METHOD 10/05/2024 2:46 PM [facility] Creatinine 1.63(H) 0.50 - 1.10 mg/dL LAB CHEMISTRY METHOD 10/05/2024 2:46 PM [facility] LAB eGFR 32(L) >=60 mL/min/1. 73m2 LAB CHEMISTRY METHOD 10/05/2024 2:46 PM [facility] LAB Comment:Calculation based on the Chronic Kidney Disease Epidemiology Collaboration (CKD-EPI) equation refit without adjustment for race. BUN/Creatinine Ratio 35.6 LAB CHEMISTRY METHOD 10/05/2024 2:46 PM [facility] Calcium 9.0 8.5 - 10.5 mg/dL LAB CHEMISTRY METHOD 10/05/2024 2:46 PM [facility] AST (SGOT) 26 10 - 42 unit/L LAB CHEMISTRY METHOD 10/05/2024 2:46 PM [facility] ALT (SGPT) 38 10 - 60 unit/L LAB CHEMISTRY METHOD 10/05/2024 2:46 PM [facility] Alkaline Phosphatase 182(H) 42 - 121 unit/L LAB CHEMISTRY METHOD 10/05/2024 2:46 PM [facility] Total Protein 5.6(L) 6.0 - 8.0 g/dL LAB CHEMISTRY METHOD 10/05/2024 2:46 PM [facility] Albumin 2.9(L) 3.2 - 5.0 g/dL LAB CHEMISTRY METHOD 10/05/2024 2:46 PM [facility] Total Bilirubin 0.2 0.0 - 1.4 mg/dL LAB CHEMISTRY METHOD 10/05/2024 2:46 PM [facility] Blood Venous blood specimen / Unknown Venipuncture / Unknown 10/05/2024 5:42 AM EST 10/05/2024 11:00 AM EST us Jonathon Antunez MD LAB BLOOD ORDERABLES Final Res ult [facility] ([facility] LAB [address] [place] [address], documented in this encounter Visit Diagnoses Diagnosis Low back pain, unspecified Weakness Other malaise and fatigue documented in this encounter Care Teams Fire Observer Relationship Specialty Start Date End Date Daisy Lee MD [address] [place] [phone] PCP - General Hospitalist Medicine 03/18/25 documented as of this encounter
--- OUTSIDE RECORDS SUMMARY | 2025-10-13 16:54 | XMS_ITS | Encounter Summary ---
Author Organization [employer] [facility] Address [address] [place] [address] Care Team Providers Care Day Care Home Provider Name Role Phone Daisy Lee MD Primary Care Provider [phone] Encounter Details Date Type Department Care Team (Late st Contact Info) Description 06/15/2025 Lab Requisition [facility] - Main Lab [address] [place] [address] Javier Egan PA [address] [facility] [address] [place] [address] Encounter for other general examination Social History [...] Name Priority Date/Time Associated Diagnosis Comments CBC WITH AUTO DIFFERENTIAL Routine 06/15/2025 6:54 AM EDT Encounter for other general examination CBC AND DIFFERENTIAL Routine 06/15/2025 6:54 AM EDT Encounter for other general examination MAGNESIUM Routine 06/15/2025 6:54 AM EDT Encounter for other general examination COMPREHENSIVE METABOLIC PANEL Routine 06/15/2025 6:54 AM EDT Encounter for other general examination documented in this encounter Results * (ABNORMAL) CBC auto differential (06/15/2025 6:54 AM EDT) WBC 6.7 4.8 - 10.8 K/[facility] LAB HEMETOLOGY METHOD 06/15/2025 11:[address] [facility] RBC 3.30(L) 3.80 - 4.80 M/mcL LAB HEMETOLOGY METHOD 06/15/2025 11:[address] [facility] Hemoglobin 10.2(L) 11.5 - 16.0 g/dL LAB HEMETOLOGY METHOD 06/15/2025 11:[address] [facility] Hematocrit 31.5(L) 35.0 - 47.0 % LAB HEMETOLOGY METHOD 06/15/2025 11:[address] [facility] MCV 94.6 79.0 - 98.0 FL LAB HEMETOLOGY METHOD 06/15/2025 11:[address] [facility] MCH 30.6 27.0 - 32.0 pcg LAB HEMETOLOGY METHOD 06/15/2025 11:[address] [facility] MCHC 32.4 32.0 - 37.0 g/dL LAB HEMETOLOGY METHOD 06/15/2025 11:[address] [facility] RDW 16.2(H) 11.0 - 15.0 % LAB HEMETOLOGY METHOD 06/15/2025 11:[address] [facility] Platelets 163 130 - 400 K/mcL LAB HEMETOLOGY METHOD 06/15/2025 11:[address] [facility] MPV 10.8 7.0 - 11.0 FL LAB HEMETOLOGY METHOD 06/15/2025 11:[address] [facility] NRBC 0.0 <1.0 % LAB HEMETOLOGY METHOD 06/15/2025 11:[address] [facility] NRBC Absolute 0.00 <0.10 K/mcL LAB HEMETOLOGY METHOD 06/15/2025 11:[address] [facility] Neutrophils Relative 84.6 % LAB HEMETOLOGY METHOD 06/15/2025 11:[address] [facility] Lymphocytes Relative 7.2 % LAB HEMETOLOGY METHOD 06/15/2025 11:[address] [facility] Monocytes Relative 3.0 % LAB HEMETOLOGY METHOD 06/15/2025 11:[address] [facility] Eosinophils Relative 3.1 % LAB HEMETOLOGY METHOD 06/15/2025 11:[address] [facility] Basophils Relative 0.6 % LAB HEMETOLOGY METHOD 06/15/2025 11:[address] [facility] Immature Granulocytes Relative 1.5 % LAB HEMETOLOGY METHOD 06/15/2025 11:[address] [facility] Neutrophils Absolute 5.67 1.50 - 7.00 K/mcL LAB HEMETOLOGY METHOD 06/15/2025 11:[address] [facility] Lymphocytes Absolute 0.48(L) 1.00 - 5.00 K/mcL LAB HEMETOLOGY METHOD 06/15/2025 11:[address] [facility] Monocytes Absolute 0.20 0.20 - 1.00 K/mcL LAB HEMETOLOGY METHOD 06/15/2025 11:[address] [facility] Eosinophils Absolute 0.21 0.00 - 0.50 K/mcL LAB HEMETOLOGY METHOD 06/15/2025 11:[address] [facility] Basophils Absolute 0.04 0.00 - 0.20 K/mcL LAB HEMETOLOGY METHOD 06/15/2025 11:[address] [facility] Immature Granulocytes Absolute 0.10(H) 0.00 - 0.03 K/mcL LAB HEMETOLOGY METHOD 06/15/2025 11:[address] [facility] Blood Venous blood specimen / Unknown Venipuncture / Unknown 06/15/2025 6:54 AM EDT 06/15/2025 10:02 AM EDT Javier MARLEY LAB BLOOD ORDERABLES Final R esult Performing Organization Address City/[facility]/ZIP Co de Phone Number [facility] LAB [address] [place] [address], [place] [phone] * Magnesium (06/15/2025 6:54 AM EDT) [facility] Magnesium 1.9 1.9 - 2.6 mg/dL LAB CHEMISTRY METHOD 06/15/2025 11:25 AM EDT [facility] LAB Blood Venous blood specimen / Unknown Venipuncture / Unknown 06/15/2025 6:54 AM EDT 06/15/2025 10:02 AM EDT Javier MARLEY LAB BLOOD ORDERABLES Final R esult Performing Organization Address City/[facility]/ZIP Co de Phone Number [facility] [address] [place] [address], [place] [phone] * (ABNORMAL) Comprehensive metabolic panel (06/15/2025 6:54 AM EDT) [facility] Sodium 137 133 - 145 mmol/L LAB CHEMISTRY METHOD 06/15/2025 11:40 AM EDT [facility] LAB Potassium 3.6 3.5 - 5.5 mmol/L LAB CHEMISTRY METHOD 06/15/2025 11:40 AM EDT [facility] LAB Chloride 100 96 - 110 mmol/L LAB CHEMISTRY METHOD 06/15/2025 11:40 AM EDT [facility] LAB CO2 25 21 - 32 mmol/L LAB CHEMISTRY METHOD 06/15/2025 11:40 AM EDT [facility] LAB Anion Gap 12(H) 3 - 11 LAB CHEMISTRY METHOD 06/15/2025 11:40 AM EDT [facility] LAB Glucose 116(H) 70 - 100 mg/dL LAB CHEMISTRY METHOD 06/15/2025 11:[address] [facility] BUN 29(H) 5 - 25 mg/dL LAB CHEMISTRY METHOD 06/15/2025 11:[address] [facility] Creatinine 1.36(H) 0.50 - 1.10 mg/dL LAB CHEMISTRY METHOD 06/15/2025 11:[address] [facility] LAB eGFR 40(L) >=60 mL/min/1. 73m2 LAB CHEMISTRY METHOD 06/15/2025 11:[address] [facility] LAB Comment:Calculation based on the Chronic Kidney Disease Epidemiology Collaboration (CKD-EPI) equation refit without adjustment for race. BUN/Creatinine Ratio 21.3 LAB CHEMISTRY METHOD 06/15/2025 11:[address] [facility] Calcium 8.9 8.5 - 10.5 mg/dL LAB CHEMISTRY METHOD 06/15/2025 11:[address] [facility] AST (SGOT) 18 10 - 42 unit/L LAB CHEMISTRY METHOD 06/15/2025 11:[address] [facility] ALT (SGPT) 27 10 - 60 unit/L LAB CHEMISTRY METHOD 06/15/2025 11:[address] [facility] Alkaline Phosphatase 92 42 - 121 unit/L LAB CHEMISTRY METHOD 06/15/2025 11:[address] [facility] Total Protein 5.6(L) 6.0 - 8.0 g/dL LAB CHEMISTRY METHOD 06/15/2025 11:[address] [facility] Albumin 2.9(L) 3.2 - 5.0 g/dL LAB CHEMISTRY METHOD 06/15/2025 11:[address] [facility] Total Bilirubin 0.5 0.0 - 1.4 mg/dL LAB CHEMISTRY METHOD 06/15/2025 11:[address] [facility] Blood Venous blood specimen / Unknown Venipuncture / Unknown 06/15/2025 6:54 AM EDT 06/15/2025 10:02 AM EDT us Javier MARLEY LAB BLOOD ORDERABLES Final R esult [facility] ([facility] [address] [place] [address], documented in this encounter Visit Diagnoses Diagnosis Encounter for other general examination documented in this encounter Care Teams Day Care Home Provider Relationship Specialty Start Date End Date Daisy Lee MD [address] [place] [phone] PCP - General Hospitalist Medicine 03/18/25 documented as of this encounter
--- OUTSIDE RECORDS SUMMARY | 2025-10-13 16:54 | XMS_ITS | Encounter Summary ---
Author Organization [employer] Address [address] [place] [address] Care Team Providers Care Public Records Officer Name Role Phone Daisy Lee MD Primary Care Provider Encounter Details Date Type Department Care Team (Late st Contact Info) Description 03/18/2025 Lab Requisition [facility] - Main Lab [address] [facility] [place] [address] Daisy Lee MD [address] [place] [phone] Encounter for other general examination Social History [...] % LAB HEMETOLOGY METHOD 03/18/2025 12:00 PM [facility] Lymphocytes % 11.0 % LAB HEMETOLOGY METHOD 03/18/2025 12:00 PM [facility] Monocytes % 4.0 % LAB HEMETOLOGY METHOD 03/18/2025 12:00 PM [facility] Eosinophils % 1.0 % LAB HEMETOLOGY METHOD 03/18/2025 12:00 PM [facility] Basophils % 2.0 % LAB HEMETOLOGY METHOD 03/18/2025 12:00 PM [facility] Metamyelocytes % 2.0(H) % LAB HEMETOLOGY METHOD 03/18/2025 12:00 PM [facility] Myelocytes % 1.0(H) % LAB HEMETOLOGY METHOD 03/18/2025 12:00 PM [facility] Neutrophils Absolute Manual 5.91 1.50 - 7.00 K/mcL LAB HEMETOLOGY METHOD 03/18/2025 12:00 PM [facility] Lymphocytes Absolute 0.80(L) 1.00 - 5.00 K/mcL LAB HEMETOLOGY METHOD 03/18/2025 12:00 PM [facility] Monocytes Absolute Manual 0.29 0.20 - 1.00 K/mcL LAB HEMETOLOGY METHOD 03/18/2025 12:00 PM [facility] Eosinophils Absolute Manual 0.07 0.00 - 0.50 K/mcL LAB HEMETOLOGY METHOD 03/18/2025 12:00 PM [facility] Basophils Absolute Manual 0.15 0.00 - 0.20 K/mcL LAB HEMETOLOGY METHOD 03/18/2025 12:00 PM [facility] Metamyelocytes Absolute Manual 0.15(H) 0.00 - 0.00 K/mcL LAB HEMETOLOGY METHOD 03/18/2025 12:[address] [facility] Myelocytes Absolute Manual 0.07(H) 0.00 - 0.00 K/mcL LAB HEMETOLOGY METHOD 03/18/2025 12:[address] [facility] Rbc Morphology Present( A) Consistent with indices, Normal for [place] LAB HEMETOLOGY METHOD 03/18/2025 12:[address] [facility] Platelet Morphology - WAM See Note(A) Normal LAB HEMETOLOGY METHOD 03/18/2025 12:[address] [facility] Comment:PLT: Normal Ovalocytes Present 5 - 10%(A) (none) LAB HEMETOLOGY METHOD 03/18/2025 12:[address] [facility] Tear Drop Cells Present 5 - 10%(A) (none) LAB HEMETOLOGY METHOD 03/18/2025 12:[address] [facility] Blood Venous blood specimen / Unknown Venipuncture / Unknown 03/18/2025 5:19 AM EDT 03/18/2025 10:54 AM EDT us Daisy Lee MD LAB BLOOD ORDERABLES Final Resu lt [facility] [address] [place] [address], * (ABNORMAL) CBC auto differential (03/18/2025 5:19 AM EDT) WBC 7.3 4.8 - 10.8 K/mcL LAB HEMETOLOGY METHOD 03/18/2025 12:[address] [facility] RBC 3.10(L) 3.80 - 4.80 M/mcL LAB HEMETOLOGY METHOD 03/18/2025 12:[address] [facility] Hemoglobin 9.3(L) 11.5 - 16.0 g/dL LAB HEMETOLOGY METHOD 03/18/2025 12:00 PM [facility] Hematocrit 29.0(L) 35.0 - 47.0 % LAB HEMETOLOGY METHOD 03/18/2025 12:00 PM [facility] MCV 94.5 79.0 - 98.0 FL LAB HEMETOLOGY METHOD 03/18/2025 12:00 PM [facility] MCH 30.3 27.0 - 32.0 pcg LAB HEMETOLOGY METHOD 03/18/2025 12:00 PM [facility] MCHC 32.1 32.0 - 37.0 g/dL LAB HEMETOLOGY METHOD 03/18/2025 12:00 PM [facility] RDW 14.7 11.0 - 15.0 % LAB HEMETOLOGY METHOD 03/18/2025 12:00 PM [facility] Platelets 162 130 - 400 K/mcL LAB HEMETOLOGY METHOD 03/18/2025 12:00 PM [facility] MPV 11.3(H) 7.0 - 11.0 FL LAB HEMETOLOGY METHOD 03/18/2025 12:00 PM [facility] NRBC 0.3 <1.0 % LAB HEMETOLOGY METHOD 03/18/2025 12:00 PM [facility] NRBC Absolute 0.02 <0.10 K/mcL LAB HEMETOLOGY METHOD 03/18/2025 12:00 PM [facility] Blood Venous blood specimen / Unknown Venipuncture / Unknown 03/18/2025 5:19 AM EDT 03/18/2025 10:54 AM EDT us Daisy Lee MD LAB BLOOD ORDERABLES Final Resu lt [facility] [address] [place] [address], [place] [phone] * (ABNORMAL) Magnesium (03/18/2025 5:19 AM EDT) Pathologist [facility] Magnesium 1.7(L) 1.9 - 2.6 mg/dL LAB CHEMISTRY METHOD 03/18/2025 1:[address] [facility] Blood Venous blood specimen / Unknown Venipuncture / Unknown 03/18/2025 5:19 AM EDT 03/18/2025 10:54 AM EDT Daisy Lee MD LAB BLOOD ORDERABLES Final Resu lt Performing Organization Address [facility]/ZIP Co de Phone Number [facility] [address] [place] [address], * (ABNORMAL) Comprehensive metabolic panel (03/18/2025 5:19 AM EDT) [facility] Sodium 137 133 - 145 mmol/L LAB CHEMISTRY METHOD 03/18/2025 1:[address] [facility] Potassium 3.7 3.5 - 5.5 mmol/L LAB CHEMISTRY METHOD 03/18/2025 1:09 PM [facility] Chloride 104 96 - 110 mmol/L LAB CHEMISTRY METHOD 03/18/2025 1:09 PM [facility] CO2 22 21 - 32 mmol/L LAB CHEMISTRY METHOD 03/18/2025 1:09 PM [facility] Anion Gap 11 3 - 11 LAB CHEMISTRY METHOD 03/18/2025 1:09 PM [facility] Glucose 108(H) 70 - 100 mg/dL LAB CHEMISTRY METHOD 03/18/2025 1:09 PM [facility] BUN 36(H) 5 - 25 mg/dL LAB CHEMISTRY METHOD 03/18/2025 1:09 PM [facility] Creatinine 1.52(H) 0.50 - 1.10 mg/dL LAB CHEMISTRY METHOD 03/18/2025 1:09 PM [facility] eGFR 35(L) >=60 mL/min/1. 73m2 LAB CHEMISTRY METHOD 03/18/2025 1:09 PM [facility] Comment:Calculation based on the Chronic Kidney Disease Epidemiology Collaboration (CKD-EPI) equation refit without adjustment for race. BUN/Creatinine Ratio 23.7 LAB CHEMISTRY METHOD 03/18/2025 1:09 PM [facility] Calcium 8.9 8.5 - 10.5 mg/dL LAB CHEMISTRY METHOD 03/18/2025 1:09 PM [facility] AST (SGOT) 13 10 - 42 unit/L LAB CHEMISTRY METHOD 03/18/2025 1:09 PM [facility] ALT (SGPT) 29 10 - 60 unit/L LAB CHEMISTRY METHOD 03/18/2025 1:09 PM [facility] Alkaline Phosphatase 93 42 - 121 unit/L LAB CHEMISTRY METHOD 03/18/2025 1:09 PM [facility] Total Protein 5.4(L) 6.0 - 8.0 g/dL LAB CHEMISTRY METHOD 03/18/2025 1:09 PM [facility] Albumin 2.9(L) 3.2 - 5.0 g/dL LAB CHEMISTRY METHOD 03/18/2025 1:09 PM [facility] Total Bilirubin 0.4 0.0 - 1.4 mg/dL LAB CHEMISTRY METHOD 03/18/2025 1:09 PM [facility] Blood Venous blood specimen / Unknown Venipuncture / Unknown 03/18/2025 5:19 AM EDT 03/18/2025 10:54 AM EDT us Daisy Lee MD LAB BLOOD ORDERABLES Final Resu lt [facility] ([facility] H[facility] LAB [address] [place] [address], documented in this encounter Visit Diagnoses Diagnosis Encounter for other general examination documented in this encounter Care Teams Public Records Officer Relationship Specialty Start Date End Date Daisy Lee MD [address] [place] [phone] PCP - General Hospitalist Medicine 03/18/25 documented as of this encounter
--- OUTSIDE RECORDS SUMMARY | 2025-10-13 16:54 | XMS_ITS | Encounter Summary ---
Author Organization [facility] Address [address] [place] [address] Care Team Providers Care Sheet Rock Applicator Name Role Phone Daisy Lee MD Primary Care Provider Encounter Details Date Type Department Care Team (Late st Contact Info) Description 06/22/2025 Lab Requisition [facility] - Main Lab [address] [facility] [place] [address] Jaci Tinajero PA [address] [place] [address] Encounter for other general examination Social History [...] Associated Diagnosis Comments COMPLETE BLOOD COUNT Routine 06/22/2025 6:30 AM EDT Encounter for other general examination COMPREHENSIVE METABOLIC PANEL Routine 06/22/2025 6:30 AM EDT Encounter for other general examination documented in this encounter Results * (ABNORMAL) Comprehensive metabolic panel (06/22/2025 6:30 AM EDT) Sodium 137 133 - 145 mmol/L LAB CHEMISTRY METHOD 06/22/2025 1:43 PM EDT [facility] Potassium 3.6 3.5 - 5.5 mmol/L LAB CHEMISTRY METHOD 06/22/2025 1:43 PM EDT [facility] Chloride 103 96 - 110 mmol/L LAB CHEMISTRY METHOD 06/22/2025 1:43 PM [facility] CO2 22 21 - 32 mmol/L LAB CHEMISTRY METHOD 06/22/2025 1:43 PM [facility] Anion Gap 12(H) 3 - 11 LAB CHEMISTRY METHOD 06/22/2025 1:43 PM [facility] Glucose 141(H) 70 - 100 mg/dL LAB CHEMISTRY METHOD 06/22/2025 1:43 PM [facility] BUN 46(H) 5 - 25 mg/dL LAB CHEMISTRY METHOD 06/22/2025 1:43 PM [facility] Comment:Results verified by repeat testing Creatinine 1.62(H) 0.50 - 1.10 mg/dL LAB CHEMISTRY METHOD 06/22/2025 1:43 PM [facility] eGFR 32(L) >=60 mL/min/1. 73m2 LAB CHEMISTRY METHOD 06/22/2025 1:43 PM [facility] Comment:Calculation based on the Chronic Kidney Disease Epidemiology Collaboration (CKD-EPI) equation refit without adjustment for race. BUN/Creatinine Ratio 28.4 LAB CHEMISTRY METHOD 06/22/2025 1:43 PM [facility] Calcium 9.0 8.5 - 10.5 mg/dL LAB CHEMISTRY METHOD 06/22/2025 1:43 PM [facility] AST (SGOT) 29 10 - 42 unit/L LAB CHEMISTRY METHOD 06/22/2025 1:43 PM [facility] ALT (SGPT) 42 10 - 60 unit/L LAB CHEMISTRY METHOD 06/22/2025 1:43 PM [facility] Alkaline Phosphatase 130(H) 42 - 121 unit/L LAB CHEMISTRY METHOD 06/22/2025 1:43 PM [facility] Total Protein 5.9(L) 6.0 - 8.0 g/dL LAB CHEMISTRY METHOD 06/22/2025 1:43 PM EDT [facility] Albumin 3.1(L) 3.2 - 5.0 g/dL LAB CHEMISTRY METHOD 06/22/2025 1:43 PM EDT [facility] Total Bilirubin 0.2 0.0 - 1.4 mg/dL LAB CHEMISTRY METHOD 06/22/2025 1:43 PM [facility] Blood Venous blood specimen / Unknown Venipuncture / Unknown 06/22/2025 6:30 AM EDT 06/22/2025 10:40 AM EDT us Jaci MARLEY LAB BLOOD ORDERABLES Final Re sult [facility] [address] [place] [address], [place] [phone] * (ABNORMAL) Complete blood count (06/22/2025 6:30 AM EDT) WBC 5.8 4.8 - 10.8 K/mcL LAB HEMETOLOGY METHOD 06/22/2025 12:35 PM [facility] RBC 3.10(L) 3.80 - 4.80 M/mcL LAB HEMETOLOGY METHOD 06/22/2025 12:35 PM [facility] Hemoglobin 9.5(L) 11.5 - 16.0 g/dL LAB HEMETOLOGY METHOD 06/22/2025 12:35 PM [facility] Hematocrit 29.6(L) 35.0 - 47.0 % LAB HEMETOLOGY METHOD 06/22/2025 12:35 PM [facility] MCV 96.1 79.0 - 98.0 FL LAB HEMETOLOGY METHOD 06/22/2025 12:35 PM [facility] MCH 30.8 27.0 - 32.0 pcg LAB HEMETOLOGY METHOD 06/22/2025 12:35 PM [facility] MCHC 32.1 32.0 - 37.0 g/dL LAB HEMETOLOGY METHOD 06/22/2025 12:35 PM EDT [facility] RDW 16.6(H) 11.0 - 15.0 % LAB HEMETOLOGY METHOD 06/22/2025 12:35 PM EDT [facility] Platelets 184 130 - 400 K/mcL LAB HEMETOLOGY METHOD 06/22/2025 12:35 PM EDT [facility] MPV 11.1(H) 7.0 - 11.0 FL LAB HEMETOLOGY METHOD 06/22/2025 12:35 PM EDT [facility] NRBC 0.0 <1.0 % LAB HEMETOLOGY METHOD 06/22/2025 12:35 PM EDT [facility] NRBC Absolute 0.00 <0.10 K/mcL LAB HEMETOLOGY METHOD 06/22/2025 12:35 PM EDT [facility] Blood Venous blood specimen / Unknown Venipuncture / Unknown 06/22/2025 6:30 AM EDT 06/22/2025 10:40 AM EDT us Jaci MARLEY LAB BLOOD ORDERABLES Final Re sult [facility] [address] [place] [address], [place] [phone] documented in this encounter Visit Diagnoses Diagnosis Encounter for other general examination documented in this encounter 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
--- OUTSIDE RECORDS SUMMARY | 2025-10-13 16:54 | XMS_ITS | Clinical Summary ---
Author Organization [facility], Address [address] [place] [address] [place] [address] Phone Care Team Providers Care Justice [employer] Name Role Phone Eduardo Albert MD Primary Care Provider [phone] Allergies Active Allergy Reactions Criticality Noted Date [...] % nebulizer solution 1 Active nystatin (MYCOSTATIN) 585560 UNIT/ML suspension 1 Active neomycin-polymy paco-dexamethame thasone (POLYDEX) 3.5-62648-1.1 ointment 1 Active levalbuterol (XOPENEX) 1.25 MG/3ML [...] Exam 12/03/2023 Diabetes: Hemoglobin A1C 03/06/2025 025, 12/06/2024, 10/03/2024, Additional history exists Influenza Vaccine (#1) 2025 09/03/2017, 2014 Diabetes: Ophthalmology Exam 08/16/2025 08/16/2024 Hepatitis B [...] WBC 8.9 3.4 - 10.8 x10E3/uL [facility] RBC 3.48(L) 3.77 - 5.28 x10E6/uL [facility] Hemoglobin 10.7(L) 11.1 - 15.9 g/dL [facility] Hematocrit 32.5(L) 34.0 - 46.6 % [facility] MCV 93 79 - 97 fL [facility] MCH 30.7 26.6 - 33.0 pg [facility] MCHC 32.9 31.5 - 35.7 g/dL [facility] RDW 16.2(H) 11.7 - 15.4 % [facility] Platelets 212 150 - 450 x10E3/uL [facility] Blood specimen (specimen) Venous blood / Unknown 02/08/2025 3:30 PM EDT 02/08/2025 Kilo Diaz MD LAB BLOOD ORDERABLES Final Result [facility] [address] [place] [phone] from Last 3 Months or Most Recently Relevant to Health Maintenance Insurance Medicare [facility] [place] [id number] Care Teams Justice Of The Peace Relationship Specialty Start Date End Date Eduardo Albert MD [address] [place] [address] PCP - General 10/05/19
--- OUTSIDE RECORDS SUMMARY | 2025-10-13 16:54 | XMS_ITS | Encounter Summary ---
Author Organization [facility] Address [address] [place] [address] Care Team Providers Care Corporate Librarian Name Role Phone Daisy Lee MD Primary Care Provider Encounter Details Date Type Department Care Team (Late st Contact Info) Description 10/03/[address] [facility] - Main Lab [address] [place] [address] Jonathon Antunez MD [address] [place] [id number] Low back pain, unspecified Social History Tobacco [...] Travel phlebotomy fee (10/03/2024 5:51 AM EST) [facility] TRAVEL PHLEBOTOMY FEE Completed 10/03/2024 8:01 AM EST [facility] Blood Venous blood specimen / Unknown 10/03/2024 5:51 AM EST 10/03/2024 7:56 AM EST us Jonathon Antunez MD LAB BLOOD ORDERABLES Final Res ult Performing Organization Address [facility] Co de Phone Number [facility] [address] [place] [address], [place] [phone] * (ABNORMAL) Hemoglobin A1c (10/03/2024 5:51 AM EST) Hemoglobin A1C 6.8(H) <6.5 % LAB CHEMISTRY METHOD 10/03/2024 2:20 PM EST [facility] Mean Bld Glu Estim. 148 mg/dL LAB CHEMISTRY METHOD 10/03/2024 2:20 PM EST [facility] Blood Venous blood specimen / Unknown 10/03/2024 5:51 AM EST 10/03/2024 7:56 AM EST Jonathon Antunez MD LAB BLOOD ORDERABLES Final Res ult Performing Organization Address [facility] Co de Phone Number [facility] [address] [place] [address], [place] [phone] documented in this encounter Visit Diagnoses Diagnosis Low back pain, unspecified documented in this encounter Care Teams Corporate Librarian Relationship Specialty Start Date End Date Daisy Lee MD [address] [place] [phone] PCP - General Hospitalist Medicine 03/18/25 documented as of this encounter
== END 2025-10-13 14:11 | disposition home or self-care (01) ==
LOC: HO.HPS 13:35
PROVIDERS: PCP Internal Medicine; Visit Provider Hospitalist
DX: J47.0 Bronchiectasis with acute lower respiratory infection (principal); J44.0 Chronic obstructive pulmonary disease with (acute) lower respiratory infection; D80.1 Nonfamilial hypogammaglobulinemia; M30.1 Polyarteritis with lung involvement [Churg-Strauss]; D72.18 Eosinophilia in diseases classified elsewhere; E11.65 Type 2 diabetes mellitus with hyperglycemia; M48.061 Spinal stenosis, lumbar region without neurogenic claudication; M54.40 Lumbago with sciatica, unspecified side; G89.29 Other chronic pain; J32.9 Chronic sinusitis, unspecified
CPT/HCPCS: 99214; G2211

== ENCOUNTER → 2025-10-13 13:34 | Outpatient (BNVA) | payer MEDICARE, OTHER, SELFPAY | PROVIDERS: PCP Internal Medicine; Visit Provider Hospitalist | DX: J47.0 Bronchiectasis with acute lower respiratory infection (principal); J44.0 Chronic obstructive pulmonary disease with (acute) lower respiratory infection; J32.9 Chronic sinusitis, unspecified; M30.1 Polyarteritis with lung involvement [Churg-Strauss]; D72.18 Eosinophilia in diseases classified elsewhere; M54.40 Lumbago with sciatica, unspecified side; G89.29 Other chronic pain; E11.65 Type 2 diabetes mellitus with hyperglycemia; Z79.84 Long term (current) use of oral hypoglycemic drugs | CPT/HCPCS: 99212 ==